=== PATIENT | female | born 1945 | race Caucasian/White ===

== ENCOUNTER 2017-02-11 06:57 | Day surgery (SDC) | payer MEDICARE, OTHER ==
[2017-02-09 11:11] VITALS: BMI 35.2
[~2017-02-11 06:57] MED LIST: LACTATED RINGERS 1,000 ML IV SCH
[2017-02-11 07:17] VITALS: TEMP 97.8
[2017-02-11 07:23] LABS: Glucose,Whole Blood 185 mg/dL (75-99)
[2017-02-11] MEDS ORDERED: LIDOCAINE 1% 20 ML VIAL (10MG/ML) FOR IV START INTRADERMA ONE (07:24)
[2017-02-11] MEDS ORDERED: PROPOFOL 10 MG/ML 20 ML VIAL IV ONE (07:37)
[2017-02-11] MEDS ORDERED: LIDOCAINE 1% INJ 10MG/ML (20 ML MDV) ONE (07:37)
--- NOTE | 2017-02-11 08:01 | P.PCN ---
Date of Procedure: 02/11/17 Procedure(s) Performed: BRIEF HISTORY: Patient is a 71-year-old, pleasant, white female, scheduled for an upper endoscopy as a part of evaluation of epigastric pain for the last several years duration. She does have long-standing history of gastroesophageal reflux symptoms and has been on Prilosec 20 mg twice daily. Because of the persistent symptoms she is scheduled for an upper endoscopy today.. PROCEDURE PERFORMED: Esophagogastroduodenoscopy with biopsy PREOPERATIVE DIAGNOSIS: Chronic Epigastric pain. IV sedation per anesthesia. PROCEDURE: After informed consent was obtained, the patient was brought into the endoscopy unit. IV conscious sedation was administered by Anesthesia under continuous monitoring. Initially the Olympus GIF-140 video endoscope was inserted into the mouth. Esophagus intubated without any difficulty. It was gradually advanced into the stomach and duodenum and carefully examined. The bulb and the second part of the duodenum appeared normal. The scope at this time was withdrawn to the stomach, adequately insufflated with air, and upon careful examination, mucosa of the antrum, had mild gastritis and biopsies were done from this area. The body, cardia and the fundus appeared normal. The scope was then withdrawn into the esophagus. The GE junction was located at 39 cm from the incisors. The esophagus appeared normal. There were no erosions or ulcerations seen and the patient tolerated the procedure well. IMPRESSION: 1. Mild antral gastritis. 2. No evidence of esophagitis or peptic ulcer disease. RECOMMENDATIONS: The findings of this examination were discussed with the patient as well as her family. She was advised to follow with the biopsy results. In the meantime she will continue with Prilosec 20 mg twice daily and follow antireflux measures.
[2017-02-11 08:05] VITALS: RESP 16
[2017-02-11 08:14] LABS: Glucose,Whole Blood 173 mg/dL (75-99)
[2017-02-11 08:15] VITALS: BP 129/71; PULSE 64
--- NOTE | 2017-02-19 09:48 | CDI ---
Dr. Merlyn Colin, Due to new rules about charging for conscious sedation, we noted conflicting information about type of sedation between your procedure note (stating IV CONSCIOUS sedation under Procedure heading) and Anesthesia Record which states Unconscious sedation. Because the word CONSCIOUS now has a different meaning for billing, we need you to stop dictating conscious sedation when Anesthesia is involved on your cases. FOR THIS CASE, WE NEED YOU TO DO ADDENDUM TO YOUR PROCED NOTE THAT SAYS "Unconscious" SEDATION instead of CONSCIOUS SEDATION. Thank you bina much for your assistance with this important billing compliance documentation issue. Sincerely, Master Guerra--health information coder Joan Dumas MBA, DAY GUARD, [facility] Radiology Teacher, Derick Larry [phone] [facility]
--- NOTE | 2017-04-01 11:56 | PCN ---
DATE OF SERVICE: 02/11/2017 ADDENDUM: General anesthesia was utilized instead of IV conscious sedation.
== END 2017-02-11 08:54 | disposition home or self-care (01) ==
LOC: ORWHC2ENDO 06:57
PROVIDERS: ATTEND Internal Medicine Gastroenterology
DX: K21.0 Gastro-esophageal reflux disease with esophagitis (principal); K29.50 Unspecified chronic gastritis without bleeding; I10 Essential (primary) hypertension; J45.909 Unspecified asthma, uncomplicated; E11.9 Type 2 diabetes mellitus without complications; E07.9 Disorder of thyroid, unspecified; Z88.3 Allergy status to other anti-infective agents; Z88.2 Allergy status to sulfonamides; Z88.0 Allergy status to penicillin; Z79.82 Long term (current) use of aspirin; Z79.51 Long term (current) use of inhaled steroids; Z79.84 Long term (current) use of oral hypoglycemic drugs; Z79.899 Other long term (current) drug therapy
CPT/HCPCS: 88305; 88342; 43239; J2001; J2704

== ENCOUNTER → 2018-05-14 | Outpatient (CLI) | payer MEDICARE, OTHER ==
--- NOTE | 2018-05-14 14:49 | MR ---
EXAMINATION TYPE: MR lumbar spine wo/w con DATE OF EXAM: 05/14/2018 COMPARISON: Bone survey September 10, 2017 HISTORY: Multiple myeloma and low back pain per order. Pain in back into both legs for 2 months per p atient. TECHNIQUE: Multiplanar, multisequence images of the lumbar spine is performed without and with IV contrast, util izing 9 mL intravenous Gadavist FINDINGS: Sagittal images of the lumbar spine show vertebral body heights and alignment to appear sat isfactory. Multilevel disc desiccation is present. There is multilevel mild disc space narrowing with relative sparing of T12-L1 and L1-L2 levels. There is more moderate to advanced disc space narrowin g L5-S1 level with mild anterior spurring and heterogeneous Modic type II degenerative changes. There is similar Modic type II degenerative change in the inferior L2 endplate. The conus medullaris is no rmal in position and signal ending at inferior L1 level. Overall heterogeneity is present. Mild to mo derate multilevel anterior spurring is seen. Postcontrast images show no suspicious enhancement Axial images show the T12-L1 and L1-L2 levels to appear within normal limits. Axial images at L2-L3 level show mild broad disc bulge mildly effacing anterior thecal sac, bilateral neural foramina are patent. Axial images at L3-L4 level show mild broad disc bulge mildly effacing anterior thecal sac. There is mild facet arthropathy bilaterally. There is mild bilateral anterior inferior neural foraminal narrow ing. Axial images at L4-L5 level show mild to moderate facet degenerative changes bilaterally. There is mi ld effacement posterior lateral thecal sac. There is broad-based posterior disc protrusion minimally effacing anterior thecal sac. Bilateral neural foramina are mildly narrowed. Axial images at L5-S1 level show mild facet arthropathy bilaterally. There is central disc protrusion minimally effacing anterior thecal sac. There is mild to moderate left and mild right-sided anterior inferior neural foraminal narrowing. No suspicious retroperitoneal findings are seen. There is nonspecific enhancement of a single sacral nerve root in the spinal canal on axial images. IMPRESSION: Multilevel degenerative changes in lumbar spine as detailed above.
== END ==
LOC: RADMRIMAIN 13:49
PROVIDERS: ATTEND Internal Medicine Hematology & Oncology
DX: M47.816 Spondylosis without myelopathy or radiculopathy, lumbar region (principal); C90.00 Multiple myeloma not having achieved remission
CPT/HCPCS: 72158; A9581

== ENCOUNTER → 2018-06-16 | Outpatient (CLI) | payer MEDICARE, OTHER ==
--- NOTE | 2018-06-16 16:00 | XR ---
EXAMINATION TYPE: XR chest 2V DATE OF EXAM: 06/16/2018 COMPARISON: 12/05/2015 TECHNIQUE: PA and lateral views submitted. HISTORY: Multiple myeloma FINDINGS: The lungs are clear and there is no pneumothorax, pleural effusion, or focal pneumonia. Evidence of previous vertebroplasty noted. No overt failure. Biapical pleural thickening. Arthropathy of the aura ulders. IMPRESSION: 1. No acute process.
== END | disposition home or self-care (01) ==
LOC: RADXRMAIN 15:43
PROVIDERS: ATTEND Internal Medicine Hematology & Oncology
DX: C90.00 Multiple myeloma not having achieved remission (principal); F41.8 Other specified anxiety disorders; E78.2 Mixed hyperlipidemia; M54.9 Dorsalgia, unspecified
CPT/HCPCS: 71046

== ENCOUNTER → 2019-04-20 | Outpatient (CLI) | payer MEDICARE, OTHER ==
--- NOTE | 2019-04-20 19:52 | MR ---
EXAMINATION TYPE: MR lumbar spine wo/w con DATE OF EXAM: 04/20/2019 COMPARISON: Ms MRI lumbar spine May 14, 2018 HISTORY: Multiple myeloma, back pain, BLE radic TECHNIQUE: Multiplanar, multisequence images of the lumbar spine is performed without and with IV contrast, util izing 10 mL intravenous Gadavist FINDINGS: Sagittal images of the lumbar spine show vertebral body heights and alignment to remain sat isfactory. Multilevel disc desiccation is redemonstrated. There is persistent moderate to severe dis c space narrowing with heterogeneous Modic type II endplate changes L5-S1 level. There is persistent mild disc space narrowing L2-L3 level with Modic type II endplate changes inferior L2 endplate. The c onus medullaris remains normal in position and signal ending inferior L1 level. The bone marrow sign al intensity remains overall heterogeneous without suspicious enhancement. Axial images show the T12-L1 and L1-L2 levels remain within normal limits. Axial images at the L2-L3 level redemonstrate mild broad disc bulge mildly effaces the anterior theca l sac, bilateral neural foramina are patent. No significant change from prior. Axial images at L3-L4 level show [id number] broad disc bulge minimally effacing anterior thecal sac, mild facet degenerative changes are present bilaterally. Bilateral neural foramina are patent. No significant change from prior. Axial images at the L4-L5 level show [id number] facet degenerative changes bilaterally. There i s broad disc bulge with tiny central disc protrusion minimally effacing the anterior thecal sac. Ther e is mild effacement posterior lateral thecal sac. Bilateral neural foramina are minimally narrowed. No significant change from prior. Axial images at the L5-S1 level show mild/moderate facet degenerative changes bilaterally with right paracentral disc protrusion on image 2 effacing the anterior thecal sac, there is asymmetric mild to moderate left-sided neural foraminal narrowing due to left foraminal/lateral disc protrusion componen t. There is mild right-sided neural foraminal narrowing. No significant change from prior. No suspicious incidental retroperitoneal findings are seen. Redemonstration of single enhancing sacra l nerve root unchanged from prior. IMPRESSION: Overall stable findings, multilevel degenerative changes lumbar spine as detailed above p rominent mid to lower lumbar levels.
== END | disposition home or self-care (01) ==
LOC: RADMRIMAIN 15:07
PROVIDERS: ATTEND Internal Medicine Hematology & Oncology
DX: M47.816 Spondylosis without myelopathy or radiculopathy, lumbar region (principal); C90.00 Multiple myeloma not having achieved remission
CPT/HCPCS: 72158; A9585

== ENCOUNTER → 2019-05-03 | Outpatient (CLI) | payer MEDICARE, OTHER ==
[2019-04-28 11:21] VITALS: BMI 46.6
[2019-05-03 11:59] VITALS: BP 148/84; PULSE 69; RESP 18
--- NOTE | 2019-05-03 12:35 | P.PAINCN ---
History of Present Illness - Reason for Consult Consult date: 05/03/19 Back pain - Chief Complaint Back pain - History of Present Illness This a 73-year-old woman who presents our clinic today for evaluation. She has a history of multiple myeloma and low back pain. [facility] and they performed injection therapy for her from February until March of this year. She is unclear as to exactly what procedure she had done. She says they were not helpful for her. She presents today requesting additional assistance with her back pain. She denies bowel or bladder dysfunction. She denies significant weakness in her legs or sensory loss. Review of Systems Positive for intractable back pain. All other systems reviewed were negative Past Medical History Past Medical History: Asthma, Cancer, Chest Pain / Angina, COPD, Diabetes Mellitus, GERD/Reflux, Hyperlipidemia, Hypertension, Osteoarthritis (OA), Skin Disorder, Thyroid Disorder Additional Past Medical History / Comment(s): irregular heartbeat, hiatal hernia, hx ulcer, degenerative disk disease, psoriasis, multiple myeloma, vertigo History of Any Multi-Drug Resistant Organisms: None Reported Past Surgical History: Breast Surgery, Cholecystectomy, Hysterectomy, Tonsillectomy Additional Past Surgical History / Comment(s): surgery for tubal pregancy, left foot heel spurs, selena breast reduction, fatty tissue removed from rt leg, selena cataracts, autologous stem cell transplant Past Anesthesia/Blood Transfusion Reactions: Motion Sickness Additional Past Anesthesia/Blood Transfusion Reaction / Comm: vertigo Smoking Status: Former smoker - Past Family History Daughter(s) Family Medical History: Cancer Father History Unknown: Yes Mother Family Medical History: Coronary Artery Disease (CAD) Sister(s) Family Medical History: Cancer Additional Family Medical History / Comment(s): lung cancer Brother(s) Family Medical History: Dementia Medications and Allergies Home Medications Medication Instructions Recorded Confirmed Type Lansoprazole [Prevacid] 30 mg PO DAILY 11/11/15 05/03/19 History Montelukast [Singulair] 10 mg PO HS 11/11/15 05/03/19 History Venlafaxine HCl ER [Effexor XR] 150 mg PO BID 11/11/15 05/03/19 History Mometasone/Formoterol [Dulera 200 2 puff INHALATION BID 11/12/15 05/03/19 History Mcg/5 Mcg Inhaler] Cholecalciferol [Vitamin D3 (25 5,000 unit PO DAILY 12/13/15 05/03/19 History Mcg = 1000 Iu)] Ipratropium Nebulized [Atrovent 0.5 mg INHALATION QID PRN 12/13/15 05/03/19 History Nebulized 0.2 MG/ML] Verapamil HCl [Verapamil ER] 240 mg PO QAM 12/13/15 05/03/19 History Aspirin [Aspirin EC] 500 mg PO DAILY PRN 02/09/17 05/03/19 History Atorvastatin [Lipitor] 40 mg PO HS 02/09/17 05/03/19 History Acyclovir 400 mg PO QAM 04/28/19 05/03/19 History Calcium Carbonate [Calcium] 600 mg PO QAM 04/28/19 05/03/19 History Dexamethasone 8 mg PO FR 04/28/19 05/03/19 History Gabapentin [Neurontin] 100 mg PO BID 04/28/19 05/03/19 History Glyburide(Dose Unknown) 2 tab PO QAM 04/28/19 05/03/19 History Levothyroxine Sodium [Synthroid] 75 mcg PO DAILY 04/28/19 05/03/19 History Magnesium Oxide [Montes] 500 mg PO DAILY 04/28/19 05/03/19 History Mirtazapine [Remeron (Soluspan)] 30 mg PO QAM PRN 04/28/19 05/03/19 History Pioglitazone [Actos] 30 mg PO DAILY 04/28/19 05/03/19 History Spironolactone [Aldactone] 25 mg PO DAILY 04/28/19 05/03/19 History Allergies Allergy/AdvReac Type Severity Reaction Status Date / Time iodine Allergy Rash/Hives Verified 04/28/19 10:58 Iodine and Iodide Containing Allergy Rash/Hives Verified 04/28/19 10:58 Produc Penicillins Allergy Anaphylaxis Verified 04/28/19 10:58 Sulfa (Sulfonamide Allergy Itching Verified 04/28/19 10:58 Antibiotics) Physical Exam Vitals: Vital Signs Pulse Resp BP 05/03/19 11:46 69 18 148/84 General: The patient is alert and oriented. Patient is not sedated Patient answers all question appropriately. Cardiac: Heart is regular in rate and rhythm Respiratory: Clear to auscultation. No audible wheezes. Abdomen: Soft nontender nondistended. Obese. Musculoskeletal: Strength is normal bilaterally. Sensation is normal bilaterally. Straight leg raise is negative bilaterally. Facet loading maneuvers are negative bilaterally. Neurological: Reflexes are preserved and symmetric bilaterally. Results Comments: Patient had an MRI of her lumbar spine dated 05/14/2018. This reveals mild to moderate disc bulge at L3 4 with effacement of the anterior thecal sac. She also has mild to moderate facet degenerations at L4 5 with a broad-based disc bulge and tiny central disc protrusion effacing the anterior thecal sac. There is also facet degeneration at L5-S1 with a disc protrusion effacing the anterior thecal sac. Assessment and Plan (1) Lumbar spondylosis Current Visit: Yes Status: Acute Code(s): M47.816 - SPONDYLOSIS W/O MYELOPATHY OR RADICULOPATHY, LUMBAR REGION SNOMED Code(s): 686482576 (2) Degenerative lumbar spinal stenosis Narrative/Plan: I requested the patient obtained records from her previous pain clinic. We will review whenever procedure she had done in the medications used. It is possible he has some alternatives that'll be helpful for her. I would be looking mainly a transforaminal epidural steroid injections or translaminar epidural steroid injections with different medications overuse previously. I do not think she is a great candidate for lumbar medial branch nerve blocks as she does not have any significant facet loading symptoms on physical examination. If there is nothing further to offer her than referral to a neurosurgeon may be a reasonable course of action. Current Visit: Yes Status: Acute Code(s): M48.061 - SPINAL STENOSIS, LUMBAR REGION WITHOUT NEUROGENIC GLORIA SNOMED Code(s): 716109288 PQRS Measure Charge Sheet Measure #130: Documentation of Current Meds in Medical Chart: Patient's medications documented in chart Measure #226: Tobacco Use: Screen & Cessation Intervention: Pt not a tobacco user Measure #111: Pneumonia Vaccination: Pneumococcal vaccine administered or previously received Measure #47: Advance Care Plan: Advance care planning discussed & documented, pt chose/unable to give Measure #412: Opioid Treatment Agreement: No documentation of signed opioid treatment agreement Measure #408: Opioid Therapy Follow-up Evaluation: Patient had NO f/u eval minimum every 3 months during opioid therapy Measure #317: Preventitive Care & Scrn High Bld Press & F/U: Normal blood pressure, f/u not required Measure #128: Body Mass Index (BMI) Screening & Follow-up: BMI documented ABOVE normal parameters - f/u documented Measure #131: Pain Assessment & Follow-up: Pain positive & plan documented Measure #431: Unhealthy Alcohol Use Preventative Care & Scrn: Patient not identified as an unhealthy alcohol user PQRS Narrative: Smoking Status Former smoker Blood Pressure 148/84 Pain Intensity [Lower Back] 8 Hx Alcohol Use (MH) No Home Medications: Ambulatory Orders Lansoprazole [Prevacid] 30 mg PO DAILY 11/11/15 Montelukast [Singulair] 10 mg PO HS 11/11/15 Venlafaxine HCl ER [Effexor XR] 150 mg PO BID 11/11/15 Mometasone/Formoterol [Dulera 200 Mcg/5 Mcg Inhaler] 2 puff INHALATION BID 11/12/15 Cholecalciferol [Vitamin D3 (25 Mcg = 1000 Iu)] 5,000 unit PO DAILY 12/13/15 Ipratropium Nebulized [Atrovent Nebulized 0.2 MG/ML] 0.5 mg INHALATION QID PRN 12/13/15 Verapamil HCl [Verapamil ER] 240 mg PO QAM 12/13/15 Aspirin [Aspirin EC] 500 mg PO DAILY PRN 02/09/17 Atorvastatin [Lipitor] 40 mg PO HS 02/09/17 Acyclovir 400 mg PO QAM 04/28/19 Calcium Carbonate [Calcium] 600 mg PO QAM 04/28/19 Dexamethasone 8 mg PO FR 04/28/19 Gabapentin [Neurontin] 100 mg PO BID 04/28/19 Glyburide(Dose Unknown) 2 tab PO QAM 04/28/19 Levothyroxine Sodium [Synthroid] 75 mcg PO DAILY 04/28/19 Magnesium Oxide [Montes] 500 mg PO DAILY 04/28/19 Mirtazapine [Remeron (Soluspan)] 30 mg PO QAM PRN 04/28/19 Pioglitazone [Actos] 30 mg PO DAILY 04/28/19 Spironolactone [Aldactone] 25 mg PO DAILY 04/28/19
== END | disposition home or self-care (01) ==
LOC: PNWHC3 11:38
PROVIDERS: ATTEND Pain Medicine Pain Medicine
DX: M48.061 Spinal stenosis, lumbar region without neurogenic claudication (principal); M99.73 Connective tissue and disc stenosis of intervertebral foramina of lumbar region; M47.816 Spondylosis without myelopathy or radiculopathy, lumbar region; C90.00 Multiple myeloma not having achieved remission; E78.5 Hyperlipidemia, unspecified; J45.909 Unspecified asthma, uncomplicated; E07.9 Disorder of thyroid, unspecified; K21.9 Gastro-esophageal reflux disease without esophagitis; I10 Essential (primary) hypertension; M19.90 Unspecified osteoarthritis, unspecified site; Z87.891 Personal history of nicotine dependence; Z88.0 Allergy status to penicillin; Z88.2 Allergy status to sulfonamides; Z91.048 Other nonmedicinal substance allergy status
CPT/HCPCS: 99211

== ENCOUNTER → 2019-05-10 | Outpatient (CLI) | payer MEDICARE, OTHER ==
[2019-05-10 13:45] VITALS: BP 124/74; PULSE 76; RESP 18
--- NOTE | 2019-05-10 14:22 | P.PAINPG ---
Subjective Progress Note Date: 05/10/19 This is a follow-up visit for this 74 years old female, with a chronic history of severe low back pain, patient had interventional pain procedure done at [facility], transforaminal epidural steroid injections x2 , and caudal epidural steroid injections, and she had 0 benefits from all the proced ures, patient reported that most of her pain in the low back area with radiation to the buttock, with occasional radiation to the groin bilaterally, she ambulates using a walker, patient was diagnosed previously with multiple myeloma, and she is under the care of oncologist Dr. Barba , intensity of the pain interfering with her quality of life, the pain is constant and increases with any activity, patient brought with her on the medical records which was reviewed , which showed the patient had 3 injections at orth[facility] done by Dr. Machado and she had also EMG/nerve conduction study and it showed chronic lumbar spinal stenosis and peripheral polyneuropathy, patient had MRI done at [facility] done 04/20/2019 ,it showed multilevel lumbar degenerative disc disease and multilevel lumbar facet arthropathy, Objective - Vital Signs Vital signs: Vital Signs Temp Pulse 76 05/10/19 13:39 Resp 18 05/10/19 13:39 BP 124/74 05/10/19 13:39 Pulse Ox 95 05/10/19 13:39 - Exam Physical Examinations : -Constitutiona : Cooperative , not in acute distress . -HEENT : nech ; supple , no Lymphadenopathy , normal thyroid size . eyes : no ptosis , no icterus, no photophobia . ENT : normal of hearing , normal oropharynx , no Thrush . - Respiratory : Chest clear to auscultations Bilaterally , no wheezing , no Rhonchi . - Cardiovascula : regular rate and rhythem , S1 , S2 , no S3 , no S4. - Gastrointestina : abdomen soft no tenderness , bowel sounds , no organomegally . - Genitourinary : Defferred . - neurologic : Cranial nerve II to XII intact , no focal neurological deffecit . -psychatric : alert , oriented X 3 , appropriate affect , intact judgment and insight . -Lymphatic : no Lymphadenopathy . - musculoskeltal : Lumber spine moter stegnth lower extremities ,thigh and legs 4/5 Right side , 4/5 Left side deep tendon reflexes : normal Knee Jerk , normal ankle Jerk positive lumber facet Loading Test Range of motion of the lumbar spine Flexion 60 degrees, extension 30 degrees strait leg raising test , positive at 45 degree on the left side and its negative on the right side Fabere test negative bilaterally Sever tenderness over the Sacroiliac joint on the R and L sides Gaenslen test positive bilaterally. Seated flexion test positive bilaterally. Assessment and Plan Plan: Assessment and plan= chronic low back pain secondary to multifactorial cause lumbar degenerative disc disease and lumbar spondylosis with lumbar facet arthropathy, and also patient had bilateral sacroiliitis , patient had no benefit after transforaminal epidural steroid injection and after caudal epidural steroid injections, the patient will be good candidate to have diagnostic medial branch block lumbar area L3 4, L4 5 , L5-S1 , and possible RFA if she had a positive result , and If patient had negative results , then it will be warranted to target the sacroiliac joint etiology Time with Patient: Less than 30 PQRS Measure Charge Sheet Measure #130: Documentation of Current Meds in Medical Chart: Patient's medications documented in chart Measure #226: Tobacco Use: Screen & Cessation Intervention: Pt not a tobacco user Measure #111: Pneumonia Vaccination: Pneumococcal vaccine administered or previously received Measure #47: Advance Care Plan: Advance care planning discussed & documented, pt chose/unable to give Measure #412: Opioid Treatment Agreement: No documentation of signed opioid treatment agreement Measure #408: Opioid Therapy Follow-up Evaluation: Patient had NO f/u eval minimum every 3 months during opioid therapy Measure #317: Preventitive Care & Scrn High Bld Press & F/U: Normal blood pressure, f/u not required Measure #128: Body Mass Index (BMI) Screening & Follow-up: BMI documented ABOVE normal parameters - f/u documented Measure #131: Pain Assessment & Follow-up: Pain positive & plan documented, Follow-up scheduled Measure #431: Unhealthy Alcohol Use Preventative Care & Scrn: Patient not identified as an unhealthy alcohol user PQRS Narrative: Smoking Status Former smoker Blood Pressure 124/74 Pain Intensity [Lower Back] 8 Scale Used Numeric (1 - 10) Hx Alcohol Use (MH) No Home Medications: Ambulatory Orders Lansoprazole [Prevacid] 30 mg PO DAILY 11/11/15 Montelukast [Singulair] 10 mg PO HS 11/11/15 Venlafaxine HCl ER [Effexor XR] 150 mg PO BID 11/11/15 Mometasone/Formoterol [Dulera 200 Mcg/5 Mcg Inhaler] 2 puff INHALATION BID 11/12/15 Cholecalciferol [Vitamin D3 (25 Mcg = 1000 Iu)] 5,000 unit PO DAILY 12/13/15 Ipratropium Nebulized [Atrovent Nebulized 0.2 MG/ML] 0.5 mg INHALATION QID PRN 12/13/15 Verapamil HCl [Verapamil ER] 240 mg PO QAM 12/13/15 Aspirin [Aspirin EC] 500 mg PO DAILY PRN 02/09/17 Atorvastatin [Lipitor] 40 mg PO HS 02/09/17 Acyclovir 400 mg PO QAM 04/28/19 Calcium Carbonate [Calcium] 600 mg PO QAM 04/28/19 Dexamethasone 8 mg PO FR 04/28/19 Gabapentin [Neurontin] 100 mg PO BID 04/28/19 Glyburide(Dose Unknown) 2 tab PO QAM 04/28/19 Levothyroxine Sodium [Synthroid] 75 mcg PO DAILY 04/28/19 Magnesium Oxide [Montes] 500 mg PO DAILY 04/28/19 Mirtazapine [Remeron (Soluspan)] 30 mg PO QAM PRN 04/28/19 Pioglitazone [Actos] 30 mg PO DAILY 04/28/19 Spironolactone [Aldactone] 25 mg PO DAILY 04/28/19 Controlled Substance Measures - Controlled Substance Measures Is patient prescribed a controlled substance at discharge?: No
== END | disposition home or self-care (01) ==
LOC: PNWHC3 13:29
PROVIDERS: ATTEND Specialist
DX: G89.29 Other chronic pain (principal); M51.36 Other intervertebral disc degeneration, lumbar region; M47.816 Spondylosis without myelopathy or radiculopathy, lumbar region; M46.1 Sacroiliitis, not elsewhere classified; Z79.51 Long term (current) use of inhaled steroids; Z79.52 Long term (current) use of systemic steroids; Z79.899 Other long term (current) drug therapy; Z87.891 Personal history of nicotine dependence
CPT/HCPCS: 99211

== ENCOUNTER 2019-05-18 06:42 | Day surgery (SDC) | payer MEDICARE, OTHER ==
[2019-05-13 15:14] VITALS: BMI 44.6
[2019-05-18 07:09] VITALS: TEMP 96
[2019-05-18] MEDS ORDERED: LACTATED RINGERS 1,000 ML IV ONE (07:16)
[2019-05-18] MEDS ORDERED: LIDOCAINE 1% 20 ML VIAL (10MG/ML) FOR IV START INTRADERMA ONE (07:17)
[2019-05-18 07:58] LABS: Glucose,Whole Blood 135 mg/dL (75-99)
[2019-05-18] MEDS ORDERED: LACTATED RINGERS 1,000 ML IV SCH (08:15)
[2019-05-18] MEDS ORDERED: IV FLUID CONTINUATION 1,000 ML IV ONE (08:35)
--- NOTE | 2019-05-18 08:42 | P.PCN ---
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 She reports the first blocks reduce her pain greater than 50%. PROCEDURE DESCRIPTION: the patient was seen and identified in the preop holding area , risks and benefits and possible complications of the procedure and alternative were discussed with the patient, and the patient agreed to proceed with the procedure and signed the consent IV was started and vital signs monitored during the procedure and fluoroscopy was used to maximize the benefit and accuracy of the needle placement, and sedation was given to decrease patient anxiety, patient was taken to the procedure room and placed in prone position vital signs monitored in the back prepped. Under strict sterile technique using a right oblique fluoroscopy ,the junction of the transverse process and the superior articulating process of the right L3- 4 , L4- 5, and L5-S1 vertebra which corresponding to the fluoroscopy image of the eye of the Santi dog on the block side for the medial branches and subsequently , after local infiltration of skin and subcutaneous tissues with lidocaine 1% one mL at each level ,then one 25-gauge Quincke-type needles was placed at the junction of the base of the transverse process and the superior articular process at the appropriate level, and the needle was advanced until the periosteum contacted, needle placement confirmed with AP oblique and lateral view and after appropriate needle placement confirmed, and after negative aspiration, 0.5 mL of Marcaine 0.5% mixed with 40 mg depomedrol in divided doses was injected at each level and the needle subsequently removed and then repeated on the left side. At the end of the procedure and the needles removed and a bandage applied after the skin was cleaned the cleaning solution patient taken to recovery room in stable condition and monitors in the recovery room for 20-30 minutes and discharged home in stable condition after discharge criteria met and patient will follow up with the pain clinic in 2-4 weeks EBL: Minimal COMPLICATION: None.
[2019-05-18 08:58] VITALS: BP 152/65; PULSE 79; RESP 18
--- NOTE | 2019-05-18 12:49 | FL ---
Fluoroscopy HISTORY: Pain 2 seconds fluoroscopy time supplied to the referring clinician. 1 intraoperative C-arm images docume nt the procedure. See dictated report from anesthesia.
== END 2019-05-18 09:14 | disposition home or self-care (01) ==
LOC: ORPAIN 06:42
PROVIDERS: ATTEND Pain Medicine Pain Medicine
DX: M47.26 Other spondylosis with radiculopathy, lumbar region (principal); M51.16 Intervertebral disc disorders with radiculopathy, lumbar region; M48.061 Spinal stenosis, lumbar region without neurogenic claudication; M46.1 Sacroiliitis, not elsewhere classified; C90.00 Multiple myeloma not having achieved remission; G62.9 Polyneuropathy, unspecified; Z79.82 Long term (current) use of aspirin; Z79.890 Hormone replacement therapy; Z79.84 Long term (current) use of oral hypoglycemic drugs; Z79.51 Long term (current) use of inhaled steroids; Z79.899 Other long term (current) drug therapy; Z88.0 Allergy status to penicillin; Z88.2 Allergy status to sulfonamides; Z91.048 Other nonmedicinal substance allergy status
CPT/HCPCS: 64493; 64494; 64495; J2250; J1030; 99152

== ENCOUNTER 2019-06-01 07:25 | Day surgery (SDC) | payer MEDICARE, OTHER ==
[2019-05-25 10:09] VITALS: BMI 45.1
[2019-06-01] MEDS ORDERED: LACTATED RINGERS 1,000 ML IV SCH (07:35)
[2019-06-01 07:45] VITALS: TEMP 96.8
[2019-06-01] MEDS ORDERED: LIDOCAINE 1% 20 ML VIAL (10MG/ML) FOR IV START INTRADERMA ONE (08:01)
[2019-06-01 08:04] LABS: Glucose,Whole Blood 190 mg/dL (75-99)
--- NOTE | 2019-06-01 09:05 | P.PCN ---
Date of Procedure: 06/01/19 Procedure(s) Performed: PREOPERATIVE DIAGNOSIS : Lumbar spondylosis with Facet Arthropathy without myelopathy POSTOPERATIVE DIAGNOSIS: same PROCEDURE: Diagnostic lumbar medial branch block with fluoroscopy at bilateral L3, L4, L5 medial branches ANESTHESIA: Local anesthetic; 2 mg of Versed Surgeon: Farhat Corrales MD PROCEDURE INDICATION: This is a pleasant 73-year-old woman with a history of intractable back pain who presents today for repeat of bilateral lumbar medial branch block. She reports the first blocks reduced her pain by about 50%. PROCEDURE DESCRIPTION: the patient was seen and identified in the preop holding area , risks and benefits and possible complications of the procedure and alternative were discussed with the patient, and the patient agreed to proceed with the procedure and signed the consent IV was started and vital signs monitored during the procedure and fluoroscopy was used to maximize the benefit and accuracy of the needle placement, and sedation was given to decrease patient anxiety, patient was taken to the procedure room and placed in prone position vital signs monitored in the back prepped. Under strict sterile technique using a right oblique fluoroscopy ,the junction of the transverse process and the superior articulating process of the right L4 , L5 vertebra and sacral ala which corresponding to the fluoroscopy image of the eye of the Santi dog on the block side for the medial branches and subsequently , after local infiltration of skin and subcutaneous tissues with lidocaine 1% 0.2 mL at each level ,then 22-gauge 5 inch Quincke-type needles was placed at the junction of the base of the transverse process and the superior articular process at the appropriate level, and the needle was advanced until the periosteum contacted, needle placement confirmed with AP and oblique view and after negative aspiration, 0.5 mL of Marcaine 0.5% was injected at each level and the needle subsequently removed and then repeated on the opposite side. At the end of the procedure, the needles removed and a bandage applied after the skin was cleaned the cleaning solution patient taken to recovery room in stable condition and monitors in the recovery room for 20-30 minutes and discharged home in stable condition after discharge criteria met and patient will follow up with the pain clinic in 2-4 weeks EBL: Minimal COMPLICATION: None.
[2019-06-01] MEDS ORDERED: IV FLUID CONTINUATION 1,000 ML IV ONE (09:13)
[2019-06-01 09:40] VITALS: BP 147/80; PULSE 74; RESP 18
--- NOTE | 2019-06-01 09:58 | FL ---
EXAMINATION TYPE: FL guided pain mgmt statistic DATE OF EXAM: 06/01/2019 HISTORY: Flouroscopy time 10 seconds of fluoroscopy provided. IMPRESSION: 1. Fluoroscopy time.
== END 2019-06-01 09:43 | disposition home or self-care (01) ==
LOC: ORPAIN 07:25
PROVIDERS: ATTEND Anesthesiology
DX: G89.29 Other chronic pain (principal); M47.816 Spondylosis without myelopathy or radiculopathy, lumbar region; C90.00 Multiple myeloma not having achieved remission; M48.061 Spinal stenosis, lumbar region without neurogenic claudication; M46.1 Sacroiliitis, not elsewhere classified; M51.36 Other intervertebral disc degeneration, lumbar region; G62.9 Polyneuropathy, unspecified; Z87.891 Personal history of nicotine dependence; Z79.82 Long term (current) use of aspirin; Z79.890 Hormone replacement therapy; Z79.899 Other long term (current) drug therapy; Z79.51 Long term (current) use of inhaled steroids; Z79.84 Long term (current) use of oral hypoglycemic drugs; Z88.5 Allergy status to narcotic agent; Z88.0 Allergy status to penicillin; Z88.2 Allergy status to sulfonamides
CPT/HCPCS: 64493; 64494; J2250; 99152

== ENCOUNTER → 2019-06-15 | Outpatient (CLI) | payer MEDICARE, OTHER ==
[2019-06-15 11:41] VITALS: BP 153/90; PULSE 82; RESP 18
--- NOTE | 2019-06-15 12:46 | P.PN ---
Subjective Progress Note Date: 06/15/19 This is a 73-year-old lady with history of chronic lower back pain due to lumbar spondylosis without myelopathy. The patient had good relief of her pain after diagnostic lumbar medial branch block. She takes oral non- opioid analgesics at home for her pain. Today, pt denies new-onset weakness, bowel/bladder incontinence, or any other signs or symptoms of cauda equina syndrome. There are no signs of acute intoxication, and no indications of medication diversion or overuse. In addition to above, 13-point review of systems is also negative for chest pain, shortness of breath, changes in vision, changes in hearing, new onset weakness, abdominal pain, diarrhea, extreme fatigue, malaise, fever, skin changes, homicidal or suicidal ideation, or bowel or bladder incontinence. Vital Signs: Reviewed in EMR Gen: AAOx3, NAD HEENT: PERRLA,hearing grossly normal Pulm: resp unlabored Heart:S1,S2, No Mur Neck: supple, trachea midline Neuro exam of the lower extremities: Normal muscle strength bilaterally and symmetrically Straight leg raising test: Negative bilaterally Rob's test: Range of motion of the lumbar spine: Facet loading test: Tenderness in the paravertebral musculature: Positive of the lumbar paravertebral musculature Neuro: CN II-XII grossly intact, Imaging: Reviewed in EMR/chart Assessment: Lumbar spondylosis without myelopathy Morbid obesity Diabetes History of multiple myeloma Plan: 1. Explanation: Opioid and psychological risk scores were reviewed. Diagnoses, prognoses, and multiple treatment options including but not limited to physical therapy, interventional therapies, adjuvant medical therapies, narcotic medica tion therapies, and surgery were discussed with the patient and all questions were answered to the patient's satisfaction. 2. Opioid agreement: We do not prescribe opioids for the patient 3. Counseling: The patient was counseled extensively on SMOKING CESSATION, BODY MASS INDEX, EXERCISE. Specifically, the patient was instructed regarding the importance of smoking cessation, obesity, and exercise in the context of both chronic pain and overall health. 4. Procedures: Scheduled for left lumbar medial branch RFA for levels L3 4, L4- L5, and L5-S1 under fluoroscopic guidance 5. Consultations: None 6. Investigations: None 7. Medications: None 8. Disposition: Return to the above-mentioned procedure as soon as possible 9. Maps were reviewed and were appropriate. PQRS measures: 1-Patient's medications are documented in the chart. 2-Tobacco use is negative, counseling given 3-Patient has had a pneumococcal vaccine. 4-Advanced care planning discussed, patient unable to give 5-Opioid contract signed with the patient. 6-Pain positive, follow-up visit or procedure scheduled 7-Patient's blood pressure measured and documented above normal limits. The patient will follow up with his primary care physician. 8-Patient's weight was measured, and body mass index ABOVE the normal limits, and counseling was done. Patient instructed to follow up with PCP. 9-Patient WAS NOT identified as an unhealthy alcohol user. Objective - Vital Signs Vital signs: Vital Signs Temp Pulse 82 06/15/19 11:36 Resp 18 06/15/19 11:36 BP 153/90 06/15/19 11:36 Pulse Ox Intake & Output 06/14/19 06/15/19 06/15/19 18:59 06:59 18:59 Weight 102.058 kg
== END | disposition home or self-care (01) ==
LOC: PNWHC3 11:25
PROVIDERS: ATTEND Anesthesiology
DX: M47.816 Spondylosis without myelopathy or radiculopathy, lumbar region (principal); E66.01 Morbid (severe) obesity due to excess calories; E11.9 Type 2 diabetes mellitus without complications; Z85.79 Personal history of other malignant neoplasms of lymphoid, hematopoietic and related tissues; Z79.1 Long term (current) use of non-steroidal anti-inflammatories (NSAID)
CPT/HCPCS: 99211

== ENCOUNTER → 2019-06-23 | Day surgery (SDC) | payer MEDICARE, OTHER ==
[2019-06-20 12:08] VITALS: BMI 44.6
[~2019-06-23] MED LIST changes: +IV FLUID CONTINUATION 700 ML IV ONE; +LIDOCAINE 1% 20 ML VIAL (10MG/ML) FOR IV START INTRADERMA ONE
[2019-06-23 07:08] LABS: Glucose,Whole Blood 207 mg/dL (75-99)
[2019-06-23 07:10] VITALS: TEMP 97.2
--- NOTE | 2019-06-23 07:50 | P.PCN ---
Date of Procedure: 06/23/19 Surgeon: Ori Fried Pathology: none sent Condition: stable Disposition: PACU Description of Procedure: PREOPERATIVE DIAGNOSIS: Lumbar spondylosis without myelopathy, morbid obesity POSTOPERATIVE DIAGNOSIS: Lumbar spondylosis without myelopathy,morbid obesity PROCEDURES : Left Radiofrequency thermocoagulation L3-L4, L4-L5, and L5-S1 medial branch, with fluoroscopic guidance ANESTHESIA: IV moderate conscious sedation with versed and fentanyl and local infiltration with lidocaine 1% 5 ml EBL: Minimal PROCEDURE INDICATION: The patient with low back pain secondary to lumbar facet arthropathy who had more than 50% relief of her pain with previous diagnostic lumbar medial branch block with bupivacaine. PROCEDURE DESCRIPTION / TECHNIQUE: The patient was seen and identified in the preoperative area. Risks, benefits, complications, including but not limited to risk of infection ,bleeding , allergic reactions to the medications and no complete pain relief , and alternatives were discussed with the patient, the patient agreed to proceed with the procedure and signed the consent. IV was started. Vital signs remained stable throughout the procedure. Patient was taken to the OR and time out was completed. The patient was placed in the prone position on the procedure table. The lumber area was prepped and draped in the usual sterile fashion. . Vital signs were closely monitored during the procedure .IV sedation was used during the procedure to decrease patients anxiety. The target points were identified as follows: For the L5-S1 level which corresponds to the dorsal ramus of L5 the target point was at the superior medial aspect of the sacral ala on the ---- side of the spine on the AP view of fluoroscopy and for the L3, and L4 medial branches the target points were at the connection between the transverse process and the superior articular process of L4, and L5 vertebra respectively on the left oblique view of fluoroscopy. skin was marked, and localized with 1% lidocaineat these points. Subsequently, an 18 louat720-[id number] radiofrequency needles with a 10-mm curved active tips were advanced guided by fluoroscopy to each of the target points mentioned above in a superior medial direction to get the active tips as parallel as possible to the medial branches tracks. AP, oblique, and lateral views of fluoroscopy were used to verify needle tips position. Each level then underwent motor testing at 2.5 Hz and 0 to 3 volt with local stimulation, but no radicular symptoms down the legs. Thereafter radiofrequency thermocoagulation at 80 degrees celsius for 90 seconds after injecting 1 ml of PF Marcaine 0.5%(3 mls) with 20 mg of Kenalog. At the end of the procedure, the skin was cleansed and bandages were applied. COMPLICATIONS: No acute complications. DISPOSITION / PLANS: The patient was placed in a supine position and transferred to the recovery area in a stable condition for observation and was discharged from the recovery room after meeting discharge criteria. Home discharge instructions given to the patient by the staff. The patient was reexamined prior to discharge. The patient will schedule a follow up in the clinic in 2-4 weeks.
[2019-06-23 08:12] VITALS: BP 136/78; PULSE 81; RESP 17
--- NOTE | 2019-06-23 08:20 | FL ---
Fluoroscopy HISTORY: Pain 12 seconds fluoroscopy time supplied to the referring clinician. 2 intraoperative C-arm images docum ent the procedure. See dictated report from anesthesia.
== END ==
LOC: ORPAIN 06:27
PROVIDERS: ATTEND Anesthesiology
DX: M47.816 Spondylosis without myelopathy or radiculopathy, lumbar region (principal); E66.01 Morbid (severe) obesity due to excess calories; Z68.41 Body mass index [BMI] 40.0-44.9, adult; E11.9 Type 2 diabetes mellitus without complications; Z85.79 Personal history of other malignant neoplasms of lymphoid, hematopoietic and related tissues
CPT/HCPCS: 64635; 64636 ×2; J2250; J3301; J3010; 99152

== ENCOUNTER 2019-07-07 07:24 | Day surgery (SDC) | payer MEDICARE, OTHER ==
[2019-07-01 14:04] VITALS: BMI 42.7
[~2019-07-07 07:24] MED LIST changes: -IV FLUID CONTINUATION 700 ML IV ONE; -LIDOCAINE 1% 20 ML VIAL (10MG/ML) FOR IV START INTRADERMA ONE
[2019-07-07 07:38] VITALS: RESP 16; TEMP 96.9
[2019-07-07 07:57] LABS: Glucose,Whole Blood 126 mg/dL (75-99)
--- NOTE | 2019-07-07 08:24 | P.PCN ---
Date of Procedure: 07/07/19 Procedure(s) Performed: PREOPERATIVE DIAGNOSIS: 1-Lumbar Spondylosis with Facet Arthropathy without myelopathy. 2- Lumber degenerative disc disease POSTOPERATIVE DIAGNOSIS: 1- Lumbar Spondylosis with Facet Arthropathy without myelopathy. 2- Lumber degenerative disc disease PROCEDURES : Right Radiofrequency thermocoagulation, L3-L4, L4-L5, and L5-S1 medial branch, with fluoroscopic guidance (fluoroscopy images available in the radiology department) ANESTHESIA: Moderate sedation with intravenous versed 2 mg and fentaneyl 50 mcg, and local infiltration with Ropivacaine 0.5 % . EBL: Minimal PROCEDURE INDICATION: The patient with low back pain secondary to lumbar facet arthropathy who had more than 50% relief of her pain with previous diagnostic lumbar medial branch block with bupivacaine. PROCEDURE DESCRIPTION / TECHNIQUE: The patient was seen and identified in the preoperative area. Risks, benefits, complications, including but not limited to risk of infection ,bleeding , allergic reactions to the medications and no complete pain releife , and alternatives were discussed with the patient, the patient agreed to proceed with the procedure and signed the consent. IV was started. Vital signs remained stable throughout the procedure. Patient was taken to the OR and time out was completed. The patient was placed in the prone position on the procedure table. The lumber area was prepped and draped in the usual sterile fashion. . Vital signs were closely monitored during the procedure .IV sedation was used during the procedure to decrease patients anxiety. Using AP and then oblique fluoroscopy, the ``eye of the Santi dog corresponding to the connection between the superior and transverse articular processes of right L3, L4, and L5 were identified, marked, and localized with 1% lidocaine. Subsequently, a 18 [id number] radiofrequency cannula with a 10- mm active tip was advanced guided by fluoroscopy to each of the``eyes of the Santi dog at right L3, L4, and L5. Each site then underwent sensory testing at 50 Hz and 0 to 1 volt and motor testing at 2.5 Hz and 0 to 3 volt with local stimulation, but no radicular symptoms down the legs. Thereafter the right L3-4, L4-5, and L5-S1 sites underwent radiofrequency thermocoagulation at 80 degrees celsius for 90 seconds after injecting 0.5 ml of PF Ropivacaine 1ml, then after the thermocoagulation done , 1 ml of the block solution containing Depo-Medrol 40 mg and 3 ml of Ropivacaine 0.5% was injected at the right L3-4 , L4-5 , and L5-S1, levels after negative aspiration of CSF and blood and with no paresthesias. Cannulas were retracted while injecting lidocaine 1% until the needle is out. . At the end of the procedure, the skin was cleansed and bandages were applied. COMPLICATIONS: No acute complications. DISPOSITION / PLANS: The patient was placed in a supine position and tra nsferred to the recovery area in a stable condition for observation and was discharged from the recovery room after meeting discharge criteria. Home discharge instructions given to the patient by the staff. The patient was reexamined prior to discharge. The patient will schedule a follow up in the clinic in 2-4 weeks.
[2019-07-07] MEDS ORDERED: IV FLUID CONTINUATION 1,000 ML IV ONE (08:28)
[2019-07-07 08:54] VITALS: BP 143/84; PULSE 74
--- NOTE | 2019-07-07 09:35 | FL ---
EXAMINATION TYPE: FL guided pain mgmt statistic DATE OF EXAM: 07/07/2019 HISTORY: Flouroscopy time 12 seconds of fluoroscopy provided. IMPRESSION: 1. Fluoroscopy time.
== END 2019-07-07 09:03 | disposition home or self-care (01) ==
LOC: ORPAIN 07:24
PROVIDERS: ATTEND Specialist
DX: M47.816 Spondylosis without myelopathy or radiculopathy, lumbar region (principal); M51.36 Other intervertebral disc degeneration, lumbar region; Z88.0 Allergy status to penicillin; Z88.2 Allergy status to sulfonamides; Z91.048 Other nonmedicinal substance allergy status
CPT/HCPCS: 64635; 64636 ×2; J2250; J1030; J3010; 99152

== ENCOUNTER → 2019-08-01 | Outpatient (CLI) | payer MEDICARE, OTHER ==
[2019-08-01 14:28] VITALS: BP 141/65; PULSE 72; RESP 16
--- NOTE | 2019-08-01 20:51 | P.PAINPG ---
Subjective Progress Note Date: 08/01/19 This is a follow-up visit for this 73 years old female, with a chronic history of severe low back pain, he is diagnosed with lumbar degenerative disc disease and lumbar spondylosis with lumbar facet arthropathy, recently we have done radiofrequency ablation of the medial branch lumbar area, patient comes today she is complaining of severe low back pain mainly in the buttock area bilaterally, she is able to ambulate, she had no motor or sensory deficits, the pain localizing to the buttock area with radiation to the buttock she denies any numbness or tingling sensation Physical Examinations : -Constitutiona : Cooperative , not in acute distress . -HEENT : nech ; supple , no Lymphadenopathy , normal thyroid size . eyes : no ptosis , no icterus, no photophobia . ENT : normal of hearing , normal oropharynx , no Thrush . - Respiratory : Chest clear to auscultations Bilaterally , no w heezing , no Rhonchi . - Cardiovascula : regular rate and rhythem , S1 , S2 , no S3 , no S4. - Gastrointestina : abdomen soft no tenderness , bowel sounds , no organomegally . - Genitourinary : Defferred . - neurologic : Cranial nerve II to XII intact , no focal neurological deffecit . -psychatric : alert , oriented X 3 , appropriate affect , intact judgment and insight . -Lymphatic : no Lymphadenopathy . - musculoskeltal : Lumber spine moter stegnth lower extremities ,thigh and legs 4/5 Right side , 4/5 Left side deep tendon reflexes : normal Knee Jerk , normal ankle Jerk positive lumber facet Loading Test Range of motion of the lumbar spine Flexion 60 degrees, extension 30 degrees strait leg raising test = negative bilaterally Fabere test negative bilaterally Sever tenderness over the Sacroiliac joint on the R and L sides Gaenslen test positive bilaterally. Seated flexion test positive bilaterally. Assessment and plan= chronic low back pain secondary to multifactorial cause lumbar degenerative disc disease and lumbar spondylosis with lumbar facet arthropathy, and also patient had bilateral sacroiliitis , she continued to have severe low back pain after RFA of the medial branch lumbar area Patient could benefit from bilateral sacroiliac joint steroid injections under fluoroscopy guidance Objective - Vital Signs Vital signs: Vital Signs Temp Pulse 72 08/01/19 14:19 Resp 16 09/09/19 14:19 BP 141/65 08/01/19 14:19 Pulse Ox Intake & Output 08/01/19 08/01/19 08/02/19 06:59 18:59 06:59 Weight 95.254 kg PQRS Measure Charge Sheet Measure #130: Documentation of Current Meds in Medical Chart: Patient's medications documented in chart Measure #226: Tobacco Use: Screen & Cessation Intervention: Pt not a tobacco user Measure #111: Pneumonia Vaccination: Pneumococcal vaccine administered or previously received Measure #47: Advance Care Plan: Advance care planning discussed & documented, pt chose/unable to give Measure #412: Opioid Treatment Agreement: No documentation of signed opioid treatment agreement Measure #408: Opioid Therapy Follow-up Evaluation: Patient had NO f/u eval minimum every 3 months during opioid therapy Measure #317: Preventitive Care & Scrn High Bld Press & F/U: Pre-hypertensive or hypertensive BP documented, pt will f/u with PCP Measure #128: Body Mass Index (BMI) Screening & Follow-up: BMI documented ABOVE normal parameters - f/u documented Measure #131: Pain Assessment & Follow-up: Pain positive & plan documented, Follow-up scheduled Measure #431: Unhealthy Alcohol Use Preventative Care & Scrn: Patient not identified as an unhealthy alcohol user PQRS Narrative: Smoking Status Former smoker Blood Pressure 141/65 Pain Intensity [Bilateral 7 Lower Back] Scale Used Numeric (1 - 10) Hx Alcohol Use (MH) No Home Medications: Ambulatory Orders Lansoprazole [Prevacid] 30 mg PO DAILY 11/11/15 Montelukast [Singulair] 10 mg PO DAILY 11/11/15 Venlafaxine HCl ER [Effexor XR] 150 mg PO BID 11/11/15 Mometasone/Formoterol [Dulera 200 Mcg/5 Mcg Inhaler] 2 puff INHALATION BID 11/12/15 Cholecalciferol [Vitamin D3 (25 Mcg = 1000 Iu)] 1,000 unit PO DAILY 12/13/15 Ipratropium Nebulized [Atrovent Nebulized 0.2 MG/ML] 0.5 mg INHALATION QID PRN 12/13/15 Verapamil HCl [Verapamil ER] 240 mg PO QAM 12/13/15 Aspirin [Aspirin EC] 500 mg PO DAILY PRN 02/09/17 Atorvastatin [Lipitor] 40 mg PO HS 02/09/17 Acyclovir 400 mg PO BID 04/28/19 Calcium Carbonate [Calcium] 1,200 mg PO QAM 04/28/19 Levothyroxine Sodium [Synthroid] 75 mcg PO DAILY 04/28/19 Mirtazapine [Remeron (Soluspan)] 30 mg PO HS 04/28/19 Spironolactone [Aldactone] 25 mg PO DAILY 04/28/19 Glimepiride [Amaryl] 4 mg PO [id number] 05/13/19 Magnesium 250 mg PO DAILY 07/01/19 Weekly Injection For Myeloma 1 dose IM WEEKLY 07/01/19 Controlled Substance Measures - Controlled Substance Measures Is patient prescribed a controlled substance at discharge?: No
== END | disposition home or self-care (01) ==
LOC: PNWHC3 13:08
PROVIDERS: ATTEND Specialist
DX: G89.29 Other chronic pain (principal); M51.36 Other intervertebral disc degeneration, lumbar region; M47.816 Spondylosis without myelopathy or radiculopathy, lumbar region; M46.96 Unspecified inflammatory spondylopathy, lumbar region; M46.1 Sacroiliitis, not elsewhere classified; Z79.899 Other long term (current) drug therapy; Z87.891 Personal history of nicotine dependence; Z79.84 Long term (current) use of oral hypoglycemic drugs; Z79.82 Long term (current) use of aspirin
CPT/HCPCS: 99211

== ENCOUNTER → 2019-08-09 | Day surgery (SDC) | payer MEDICARE, OTHER ==
[2019-08-05 13:37] VITALS: BMI 43.7
[~2019-08-09] MED LIST changes: +IV FLUID CONTINUATION 800 ML IV ONE
[2019-08-09 07:54] VITALS: TEMP 98
[2019-08-09 07:58] LABS: Glucose,Whole Blood 249 mg/dL (75-99)
--- NOTE | 2019-08-09 08:31 | P.PCN ---
Date of Procedure: 08/09/19 Procedure(s) Performed: Procedure= bilateral sacral iliac joints steroid injection under fluoroscopy guidance (fluoroscopy image stored on file in the radiology Department ) Preoperative diagnosis= 1-sacroiliitis 2-lumbar degenerative disc disease 3- lumbar facet arthropathy Postoperative diagnosis=1-sacroiliitis 2-lumbar degenerative disc disease 3- lumbar facet arthropathy Complication = none Condition= stable Anesthesia= moderate sedation with intravenous Versed 2 mg , and fentanyl 100 micrograms and local infiltration with lidocaine 1% 5 mL Indication for the procedure= patient complaining of low back pain , examination was positive for severe tenderness over the sacroiliac joints bilaterally and patient diagnosed with sacroiliitis, for this reason he/ she was good candidate for sacroiliac joint steroid injection. Description of the procedure= procedure risk and benefits discussed with the patient, including but not limited, risk of infection and bleeding, and ALLERGIC reaction to the medication and not complete pain relief and patient agreed with the preceding patient taken to the operating room, placed in prone position or standard monitors applied to the patient then after induction of anesthesia back prepped with chlorhexidine 3 times , Then under strict sterile technique, first I did the right sacroiliac joint the which was identified under fluoroscopy guidance been local infiltration of the skin and subcu interstitial with lidocaine 1% then 22-gauge Quincke Needle advanced slowly under fluoroscopy and placed in the right sacroiliac joint needle placement confirmed with AP and oblique and lateral view and after appropriate needle placement confirmed and after negative aspiration, or heme , then Ropivacaine 0.5% 4 mL, and 20 mg of Depo-Medrol mixed together and injected in the right sacroiliac joint after negative aspiration patient tolerated the procedure well without any complication. Then the left sacroiliac joint steroid injection done under strict sterile technique local infiltration of the skin and subcu interstitial at the location of the left sacroiliac joint then a 22-gauge Quincke Needle advanced slowly under fluoroscopy time placed in the left sacroiliac joint, needle placement confirmed with AP and oblique and lateral view then after appropriate needle placement confirmed and after negative aspiration 0.5% Marcaine 4 mL and 20 mg of Depo-Medrol injected in the left sacroiliac joint after negative aspiration patient tolerated the procedure well that any complications and she will follow up in clinic 3 weeks
--- NOTE | 2019-08-09 08:54 | FL ---
Fluoroscopy HISTORY: Pain 6 seconds fluoroscopy time supplied to the referring clinician. 2 intraoperative C-arm images docume nt the procedure. See dictated report from anesthesia.
[2019-08-09 09:03] VITALS: RESP 18
[2019-08-09 09:04] VITALS: BP 172/78; PULSE 77
== END ==
LOC: ORPAIN 07:30
PROVIDERS: ATTEND Specialist
DX: Z88.0 Allergy status to penicillin (principal); Z88.2 Allergy status to sulfonamides; Z91.048 Other nonmedicinal substance allergy status
CPT/HCPCS: J2250; J1030; J3010; G0260

== ENCOUNTER 2019-08-23 06:22 | Day surgery (SDC) | payer MEDICARE, OTHER ==
[2019-08-19 16:22] VITALS: BMI 42.7
[~2019-08-23 06:22] MED LIST changes: -IV FLUID CONTINUATION 800 ML IV ONE
[2019-08-23 06:43] VITALS: TEMP 96.7
[2019-08-23] MEDS ORDERED: LIDOCAINE 1% 20 ML VIAL (10MG/ML) FOR IV START SQ ONE (06:43)
[2019-08-23 06:55] LABS: Glucose,Whole Blood 202 mg/dL (75-99)
--- NOTE | 2019-08-23 07:54 | P.PCN ---
Date of Procedure: 08/23/19 Procedure(s) Performed: Procedure= bilateral sacral iliac joints steroid injection under fluoroscopy guidance (fluoroscopy image stored on file in the radiology Department ) Preoperative diagnosis= 1-sacroiliitis 2-lumbar degenerative disc disease 3- lumbar spondylosis with facet arthropathy Postoperative diagnosis=1-sacroiliitis 2-lumbar degenerative disc disease 3- lumbar spondylosis with facet arthropathy Complication = none Condition= stable Anesthesia= moderate sedation with intravenous Versed 2 mg , and fentanyl 100 micrograms and local infiltration with lidocaine 1% 5 mL Indication for the procedure= patient complaining of low back pain , examination was positive for severe tenderness over the sacroiliac joints bilaterally and patient diagnosed with sacroiliitis, for this reason he/ she was good candidate for sacroiliac joint steroid injection. Description of the procedure= procedure risk and benefits discussed with the patient, including but not limited, risk of infection and bleeding, and ALLERGIC reaction to the medication and not complete pain relief and patient agreed with the preceding patient taken to the operating room, placed in prone position or standard monitors applied to the patient then after induction of anesthesia back prepped with chlorhexidine 3 times , Then under strict sterile technique, first I did the right sacroiliac joint the which was identified under fluoroscopy guidance been local infiltration of the skin and subcu interstitial with lidocaine 1% then 22-gauge Quincke Needle advanced slowly under fluoroscopy and placed in the right sacroiliac joint needle placement confirmed with AP and oblique and lateral view and after appropriate needle placement confirmed and after negative aspiration, or heme , then Ropivacaine 0.5% 4 mL, and 20 mg of Depo-Medrol mixed together and injected in the right sacroiliac joint after negative aspiration patient tolerated the procedure well without any complication. Then the left sacroiliac joint steroid injection done under strict sterile technique local infiltration of the skin and subcu interstitial at the location of the left sacroiliac joint then a 22-gauge Quincke Needle advanced slowly under fluoroscopy time placed in the left sacroiliac joint, needle placement confirmed with AP and oblique and lateral view then after appropriate needle placement confirmed and after negative aspiration 0.5% Marcaine 4 mL and 20 mg of Depo-Medrol injected in the left sacroiliac joint after negative aspiration patient tolerated the procedure well that any complications and she will follow up in clinic 3 weeks
[2019-08-23] MEDS ORDERED: IV FLUID CONTINUATION 450 ML IV ONE (08:02)
[2019-08-23 08:28] VITALS: BP 132/70; PULSE 70; RESP 20
--- NOTE | 2019-08-23 10:57 | FL ---
EXAMINATION TYPE: FL guided pain mgmt statistic DATE OF EXAM: 08/23/2019 HISTORY: Flouroscopy time 5 seconds of fluoroscopy provided. IMPRESSION: 1. Fluoroscopy time.
== END 2019-08-23 08:32 | disposition home or self-care (01) ==
LOC: ORPAIN 06:22
PROVIDERS: ATTEND Specialist
DX: M46.1 Sacroiliitis, not elsewhere classified (principal); M51.36 Other intervertebral disc degeneration, lumbar region; M47.896 Other spondylosis, lumbar region; E11.9 Type 2 diabetes mellitus without complications; Z88.0 Allergy status to penicillin; Z88.2 Allergy status to sulfonamides; Z91.048 Other nonmedicinal substance allergy status
CPT/HCPCS: J2250; J1030; J3010; G0260; 99152

== ENCOUNTER → 2019-09-08 | Outpatient (CLI) | payer MEDICARE, OTHER ==
[2019-09-08 12:46] VITALS: BP 159/90; PULSE 71; RESP 16
--- NOTE | 2019-09-08 13:20 | P.PAINPG ---
Subjective Progress Note Date: 09/08/19 This is a follow-up visit for this 73 years old female, with a chronic history of severe low back pain, he is diagnosed with lumbar degenerative disc disease and lumbar spondylosis with lumbar facet arthropathy, and bilateral sacroiliitis ,we have done radiofrequency ablation of the medial branch lumbar area, and bilateral sacroiliac joint steroid injection , she continued to have severe low back pain mainly in the Right buttock area , she is able to ambulate, she had no motor or sensory deficits, the pain localizing to the right buttock area , she denies any numbness or tingling sensation Objective - Vital Signs Vital signs: Vital Signs Temp Pulse 71 09/08/19 12:37 Resp 16 09/08/19 12:37 BP 159/90 09/08/19 12:37 Pulse Ox 94 L 09/08/19 12:37 Intake & Output 09/07/19 09/08/19 09/08/19 18:59 06:59 18:59 Weight 95.254 kg - Exam Physical Examinations : -Constitutiona : Cooperative , not in acute distress . -HEENT : nech : supple , no Lymphadenopathy , normal thyroid size . eyes : no ptosis , no icterus, no photophobia . - neurologic : Cranial nerve II to XII intact , no focal neurological deffecit . -psychatric : alert , oriented X 3 , appropriate affect , intact judgment and insight . -Lymphatic : no Lymphadenopathy . - musculoskeltal : Lumber spine moter stegnth lower extremities ,thigh and legs 5/5 Right side , 5/5 Left side deep tendon reflexes : normal Knee Jerk , normal ankle Jerk positive lumber facet Loading Test . Sever tenderness over the Sacroiliac joint on the Right Assessment and Plan Plan: Assessment and plan= chronic low back pain secondary to lumbar degenerative disc disease, lumbar spondylosis with lumbar facet arthropathy, sacroiliitis Patient continued to have severe low back pain after an interventional pain therapy. Patient will be good candidate to have medication therapy which will be discussed with her primary care when she will see him next visit She will follow up with the pain clinic when necessary Time with Patient: Less than 30 PQRS Measure Charge Sheet Measure #130: Documentation of Current Meds in Medical Chart: Patient's medications documented in chart Measure #226: Tobacco Use: Screen & Cessation Intervention: Pt not a tobacco user Measure #111: Pneumonia Vaccination: Pneumococcal vaccine administered or previously received Measure #47: Advance Care Plan: Advance care planning discussed & documented, pt chose/unable to give Measure #412: Opioid Treatment Agreement: No documentation of signed opioid treatment agreement Measure #408: Opioid Therapy Follow-up Evaluation: Patient had NO f/u eval minimum every 3 months during opioid therapy Measure #317: Preventitive Care & Scrn High Bld Press & F/U: Pre-hypertensive or hypertensive BP documented, pt will f/u with PCP Measure #128: Body Mass Index (BMI) Screening & Follow-up: BMI documented ABOVE normal parameters - f/u documented Measure #131: Pain Assessment & Follow-up: Pain positive & plan documented, Follow-up scheduled Measure #431: Unhealthy Alcohol Use Preventative Care & Scrn: Patient not identified as an unhealthy alcohol user PQRS Narrative: Smoking Status Former smoker Blood Pressure 159/90 Pain Intensity [Bilateral Leg] 2 Pain Intensity [Buttock] 2 Pain Intensity [Back] 2 Scale Used Numeric (1 - 10) Hx Alcohol Use (MH) No Home Medications: Ambulatory Orders Lansoprazole [Prevacid] 30 mg PO DAILY 11/11/15 Montelukast [Singulair] 10 mg PO DAILY 11/11/15 Venlafaxine HCl ER [Effexor XR] 150 mg PO BID 11/11/15 Mometasone/Formoterol [Dulera 200 Mcg/5 Mcg Inhaler] 2 puff INHALATION BID 11/12/15 Cholecalciferol [Vitamin D3 (25 Mcg = 1000 Iu)] 1,000 unit PO DAILY 12/13/15 Ipratropium Nebulized [Atrovent Nebulized 0.2 MG/ML] 0.5 mg INHALATION QID PRN 12/13/15 Verapamil HCl [Verapamil ER] 240 mg PO QAM 12/13/15 Aspirin [Aspirin EC] 500 mg PO DAILY PRN 02/09/17 Atorvastatin [Lipitor] 40 mg PO HS 02/09/17 Acyclovir 400 mg PO BID 04/28/19 Calcium Carbonate [Calcium] 1,200 mg PO QAM 04/28/19 Levothyroxine Sodium [Synthroid] 75 mcg PO DAILY 04/28/19 Mirtazapine [Remeron (Soluspan)] 30 mg PO HS 04/28/19 Spironolactone [Aldactone] 25 mg PO DAILY 04/28/19 Glimepiride [Amaryl] 4 mg PO [id number]-[id number] 05/13/19 Magnesium 250 mg PO DAILY 07/01/19 Weekly Injection For Myeloma 1 dose IM Q14D 07/01/19 Controlled Substance Measures - Controlled Substance Measures Is patient prescribed a controlled substance at discharge?: No
== END | disposition home or self-care (01) ==
LOC: PNWHC3 12:08
PROVIDERS: ATTEND Specialist
DX: G89.29 Other chronic pain (principal); M51.36 Other intervertebral disc degeneration, lumbar region; M47.816 Spondylosis without myelopathy or radiculopathy, lumbar region; M46.96 Unspecified inflammatory spondylopathy, lumbar region; M46.1 Sacroiliitis, not elsewhere classified; C90.00 Multiple myeloma not having achieved remission; Z87.891 Personal history of nicotine dependence; Z79.82 Long term (current) use of aspirin; Z79.899 Other long term (current) drug therapy; Z79.890 Hormone replacement therapy; Z79.84 Long term (current) use of oral hypoglycemic drugs
CPT/HCPCS: 99211

== ENCOUNTER → 2020-03-28 | Outpatient (CLI) | payer MEDICARE, OTHER | END | disposition home or self-care (01) | LOC: LABWHC1 07:51 | PROVIDERS: ATTEND Internal Medicine Gastroenterology | DX: U07.1 COVID-19 (principal) | CPT/HCPCS: 87635 ==

== ENCOUNTER 2020-03-30 08:07 | Day surgery (SDC) | payer MEDICARE, OTHER ==
[2020-03-28 14:49] VITALS: BMI 37.0
[~2020-03-30 08:07] MED LIST changes: +LIDOCAINE 1% (10MG/ML) FOR IV START INTRADERMA PRN
[2020-03-30 08:45] VITALS: TEMP 97.3
[2020-03-30] MEDS ORDERED: LIDOCAINE 1% (10MG/ML) FOR IV START INTRADERMA ONE (08:45)
[2020-03-30] MEDS ORDERED: LACTATED RINGERS 1,000 ML IV ONE (08:45)
[2020-03-30 08:48] LABS: Glucose,Whole Blood 119 mg/dL (75-99)
[2020-03-30] MEDS ORDERED: PROPOFOL 10 MG/ML 20 ML VIAL IV ONE (09:06)
--- NOTE | 2020-03-30 09:27 | P.PCN ---
Date of Procedure: 03/30/20 Procedure(s) Performed: BRIEF HISTORY: Patient is a 74-year-old pleasant female scheduled for an elective colonoscopy as a part of evaluation of lower abdominal pain and change in bowel habits with chronic diarrhea for the last several weeks duration. Symptoms are gradually improving. She did have a CT of the abdomen and pelvis done that showed questionable lesion in the sigmoid colon and hence scheduled for colonoscopy to evaluate further. PROCEDURE PERFORMED: Colonoscopy. PREOPERATIVE DIAGNOSIS: Abdominal pain/change in bowel habits and abdominal CAT scan with questionable lesion in the sigmoid colon. IV sedation per Anesthesia. PROCEDURE: After informed consent was obtained, the patient, was brought into the endoscopy unit. IV sedation was administered by Anesthesia under continuous monitoring. Digital rectal examination was normal. Initially the Olympus CF-160 flexible video colonoscope was then inserted in the rectum, gradually advanced into the cecum without any difficulty. Careful examination was performed as the scope was gradually being withdrawn. Ileocecal valve and the appendiceal orifice were visualized and appeared normal. Prep was excellent. Mucosa of the cecum, ascending colon, transverse colon, descending colon, sigmoid colon, and rectum appeared normal. Scattered sigmoid diverticulosis. Retroflexion was performed in the rectum and no lesions were seen. The patient tolerated the procedure well. IMPRESSION: Normal-appearing colon from rectum to cecum with no evidence of colorectal neoplasia Scattered sigmoid diverticulosis. RECOMMENDATIONS: Findings of this examination were discussed with the patient as well as a family. She was advised to have a repeat screening colonoscopy in 10 years or earlier if she has any symptoms..
[2020-03-30 10:03] VITALS: BP 127/60; PULSE 78; RESP 18
== END 2020-03-30 10:17 | disposition home or self-care (01) ==
LOC: ORWHC2ENDO 08:07
PROVIDERS: ATTEND Internal Medicine Gastroenterology
DX: K57.30 Diverticulosis of large intestine without perforation or abscess without bleeding (principal); K21.9 Gastro-esophageal reflux disease without esophagitis; I49.9 Cardiac arrhythmia, unspecified; I10 Essential (primary) hypertension; E78.5 Hyperlipidemia, unspecified; J44.9 Chronic obstructive pulmonary disease, unspecified; E11.9 Type 2 diabetes mellitus without complications; E07.9 Disorder of thyroid, unspecified; Z85.89 Personal history of malignant neoplasm of other organs and systems; Z79.84 Long term (current) use of oral hypoglycemic drugs; Z79.1 Long term (current) use of non-steroidal anti-inflammatories (NSAID); Z79.890 Hormone replacement therapy; Z79.899 Other long term (current) drug therapy; Z88.0 Allergy status to penicillin; Z88.2 Allergy status to sulfonamides; Z91.048 Other nonmedicinal substance allergy status
CPT/HCPCS: 45378; J2704

== ENCOUNTER 2020-09-19 07:38 | Day surgery (SDC) | payer MEDICARE, OTHER ==
[2020-09-18 09:35] VITALS: BMI 37.0
[~2020-09-19 07:38] MED LIST changes: -LIDOCAINE 1% (10MG/ML) FOR IV START INTRADERMA PRN
[2020-09-19 08:07] LABS: Glucose,Whole Blood 67 mg/dL (75-99)
[2020-09-19 08:09] VITALS: TEMP 97.7
[2020-09-19] MEDS ORDERED: PROPOFOL 10 MG/ML 20 ML VIAL IV ONE (08:44)
[2020-09-19] MEDS ORDERED: LIDOCAINE 1% INJ 10MG/ML (20 ML MDV) ONE (08:44)
--- NOTE | 2020-09-19 08:53 | P.PCN ---
Date of Procedure: 09/19/20 Procedure(s) Performed: BRIEF HISTORY: Patient is a 75-year-old, pleasant, female scheduled for an upper endoscopy as a part of evaluation of long-standing history of GERD and intermittent dysphagia to solids for the last several years duration.. PROCEDURE PERFORMED: Esophagogastroduodenoscopy with biopsy PREOPERATIVE DIAGNOSIS: GERD/intermittent dysphagia to solids. IV sedation per anesthesia. PROCEDURE: After informed consent was obtained, the patient was brought into the endoscopy unit. IV sedation was administered by Anesthesia under continuous monitoring. Initially the Olympus GIF-140 video endoscope was inserted into the mouth. Esophagus intubated without any difficulty. It was gradually advanced into the stomach and duodenum and carefully examined. The bulb and the second part of the duodenum appeared normal. The scope at this time was withdrawn to the stomach, adequately insufflated with air, and upon careful examination, mucosa of the antrum, scattered erosions and biopsies were done from this area. The body, cardia and the fundus appeared normal. The scope was then withdrawn into the esophagus. The GE junction was located at 39 cm from the incisors. The esophagus appeared normal. There were no erosions or ulcerations seen, no evidence of esophageal stricture. Biopsies were done from the distal esophagus and the patient tolerated the procedure well. IMPRESSION: 1. Normal-appearing esophagus with no evidence of esophagitis or esophageal stricture. 2. mildantral erosive gastritis. RECOMMENDATIONS: The findings of this examination were discussed with the patient as well as her family. She was advised to follow with the biopsy results. She will continue with lansoprazole 30 mg dailyand follow antireflux measures..
[2020-09-19 09:01] LABS: Glucose,Whole Blood 68 mg/dL (75-99)
[2020-09-19 09:08] VITALS: PULSE 67; RESP 18
[2020-09-19 09:32] VITALS: BP 132/74
== END 2020-09-19 09:33 | disposition home or self-care (01) ==
LOC: ORWHC2ENDO 07:38
PROVIDERS: ATTEND Internal Medicine Gastroenterology
DX: K29.50 Unspecified chronic gastritis without bleeding (principal); K21.9 Gastro-esophageal reflux disease without esophagitis; I10 Essential (primary) hypertension; E78.5 Hyperlipidemia, unspecified; J44.9 Chronic obstructive pulmonary disease, unspecified; F32.9 Major depressive disorder, single episode, unspecified; E11.9 Type 2 diabetes mellitus without complications; E07.9 Disorder of thyroid, unspecified; Z90.49 Acquired absence of other specified parts of digestive tract; Z88.0 Allergy status to penicillin; Z88.2 Allergy status to sulfonamides; Z91.041 Radiographic dye allergy status; Z90.710 Acquired absence of both cervix and uterus; Z98.890 Other specified postprocedural states; Z79.890 Hormone replacement therapy; Z79.82 Long term (current) use of aspirin; Z79.899 Other long term (current) drug therapy; Z91.013 Allergy to seafood; Z79.84 Long term (current) use of oral hypoglycemic drugs
CPT/HCPCS: 88305; 43239; J2001; J2704

== ENCOUNTER → 2020-09-27 | Outpatient (CLI) | payer MEDICARE, OTHER ==
--- NOTE | 2020-09-27 15:50 | CONS ---
CONSULTATION DATE OF SERVICE: 09/27/2020 This patient is a 75-year-old lady who has been evaluated in [facility] Center for obstructive sleep apnea-hypopnea syndrome. HISTORY OF PRESENT ILLNESS/SLEEP-WAKE EVALUATION: The patient was diagnosed with obstructive sleep apnea 10 years ago. At that time she was started on CPAP but was not able to use CPAP equipment, and she stopped using the equipment about one month after starting it. Patient returns to the Sleep Center now because she has a lot of symptoms of obstructive sleep apnea and wants to find a way of treatment. Her sleep schedule presently is from 1 a.m. until 10 a.m. She does have problems with falling asleep, although no TV in the bedroom. She usually sleeps on the side position. She snores and wakes up from sleep every 1 or 2 hours and has to go to the restroom up to 6 times. Her weight changes up and down. In the morning the patient wakes up tired, has difficulties paying attention, falling asleep during the day, has problems with memory and depression. Lamar Sleepiness Scale is significantly increased at 15. She may take one nap at 11 a.m. PAST MEDICAL HISTORY: Positive for hypertension, hyperlipidemia, asthma, headaches, acid reflux, diabetes mellitus, hypothyroidism, multiple myeloma, episodes of cardiac arrhythmia. PAST SURGICAL HISTORY: Hysterectomy, breast reduction, surgery for cataract. MEDICATIONS: 1. Verapamil 20 mg once a day. 2. Atorvastatin 80 mg once a day. 3. Acyclovir 400 mg twice a day. 4. Montelukast 10 mg once a day. 5. Spironolactone 25 mg once a day. 6. Venlafaxine 150 mg twice a day. 7. Pioglitazone 30 mg once a day. 8. Metformin 850 mg twice a day. 9. Glimepiride 4 mg once a day. 10.Levothyroxine 75 mcg once a day. 11.Gabapentin 100 mg up to 3 times . 12.Famotidine 20 mg twice a day. SOCIAL HISTORY: Positive for smoking for 35 years up to 1-1/2 packs, quit about 10 years ago. Alcohol consumption none. FAMILY HISTORY: Hypertension, heart problems. REVIEW OF SYSTEMS: Multiple awakenings during sleep. Sleepiness during the day. PHYSICAL EXAMINATION: GENERAL: A pleasant lady without distress. VITAL SIGNS: BP 142/64, HR 78, RR 15, height 4 feet 11 inches, weight 197 pounds, BMI 39.7, temperature 97.5, oxygen saturation at room air 95%. HEENT: PERRLA, EOMI. Evaluation of oropharynx showed tongue protrudes midline. Position of soft palate Mallampati II, but very short distance between soft palate and posterior pharyngeal wall. Wide pillars. NECK: Supple. No JVD. Thyroid is not palpable. LUNGS: Clear to percussion and to auscultation. Good air exchange. No wheezing or rhonchi. HEART: S1, S2 regular. No murmurs, gallops or rubs. ABDOMEN: Slightly obese. EXTREMITIES: No clubbing or cyanosis. TOBACCO STRIPPER HAND: Awake, alert, and oriented X3. Cranial nerves 2 to 7 intact. There is no fasciculation or atrophy. noted. No focal deficits observed. IMPRESSION: 1. Snoring, multiple awakenings from sleep with nocturia, history of obstructive sleep apnea in the past, sleepiness, small oropharyngeal air space; obstructive sleep apnea-hypopnea syndrome. 2. Obesity; body mass index 39.7. 3. Insomnia with difficulties initiating sleep. 4. Hypertension. 5. History of cardiac arrhythmia. 6. Hyperlipidemia. 7. Asthma. 8. Headaches. 9. Acid reflux. 10.Diabetes mellitus. 11.Hypothyroidism. 12.Multiple myeloma. 13.Status post hysterectomy. 14.Status post breast reduction. 15.Status post cataract surgery. PLAN: 1. Polysomnography for evaluation of patient's breathing during sleep. 2. CPAP/BiPAP titration if sleep study confirms obstructive sleep apnea-hypopnea syndrome. 3. Preferable position during sleep on the side. 4. No driving if patient feels any sleepiness. 5. I will see patient for follow up visit to explain results of testing and following plan. Thank you very much for referring this patient for consultation. Sincerely, Paul Nicolas MD, PhD, FAASM Diplomat of [employer] [facility] [place] MMODL / DUANE: [phone] /
== END | disposition home or self-care (01) ==
LOC: SLEEP 14:09
PROVIDERS: ATTEND Internal Medicine
DX: G47.33 Obstructive sleep apnea (adult) (pediatric) (principal); I10 Essential (primary) hypertension; E78.5 Hyperlipidemia, unspecified; J45.909 Unspecified asthma, uncomplicated; R51.9 Headache, unspecified; K21.9 Gastro-esophageal reflux disease without esophagitis; E11.9 Type 2 diabetes mellitus without complications; E03.9 Hypothyroidism, unspecified; E66.9 Obesity, unspecified; C90.00 Multiple myeloma not having achieved remission; Z98.49 Cataract extraction status, unspecified eye; Z90.710 Acquired absence of both cervix and uterus; Z98.890 Other specified postprocedural states; Z68.39 Body mass index [BMI] 39.0-39.9, adult; Z79.899 Other long term (current) drug therapy; Z79.2 Long term (current) use of antibiotics; Z79.84 Long term (current) use of oral hypoglycemic drugs; Z79.890 Hormone replacement therapy; Z99.89 Dependence on other enabling machines and devices
CPT/HCPCS: 99211

== ENCOUNTER → 2021-01-02 | Outpatient (CLI) | payer MEDICARE, OTHER ==
--- NOTE | 2021-01-02 18:59 | SFUN ---
SLEEP CENTER FOLLOW UP NOTE DATE OF SERVICE: 01/02/2021 This is a 75-year-old lady who has been followed in Sleep Center for treatment of obstructive sleep apnea-hypopnea syndrome. Recently the patient had a polysomnogram which showed severe obstructive sleep apnea-hypopnea syndrome with apnea-hypopnea index 38 and abnormalities of respiration related to hypopneas, not apneas. Also very significant periodic limb movements have been documented during diagnostic night and during titration. After titration, the patient received her CPAP unit. Today is her first follow-up visit after starting to use her CPAP. The patient used her CPAP for 11 days and then she stopped using it. For 7 days she used it for more than 4 hours and for 4 days less than 4 hours. Average time of usage was 6 hours and 9 minutes. Pressure in the machine was 11.7 and apnea-hypopnea index with the machine was 5.3, which is practically within normal range, more than 7 times better than during diagnostic night. At the same time, the patient does not feel improvements over the quality of her sleep while she is using CPAP equipment. At present she is using a nasal pillow mask, which is the smallest mask, and she does not have significant problems with the mask itself or pressure, but again she feels that the quality of her sleep is better without CPAP. Frederick Sleepiness Scale today is 6. CURRENT MEDICATIONS: Verapamil, atorvastatin, acyclovir, montelukast, spironolactone, venlafaxine, pioglitazone, metformin, glimepiride, levothyroxine, famotidine. PHYSICAL EXAMINATION: GENERAL: A pleasant patient in no distress. VITAL SIGNS: BP 145/67, HR 79, RR 15, oxygen saturation at room air 96%. Weight 195.6 pounds, temperature 98.0. HEENT: PERRLA, EOMI. Evaluation of oropharynx showed tongue protrudes midline. NECK: Supple. No JVD. Thyroid is not palpable. LUNGS: Clear to percussion and to auscultation. Good air exchange. No wheezing or rhonchi. HEART: S1, S2 regular. No murmurs, gallops or rubs. ABDOMEN: Soft and nontender. Bowel sounds are present. No organomegaly appreciated. EXTREMITIES: No clubbing or cyanosis. GRAIN SAMPLER: Awake, alert, and oriented X3. Cranial nerves 2 to 7 intact. There is no fasciculation or atrophy. noted. No focal deficits observed. IMPRESSION: 1. Severe obstructive sleep apnea-hypopnea syndrome, mostly related to hypopneas. The patient tried to use CPAP equipment, and respiration on treatment with CPAP normalized. The patient refuses to continue to use the treatment because she feels that her sleep with the CPAP is worse than without CPAP. 2. Extremely severe periodic limb movements during diagnostic night and during titration. 3. Obesity. 4. Hypertension. 5. History of cardiac arrhythmia. 6. Hyperlipidemia. 7. Asthma. 8. Headaches. 9. Acid reflux. 10.Diabetes mellitus. 11.Hypothyroidism. 12.History of multiple myeloma. 13.Status post hysterectomy. 14.Status post breast reduction. 15.Status post cataract surgery. PLAN: 1. I extensively discussed with the patient in detail results of her sleep studies and strongly recommended that she continue to use CPAP equipment. I discussed with the patient negative effects of no treatment of sleep apnea, including risk of stroke, dementia, hypertension, diabetes, cardiac arrhythmia. 2. Losing weight. 3. Sleep hygiene with regular time in bed for 7-1/2 hours. 4. No driving if feeling any sleepiness. Thank you very much for allowing me to participate in the management of your patient. Sincerely, Paul Nicolas MD, PhD, FAASM Diplomat of [employer] [employer] [facility] [place] GUSTAVO / DUANE: [id number] /
== END | disposition home or self-care (01) ==
LOC: SLEEP 13:19
PROVIDERS: ATTEND Internal Medicine
DX: G47.33 Obstructive sleep apnea (adult) (pediatric) (principal); Z99.89 Dependence on other enabling machines and devices; E66.9 Obesity, unspecified; I10 Essential (primary) hypertension; E78.5 Hyperlipidemia, unspecified; J45.909 Unspecified asthma, uncomplicated; R51.9 Headache, unspecified; K21.9 Gastro-esophageal reflux disease without esophagitis; E11.9 Type 2 diabetes mellitus without complications; E03.9 Hypothyroidism, unspecified; Z90.710 Acquired absence of both cervix and uterus; Z98.890 Other specified postprocedural states; Z98.49 Cataract extraction status, unspecified eye; Z87.39 Personal history of other diseases of the musculoskeletal system and connective tissue; Z86.79 Personal history of other diseases of the circulatory system

== ENCOUNTER → 2021-06-21 | Outpatient (CLI) | payer MEDICARE, OTHER ==
--- NOTE | 2021-06-23 20:06 | PE ---
EXAMINATION TYPE: PET CT fusion skull to thigh DATE OF EXAM: 06/21/2021 COMPARISON: CT abdomen and pelvis 2012 HISTORY: Multiple myeloma diagnosed 2012 at T4 biopsy had chemotherapy treatment. TECHNIQUE: Following the intravenous administration of 10.93 mCi of F-18 FDG, whole body images are performed from the skull base to the midthigh. Images are reviewed on the computer in the coronal, a xial, and sagittal planes. Reconstructed rotating images are created on independent workstation and reviewed on the computer. A localization and attenuation correction CT is performed in conjunction with the PET scan. Blood glucose level was 116 SCAN: Subsequent Scan FINDINGS: SKULL BASE AND NECK: No areas of abnormal hypermetabolic uptake. CHEST, MEDIASTINUM, AND HILAR REGION: No areas of abnormal hypermetabolic uptake. ABDOMEN AND PELVIS: Nonspecific areas of bowel uptake left abdomen and pelvis. Normal excretion. No a reas of suspicious hypermetabolic uptake. OSSEOUS STRUCTURES: No areas of abnormal hypermetabolic uptake. T4 kyphoplasty noted. Some nonspecifi c subtle lucent lesions throughout the thoracic and lumbar spine. OTHER CT: Low lung volumes and cardiomegaly. Coronary artery calcification. Diverticula in the sigmoid colon. Gallbladder not seen and presumed surgically absent. Uterus surgica lly absent. Disc space narrowing and vacuum disc phenomenon and lower lumbar levels. Multilevel spurring in the s pine. IMPRESSION: No suspicious hypermetabolic lucent lesions to suggest active myelomatous involvement.
== END | disposition home or self-care (01) ==
LOC: RADPETMAIN 13:24
PROVIDERS: ATTEND Internal Medicine Hematology & Oncology
DX: C90.00 Multiple myeloma not having achieved remission (principal)
CPT/HCPCS: 78815; A9552

== ENCOUNTER → 2021-09-03 | Outpatient (CLI) | payer MEDICARE, OTHER ==
--- NOTE | 2021-09-03 17:04 | US ---
EXAMINATION TYPE: US venous doppler duplex LE RT DATE OF EXAM: 09/03/2021 4:55 PM COMPARISON: NONE CLINICAL HISTORY: R22.41 Swelling in right lower limb,M79.661 Pain in right lo. SIDE PERFORMED: Right TECHNIQUE: The lower extremity deep venous system is examined utilizing real time linear array sonog adolph with graded compression, doppler sonography and color-flow sonography. VESSELS IMAGED: Common Femoral Vein Deep Femoral Vein Greater Saphenous Vein * Femoral Vein Popliteal Vein Small Saphenous Vein * Proximal Calf Veins (* superficial vessels) Right Leg: Negative for DVT Small Iniguez's cyst measuring 2.4 x 0.7 x 1.6cm IMPRESSION: No evidence of deep vein thrombosis in the right leg. There is popliteal cyst noted.
== END | disposition home or self-care (01) ==
LOC: RADUSWWP 16:32
PROVIDERS: ATTEND Internal Medicine Hematology & Oncology
DX: M71.21 Synovial cyst of popliteal space [Baker], right knee (principal)

== ENCOUNTER → 2021-10-14 | Outpatient (CLI) | payer MEDICARE, OTHER ==
--- NOTE | 2021-10-15 14:07 | MM ---
Reason for exam: screening (asymptomatic). Last mammogram was performed 8 years and 7 months ago. History: Patient is postmenopausal. Family history of breast cancer in daughter at age 45. Benign core biopsy of the right breast, 2004. Reductions of both breasts, 1998. Took hormonal contraceptives for 4 years. Took estrogen for 4 years. Physical Findings: A clinical breast exam by your physician is recommended on an annual basis and results should be correlated with mammographic findings. MG 3D Screening Mammo W/Cad Bilateral CC and MLO view(s) were taken. Prior study comparison: March 25, 2013, CAD bilateral diagnostic mammogram. There are scattered fibroglandular densities. Finding: There are typically benign dystrophic, round, linear calcifications in both breasts. There is a chronic nodularity in the left breast. There is no discrete abnormality. Increase in number of calcifications since March 25, 2013. ASSESSMENT: Benign, BI-RAD 2 RECOMMENDATION: Routine screening mammogram of both breasts in 1 year.
== END | disposition home or self-care (01) ==
LOC: RADMAMWWP 11:58
PROVIDERS: ATTEND Internal Medicine Hematology & Oncology
DX: Z12.31 Encounter for screening mammogram for malignant neoplasm of breast (principal); Z80.3 Family history of malignant neoplasm of breast; Z78.0 Asymptomatic menopausal state; R92.1 Mammographic calcification found on diagnostic imaging of breast
CPT/HCPCS: 77063; 77067

== ENCOUNTER → 2021-11-14 | Outpatient (CLI) | payer MEDICARE, OTHER ==
--- NOTE | 2021-11-15 06:45 | PE ---
EXAMINATION TYPE: PET CT fusion skull to thigh DATE OF EXAM: 11/14/2021 COMPARISON: Prior PET/CT June 21, 2021 and older studies HISTORY: Multiple myeloma diagnosed in 2013 treated with radiation and chemotherapy. TECHNIQUE: Following the intravenous administration of 9.64 mCi of F-18 FDG, whole body images are p erformed from the skull base to the midthigh. Images are reviewed on the computer in the coronal, ax ial, and sagittal planes. Reconstructed rotating images are created on independent workstation and r eviewed on the computer. A localization and attenuation correction CT is performed in conjunction w ith the PET scan. Blood glucose level equals 112. SCAN: Subsequent Scan FINDINGS: SKULL BASE AND NECK: New increased hypermetabolic uptake posterior left C2 level axial image 24 with out lytic osseous lesion or obvious asymmetric soft tissue mass favors inflammatory etiology. No new areas of abnormal hypermetabolic uptake otherwise seen. CHEST, MEDIASTINUM, AND HILAR REGION: No new areas of abnormal hypermetabolic uptake. ABDOMEN AND PELVIS: Mild diffuse uptake throughout the liver. Correlation. Nonspecific mild diffuse b owel uptake. No new hypermetabolic nodules or masses. OSSEOUS STRUCTURES: Mild hypermetabolic uptake right lateral elements lower cervical spine axial imag e [address] lytic lesion, advanced vertebral degenerative change is present. Mild uptak e left shoulder level favors inflammatory etiology without osseous correlate and localizes to muscle T4 kyphoplasty noted. Some nonspecific subtle lucent lesions throughout the thoracic and lumbar spine . OTHER CT: Low lung volumes and cardiomegaly redemonstrated. Coronary artery calcification is again se en. Diverticula in the sigmoid colon redemonstrated. Gallbladder not seen and presumed surgically absent. Uterus surgically absent. Disc space narrowing and vacuum disc phenomenon and lower lumbar levels. Multilevel spurring in the s pine. IMPRESSION: No suspicious new hypermetabolic lucent lesions to suggest active myelomatous recurrence.
== END | disposition home or self-care (01) ==
LOC: RADPETMAIN 10:10
PROVIDERS: ATTEND Internal Medicine Hematology & Oncology
DX: C90.00 Multiple myeloma not having achieved remission (principal)
CPT/HCPCS: 78815; A9552

== ENCOUNTER 2022-04-21 17:25 | Emergency (ER) | payer MEDICARE, OTHER ==
[2022-04-21 17:59] VITALS: TEMP 98.5
[2022-04-21 18:22] LABS: Appearance,Urine Clear (Clear); Bilirubin,Urine Negative (Negative); Blood,Urine Negative (Negative); Color,Urine Yellow; Glucose,Urine (UA) Negative (Negative); Ketones,Urine Negative (Negative); Leukocyte Esterase,Urine Negative (Negative); Nitrite,Urine Negative (Negative); PH, Urine 5.5 (5.0-8.0); Protein,Urine Trace (Negative); Specific Gravity,Urine 1.014 (1.001-1.035); Urobilinogen,Urine <2.0 mg/dL (<2.0)
[2022-04-21 23:21] LABS: Basophils % (A) 0 %; Eosinophils # (A) 0.2 k/uL (0-0.7); Eosinophils % (A) 3 %; HCT 38.3 % (34.0-46.0); HGB 11.8 gm/dL (11.4-16.0); Lymphocytes # (A) 3.4 k/uL (1.0-4.8); Lymphocytes % (A) 50 %; MCH 31.7 pg (25.0-35.0); MCHC 30.8 g/dL (31.0-37.0); Macrocytosis Slight; Mean Platelet Volume 7.7; Monocytes # (A) 0.5 k/uL (0-1.0); Monocytes % (A) 7 %; Neutrophils # (A) 2.6 k/uL (1.3-7.7); Neutrophils % (A) 38 %; Platelet Count 169 k/uL (150-450); RBC 3.72 m/uL (3.80-5.40); WBC 6.8 k/uL (3.8-10.6)
--- NOTE | 2022-04-21 23:26 | ED ---
General Adult HPI - General Chief complaint: Nausea/Vomiting/Diarrhea Stated complaint: Altered Mental Status/UTI Time Seen by Provider: 04/21/22 22:31 Source: patient Mode of arrival: ambulatory Limitations: no limitations - History of Present Illness Initial comments: This 76-year-old female presents with a complaint of generalized weakness for approximately one month. She states that it is been fairly persistent. She will have it every day. She also complains of occasional nausea. She states that she had decreased appetite last week but this is back to normal now. She's been eating and drinking this past week without difficulty. She also complains of some lower abdominal pain which is more so in the midline which is been fairly persistent for approximately one month as well. She denies any diarrhea or constipation. She denies any fevers or chills. She states that her mood has been fairly irritable as well. She has occasional dysuria but no urinary frequency. She denies any chest pain, cough, or shortness of breath. There are no other complaints or modifying factors. later relates that patient will sometimes get confused but then goes back to normal. He states that she could not find her car the other day. They deny any history of dementia. - Related Data Home Medications Medication Instructions Recorded Confirmed Montelukast [Singulair] 10 mg PO HS 11/11/15 09/19/20 Venlafaxine HCl ER [Effexor XR] 150 mg PO BID 11/11/15 09/19/20 Cholecalciferol [Vitamin D3 (25 1,000 unit PO DAILY 12/13/15 09/19/20 Mcg = 1000 Iu)] Ipratropium Nebulized [Atrovent 0.5 mg INHALATION QID PRN 12/13/15 09/19/20 Nebulized 0.2 MG/ML] Verapamil HCl [Verapamil ER] 120 mg PO QAM 12/13/15 09/19/20 Atorvastatin [Lipitor] 80 mg PO HS 02/09/17 09/19/20 Acyclovir 400 mg PO BID 04/28/19 09/19/20 Calcium Carbonate [Calcium] 1,200 mg PO QAM 04/28/19 09/19/20 Levothyroxine Sodium [Synthroid] 75 mcg PO DAILY 04/28/19 09/19/20 Spironolactone [Aldactone] 25 mg PO DAILY 04/28/19 09/19/20 Glimepiride [Amaryl] 4 mg PO MOTUWE 05/13/19 09/19/20 Magnesium 250 mg PO DAILY 07/01/19 09/18/20 Cyanocobalamin (Vitamin B-12) 1,000 mcg PO DAILY 03/28/20 09/19/20 [Vitamin B-12] Fluticasone/Salmeterol [Advair 1 inhalation PO BID 03/28/20 09/19/20 100-50 Diskus] Pioglitazone [Actos] 30 mg PO DAILY 03/28/20 09/19/20 metFORMIN HCL [Glucophage] 850 mg PO BID 03/28/20 09/19/20 Aspirin 325 mg PO DAILY PRN 09/18/20 09/18/20 Famotidine [Pepcid] 20 mg PO TID 09/18/20 09/19/20 Gabapentin [Neurontin] 100 mg PO TID 09/18/20 09/19/20 Pantoprazole [Protonix] 1 tab PO DAILY 09/18/20 09/19/20 diphenhydrAMINE [Benadryl] 25 mg PO HS PRN 09/18/20 09/19/20 Allergies Allergy/AdvReac Type Severity Reaction Status Date / Time iodine Allergy Rash/Hives Verified 04/21/22 17:59 Iodine and Iodide Containing Allergy Rash/Hives Verified 04/21/22 17:59 Produc Penicillins Allergy Anaphylaxis Verified 04/21/22 17:59 Sulfa (Sulfonamide Allergy Itching Verified 04/21/22 17:59 Antibiotics) Review of Systems ROS Statement: Those systems with pertinent positive or pertinent negative responses have been documented in the HPI. ROS Other: All systems not noted in ROS Statement are negative. Past Medical History Past Medical History: Asthma, Cancer, Chest Pain / Angina, COPD, Diabetes Mellitus, GERD/Reflux, Hyperlipidemia, Hypertension, Osteoarthritis (OA), Skin Disorder, Thyroid Disorder Additional Past Medical History / Comment(s): Current itchy generalized rash , irregular heartbeat, hiatal hernia, hx ulcer, degenerative disk disease, psoriasis, multiple myeloma currently receiving chemo once a week with dr faustin, vertigo, states legs get tired, difficulty swallowing History of Any Multi-Drug Resistant Organisms: None Reported Past Surgical History: Breast Surgery, Cholecystectomy, Hysterectomy, Tonsillectomy Additional Past Surgical History / Comment(s): pain clinic procedures, surgery for tubal pregancy, left foot heel spurs, selena breast reduction, fatty tissue removed from rt leg, selena cataracts, autologous stem cell transplant Past Anesthesia/Blood Transfusion Reactions: Motion Sickness Additional Past Anesthesia/Blood Transfusion Reaction / Comment(s): vertigo Past Psychological History: Depression Smoking Status: Former smoker Past Alcohol Use History: None Reported Past Drug Use History: None Reported - Past Family History Daughter(s) Family Medical History: Cancer Father History Unknown: Yes Sister(s) Family Medical History: Cancer Additional Family Medical History / Comment(s): lung cancer Brother(s) Family Medical History: Dementia General Exam - General Exam Comments Initial Comments: GENERAL: The patient is well nourished and well hydrated. VITAL SIGNS: Heart rate, blood pressure, respiratory rate reviewed as recorded in nurse's notes. EYES: Pupils are round and reactive. Extraocular movements are intact. No conjunctival / lid redness or swelling. ENT: No external evidence of injury, swelling, or ecchymosis. Airway is patent. Throat is clear. NECK: Nontender. No swelling or evidence of injury. No subcutaneous emphysema. Trachea is midline. No thyroid mass. HEART: Regular rate and rhythm. Good peripheral pulses. LUNGS/CHEST: Breath sounds clear and equal bilaterally. No rales, rhonchi, or wheezes. No ecchymosis, subcutaneous emphysema, or tenderness. ABDOMEN: Abdomen soft with mild tenderness midline lower abdomen. No palpable masses or organomegaly. No peritoneal signs. No abdominal wall swelling or ecchymosis. EXTREMITIES: No extremity tenderness. Normal muscle tone and function. No thoracolumbar tenderness. NEUROLOGIC: Sensation is grossly intact. Cranial nerve exam reveals face is symmetrical, tongue is midline, speech is clear. SKIN: No abrasions or ecchymosis is noted. No induration or masses noted. PSYCHIATRIC: Alert and oriented. Appropriate behavior and judgment. Limitations: no limitations Course Vital Signs 04/21/22 17:56 Temperature 98.5 F Pulse Rate 79 Respiratory 16 Rate Blood Pressure 125/56 O2 Sat by Pulse 96 Oximetry Medical Decision Making - Medical Decision Making The patient was seen and examined. All diagnostics were reviewed. An IV is established. She also had a urinalysis which does not show any evidence of infection. EKG is completed and shows a normal sinus rhythm at a rate of 69. There is no acute ST-T wave changes identified. The CO intervals 172, QRS du ration is 87, and the QTC intervals 421. The laboratory overall is unremarkable. The computed tomography scan of abdomen and pelvis does not show any intra-abdominal abnormalities. There is some slight increase in the interstitial lung markings. The patient does not have any signs whatsoever of pneumonia currently. There is no cough, shortness of breath, fevers, or elevation of the white blood cell count. She is informed of her findings in this regard to need to follow-up with her primary care. The exact cause of her symptomatology is not definitively determined in the emergency department. It is felt as though she would benefit from close follow-up with primary care for further evaluation. Return parameters are discussed. - Lab Data Result diagrams: 04/21/22 23:02 04/21/22 23:02 Lab Results 04/21/22 04/21/22 04/21/22 Range/Units 18:12 23:02 23:02 WBC 6.8 (3.8-10.6) k/uL RBC 3.72 L (3.80-5.40) m/uL Hgb 11.8 (11.4-16.0) gm/dL Hct 38.3 (34.0-46.0) % MCV 103.0 H (80.0-100.0) fL MCH 31.7 (25.0-35.0) pg MCHC 30.8 L (31.0-37.0) g/dL RDW 15.0 (11.5-15.5) % Plt Count 169 (150-450) k/uL MPV 7.7 Neutrophils % 38 % Lymphocytes % 50 % Monocytes % 7 % Eosinophils % 3 % Basophils % 0 % Neutrophils # 2.6 (1.3-7.7) k/uL Lymphocytes # 3.4 (1.0-4.8) k/uL Monocytes # 0.5 (0-1.0) k/uL Eosinophils # 0.2 (0-0.7) k/uL Basophils # 0.0 (0-0.2) k/uL Macrocytosis Slight Sodium 139 (137-145) mmol/L Potassium 4.0 (3.5-5.1) mmol/L Chloride 106 (98-107) mmol/L Carbon Dioxide 27 (22-30) mmol/L Anion Gap 6 mmol/L BUN 32 H (7-17) mg/dL Creatinine 1.16 H (0.52-1.04) mg/dL Est GFR (CKD-EPI)AfAm 54 (>60 ml/min/1.73 sqM) Est GFR (CKD-EPI)NonAf 46 (>60 ml/min/1.73 sqM) Glucose 87 (74-99) mg/dL Calcium 9.0 (8.4-10.2) mg/dL Total Bilirubin 0.4 (0.2-1.3) mg/dL AST 25 (14-36) U/L ALT 21 (4-34) U/L Alkaline Phosphatase 89 (38-126) U/L Total Protein 6.1 L (6.3-8.2) g/dL Albumin 3.8 (3.5-5.0) g/dL Lipase 168 (23-300) U/L Urine Color Yellow Urine Appearance Clear (Clear) Urine pH 5.5 (5.0-8.0) Ur Specific [place] 1.014 (1.001-1.035) Urine Protein Trace H (Negative) Urine Glucose (UA) Negative (Negative) Urine Ketones Negative (Negative) Urine Blood Negative (Negative) Urine Nitrite Negative (Negative) Urine Bilirubin Negative (Negative) Urine Urobilinogen <2.0 (<2.0) mg/dL Ur Leukocyte Esterase Negative (Negative) Disposition Clinical Impression: Generalized weakness, Abdominal pain, Nausea, Forgetfulness Disposition: HOME SELF-CARE Condition: Good Instructions (If sedation given, give patient instructions): Weakness (ED), Abdominal Pain (ED) Is patient prescribed a controlled substance at d/c from ED?: No Referrals: Scooter Jefferson MD [Primary Care Provider] - 1-2 days Time of Disposition: 00:48
[2022-04-21 23:31] LABS: Albumin 3.8 g/dL (3.5-5.0); Total Bilirubin 0.4 mg/dL (0.2-1.3); Total Protein 6.1 g/dL (6.3-8.2)
--- NOTE | 2022-04-22 00:01 | CT ---
EXAMINATION TYPE: CT abdomen pelvis wo con DATE OF EXAM: 04/21/2022 COMPARISON: PET CT scan 11/14/2021 HISTORY: pain CT DLP: 1062.4 mGycm Automated exposure control for dose reduction was used. Images obtained from the diaphragm to the floor of the pelvis with no contrast. The lung bases are clear of consolidation. No pleural effusion. Heart is enlarged. There is some coar sening of interstitial markings. No pleural effusion. Liver spleen and stomach pancreas appear intact. The bile ducts are not dilated. Gallbladder appears absent. There is no adrenal mass. Kidneys of normal size. No hydronephrosis. Ureters are not dilated. There i s no retroperitoneal adenopathy. Bladder distends smoothly. There is no inguinal hernia. No free flui d in the pelvis. There is hysterectomy. There are numerous sigmoid diverticula. No diverticulitis. Ap pendix not seen. No sign of thickened appendix. There is no mesenteric edema. No ascites or free air. No bowel obstruction. The lumbar vertebrae have normal alignment. No compression fracture. The bony pelvis shows no fractur e. There is rounded 1 cm lucency in the left iliac bone. This is somewhat elongated and more likely b enign. The sacroiliac joints are intact. Proximal femurs are intact. IMPRESSION: There is some interstitial mild infiltrate at the lung bases. No pleural effusion. No acute abnormali ty within the abdomen and pelvis.
[2022-04-22 01:08] VITALS: BP 148/71; PULSE 71; RESP 18
== END 2022-04-22 01:08 | disposition home or self-care (01) ==
LOC: EC 17:25
DX: R53.1 Weakness (principal); R11.0 Nausea; R10.30 Lower abdominal pain, unspecified; E11.36 Type 2 diabetes mellitus with diabetic cataract; I10 Essential (primary) hypertension; J44.9 Chronic obstructive pulmonary disease, unspecified; E78.5 Hyperlipidemia, unspecified; K21.9 Gastro-esophageal reflux disease without esophagitis; M19.90 Unspecified osteoarthritis, unspecified site; F32.A Depression, unspecified; E07.9 Disorder of thyroid, unspecified; Z87.891 Personal history of nicotine dependence; Z79.82 Long term (current) use of aspirin; Z79.890 Hormone replacement therapy; Z79.84 Long term (current) use of oral hypoglycemic drugs; Z79.51 Long term (current) use of inhaled steroids; Z79.899 Other long term (current) drug therapy
CPT/HCPCS: 36415; 74176; 80053; 81003; 83690; 84443; 85025; 93005; 99285

== ENCOUNTER 2022-05-20 21:27 | Emergency (ER) | payer MEDICARE, OTHER ==
[2022-05-20 21:48] VITALS: BP 138/64; PULSE 64; RESP 18; TEMP 97.8
--- NOTE | 2022-05-20 22:17 | XR ---
EXAMINATION TYPE: XR chest 2V DATE OF EXAM: 05/20/2022 COMPARISON: 06/16/2018 HISTORY: Myeloma TECHNIQUE: 2 views FINDINGS: Heart is normal. Lungs are clear of consolidation. There is upper thoracic vertebroplasty n oted. No heart failure. No pleural effusion. Bony thorax is intact. IMPRESSION: No active cardiopulmonary disease. No change.
== END 2022-05-20 23:31 | disposition left against medical advice (07) ==
LOC: EC 21:27
DX: Z53.21 Procedure and treatment not carried out due to patient leaving prior to being seen by health care provider (principal); C90.00 Multiple myeloma not having achieved remission
CPT/HCPCS: 71046; 99499

== ENCOUNTER → 2022-05-23 | Outpatient (CLI) | payer MEDICARE, OTHER ==
--- NOTE | 2022-05-27 19:17 | PE ---
EXAMINATION TYPE: PET CT fusion skull to thigh DATE OF EXAM: 05/23/2022 COMPARISON: Prior PET/CT November 14, 2021 and older studies. HISTORY: Multiple myeloma progress study. Originally diagnosed in 2013. Completed chemotherapy April 242021 TECHNIQUE: Following the intravenous administration of 8.38 mCi of F-18 FDG, whole body images are p erformed from the skull base to the midthigh. Images are reviewed on the computer in the coronal, ax ial, and sagittal planes. Reconstructed rotating images are created on independent workstation and r eviewed on the computer. A localization and attenuation correction CT is performed in conjunction w ith the PET scan. Blood glucose level equals 88. SCAN: Subsequent Scan FINDINGS: SKULL BASE AND NECK: Resolved hypermetabolic uptake posterior left C2 level current study. No new areas of abnormal hypermetabolic uptake . CHEST, MEDIASTINUM, AND HILAR REGION: Hypermetabolic nodule lateral left breast appears to correspond to contamination is no distinct soft tissue lesion axial image 83 is identified. ABDOMEN AND PELVIS: Mild diffuse uptake throughout the liver redemonstrated. Nonspecific mild diffuse bowel uptake right lower quadrant and pelvis. Normal excretion. No new hypermetabolic lymph nodes or masses. OSSEOUS STRUCTURES: Mild hypermetabolic uptake right lateral elements lower cervical spine prior stud y has resolved. Mild uptake left shoulder level favors inflammatory etiology has resolved in the inte rval. No new abnormal hypermetabolic osseous lesions T4 kyphoplasty noted. Some nonspecific subtle lucent lesions throughout the thoracic and lumbar spine are redemonstrated. OTHER CT: Low lung volumes and cardiomegaly redemonstrated. Coronary artery calcification is again se en. Diverticula in the sigmoid colon redemonstrated. Gallbladder not seen and presumed surgically absent. Uterus surgically absent. Disc space narrowing and vacuum disc phenomenon in the lower lumbar levels and lumbosacral junction.. Multilevel spurring in the spine. Surgical clips lateral right upper thigh with focal muscular atrop hy laterally is redemonstrated. Intramuscular lipomas posterior medial left thigh demonstrated. IMPRESSION: No suspicious new hypermetabolic lucent lesions to suggest active myelomatous recurrence.
== END | disposition home or self-care (01) ==
LOC: RADXRMAIN 11:51
PROVIDERS: ATTEND Internal Medicine Hematology & Oncology
DX: C90.00 Multiple myeloma not having achieved remission (principal)
CPT/HCPCS: 78815; A9552

== ENCOUNTER → 2022-07-25 | Outpatient (CLI) | payer MEDICARE, OTHER ==
--- NOTE | 2022-07-25 13:52 | CT ---
EXAMINATION TYPE: CT brain wo con DATE OF EXAM: 07/25/2022 COMPARISON: None HISTORY: Jaw, arm and hands shaking CT DLP: 1121 mGycm Automated exposure control for dose reduction was used. FINDINGS: The ventricles, basal cisterns and sulci over convexities are within normal limits for the patient's age and there is no mass effect or shift of midline structures. There is no acute intra or extra-axial hemorrhage. The posterior fossa including the brainstem fourth ventricle and cerebellar pontine angles appear jostin ssly normal. Intraorbital contents appear normal and symmetric. Visualized paranasal sinuses and mastoid air cells are well aerated IMPRESSION: NO ACUTE BLEED OR MASS EFFECT.
== END | disposition home or self-care (01) ==
LOC: RADCTMAIN 13:26
PROVIDERS: ATTEND Family Medicine
DX: R29.810 Facial weakness (principal)
CPT/HCPCS: 70450

== ENCOUNTER → 2022-08-13 | Outpatient (CLI) | payer MEDICARE, OTHER ==
--- NOTE | 2022-08-13 12:51 | US ---
EXAMINATION TYPE: US venous doppler duplex LE RT DATE OF EXAM: 08/13/2022 12:46 PM COMPARISON: NONE CLINICAL HISTORY: R22.41 LOCALIZED SWELLING,MASS AND LUMP, RIGHT LOW. Pt states pain in right leg SIDE PERFORMED: Right TECHNIQUE: The lower extremity deep venous system is examined utilizing real time linear array sonog [place] with graded compression, doppler sonography and color-flow sonography. 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
== END | disposition home or self-care (01) ==
LOC: RADUSWWP 12:26
PROVIDERS: ATTEND Internal Medicine Hematology & Oncology
DX: R22.41 Localized swelling, mass and lump, right lower limb (principal)

== ENCOUNTER 2023-02-20 15:49 | Emergency (ER) | payer MEDICARE, OTHER ==
[2023-02-20] MEDS ORDERED: ASPIRIN 81 MG PO STA (16:32)
--- NOTE | 2023-02-20 17:01 | ED ---
General Adult HPI - General Chief complaint: Chest Pain Stated complaint: sent by Dr garces EKG Time Seen by Provider: 02/20/23 16:11 Source: patient, RN notes reviewed, old records reviewed Mode of arrival: ambulatory Limitations: no limitations - History of Present Illness Initial comments: Patient is a 77 female who presents from her Department complaining of chest pain. Describes it as an achy, tightness sensation located in the middle of her chest with occasional involvement of the left shoulder and left neck. Does endorse some chronic lower back discomfort. No pain between his shoulder blades. No associated shortness of breath. States the pain comes and goes with no known associated activity. Chest pain for multiple days all week. No known palliative or provocative factors. No abdominal pain, nausea, vomiting. States she currently doesn't have the was last at about approximately noon. He was sent by her PCP for evaluation here in the emergency department today. EKG was done at the PCPs office. Patient has a history of asthma, COPD, diabetes, hypertension. No history of cardiac disease far she knows. Presents for further evaluation of this time. States she does feel warm when the pain starts, however currently feels fine. Denies any near-syncopal episode. - Related Data Home Medications Medication Instructions Recorded Confirmed Montelukast [Singulair] 10 mg PO HS 11/11/15 02/20/23 Venlafaxine HCl ER [Effexor XR] 150 mg PO DAILY 11/11/15 02/20/23 Acyclovir 400 mg PO BID 04/28/19 02/20/23 Calcium Carbonate [Calcium] 600 mg PO DAILY 04/28/19 02/20/23 Levothyroxine Sodium [Synthroid] 75 mcg PO DAILY 04/28/19 02/20/23 Fluticasone Propion/Salmeterol 1 puff INHALATION RT-BID 03/28/20 02/20/23 [Advair 100-50 Diskus] Pioglitazone [Actos] 30 mg PO DAILY 03/28/20 02/20/23 metFORMIN HCL [Glucophage] 850 mg PO DAILY 03/28/20 02/20/23 Pantoprazole [Protonix] 40 mg PO DAILY 09/18/20 02/20/23 Daniella Back And Body 1 tab PO DAILY 02/20/23 02/20/23 Calcium Carbonate [Tums] 500 mg PO BID 02/20/23 02/20/23 Celecoxib [CeleBREX] 200 mg PO BID 02/20/23 02/20/23 Cholecalciferol [Vitamin D3 (125 125 mcg PO DAILY 02/20/23 02/20/23 Mcg = 5000 Iu)] Gabapentin [Neurontin] 300 mg PO TID 02/20/23 02/20/23 Ipratropium-Albuterol Nebulize 3 ml INHALATION RT-QID PRN 02/20/23 02/20/23 [Duoneb 0.5 mg-3 mg/3 ml Soln] LORazepam [Ativan] 0.5 mg PO BID PRN 02/20/23 02/20/23 Magnesium Gluconate [Magonate] 500 mg PO DAILY 02/20/23 02/20/23 Prochlorperazine [Compazine] 10 mg PO Q6H PRN 02/20/23 02/20/23 Allergies Allergy/AdvReac Type Severity Reaction Status Date / Time iodine Allergy Rash/Hives Verified 02/20/23 18:28 Iodine and Iodide Containing Allergy Rash/Hives Verified 02/20/23 18:28 Produc Penicillins Allergy Anaphylaxis Verified 02/20/23 18:28 Sulfa (Sulfonamide Allergy Itching Verified 02/20/23 18:28 Antibiotics) Review of Systems ROS Statement: Those systems with pertinent positive or pertinent negative responses have been documented in the HPI. Review of Systems: CONST: Denies fever EYES: Denies blurry vision ENT: Denies nasal congestion C/V: Denies current Chest pain RESP: Denies shortness of breath GI: Denies abdominal pain : Denies dysuria SKIN: Denies rash. MSK: Denies joint pain. NEURO: Denies headache ROS Other: All systems not noted in ROS Statement are negative. Past Medical History Past Medical History: Asthma, Cancer, Chest Pain / Angina, COPD, Diabetes Mellitus, GERD/Reflux, Hyperlipidemia, Hypertension, Osteoarthritis (OA), Skin Disorder, Thyroid Disorder Additional Past Medical History / Comment(s): Current itchy generalized rash , irregular heartbeat, hiatal hernia, hx ulcer, degenerative disk disease, psoriasis, multiple myeloma currently receiving chemo once a week with dr faustin, vertigo, states legs get tired, difficulty swallowing History of Any Multi-Drug Resistant Organisms: None Reported Past Surgical History: Breast Surgery, Cholecystectomy, Hysterectomy, Tonsillectomy Additional Past Surgical History / Comment(s): pain clinic procedures, surgery for tubal pregancy, left foot heel spurs, selena breast reduction, fatty tissue removed from rt leg, selena cataracts, autologous stem cell transplant Past Anesthesia/Blood Transfusion Reactions: Motion Sickness Additional Past Anesthesia/Blood Transfusion Reaction / Comment(s): vertigo Past Psychological History: Depression Smoking Status: Former smoker Past Alcohol Use History: None Reported Past Drug Use History: None Reported - Past Family History Daughter(s) Family Medical History: Cancer Father History Unknown: Yes Sister(s) Family Medical History: Cancer Additional Family Medical History / Comment(s): lung cancer Brother(s) Family Medical History: Dementia General Exam - General Exam Comments Initial Comments: General: Appears in no acute distress. HEAD: Normal with no signs of head trauma. EYES: PERRLA, EOMI, conjunctiva normal, no discharge. ENT: Hearing grossly intact, normal oropharynx. RESPIRATORY: Clear breath sounds bilaterally. No wheezes, rales, or rhonchi. C/V: Regular rate and rhythm. S1 and S2 auscultated, no edema, peripheral pulses 2+ and intact throughout ABD: Abd is soft, nontender, nondistended EXT: Normal range of motion, no obvious deformity SKIN: No rashes or lesions observed on exposed skin. NEURO: Alert and oriented 4. Limitations: no limitations Course Vital Signs 02/20/23 02/20/23 02/20/23 16:04 17:45 20:00 Temperature 98.8 F Pulse Rate 60 65 65 Respiratory 16 16 18 Rate Blood Pressure 179/90 171/78 159/73 O2 Sat by Pulse 96 95 96 Oximetry 02/20/23 20:57 Temperature 98 F Pulse Rate 79 Respiratory 16 Rate Blood Pressure 150/72 O2 Sat by Pulse 97 Oximetry Medical Decision Making - Medical Decision Making Was pt. sent in by a medical professional or institution (, PA, ALMOND GRINDER, urgent care, hospital, or intermediate...) When possible be specific @ -Sent by PCPs office over concern for chest pain Did you speak to anyone other than the patient for history (EMS, parent, family, police, friend...)? What history was obtained from this source @ -No Did you review nursing and triage notes (agree or disagree)? Why? @ -I reviewed and agree with nursing and triage notes Were old charts reviewed (outside hosp., previous admission, EMS record, old EKG, old radiological studies, urgent care reports/EKG's, intermediate records)? Report findings @ -Old charts including EKG reviewed from March 2022. Differential Diagnosis (chest pain, altered mental status, abdominal pain women, abdominal pain men, vaginal bleeding, weakness, fever, dyspnea, syncope, headache, dizziness, GI bleed, back pain, seizure, CVA, palpatations, mental health, musculoskeletal)? @ -Differential Chest Pain: Stable Angina, Unstable Angina, STEMI, NSTEMI Aortic Dissection, Pneumothorax, Musculoskeletal, Esophageal Spasm GERD, Cholecystitis, Pancreatitis, Zoster, this is not meant to be an all-inclusive list. EKG interpreted by me (3pts min.). @ -As above X-rays interpreted by me (1pt min.). @ -Chest x-ray shows no obvious cardiopulmonary process. CT interpreted by me (1pt min.). @ -None done U/S interpreted by me (1pt. min.). @ -None done What testing was considered but not performed or refused? (CT, X-rays, U/S, labs)? Why? @ -None What meds were considered but not given or refused? Why? @ -None Did you discuss the management of the patient with other professionals (professionals i.e. , PA, ALMOND GRINDER, lab, RT, psych nurse, transition social worker, forest science professor, teacher, corporate ethics officer, immigration case worker)? Give summary @ -No Was smoking cessation discussed for >3mins.? @ -No Was critical care preformed (if so, how long)? @ -No Were there social determinants of health that impacted care today? How? (Homelessness, low income, unemployed, alcoholism, drug addiction, transportation, low edu. Level, literacy, decrease access to med. care, [facility], rehab)? @ -No Was there de-escalation of care discussed even if they declined (Discuss DNR or withdrawal of care, Hospice)? DNR status @ -No What co-morbidities impacted this encounter? (DM, HTN, Smoking, COPD, CAD, Cancer, CVA, ARF, Chemo, Hep., AIDS, mental health diagnosis, sleep apnea, morbid obesity)? @ -None Was patient admitted / discharged? Hospital course, mention meds given and route, prescriptions, significant lab abnormalities, going to OR and other pertinent info. @ -Based on the patient's presentation and physical exam, presents with multiple denies chest pain. We'll obtain cardio pulmonary workup. She was in agreement this plan. No significant cardiac history. Vital signs within normal limits. Currently no acute complaints at this time. Chest pain does come and go. Patient was given 324 millions of aspirin. EKG is unremarkable. Chest x-ray shows no acute cardio pulmonary process. Labs are remarkable for indeterminate troponin. Remainder the work up is unremarkable. On reevaluation, I did offer the patient observation admission which she declined at this time. She did accept a second troponin which will be obtained at 3 are marked. If this is within acceptable limits and patient have symptomatic she'll be discharged home. She was in agreement this plan. Repeat potassium was obtained and was within normal limits as the first one was hemolyzed. Repeat troponin is undetectable. I gave the patient remained a symptomatically. She'll be discharged home at this time. She was in agreement this plan. She due to precautions discussed. I instructed the patient to follow up with their PCP in the next 1-3 days. I explained that the patient should return to the emergency department if they experience any worsening symptoms. Strict return precautions were discussed with the patient. The patient expressed understanding of these instructions. I answered all questions that the patient had. The patient was discharged home in good condition with their prescriptions and follow up information. Undiagnosed new problem with uncertain prognosis? @ -No Drug Therapy requiring intensive monitoring for toxicity (Heparin, Nitro, Insulin, Cardizem)? @ -No Were any procedures done? @ -No Diagnosis/symptom? @ -Atypical chest pain of unknown etiology Acute, or Chronic, or Acute on Chronic? @ -Acute Uncomplicated (without systemic symptoms) or Complicated (systemic symptoms)? @ -Uncomplicated Side effects of treatment? @ -No Exacerbation, Progression, or Severe Exacerbation? @ -No Poses a threat to life or bodily function? How? (Chest pain, USA, SC, pneumonia, PE, COPD, DKA, ARF, appy, cholecystitis, CVA, Diverticulitis, Homicidal, Suicidal, threat to staff... and all critical care pts) @ -No - Lab Data Result diagrams: 02/20/23 16:43 02/20/23 19:39 Lab Results 02/20/23 02/20/23 02/20/23 Range/Units 16:43 16:43 16:43 WBC 9.8 (3.8-10.6) k/uL RBC 4.52 (3.80-5.40) m/uL Hgb 14.3 (11.4-16.0) gm/dL Hct 43.6 (34.0-46.0) % MCV 96.5 (80.0-100.0) fL MCH 31.5 (25.0-35.0) pg MCHC 32.7 (31.0-37.0) g/dL RDW 15.0 (11.5-15.5) % Plt Count 233 (150-450) k/uL MPV 7.6 Neutrophils % 46 % Lymphocytes % 41 % Monocytes % 7 % Eosinophils % 5 % Basophils % 1 % Neutrophils # 4.5 (1.3-7.7) k/uL Lymphocytes # 4.0 (1.0-4.8) k/uL Monocytes # 0.6 (0-1.0) k/uL Eosinophils # 0.5 (0-0.7) k/uL Basophils # 0.0 (0-0.2) k/uL PT 10.2 (9.0-12.0) sec INR 1.0 (<1.2) APTT 24.4 (22.0-30.0) sec Sodium 136 L (137-145) mmol/L Potassium 5.8 H (3.5-5.1) mmol/L Chloride 103 (98-107) mmol/L Carbon Dioxide 25 (22-30) mmol/L Anion Gap 8 mmol/L BUN 26 H (7-17) mg/dL Creatinine 0.94 (0.52-1.04) mg/dL Est GFR (CKD-EPI)AfAm 68 (>60 ml/min/1.73 sqM) Est GFR (CKD-EPI)NonAf 59 (>60 ml/min/1.73 sqM) Glucose 124 H (74-99) mg/dL Calcium 9.6 (8.4-10.2) mg/dL Magnesium 1.9 (1.6-2.3) mg/dL Total Bilirubin 1.1 (0.2-1.3) mg/dL AST 45 H (14-36) U/L ALT 25 (4-34) U/L Alkaline Phosphatase 67 (38-126) U/L Troponin I (0.000-0.034) ng/mL NT-Pro-B Natriuret Pep pg/mL Total Protein 6.5 (6.3-8.2) g/dL Albumin 4.0 (3.5-5.0) g/dL 02/20/23 02/20/23 02/20/23 Range/Units 16:43 16:43 19:39 WBC (3.8-10.6) k/uL RBC (3.80-5.40) m/uL Hgb (11.4-16.0) gm/dL Hct (34.0-46.0) % MCV (80.0-100.0) fL MCH (25.0-35.0) pg MCHC (31.0-37.0) g/dL RDW (11.5-15.5) % Plt Count (150-450) k/uL MPV Neutrophils % % Lymphocytes % % Monocytes % % Eosinophils % % Basophils % % Neutrophils # (1.3-7.7) k/uL Lymphocytes # (1.0-4.8) k/uL Monocytes # (0-1.0) k/uL Eosinophils # (0-0.7) k/uL Basophils # (0-0.2) k/uL PT (9.0-12.0) sec INR (<1.2) APTT (22.0-30.0) sec Sodium (137-145) mmol/L Potassium 4.9 (3.5-5.1) mmol/L Chloride (98-107) mmol/L Carbon Dioxide (22-30) mmol/L Anion Gap mmol/L BUN (7-17) mg/dL Creatinine (0.52-1.04) mg/dL Est GFR (CKD-EPI)AfAm (>60 ml/min/1.73 sqM) Est GFR (CKD-EPI)NonAf (>60 ml/min/1.73 sqM) Glucose (74-99) mg/dL Calcium (8.4-10.2) mg/dL Magnesium (1.6-2.3) mg/dL Total Bilirubin (0.2-1.3) mg/dL AST (14-36) U/L ALT (4-34) U/L Alkaline Phosphatase (38-126) U/L Troponin I 0.018 (0.000-0.034) ng/mL NT-Pro-B Natriuret Pep 483 pg/mL Total Protein (6.3-8.2) g/dL Albumin (3.5-5.0) g/dL 02/20/23 Range/Units 19:39 WBC (3.8-10.6) k/uL RBC (3.80-5.40) m/uL Hgb (11.4-16.0) gm/dL Hct (34.0-46.0) % MCV (80.0-100.0) fL MCH (25.0-35.0) pg MCHC (31.0-37.0) g/dL RDW (11.5-15.5) % Plt Count (150-450) k/uL MPV Neutrophils % % Lymphocytes % % Monocytes % % Eosinophils % % Basophils % % Neutrophils # (1.3-7.7) k/uL Lymphocytes # (1.0-4.8) k/uL Monocytes # (0-1.0) k/uL Eosinophils # (0-0.7) k/uL Basophils # (0-0.2) k/uL PT (9.0-12.0) sec INR (<1.2) APTT (22.0-30.0) sec Sodium (137-145) mmol/L Potassium (3.5-5.1) mmol/L Chloride (98-107) mmol/L Carbon Dioxide (22-30) mmol/L Anion Gap mmol/L BUN (7-17) mg/dL Creatinine (0.52-1.04) mg/dL Est GFR (CKD-EPI)AfAm (>60 ml/min/1.73 sqM) Est GFR (CKD-EPI)NonAf (>60 ml/min/1.73 sqM) Glucose (74-99) mg/dL Calcium (8.4-10.2) mg/dL Magnesium (1.6-2.3) mg/dL Total Bilirubin (0.2-1.3) mg/dL AST (14-36) U/L ALT (4-34) U/L Alkaline Phosphatase (38-126) U/L Troponin I <0.012 (0.000-0.034) ng/mL NT-Pro-B Natriuret Pep pg/mL Total Protein (6.3-8.2) g/dL Albumin (3.5-5.0) g/dL - EKG Data -: EKG Interpreted by Me EKG Comments: 12-lead Electrocardiogram Interpretation Note EKG was reviewed and interpreted by myself. 12-lead ECG performed at 1633 is interpreted by me as revealing normal sinus rhythm at a rate of 60 beats per minute. [place] is normal. [place] interval is 176 ms, QRS duration is 86 ms, QTc is 404 ms.. There were no ST or T wave abnormalities to suggest myocardial ischemia or injury. R wave progression across the precordium was satisfactory. By my interpretation this EKG is non-diagnostic for acute ischemia. When compared with EKG from March 2022, no significant change. Disposition Clinical Impression: Chest pain Disposition: HOME SELF-CARE Condition: Good Instructions (If sedation given, give patient instructions): Chest Pain (ED) Is patient prescribed a controlled substance at d/c from ED?: No Referrals: Scooter Jefferson MD [Primary Care Provider] - 1-2 days Time of Disposition: 20:35
[2023-02-20 17:12] LABS: Basophils % (A) 1 %; Eosinophils # (A) 0.5 k/uL (0-0.7); Eosinophils % (A) 5 %; HCT 43.6 % (34.0-46.0); HGB 14.3 gm/dL (11.4-16.0); Lymphocytes % (A) 41 %; MCH 31.5 pg (25.0-35.0); MCHC 32.7 g/dL (31.0-37.0); MCV 96.5 fL (80.0-100.0); Mean Platelet Volume 7.6; Monocytes # (A) 0.6 k/uL (0-1.0); Monocytes % (A) 7 %; Neutrophils # (A) 4.5 k/uL (1.3-7.7); Neutrophils % (A) 46 %; Platelet Count 233 k/uL (150-450); RBC 4.52 m/uL (3.80-5.40); WBC 9.8 k/uL (3.8-10.6)
--- NOTE | 2023-02-20 17:15 | XR ---
EXAMINATION TYPE: XR chest 2V DATE OF EXAM: 02/20/2023 COMPARISON: 05/20/2022 HISTORY: Chest pain TECHNIQUE: 2 views FINDINGS: Heart is normal. Lungs are clear of infiltrate. No heart failure. There is vertebroplasty n oted at T5. There is also compression deformity of T6 25%. No pleural effusion. IMPRESSION: No active cardiopulmonary disease. Normal heart. No change
[2023-02-20 17:25] LABS: Calcium 9.6 mg/dL (8.4-10.2); Magnesium 1.9 mg/dL (1.6-2.3); Total Bilirubin 1.1 mg/dL (0.2-1.3); Total Protein 6.5 g/dL (6.3-8.2)
[2023-02-20 17:38] LABS: Potassium 5.8 mmol/L (3.5-5.1)
[2023-02-20 17:41] LABS: Partial Thromboplastin Time 24.4 sec (22.0-30.0); Prothrombin Time 10.2 sec (9.0-12.0)
[2023-02-20] MEDS ORDERED: IBUPROFEN 400 MG TAB PO STA (20:49)
[2023-02-20 20:59] VITALS: BP 150/72; PULSE 79; RESP 16; TEMP 98
== END 2023-02-20 21:10 | disposition home or self-care (01) ==
LOC: EC 15:49
DX: R07.89 Other chest pain (principal); E11.36 Type 2 diabetes mellitus with diabetic cataract; I10 Essential (primary) hypertension; J44.9 Chronic obstructive pulmonary disease, unspecified; E78.5 Hyperlipidemia, unspecified; K21.9 Gastro-esophageal reflux disease without esophagitis; M19.90 Unspecified osteoarthritis, unspecified site; F32.A Depression, unspecified; E07.9 Disorder of thyroid, unspecified; Z79.84 Long term (current) use of oral hypoglycemic drugs; Z79.890 Hormone replacement therapy; Z79.51 Long term (current) use of inhaled steroids; Z79.899 Other long term (current) drug therapy; Z87.891 Personal history of nicotine dependence; Z88.0 Allergy status to penicillin; Z88.2 Allergy status to sulfonamides; Z88.8 Allergy status to other drugs, medicaments and biological substances; Z90.49 Acquired absence of other specified parts of digestive tract
CPT/HCPCS: 36415; 71046; 80053; 83735; 83880; 84132; 84484; 85025; 85610; 85730; 93005; 99285

== ENCOUNTER → 2023-06-02 | Outpatient (CLI) | payer MEDICARE, OTHER ==
--- NOTE | 2023-06-02 19:46 | MR ---
EXAMINATION TYPE: MR cervical spine wo con DATE OF EXAM: 06/02/2023 INDICATION: Patient age: Female; 77 years old; Reason for study: Cervical spondylosis with radiculopathy; PHH. Neck pain into the left side, cervica l spondylosis with radiculopathy COMPARISON: Radiograph 05/25/2023. TECHNIQUE: Multi planar, multi sequence imaging was performed utilizing: T1-weighted, T2-weighted, an d turbo inversion recovery imaging of the cervical spine. IV Contrast: cc none FINDINGS: Alignment: The cervical vertebral bodies have preserved heights. Alignment is within normal limits gi jose j patient positioning. Bones: Bone signal is within normal limits. No abnormal bone marrow edema on inversion recovery seque nces. Multilevel disc degeneration changes with osteophytes and disc space narrowing Cord: The spinal cord is unremarkable with regards to their signal intensity and morphology. Discs: Multilevel disc desiccation is present. C2-C3: No significant disc pathology. The spinal canal is patent. No neural foraminal stenosis. C3-C4: A disc osteophyte complex is present with mild spinal canal stenosis which abuts the anterior spinal cord.. Bilateral facet and uncovertebral joint arthropathy are present with mild right neural foraminal stenosis. The left neural foramen is patent. C4-C5: A disc osteophyte complex is present which minimally narrows the ventral subarachnoid space. Bilateral facet and uncovertebral joint arthropathy are present with moderate mild left neural vandana inal stenosis. C5-C6: No significant disc pathology. The spinal canal is patent. Bilateral facet and uncovertebral joint arthropathy are present with moderate to severe bilateral neural foraminal stenosis. C6-C7: No significant disc pathology. The spinal canal is patent. Bilateral facet and uncovertebral joint arthropathy are present with moderate bilateral neural foraminal stenosis. C7-T1: No significant disc pathology. The spinal canal is patent. No neural foraminal stenosis. Other: None. IMPRESSION: * C3-C4 Central disc protrusion/disc osteophyte complex which abuts the anterior spinal cord. Spinal cord signal is maintained. No evidence for significant spinal canal stenosis. * Mild multilevel disc degeneration changes with neural foraminal stenosis. * C4-C5 moderate right neural foraminal stenosis. * C5-C6 moderate to severe bilateral neural foraminal stenosis. * C6-C7 moderate bilateral neural foraminal stenosis.
== END | disposition home or self-care (01) ==
LOC: RADMRIMAIN 18:56
PROVIDERS: ATTEND Nurse Practitioner Family
DX: M47.22 Other spondylosis with radiculopathy, cervical region (principal); M50.11 Cervical disc disorder with radiculopathy, high cervical region; M99.71 Connective tissue and disc stenosis of intervertebral foramina of cervical region
CPT/HCPCS: 72141

== ENCOUNTER → 2023-06-19 | Outpatient (CLI) | payer MEDICARE, OTHER ==
--- NOTE | 2023-06-20 11:47 | PE ---
EXAMINATION TYPE: PET CT fusion skull to thigh DATE OF EXAM: 06/19/2023 CLINICAL INDICATION:Female, 77 years old with history of C90.00; TECHNIQUE: Following the intravenous administration of 11.22 mCi of F-18 FDG, whole body images are performed from the skull base to the midthigh. Images are reviewed on the computer in the coronal, axial, and sagittal planes. Reconstructed rotating images are created on independent workstation and reviewed on the computer. A non-contrast CT is performed in conjunction with the PET scan. Glucose level 106 mg/dL COMPARISON: CT None, PET/CT 05/23/2022, MRI cervical spine 06/02/2023. FINDINGS: Mediastinal SUV mean is 1.44 . Hepatic parenchyma SUV mean is 2.15.. SKULL BASE AND NECK: No suspicious radiotracer activity. CHEST, MEDIASTINUM, AND HILAR REGION: No suspicious radiotracer activity. ABDOMEN AND PELVIS: No suspicious radiotracer activity. MUSCULOSKELETAL STRUCTURES: No suspicious radiotracer activity. Physiologic uptake along the anterior spine in the area of the longus colli muscle on the left. Max SUV 4.8. Degeneration changes of the l eft glenohumeral joint max SUV 3.2. OTHER CT: Cardiomegaly redemonstrated. Coronary artery atherosclerosis is again seen. Colonic diverti culosis. Uterus surgically absent. Multilevel degeneration changes of the spine. 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 IMPRESSION: No suspicious radiotracer activity.
== END | disposition home or self-care (01) ==
LOC: RADPETMAIN 09:16
PROVIDERS: ATTEND Internal Medicine Hematology & Oncology
DX: C90.00 Multiple myeloma not having achieved remission (principal)
CPT/HCPCS: 78815; A9552

== ENCOUNTER 2023-10-05 05:45 | Day surgery (SDC) | payer MEDICARE, OTHER ==
[2023-10-05] MEDS ORDERED: NITROGLYCERIN SL TABS 0.4 MG TAB SUBLINGUAL PRN ×2 (05:59→09:23)
[2023-10-05] MEDS ORDERED: ALPRAZolam 0.25 MG TAB PO PRN (05:59)
[2023-10-05] MEDS ORDERED: ALPRAZolam 0.5 MG TAB PO PRN (05:59)
[2023-10-05] MEDS ORDERED: SODIUM CHLORIDE 0.9% 1,000 ML IV ONE (06:08)
[2023-10-05] MEDS: SODIUM CHLORIDE 0.9% 1,000 ML in EMPTY BAG 1 BAG IV SCH ×2 (06:30→18:06)
[2023-10-05 06:31] LABS: Glucose,Whole Blood 94 mg/dL (70-110)
[2023-10-05 06:42] LABS: Basophils % (A) 1 %; Eosinophils # (A) 0.4 k/uL (0-0.7); Eosinophils % (A) 5 %; HCT 40.5 % (34.0-46.0); HGB 13.6 gm/dL (11.4-16.0); Lymphocytes # (A) 4.1 k/uL (1.0-4.8); Lymphocytes % (A) 51 %; MCH 32.4 pg (25.0-35.0); MCHC 33.4 g/dL (31.0-37.0); MCV 96.9 fL (80.0-100.0); Mean Platelet Volume 7.6; Monocytes # (A) 0.5 k/uL (0-1.0); Monocytes % (A) 6 %; Neutrophils # (A) 2.9 k/uL (1.3-7.7); Neutrophils % (A) 36 %; Platelet Count 183 k/uL (150-450); RBC 4.18 m/uL (3.80-5.40); WBC 8.1 k/uL (3.8-10.6)
[2023-10-05] MEDS ORDERED: ASPIRIN 325 MG TAB PO ONE (07:00)
[2023-10-05] MEDS ORDERED: HEPARIN SODIUM,PORCINE (1 ML) 2,500 UNIT in SODIUM CHLORIDE 0.9% 250 ML IRRIGATION PRN (07:00)
[2023-10-05] MEDS ORDERED: HEPARIN SODIUM,PORCINE 10,000 UNIT in SODIUM CHLORIDE 0.9% 1,000 ML IRRIGATION PRN (07:00)
[2023-10-05] MEDS: fentaNYL (PF) 50 MCG/ML 2 ML AMP IVP ONE ×2 (07:42→08:35)
[2023-10-05] MEDS ORDERED: LIDOCAINE 2% (PF) 20 MG/ML 5 ML VIAL SQ ONE (07:43)
[2023-10-05] MEDS ORDERED: VERAPAMIL SYRINGE (5 MG/10 ML) INTRAARTER ONE (07:46)
[2023-10-05] MEDS ORDERED: LIDOCAINE 1% INJ 10MG/ML (20 ML MDV) SQ ONE (08:04)
[2023-10-05] MEDS ORDERED: NITROGLYCERIN SL TABS 0.4 MG TAB SUBLINGUAL ONE (08:08)
[2023-10-05] MEDS ORDERED: CLOPIDOGREL 75 MG TAB PO ONE (08:20)
[2023-10-05] MEDS ORDERED: diphenhydrAMINE 50 MG/ML 1 ML VIAL IVP ONE (08:21)
[2023-10-05] MEDS ORDERED: methylPREDNISolone SOD SUCCI 125 MG/2 ML VIAL IV ONE (08:24)
[2023-10-05] MEDS ORDERED: amLODIPine 5 MG TAB PO ONE (08:30)
[2023-10-05] MEDS ORDERED: amLODIPine 5 MG TAB ONE (08:32)
[2023-10-05] MEDS ORDERED: IOPAMIDOL-370 100ML BTL INJ ONE ×2 (08:41→08:47)
[2023-10-05] MEDS ORDERED: hydrALAZINE HCL 20 MG/ML 1 ML VIAL IV ONE (08:50)
[2023-10-05] MEDS ORDERED: MAG HYDROX/AL HYDROX/SIMETH 30 ML CUP PO PRN (09:23)
[2023-10-05] MEDS ORDERED: ATROPINE SULFATE 0.1 MG/ML 10ML SYRINGE IV PRN (09:23)
[2023-10-05] MEDS ORDERED: ZOLPIDEM 5 MG TAB PO PRN (09:23)
[2023-10-05] MEDS ORDERED: SODIUM CHLORIDE 0.9% 1,000 ML in EMPTY BAG 1 BAG IV SCH (09:30)
--- NOTE | 2023-10-05 09:33 | P.CARDCATH ---
Date of Procedure: 10/05/23 Description of Procedure: Cardiac Catheterization: The patient is a 78-year-old female known history of hypertension, hyperlipidemia and diabetes who has been complaining of chest discomfort and had an abnormal MPI. Recommendations were made regarding cardiac catheterization, the risks and the complications were discussed with the patient who is in full understanding and agreement. Procedure Description: Patient was brought to entry level lab technician in fasting semi-sedated state after receiving Fentanyl and Benadryl achieiving moderate conscious sedated state. Using Xylocaine Anesthesia and modified Seldinger technique, a 6-Bermudian sheath was introduced in the right radial artery . Multiple attempts to advance the wire in the ascending aorta were unsuccessful at that time using Xylocaine anesthesia and a micropuncture catheter a 6-Bermudian sheath was introduced in the right femoral artery. Subsequently, selective coronary angiography was performed using a 6-Bermudian 4 bend Debora catheter. Multiple views of the coronary artery including hemiaxial views were obtained. The 6-Bermudian pigtail catheter was used to cross the aortic valve and LVEDP was calculated. PCI: After removing the catheters 6-Bermudian FL 4 guiding catheter was introduced and after cannulating the left main a 0.014 BMW J-wire was positioned in the distal ramus intermedius subsequently a 2.5 x 12 mm Treck balloon was advanced and 2 inflations at maximum of 8 jovita were done, after removing the balloon a 2.75 x 18 mm Xience ariana point was deployed at 16 jovita. After appropriate wait the wire was withdrawn revealed stable successful stenting. Following that, catheter and sheath were removed. Hemostasis was obtained with deployment of vascular band and deployment of an Angio-Seal . There was no immediate complication. Patient was returned to room in stable condition. Of note, the patient received a total of 8500 units of intravenous heparin as well as intra-arterial verapamil. She received an oral loading dose of clopidogrel. Her ACT was monitored. She had chest discomfort that resolved at the end of the procedure. She was hypertensive during the procedure that started to improve at the end. Findings: Fluoroscopy: Calcifications of the coronary arteries was noted. Left main: This is a large size vessel, trifurcating into LAD, left circumflex and ramus intermedius, left main has no obstructive disease LAD: This is a large size vessel, reaching to the apex, giving rise to 3 small diagonal branch. The LAD has mild intimal disease of 10-20% Left circumflex: Is a large nondominant vessel giving rise to large obtuse marginal branch. The left circumflex has mild intimal disease in the ramus intermedius with no high-grade stenosis RCA: This is a dominant vessel, bifurcating distally into PDA and PLV. The midright coronary artery has 30-40 % plaque with no high-grade stenosis Ramus intermedius: This is a large size vessel that has a 99% stenosis proximally, high-grade stenosis Left Ventriculogram: Not performed Hemodynamics: There was no gradient across the aortic valve , LVEDP 14-16 mmHg Conclusion: 1. Calcified coronary arteries 2. Severe stenosis in the proximal ramus intermedius 3. Mild disease in the LAD, RCA and left circumflex 4. Successful stenting of the ramus intermedius with reduction of stenosis from 99% to 0% Recommendations: The patient will continue on aspirin and clopidogrel for 6 months without any interruption in addition to aggressive coronary risks modifications containing the LDL less than 70 mg/dL. The findings and the recommendations were discussed with the patient and the family and they were in full understanding and agreement. Duration of sedation is 80 minutes.
[2023-10-05] MEDS ORDERED: FAMOTIDINE 20 MG/2 ML VIAL IV ONE (09:47)
[2023-10-05] MEDS ORDERED: ONDANSETRON 4 MG/2 ML VIAL ONE (10:04)
[2023-10-05] MEDS ORDERED: ONDANSETRON 4 MG/2 ML VIAL IVP ONE (10:10)
[2023-10-05] MEDS: hydrALAZINE HCL 50 MG TAB PO SCH ×2 (10:56→20:44)
[2023-10-05 15:14] VITALS: BMI 38.2
[2023-10-05] MEDS: GABAPENTIN 300 MG CAP PO SCH ×2 (16:55→20:44)
[2023-10-05] MEDS: amLODIPine 5 MG TAB PO SCH (16:56)
[2023-10-06] MEDS: SODIUM CHLORIDE 0.9% 1,000 ML in EMPTY BAG 1 BAG IV SCH (05:14)
[2023-10-06] MEDS ORDERED: LEVOTHYROXINE 75 MCG TAB PO SCH (06:30)
[2023-10-06 07:31] LABS: African American GFR (CKD) >90 (>60 ml/min/1.73 sqM); Anion Gap 8 mmol/L; Blood Urea Nitrogen 26 mg/dL (7-17); Calcium 8.2 mg/dL (8.4-10.2); Carbon Dioxide 24 mmol/L (22-30); Chloride 109 mmol/L (98-107); Glucose 111 mg/dL (74-99); Non-African American GFR(CKD) 84 (>60 ml/min/1.73 sqM); Potassium 3.8 mmol/L (3.5-5.1); Sodium 141 mmol/L (137-145)
[2023-10-06 07:34] VITALS: BP 131/66; PULSE 60; RESP 17; TEMP 97.9
--- NOTE | 2023-10-06 08:05 | P.PN ---
Subjective Progress Note Date: 10/06/23 PROGRESS NOTE The patient is a 78-year-old female with a known history of hypertension, hyperlipidemia and diabetes who had symptoms of chest discomfort and abnormal MPI. Underwent cardiac catheterization and was found to have significant obstructive disease involving the ramus intermedius and underwent stenting of that vessel. She is doing well this morning, she denies any chest discomfort, dizziness or palpitations. She continues to be in sinus mechanism. Medications: Aspirin, Plavix 75 mg daily, Lipitor 40 mg daily, hydralazine 50 mg twice a day, amlodipine 5 mg twice a day, Actos 30 mg daily PHYSICAL EXAMINATION: Blood pressure 130/60 heart rate 60 LUNGS: Clear to auscultation HEART: Regular rate and rhythm, S1, S2. No S3. Systolic ejection murmur ABDOMEN: Soft, nontender, no organomegaly EXTREMETIES: No edema, right radial pulse intact, right femoral area with ecchymosis but no hematoma LAB: EKG shows sinus mechanism with no acute ST segment changes. Potassium 3.8, BUN 26, creatinine 0.69 IMPRESSION: 1. Status post stenting of the ramus intermedius 2. Hypertension 3. Hyperlipidemia 4. And diabetes mellitus PLAN: 1. Stop hydralazine and start lisinopril 2. Dual antiplatelets treatment for 6 months 3. Increase physical activity 4. Discharged home today and follow-up as an outpatient Objective - Vital Signs Vital signs: Vital Signs Temp 97.9 F 10/06/23 07:00 Pulse 60 10/06/23 07:00 Resp 17 10/06/23 07:00 BP 131/66 10/06/23 07:00 Pulse Ox 100 10/06/23 07:00 FiO2 Intake & Output 10/05/23 10/06/23 10/06/23 18:59 06:59 18:59 Intake Total 209 Output Total 2100 Balance -1891 Weight 88.9 kg Intake: IV 150 Oral 59 Output: Urine 2100 Uretheral (Lynne) 250 Other: Voiding Method Toilet # Voids 3 - Labs CBC & Chem 7: 10/05/23 06:20 10/06/23 06:32 Labs: Abnormal Lab Results - Last 24 Hours (Table) 10/06/23 Range/Units 06:32 Chloride 109 H (98-107) mmol/L BUN 26 H (7-17) mg/dL Glucose 111 H (74-99) mg/dL Calcium 8.2 L (8.4-10.2) mg/dL
[2023-10-06] MEDS: GABAPENTIN 300 MG CAP PO SCH (08:46)
[2023-10-06] MEDS: amLODIPine 5 MG TAB PO SCH (08:47)
[2023-10-06] MEDS ORDERED: PIOGLITAZONE 30 MG TAB PO SCH (09:00)
[2023-10-06] MEDS ORDERED: CLOPIDOGREL 75 MG TAB PO SCH (09:00)
[2023-10-06] MEDS ORDERED: ASPIRIN 81 MG PO SCH (09:00)
[2023-10-06] MEDS ORDERED: ATORVASTATIN 40 MG TAB PO SCH (09:00)
[2023-10-06] MEDS ORDERED: lisinopriL 10 MG TAB PO SCH (09:00)
[2023-10-06] MEDS ORDERED: VENLAFAXINE HCL ER 150 MG CAP PO SCH (09:00)
== END 2023-10-06 10:38 | disposition home or self-care (01) ==
LOC: CATHCVL 05:45 → 6NMEDSUR 09:14 → CATHCVL 10-06 10:38
PROVIDERS: ATTEND Internal Medicine Interventional Cardiology
DX: I25.10 Atherosclerotic heart disease of native coronary artery without angina pectoris (principal); E11.9 Type 2 diabetes mellitus without complications; E78.5 Hyperlipidemia, unspecified; I10 Essential (primary) hypertension; Z79.02 Long term (current) use of antithrombotics/antiplatelets; Z79.82 Long term (current) use of aspirin; Z79.84 Long term (current) use of oral hypoglycemic drugs; Z79.899 Other long term (current) drug therapy; Z95.5 Presence of coronary angioplasty implant and graft
CPT/HCPCS: 93458; 80048; 85025; C1769 ×4; C9600; C1760; C1887; C1894 ×2; C1725; C1874; J0360; J1200; J2930; J2405; J2001 ×2; J3010; J1644; Q9967

== ENCOUNTER 2023-10-12 16:41 | Inpatient (IN) | payer MEDICARE, OTHER ==
[2023-10-12] MEDS ORDERED: SODIUM CHLORIDE 0.9% 1,000 ML IV STA (16:57)
--- NOTE | 2023-10-12 17:00 | ED ---
Neuro HPI - General Chief Complaint: Neuro Symptoms/Deficit Stated Complaint: vision issues Time Seen by Provider: 10/12/23 16:44 Source: patient, RN notes reviewed, old records reviewed Mode of arrival: ambulatory Limitations: no limitations - History of Present Illness Is the patient presenting with stroke symptoms?: Yes -: hour(s) (5) Initial Comments: This is a 78-year-old female to the emergency department for evaluation. 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 Patient has history of high blood pressure cholesterol no prior history of CVA. Patient states around noon she noticed the left visual field was missing in both of her eyes. Left peripheral vision patient then went to see her mud car worker resents to the ER with a normal lie exam for CVA Location: other ((O vision loss) History of same: No Place: home Severity: moderate Improves With: none Worsens With: none Context: sudden onset Associated Symptoms: denies other symptoms - Related Data Home Medications: Home Medications Medication Instructions Recorded Confirmed Montelukast [Singulair] 10 mg PO DAILY 11/11/15 10/12/23 Venlafaxine HCl ER [Effexor XR] 150 mg PO DAILY 11/11/15 10/12/23 Acyclovir 400 mg PO BID 04/28/19 10/12/23 Calcium Carbonate [Calcium] 600 mg PO DAILY 04/28/19 10/12/23 Levothyroxine Sodium [Synthroid] 75 mcg PO DAILY 04/28/19 10/12/23 Fluticasone Propion/Salmeterol 1 puff INHALATION RT-BID 03/28/20 10/12/23 [Advair 100-50 Diskus] Pioglitazone [Actos] 30 mg PO DAILY 03/28/20 10/12/23 metFORMIN HCL [Glucophage] 850 mg PO DAILY 03/28/20 10/12/23 Pantoprazole [Protonix] 40 mg PO DAILY 09/18/20 10/12/23 Daniella Back And Body 1 tab PO DAILY PRN 02/20/23 10/12/23 Celecoxib [CeleBREX] 200 mg PO BID 02/20/23 10/12/23 Cholecalciferol [Vitamin D3 (125 125 mcg PO DAILY 02/20/23 10/12/23 Mcg = 5000 Iu)] Gabapentin [Neurontin] 300 mg PO TID 02/20/23 10/12/23 Ipratropium-Albuterol Nebulize 3 ml INHALATION RT-QID PRN 02/20/23 10/12/23 [Duoneb 0.5 mg-3 mg/3 ml Soln] LORazepam [Ativan] 0.5 mg PO BID PRN 02/20/23 10/12/23 Magnesium Gluconate [Magonate] 500 mg PO DAILY 02/20/23 10/12/23 Prochlorperazine [Compazine] 10 mg PO Q6H PRN 02/20/23 10/12/23 Aspirin 81 mg PO DAILY 09/30/23 10/12/23 Rosuvastatin Calcium 20 mg PO DAILY 09/30/23 10/12/23 Previous Rx's Medication Instructions Recorded Clopidogrel [Plavix] 75 mg PO DAILY #90 tab 10/06/23 Nitroglycerin Sl Tabs [Nitrostat] 0.4 mg SUBLINGUAL Q5M PRN #25 tab 10/06/23 amLODIPine [Norvasc] 5 mg PO BID-W/MEALS #180 tab 10/06/23 lisinopriL [Zestril] 10 mg PO DAILY #90 tab 10/06/23 Allergies/Adverse Reactions: Allergies Allergy/AdvReac Type Severity Reaction Status Date / Time iodine Allergy Rash/Hives Verified 10/12/23 19:58 Iodine and Iodide Containing Allergy Rash/Hives Verified 10/12/23 19:58 Produc Penicillins Allergy Anaphylaxis Verified 10/12/23 19:58 Sulfa (Sulfonamide Allergy Itching Verified 10/12/23 19:58 Antibiotics) Review of Systems ROS Statement: Those systems with pertinent positive or pertinent negative responses have been documented in the HPI. ROS Other: All systems not noted in ROS Statement are negative. General Exam Limitations: no limitations General appearance: alert, in no apparent distress, anxious Head exam: Present: atraumatic, normocephalic, normal inspection Eye exam: Present: normal appearance, PERRL, EOMI. Absent: scleral icterus, conjunctival injection, periorbital swelling ENT exam: Present: normal exam, mucous membranes moist Neck exam: Present: normal inspection. Absent: tenderness, meningismus, lymphadenopathy Respiratory exam: Present: normal lung sounds bilaterally. Absent: respiratory distress, wheezes, rales, rhonchi, stridor Cardiovascular Exam: Present: regular rate, normal rhythm, normal heart sounds. Absent: systolic murmur, diastolic murmur, rubs, gallop, clicks GI/Abdominal exam: Present: soft, normal bowel sounds. Absent: distended, tenderness, guarding, rebound, rigid Extremities exam: Present: normal inspection, full ROM, normal capillary refill. Absent: tenderness, pedal edema, joint swelling, calf tenderness Back exam: Present: normal inspection Neurological exam: Present: alert, oriented X3, CN II-XII intact Psychiatric exam: Present: normal affect, normal mood Skin exam: Present: warm, dry, intact, normal color. Absent: rash Stroke MDM - Lab Data Result diagrams: 10/19/23 07:34 10/19/23 07:34 Lab Results 10/12/23 10/12/23 10/12/23 Range/Units 17:15 17:15 17:15 WBC 11.1 H (3.8-10.6) k/uL RBC 3.99 (3.80-5.40) m/uL Hgb 12.9 (11.4-16.0) gm/dL Hct 39.3 (34.0-46.0) % MCV 98.5 (80.0-100.0) fL MCH 32.3 (25.0-35.0) pg MCHC 32.7 (31.0-37.0) g/dL RDW 14.4 (11.5-15.5) % Plt Count 202 (150-450) k/uL MPV 8.2 Neutrophils % 49 % Lymphocytes % 40 % Monocytes % 6 % Eosinophils % 3 % Basophils % 0 % Neutrophils # 5.5 (1.3-7.7) k/uL Lymphocytes # 4.5 (1.0-4.8) k/uL Monocytes # 0.6 (0-1.0) k/uL Eosinophils # 0.3 (0-0.7) k/uL Basophils # 0.0 (0-0.2) k/uL PT 10.3 (10.0-12.5) sec INR 0.9 (<1.2) APTT 25.6 (22.0-30.0) sec Sodium 136 L (137-145) mmol/L Potassium 4.4 (3.5-5.1) mmol/L Chloride 100 (98-107) mmol/L Carbon Dioxide 27 (22-30) mmol/L Anion Gap 9 mmol/L BUN 50 H (7-17) mg/dL Creatinine 1.42 H (0.52-1.04) mg/dL Est GFR (CKD-EPI)AfAm 41 (>60 ml/min/1.73 sqM) Est GFR (CKD-EPI)NonAf 36 (>60 ml/min/1.73 sqM) Glucose 88 (74-99) mg/dL Calcium 9.7 (8.4-10.2) mg/dL Total Bilirubin 0.4 (0.2-1.3) mg/dL AST 18 (14-36) U/L ALT 20 (4-34) U/L Alkaline Phosphatase 96 (38-126) U/L Creatine Kinase 52 (30-135) U/L Troponin I (0.000-0.034) ng/mL Total Protein 6.1 L (6.3-8.2) g/dL Albumin 3.8 (3.5-5.0) g/dL Triglycerides (0.00-149.00) mg/dL Cholesterol (0.00-200.00) mg/dL LDL Cholesterol, Calc (0.0-131.0) mg/dL VLDL Cholesterol, Calc (5.00-40.00) mg/dL HDL Cholesterol (40.00-60.00) mg/dL Cholesterol/HDL Ratio Ratio 10/12/23 10/12/23 Range/Units 17:15 17:15 WBC (3.8-10.6) k/uL RBC (3.80-5.40) m/uL Hgb (11.4-16.0) gm/dL Hct (34.0-46.0) % MCV (80.0-100.0) fL MCH (25.0-35.0) pg MCHC (31.0-37.0) g/dL RDW (11.5-15.5) % Plt Count (150-450) k/uL MPV Neutrophils % % Lymphocytes % % Monocytes % % Eosinophils % % Basophils % % Neutrophils # (1.3-7.7) k/uL Lymphocytes # (1.0-4.8) k/uL Monocytes # (0-1.0) k/uL Eosinophils # (0-0.7) k/uL Basophils # (0-0.2) k/uL PT (10.0-12.5) sec INR (<1.2) APTT (22.0-30.0) sec Sodium (137-145) mmol/L Potassium (3.5-5.1) mmol/L Chloride (98-107) mmol/L Carbon Dioxide (22-30) mmol/L Anion Gap mmol/L BUN (7-17) mg/dL Creatinine (0.52-1.04) mg/dL Est GFR (CKD-EPI)AfAm (>60 ml/min/1.73 sqM) Est GFR (CKD-EPI)NonAf (>60 ml/min/1.73 sqM) Glucose (74-99) mg/dL Calcium (8.4-10.2) mg/dL Total Bilirubin (0.2-1.3) mg/dL AST (14-36) U/L ALT (4-34) U/L Alkaline Phosphatase (38-126) U/L Creatine Kinase (30-135) U/L Troponin I <0.012 (0.000-0.034) ng/mL Total Protein (6.3-8.2) g/dL Albumin (3.5-5.0) g/dL Triglycerides 149.00 (0.00-149.00) mg/dL Cholesterol 140.00 (0.00-200.00) mg/dL LDL Cholesterol, Calc 56.4 (0.0-131.0) mg/dL VLDL Cholesterol, Calc 29.80 (5.00-40.00) mg/dL HDL Cholesterol 53.80 (40.00-60.00) mg/dL Cholesterol/HDL Ratio 2.60 Ratio - NIH Stroke Scale 1a. Level of Consciousness: (0) alert 1b. LOC Questions: (0) answers correctly 1c. LOC Commands: (0) performs tasks correctly 2. Best Gaze: (0) normal 3. Visual: (1) partial hemianopia 4. Facial Palsy: (0) normal symmetrical movement 5a. Motor Arm Left: (0) no drift 5b. Motor Arm Right: (0) no drift 6a. Motor Leg Left: (0) no drift 6b. Motor Leg Right: (0) no drift 7. Limb Ataxia: (0) absent 8. Sensory: (0) normal 9. Best Language: (0) no aphasia 10. Dysarthria: (0) normal 11. Extinction/Inattention: (0) no abnormality - Thrombolytic Inclusion/Exclusion Thrombolytic Exclusion Criteria: Symptom Onset > 4.5 Hours - Medical Decision Making 78 female sent in for stroke, patient is greater than 5 hours of onset. Patient will be admitted for neurology evaluation and treatment, CVA with left hemianopsia - Radiology Data Radiology results: report reviewed (CT brain CTA had neck negative for acute disease), image reviewed - EKG Data -: EKG Interpreted by Me (EKG is sinus 67 NV 160 QRS 90 QTC 330) Past Medical History Past Medical History: Asthma, Cancer, Chest Pain / Angina, COPD, Diabetes Mellitus, GERD/Reflux, Hyperlipidemia, Hypertension, Osteoarthritis (OA), Thyroid Disorder Additional Past Medical History / Comment(s): Current itchy no rash , irregular heartbeat, hiatal hernia, hx ulcer, degenerative disk disease, psoriasis, multiple myeloma currently receiving chemo once a months with dr faustin, vertigo, states legs get tired and hurt, difficulty swallowing certain things needs to drink alot of fluid. rt leg swollen from bad knee. recent heaviness to chest for last 6 months History of Any Multi-Drug Resistant Organisms: None Reported Past Surgical History: Breast Surgery, Cholecystectomy, Hysterectomy, Tonsi llectomy Additional Past Surgical History / Comment(s): pain clinic procedures, surgery for tubal pregancy, left foot heel spurs, selena breast reduction, fatty tissue removed from rt leg, selena cataracts, autologous stem cell transplant, colonoscopy, Past Anesthesia/Blood Transfusion Reactions: Motion Sickness Additional Past Anesthesia/Blood Transfusion Reaction / Comment(s): vertigo - current Past Psychological History: Depression Smoking Status: Former smoker Past Alcohol Use History: Rare Past Drug Use History: None Reported - Past Family History Daughter(s) Family Medical History: Cancer Mother Family Medical History: Coronary Artery Disease (CAD) Father History Unknown: Yes Sister(s) Family Medical History: Cancer Additional Family Medical History / Comment(s): lung cancer Brother(s) Family Medical History: Dementia Course Vital Signs 10/12/23 10/12/23 10/12/23 16:48 19:34 20:05 Temperature 98 F Pulse Rate 70 94 Pulse Rate [ 71 Pulse Oximetery ] Respiratory 18 18 Rate Blood Pressure 93/59 122/58 O2 Sat by Pulse 95 95 Oximetry - Reevaluation(s) Reevaluation #1: 10/12/23 20:47 Medical records reviewed Reevaluation #2: 10/12/23 20:47 No change in symptoms here in the ER Reevaluation #3: 10/12/23 20:47 Patient informed results and questions answered Reevaluation #4: 10/12/23 20:47 Was pt. sent in by a medical professional or institution ([facility] Jim[facility]nez, CHESS INSTRUCTOR, urgent care, hospital, or custodial...) When possible be specific @ -no Did you speak to anyone other than the patient for history (EMS, parent, family, police, friend...)? What history was obtained from this source @ -no Did you review nursing and triage notes (agree or disagree)? Why? @ -agree Are old charts reviewed (outside hosp., previous admission, EMS record, old EKG, old radiological studies, urgent care reports/EKG's, custodial records)? Report findings @ -yes Differential Diagnosis (chest pain, altered mental status, abdominal pain women, abdominal pain men, vaginal bleeding, weakness, fever, dyspnea, syncope, headache, dizziness, GI bleed, back pain, seizure, CVA, palpatations, mental health, musculoskeletal)? @ -prior EKG interpreted by me (3pts min.). @ -yes X-rays interpreted by me (1pt min.). @ -yes CT interpreted by me (1pt min.). @ -yes U/S interpreted by me (1pt. min.). @ -no What testing was considered but not performed or refused? (CT, X-rays, U/S, labs)? Why? @ -none What meds were considered but not given or refused? Why? @ -none Did you discuss the management of the patient with other professionals (professionals i.e. TITA Jim[facility]nez, CHESS INSTRUCTOR, lab, RT, psych nurse, clinical social work aide, technical services rep, teacher, probation and parole officer, telehealth case manager)? Give summary @ -no Was smoking cessation discussed for >3mins.? @ -no Was critical care preformed (if so, how long)? @ -no Were there social determinants of health that impacted care today? How? (Homelessness, low income, unemployed, alcoholism, drug addiction, transportation, low edu. Level, literacy, decrease access to med. care, longterm, rehab)? @ -none Was there de-escalation of care discussed even if they declined (Discuss DNR or withdrawal of care, Hospice)? DNR status @ -no What co-morbidities impacted this encounter? (DM, HTN, Smoking, COPD, CAD, Cancer, CVA, ARF, Chemo, Hep., AIDS, mental health diagnosis, sleep apnea, morbid obesity)? @ -none Was patient admitted / discharged? Hospital course, mention meds given and route, prescriptions, significant lab abnormalities, going to OR and other pertinent info. @ - 78 female sent in for stroke, patient is greater than 5 hours of onset. Patient will be admitted for neurology evaluation and treatment, CVA with left hemianopsia Admitted Undiagnosed new problem with uncertain prognosis? @ -no Drug Therapy requiring intensive monitoring for toxicity (Heparin, Nitro, Insulin, Cardizem)? @ -no Were any procedures done? @ -no Diagnosis/symptom? @ -CVA, left hemianopsia Acute, or Chronic, or Acute on Chronic? @ -Acute Uncomplicated (without systemic symptoms) or Complicated (systemic symptoms)? @ -Complicated Side effects of treatment? @ -no Exacerbation, Progression, or Severe Exacerbation? @ -exacerbation Poses a threat to life or bodily function? How? (Chest pain, [place], [place], pneumonia, PE, COPD, DKA, ARF, appy, cholecystitis, CVA, Diverticulitis, Homicidal, Suicidal, threat to staff... and all critical care pts) @ -yes no significant CVA Reevaluation #5: 10/12/23 20:47 Differential CVA Ischemic stroke, hemorrhagic stroke, brain tumor, atypical migraine, Wernicke's encephalopathy, seizure, multiple sclerosis, meningitis, encephalitis, hypoglycemia, Guillain-Cespedes, electrolytes disturbance, myasthenia gravis.... This is not meant to be an all-inclusive list - Consultations Consultation #1: taylor garcia who agrees to admit the patient Disposition Clinical Impression: Cerebrovascular accident (CVA) Disposition: ADMITTED IP TO THIS HOSP Condition: Stable Is patient prescribed a controlled substance at d/c from ED?: No Time of Disposition: 19:00
[2023-10-12 17:35] LABS: Basophils % (A) 0 %; Eosinophils # (A) 0.3 k/uL (0-0.7); Eosinophils % (A) 3 %; HCT 39.3 % (34.0-46.0); HGB 12.9 gm/dL (11.4-16.0); Lymphocytes # (A) 4.5 k/uL (1.0-4.8); Lymphocytes % (A) 40 %; MCH 32.3 pg (25.0-35.0); MCHC 32.7 g/dL (31.0-37.0); MCV 98.5 fL (80.0-100.0); Mean Platelet Volume 8.2; Monocytes # (A) 0.6 k/uL (0-1.0); Monocytes % (A) 6 %; Neutrophils # (A) 5.5 k/uL (1.3-7.7); Neutrophils % (A) 49 %; Platelet Count 202 k/uL (150-450); RBC 3.99 m/uL (3.80-5.40); RDW 14.4 % (11.5-15.5); WBC 11.1 k/uL (3.8-10.6)
[2023-10-12] MEDS ORDERED: methylPREDNISolone SOD SUCCI 125 MG/2 ML VIAL IV STA (17:35)
[2023-10-12] MEDS ORDERED: diphenhydrAMINE 50 MG/ML 1 ML VIAL IVP STA (17:35)
[2023-10-12] MEDS ORDERED: FAMOTIDINE 20 MG/2 ML VIAL IV STA (17:35)
[2023-10-12 17:47] LABS: INR 0.9 (<1.2); Partial Thromboplastin Time 25.6 sec (22.0-30.0); Prothrombin Time 10.3 sec (10.0-12.5)
--- NOTE | 2023-10-12 18:28 | CT ---
EXAMINATION TYPE: CT brain wo con CT DLP: 1093.6 mGycm, Automated exposure control for dose reduction was used. DATE OF EXAM: 10/12/2023 6:03 PM COMPARISON: 06/11/2023,. CLINICAL INDICATION:Female, 78 years old with history of Neuro deficit, acute, stroke suspected, visu al changes, vertigo TECHNIQUE: Brain: Axial CT images of the brain were obtained with coronal and sagittal reformats created and rev iewed. Contrast used: None. Oral contrast used: None. FINDINGS: Brain: Extra-axial spaces: No abnormal extra-axial fluid collections. Scattered locations along the dura. Ventricular system: Dilatation in proportion to cerebral atrophy. Cerebral parenchyma: Cerebral atrophy. No acute intraparenchymal hemorrhage or mass effect. The james -white junction is well differentiated. Scattered hypoattenuating areas are seen within the white mat ter. Cerebellum: Unremarkable. Mass effect: No evidence of midline shift. Intracranial vasculature: unremarkable Soft tissues: Normal. Calvarium/osseous structures: No depressed skull fracture. Paranasal sinuses and mastoid air cells: Mild scattered paranasal sinus disease. Visualized orbits: Bilaterally aphakia. IMPRESSION: 1. No acute intracranial process. 2. Nonspecific white matter changes, likely secondary to chronic small vessel ischemic disease.
--- NOTE | 2023-10-12 18:38 | XR ---
EXAMINATION TYPE: XR chest 2V DATE OF EXAM: 10/12/2023 6:08 PM CLINICAL INDICATION:Female, 78 years old with history of altered mental status; COMPARISON: Chest radiographs from 02/20/2023, 05/23/2022, 06/19/2023. TECHNIQUE: XR chest 2V Frontal and lateral views of the chest. FINDINGS: Lungs/Pleura: There is a nodular-like opacity projecting over the spine measuring 29 x 16 mm. Nidus i s seen on priors. There is no evidence of pleural effusion, focal consolidation, or pneumothorax. Pulmonary vascularity: Unremarkable. Heart/mediastinum: Cardiomediastinal silhouette is unremarkable. Musculoskeletal: Degenerative changes of the shoulder joints. IMPRESSION: 1. No acute cardiopulmonary disease/process. 2. Nodular-like opacity projects over the spine not definitively in the [id number] on CT same day . Consider nonemergent evaluation of the thorax with CT imaging..
--- NOTE | 2023-10-12 18:45 | CT ---
EXAMINATION TYPE: CT angio head neck CT DLP: 495.2 mGycm, Automated exposure control for dose reduction was used. DATE OF EXAM: 10/12/2023 6:22 PM COMPARISON: 10/12/2023 07/25/2022.. CLINICAL INDICATION:Female, 78 years old with history of Neuro deficit, acute, stroke suspected; PHH, visual changes, vertigo TECHNIQUE: Axially acquired helical CT angiogram of the head and neck was obtained with contrast. Axi al images are supplemented with 3D reconstructions and MIP images which were post-processed at an in dependent workstation. NASCET criteria used. Contrast used:65cc mL of Isovue 370 with IV Contrast, Oral contrast used: None. FINDINGS: CTA HEAD: No evidence of acute intracranial hemorrhage, mass effect, or midline shift. The ventricles, sulci, a nd cisterns are unremarkable. The visualized portions of the internal carotid arteries, middle cerebral arteries, anterior cerebral arteries, and posterior cerebral arteries are patent. Atherosclerosis of the internal carotid arteri es at the carotid siphons bilaterally. The basilar and vertebral arteries are patent. CTA NECK: Medialized position of the internal carotid arteries bilaterally. These course posterior to the phary nx. Right Carotid System: The common carotid artery and external carotid artery are patent. The carotid bifurcation demonstrate s no evidence of hemodynamically significant stenosis. The remaining portions of the internal carotid artery demonstrate normal size without significant narrowing. Left Carotid System: The common carotid artery and external carotid artery are patent. The carotid bifurcation demonstrate s no evidence of hemodynamically significant stenosis. The remaining portions of the internal carotid artery demonstrate normal size without significant narrowing. Vertebral arteries are patent without evidence hemodynamically significant stenosis. There is a three-vessel aortic arch. The origins of the great vessels are patent. No evidence of hemo dynamically significant stenosis. Upper thorax: IMPRESSION: 1. No evidence of dissection of the cervical internal carotid arteries or vertebral arteries or any e vidence of significant stenosis at the carotid bifurcations. 2. No evidence of intracranial high-grade stenosis or intracranial aneurysm.
[2023-10-12] MEDS ORDERED: ASPIRIN 325 MG TAB PO STA (19:02)
[2023-10-12] MEDS ORDERED: SODIUM CHLORIDE 0.9% 1,000 ML IV ONE (19:30)
[2023-10-12] MEDS: SODIUM CHLORIDE 0.9% 1,000 ML IV SCH (19:43)
[2023-10-12 19:58] LABS: ALT 20 U/L (4-34); AST 18 U/L (14-36); African American GFR (CKD) 41 (>60 ml/min/1.73 sqM); Albumin 3.8 g/dL (3.5-5.0); Alkaline Phosphatase 96 U/L (38-126); Anion Gap 9 mmol/L; Blood Urea Nitrogen 50 mg/dL (7-17); Calcium 9.7 mg/dL (8.4-10.2); Carbon Dioxide 27 mmol/L (22-30); Chloride 100 mmol/L (98-107); Creatine Kinase 52 U/L (30-135); Glucose 88 mg/dL (74-99); Non-African American GFR(CKD) 36 (>60 ml/min/1.73 sqM); Potassium 4.4 mmol/L (3.5-5.1); Sodium 136 mmol/L (137-145); Total Bilirubin 0.4 mg/dL (0.2-1.3); Total Protein 6.1 g/dL (6.3-8.2)
[2023-10-12] MEDS ORDERED: ATORVASTATIN 80 MG TAB PO SCH (21:00)
--- NOTE | 2023-10-13 00:30 | P.HPIM ---
History of Present Illness H&P Date: 10/12/23 Patient is a 78-year-old female with a PMH of type II DM, CAD, COPD, hypertension, and hyperlipidemia who presents to the emergency room with complaints of visual loss. The patient reported that she was out shopping at [employer] earlier today when she suddenly developed partial vision loss. She was seen at her retail wireless associate's office later that day where she was diagnosed with bilateral left peripheral vision loss and was sent to the emergency room for further evaluation. Patient denies any prior history of CVA or visual disturbances. She does have a history of cataracts status post surgery. She notes that her symptoms resolved shortly after arrival at the emergency room. Aside from a mild headache at the time of interview, she denied any additional complaints. Denied experiencing weakness, numbness, tingling, facial asymmetry, or speech impairment. Also denied x-rays including fever, chills, chest pain, shortness of breath, nausea, vomiting, abdominal pain, diarrhea. In the emergency room a CT angiogram head and neck, chest x-ray, and brain CT were unremarkable. EKG revealed sinus rhythm at 67 bpm with T-wave flattening in leads V5 to V6. Laboratory evaluation was remarkable for leukocytosis of 11.1, BUN 50, creatinine 1.42 (up from baseline of 0.7) with troponin less than 0.012., ED documentation reviewed and case discussed with ED provider. Review of systems: Pertinent positives and negatives as discussed in HPI, a complete review of systems was performed and all other systems are negative. Physical examination: Vital signs reviewed General: non toxic, no distress, appears at stated age, obese Derm: no unusual rashes/lesions, warm Head: atraumatic, normocephalic, symmetric Eyes: EOMI, no lid lag, anicteric sclera, pupils equal round reactive to light ENT: Nose and ears atraumatic Neck: No cervical lymphadenopathy, trachea midline, supple Mouth: no lip lesion, mucus membranes moist Cardiovascular: S1S2 reg, no murmur, positive dorsalis pedis pulse bilateral, no edema Lungs: CTA bilateral, no rhonchi, no rales, no accessory muscle use Abdominal: soft, nontender to palpation, no guarding Ext: muscle strength 5 out of 5 in all 4 extremities grossly, no gross muscle atrophy, no contractures, Neuro: CN II-XI grossly intact, no gross focal neuro deficits Psych: Alert, oriented, appropriate affect Assessment: Right homonymous hemianopsia, concerning for TIA RONALD Leukocytosis, no signs of active infection at this time Chronic conditions: Type II DM, CAD, COPD, hypertension, hyperlipidemia Imaging: In the emergency room a CT angiogram head and neck, chest x-ray, and brain CT were unremarkable. EKG revealed sinus rhythm at 67 bpm with T-wave flattening in leads V5 to V6. Data Review: Laboratory evaluation was remarkable for leukocytosis of 11.1, BUN 50, creatinine 1.42 (up from baseline of 0.7) with troponin less than 0.012., Plan: Neuro checks Cardiac monitoring Echocardiogram Neurology consult Continue with patient's home ASA and Plavix at this time PT and SEAT NAILER consult Patient will likely need a brain MRI Continue with home meds Insulin sliding scale and blood glucose monitoring Monitor CBC and BMP Hold home ACEI at this time Continue with IV fluids with normal saline 100 mL an hour DVT prophylaxis: Lovenox subcu The patient is admitted with an anticipated greater than 2 midnight stay for e valuation of TIA CODE STATUS: Full Code Discussed with: Patient Anticipated discharge place: Home Past Medical History Past Medical History: Asthma, Cancer, Chest Pain / Angina, COPD, Diabetes Mellitus, GERD/Reflux, Hyperlipidemia, Hypertension, Osteoarthritis (OA), Thyroid Disorder Additional Past Medical History / Comment(s): Current itchy no rash , irregular heartbeat, hiatal hernia, hx ulcer, degenerative disk disease, psoriasis, multiple myeloma currently receiving chemo once a months with dr faustin, vertigo, states legs get tired and hurt, difficulty swallowing certain things needs to drink alot of fluid. rt leg swollen from bad knee. recent heaviness to chest for last 6 months History of Any Multi-Drug Resistant Organisms: None Reported Past Surgical History: Breast Surgery, Cholecystectomy, Hysterectomy, Tonsillectomy Additional Past Surgical History / Comment(s): pain clinic procedures, surgery for tubal pregancy, left foot heel spurs, selena breast reduction, fatty tissue removed from rt leg, selena cataracts, autologous stem cell transplant, colonoscopy, Past Anesthesia/Blood Transfusion Reactions: Motion Sickness Additional Past Anesthesia/Blood Transfusion Reaction / Comment(s): vertigo - current Past Psychological History: Depression Smoking Status: Former smoker Past Alcohol Use History: Rare Additional Past Alcohol Use History / Comment(s): quit smoking approx 2006, smoked approx 35 yrs, 1ppd Past Drug Use History: None Reported - Past Family History Daughter(s) Family Medical History: Cancer Mother Family Medical History: Coronary Artery Disease (CAD) Father History Unknown: Yes Sister(s) Family Medical History: Cancer Additional Family Medical History / Comment(s): lung cancer Brother(s) Family Medical History: Dementia Medications and Allergies Home Medications Medication Instructions Recorded Confirmed Type Montelukast [Singulair] 10 mg PO DAILY 11/11/15 10/12/23 History Venlafaxine HCl ER [Effexor XR] 150 mg PO DAILY 11/11/15 10/12/23 History Acyclovir 400 mg PO BID 04/28/19 10/12/23 History Calcium Carbonate [Calcium] 600 mg PO DAILY 04/28/19 10/12/23 History Levothyroxine Sodium [Synthroid] 75 mcg PO DAILY 04/28/19 10/12/23 History Fluticasone Propion/Salmeterol 1 puff INHALATION RT-BID 03/28/20 10/12/23 History [Advair 100-50 Diskus] Pioglitazone [Actos] 30 mg PO DAILY 03/28/20 10/12/23 History metFORMIN HCL [Glucophage] 850 mg PO DAILY 03/28/20 10/12/23 History Pantoprazole [Protonix] 40 mg PO DAILY 09/18/20 10/12/23 History Daniella Back And Body 1 tab PO DAILY PRN 02/20/23 10/12/23 History Celecoxib [CeleBREX] 200 mg PO BID 02/20/23 10/12/23 History Cholecalciferol [Vitamin D3 (125 125 mcg PO DAILY 02/20/23 10/12/23 History Mcg = 5000 Iu)] Gabapentin [Neurontin] 300 mg PO TID 02/20/23 10/12/23 History Ipratropium-Albuterol Nebulize 3 ml INHALATION RT-QID PRN 02/20/23 10/12/23 History [Duoneb 0.5 mg-3 mg/3 ml Soln] LORazepam [Ativan] 0.5 mg PO BID PRN 02/20/23 10/12/23 History Magnesium Gluconate [Magonate] 500 mg PO DAILY 02/20/23 10/12/23 History Prochlorperazine [Compazine] 10 mg PO Q6H PRN 02/20/23 10/12/23 History Aspirin 81 mg PO DAILY 09/30/23 10/12/23 History Rosuvastatin Calcium 20 mg PO DAILY 09/30/23 10/12/23 History Clopidogrel [Plavix] 75 mg PO DAILY #90 tab 10/06/23 10/12/23 Rx Nitroglycerin Sl Tabs [Nitrostat] 0.4 mg SUBLINGUAL Q5M PRN #25 tab 10/06/23 10/12/23 Rx amLODIPine [Norvasc] 5 mg PO BID-W/MEALS #180 tab 10/06/23 10/12/23 Rx lisinopriL [Zestril] 10 mg PO DAILY #90 tab 10/06/23 10/12/23 Rx Allergies Allergy/AdvReac Type Severity Reaction Status Date / Time iodine Allergy Rash/Hives Verified 10/12/23 19:58 Iodine and Iodide Containing Allergy Rash/Hives Verified 10/12/23 19:58 Produc Penicillins Allergy Anaphylaxis Verified 10/12/23 19:58 Sulfa (Sulfonamide Allergy Itching Verified 10/12/23 19:58 Antibiotics) Physical Exam Vitals: Vital Signs Temp Pulse Pulse Resp BP BP Pulse Ox 10/12/23 21:06 97.9 F 71 17 119/71 94 L 10/12/23 20:05 71 10/12/23 19:34 94 18 122/58 95 10/12/23 16:48 98 F 70 18 93/59 95 Intake and Output 10/12/23 10/12/23 10/13/23 14:59 22:59 06:59 Intake Total 240 Balance 240 Intake: Oral 240 Other: Voiding Method Toilet Weight 86.183 kg Results CBC & Chem 7: 10/12/23 17:15 10/12/23 17:15 Labs: Abnormal Lab Results - Last 24 Hours (Table) 10/12/23 10/12/23 Range/Units 17:15 17:15 WBC 11.1 H (3.8-10.6) k/uL Sodium 136 L (137-145) mmol/L BUN 50 H (7-17) mg/dL Creatinine 1.42 H (0.52-1.04) mg/dL Total Protein 6.1 L (6.3-8.2) g/dL Thrombosis Risk Factor Assmnt - Choose All That Apply Any of the Below Risk Factors Present?: Yes Each Factor Represents 1 point: Abnormal pulmonary function (COPD), Obesity (BMI >25) Other Risk Factors: Yes Each Risk Factor Represents 2 Points: Age 61-74 years Thrombosis Risk Factor Assessment Total Risk Factor Score: 4 Thrombosis Risk Factor Assessment Level: Moderate Risk
[2023-10-13 05:12] LABS: Glucose,Whole Blood 147 mg/dL (70-110)
[2023-10-13] MEDS ORDERED: PROCHLORPERAZINE 10 MG TAB PO PRN (06:00)
[2023-10-13] MEDS: INSULIN ASPART (NovoLOG) 100 UNIT/ML VIAL SQ SCH ×4 (06:03→20:30)
[2023-10-13] MEDS: LEVOTHYROXINE 75 MCG TAB PO SCH (06:06)
[2023-10-13] MEDS: amLODIPine 5 MG TAB PO SCH ×2 (06:06→17:02)
[2023-10-13] MEDS: SYMBICORT 80-4.5 MCG INHALER INHALATION SCH ×2 (07:55→20:17)
[2023-10-13] MEDS ORDERED: IPRATROPIUM-ALBUTEROL 3 ML NEB INHALATION PRN (08:41)
[2023-10-13] MEDS ORDERED: ASPIRIN 325 MG TAB PO SCH (09:00)
[2023-10-13 09:11] LABS: HCT 37.4 % (34.0-46.0); HGB 12.6 gm/dL (11.4-16.0); MCH 32.9 pg (25.0-35.0); MCHC 33.6 g/dL (31.0-37.0); MCV 97.7 fL (80.0-100.0); Mean Platelet Volume 7.9; Platelet Count 177 k/uL (150-450); RBC 3.83 m/uL (3.80-5.40); WBC 7.8 k/uL (3.8-10.6)
[2023-10-13 09:21] LABS: ALT 20 U/L (4-34); AST 17 U/L (14-36); African American GFR (CKD) 70 (>60 ml/min/1.73 sqM); Albumin 3.6 g/dL (3.5-5.0); Alkaline Phosphatase 92 U/L (38-126); Anion Gap 8 mmol/L; Blood Urea Nitrogen 34 mg/dL (7-17); Calcium 8.5 mg/dL (8.4-10.2); Carbon Dioxide 23 mmol/L (22-30); Chloride 108 mmol/L (98-107); Glucose 146 mg/dL (74-99); Magnesium 1.8 mg/dL (1.6-2.3); Non-African American GFR(CKD) 61 (>60 ml/min/1.73 sqM); Potassium 3.9 mmol/L (3.5-5.1); Sodium 139 mmol/L (137-145); Total Bilirubin 0.5 mg/dL (0.2-1.3); Total Protein 5.9 g/dL (6.3-8.2)
[2023-10-13 09:57] LABS: LDL Cholesterol,Calculated 56.4 mg/dL (0.0-131.0)
[2023-10-13] MEDS: ENOXAPARIN 40 MG/0.4 ML SYRINGE SQ SCH (10:02)
[2023-10-13] MEDS: MONTELUKAST 10 MG TAB PO SCH (10:02)
[2023-10-13] MEDS: ASPIRIN 81 MG PO SCH (10:02)
[2023-10-13] MEDS: GABAPENTIN 300 MG CAP PO SCH ×3 (10:02→20:57)
[2023-10-13] MEDS: PANTOPRAZOLE 40 MG TABLET PO SCH (10:02)
[2023-10-13] MEDS: VENLAFAXINE HCL ER 150 MG CAP PO SCH (10:03)
[2023-10-13] MEDS: CLOPIDOGREL 75 MG TAB PO SCH (10:03)
[2023-10-13 11:34] LABS: Glucose,Whole Blood 185 mg/dL (70-110)
[2023-10-13 12:23] LABS: Appearance,Urine Clear (Clear); Bacteria,Urine Rare /hpf; Bilirubin,Urine Negative (Negative); Blood,Urine Trace (Negative); Color,Urine Colorless; Glucose,Urine (UA) Negative (Negative); Ketones,Urine Negative (Negative); Leukocyte Esterase,Urine Negative (Negative); Mucus,Urine Rare /hpf; Nitrite,Urine Negative (Negative); Protein,Urine Negative (Negative); RBC,Urine 1 /hpf (0-5); Specific Gravity,Urine 1.013 (1.001-1.035); Squamous Epithelial Cell,Urine <1 /hpf (0-4); Urobilinogen,Urine <2.0 mg/dL (<2.0); WBC,Urine <1 /hpf (0-5)
[2023-10-13 12:36] LABS: C Reactive Protein 0.6 mg/dL (<1.0)
[2023-10-13 14:05] LABS: T4, Free (Free Thyroxine) 2.11 ng/dL (0.78-2.19)
[2023-10-13] MEDS: ACYCLOVIR 200 MG CAP PO SCH ×2 (14:13→20:06)
--- NOTE | 2023-10-13 15:07 | P.PN ---
Subjective Progress Note Date: 10/13/23 Hospital course: Patient is a very pleasant 78-year-old female with a past medical history of multiple myeloma currently undergoing chemotherapy treatment, type II [id number] diabetes mellitus, CAD, COPD, hypothyroidism, hypertension, and hyperlipidemia. She presented to the emergency department on 10/12/23 with a chief complaint of sudden onset visual loss. Patient reported while out shopping earlier in the day she developed sudden onset partial visual loss/disturbances. She reports she then went to her project assistant for evaluation and was diagnosed with bilateral left peripheral vision loss and was sent to the emergency department for further evaluation. Patient underwent full evaluation in the emergency department. CT head, CTA head and neck, and chest x -ray were unremarkable. EKG was completed showing normal sinus rhythm at 67 bpm with T-wave flattening in leads V5 and V6. Labs completed and reviewed. CBC showing mild leukocytosis with WBC count of 11.1. Coagulation profile normal findings. BMP revealing acute kidney injury with BUN of 50, creatinine 1.42, and GFR of 36 with baseline creatinine of 0.69. Initial glucose was 88 with repeat of 147. Patient was admitted under our services with consultation to neurology. Physical exam: Patient seen and fully evaluated at bedside this morning. Family also visiting at bedside. Patient reports continued loss of peripheral vision on his right eye at this time. Patient reports initially it was bilateral eyes and then was strictly right eye only. Upon examination patient was able to follow finger and EOMs were intact. Nystagmus present. Vital signs reviewed and stable. General: Nontoxic, no distress and appears stated age. Derm: Skin warm and dry, normal coloration for ethnicity. Head: Atraumatic, normocephalic and symmetric. Eyes: EOMs intact, no lid lag, and anicteric sclera. Patient reports continued loss of peripheral vision right eye, upon examination patient did seem to have impaired peripheral vision bilaterally. Nystagmus present. Mouth: no lip lesions, mucus membranes moist Cardiovascular: regular rate and rhythm with normal S1S2, systolic murmur, positive posterior tibial pulses bilaterally, and cap refill < 2 seconds. Lungs: Respirations even, regular, and unlabored on room air. Lungs CTA bilaterally, no rhonchi, no rales, no wheezing, and no accessory muscle usage. Abdominal: soft, nontender to palpation, no guarding, no appreciable organomega ly Ext: ROM intact. No gross muscle atrophy, no edema, no contractures Neuro: Speech clear, face symmetrical and CN II-XII grossly intact with no noted focal neuro deficits Psych: Alert and oriented to person, place, time, and situation. Appropriate and pleasant affect. Assessment and Plan of Care: Right homonymous hemianopsia, concerning for CVA -Continue Neuro checks every 4 hours -Patient to remain on continuous Cardiac monitoring -Echocardiogram completed and currently pending results -Neurology consulted, discussed plan of care with neurologist recommending patient undergo MRI brain -Continue with aspirin 81 mg daily, atorvastatin 40 mg daily, and Plavix 75 mg daily. -PT/OT consulted. Acute kidney injury, improving -Patient initially with acute kidney injury with BUN of 50, creatinine of 1.42, and GFR of 36 with baseline creatinine of 0.69. -Lisinopril was held and patient was placed on gentle IV fluid hydration with repeat morning labs showing BUN of 34, creatinine 0.91, and GFR 61. -We will continue with gentle IV fluid hydration with 0.9% normal saline at 100 mL per hour for an additional 24 hours and likely discontinue tomorrow morning. Type II [id number] diabetes mellitus -Hold metformin in place patient on glycemic protocol with NovoLog sliding scale, monitor for any signs of hypoglycemia. -Hemoglobin A1c was drawn and currently pending results. Leukocytosis, resolved. History of coronary artery disease COPD Hypertension Hyperlipidemia -Patient to continue daily medication regimen with amlodipine 5 mg twice daily, aspirin 81 mg daily, atorvastatin 40 mg daily, History of multiple myeloma -Patient to continue to follow up outpatient with supervisor industrial arts education/oncologist to undergo monthly chemotherapy treatments. -We will continue with acyclovir 400 mg twice daily Data and imaging reviewed: Labs completed and reviewed. CBC showing resolution of leukocytosis with WBC count decreasing from 11.1 down to 7.8 this morning. BMP revealing improvement of acute kidney injury with BUN of 34, creatinine 0.91, and GFR 61 with baseline creatinine of 0.69. Magnesium normal findings at 1.8. Vital signs completed and reviewed. Blood pressure 127/52, heart rate 76, respiratory rate 17, temp 97.5F, SpO2 of 94% on room air. DVT prophylaxis: Lovenox Anticipated discharge date: Clinical course to determine Anticipated discharge place: Home Patient was seen independently by Nurse Pracitioner. This document was prepared using [employer] dictation software. Please allow for errors in scholastic aptitude test grader, while rare they do occur. Juan Garcia, MASSAGE THERAPIST rendered care for this patient independently, reviewed the findings and plan as documented in the note above. I did not physically speak with or examine the patient on this date. Objective - Vital Signs Vital signs: Vital Signs Temp 97.5 F L 10/13/23 08:00 Pulse 76 10/13/23 08:00 Resp 17 10/13/23 08:00 BP 127/52 10/13/23 08:00 Pulse Ox 94 L 10/13/23 08:00 FiO2 Intake & Output 10/12/23 10/13/23 10/13/23 18:59 06:59 18:59 Intake Total 240 Balance 240 Weight 86.183 kg 87.5 kg Intake: Oral 240 Other: Voiding Method Toilet # Voids 1 2 - Labs CBC & Chem 7: 10/14/23 06:18 10/14/23 06:18 Labs: Abnormal Lab Results - Last 24 Hours (Table) 10/12/23 10/12/23 10/13/23 Range/Units 17:15 17:15 05:11 WBC 11.1 H (3.8-10.6) k/uL Sodium 136 L (137-145) mmol/L BUN 50 H (7-17) mg/dL Creatinine 1.42 H (0.52-1.04) mg/dL POC Glucose (mg/dL) 147 H (70-110) mg/dL Total Protein 6.1 L (6.3-8.2) g/dL
--- NOTE | 2023-10-13 15:39 | P.CNNES ---
History of Present Illness Consult date: 10/13/23 Requesting physician: Kahlil Mackenzie Reason for Consult: cva History of Present Illness: This is a 78-year-old woman who presented emergency department because of the visual disturbance over the left part of both eyes as well as some speech difficulty. Patient family members are at bedside. Patient stated that y day she was shopping and she noticed that she was having difficulty seeing out of the left side of both eyes and that happened around noon as well as difficulty talking even though she knew what she wanted to say. Her symptoms lasted between 4-5 hours. Patient stated that that she denies any history of stroke in the past. She does have history of hypertension, diabetes, she had recent coronary artery disease status post stent and she is on Plavix. She was unsure whether she should be on aspirin or not so she has not been taking aspirin for the last 1 week. She states she is ALLERGIC to statin because it causes her to have bone pain and muscle aches but her home medication as rosuva statin 20mg. she denies of any headache. Some of the workup during his hospital visit consisted of: Initial creatinine is 1.42 and repeat is normal. Lipid panel is drug use or 149, cholesterol 140, LDL 66, HDL is 53 TSH is 0.438 and the free T4 [address] of the head is reported as no acute intracranial process. Nonspecific white matter changes, likely secondary due to chronic small vessel ischemic disease. I personally reviewed the CT head and there is no acute or subacute ischemia. There is no bleed. CT angiography of the head and neck is reported as no evidence for dissection of cervical internal carotid artery or vertebral artery or any evidence of significant stenosis at the carotid bifurcation. No evidence of intracranial high-grade stenosis or intracranial aneurysm EKG is reported as sinus rhythm. Review of Systems Review of system: The 12 point system was reviewed and apparent positive and negative per HPI. Past Medical History Past Medical History: Asthma, Cancer, Chest Pain / Angina, COPD, Diabetes Mellitus, GERD/Reflux, Hyperlipidemia, Hypertension, Osteoarthritis (OA), Thyroid Disorder Additional Past Medical History / Comment(s): Current itchy no rash , irregular heartbeat, hiatal hernia, hx ulcer, degenerative disk disease, psoriasis, m ultiple myeloma currently receiving chemo once a months with dr faustin, vertigo, states legs get tired and hurt, difficulty swallowing certain things needs to drink alot of fluid. rt leg swollen from bad knee. recent heaviness to chest for last 6 months History of Any Multi-Drug Resistant Organisms: None Reported Past Surgical History: Breast Surgery, Cholecystectomy, Hysterectomy, Tonsillectomy Additional Past Surgical History / Comment(s): pain clinic procedures, surgery for tubal pregancy, left foot heel spurs, selena breast reduction, fatty tissue removed from rt leg, selena cataracts, autologous stem cell transplant, colonoscopy, Past Anesthesia/Blood Transfusion Reactions: Motion Sickness Additional Past Anesthesia/Blood Transfusion Reaction / Comment(s): vertigo - current Past Psychological History: Depression Smoking Status: Former smoker Past Alcohol Use History: Rare Additional Past Alcohol Use History / Comment(s): quit smoking approx 2006, smoked approx 35 yrs, 1ppd Past Drug Use History: None Reported - Past Family History Daughter(s) Family Medical History: Cancer Mother Family Medical History: Coronary Artery Disease (CAD) Father History Unknown: Yes Sister(s) Family Medical History: Cancer Additional Family Medical History / Comment(s): lung cancer Brother(s) Family Medical History: Dementia Medications and Allergies Home Medications Medication Instructions Recorded Confirmed Type Montelukast [Singulair] 10 mg PO DAILY 11/11/15 10/12/23 History Venlafaxine HCl ER [Effexor XR] 150 mg PO DAILY 11/11/15 10/12/23 History Acyclovir 400 mg PO BID 04/28/19 10/12/23 History Calcium Carbonate [Calcium] 600 mg PO DAILY 04/28/19 10/12/23 History Levothyroxine Sodium [Synthroid] 75 mcg PO DAILY 04/28/19 10/12/23 History Fluticasone Propion/Salmeterol 1 puff INHALATION RT-BID 03/28/20 10/12/23 History [Advair 100-50 Diskus] Pioglitazone [Actos] 30 mg PO DAILY 03/28/20 10/12/23 History metFORMIN HCL [Glucophage] 850 mg PO DAILY 03/28/20 10/12/23 History Pantoprazole [Protonix] 40 mg PO DAILY 09/18/20 10/12/23 History Daniella Back And Body 1 tab PO DAILY PRN 02/20/23 10/12/23 History Celecoxib [CeleBREX] 200 mg PO BID 02/20/23 10/12/23 History Cholecalciferol [Vitamin D3 (125 125 mcg PO DAILY 02/20/23 10/12/23 History Mcg = 5000 Iu)] Gabapentin [Neurontin] 300 mg PO TID 02/20/23 10/12/23 History Ipratropium-Albuterol Nebulize 3 ml INHALATION RT-QID PRN 02/20/23 10/12/23 History [Duoneb 0.5 mg-3 mg/3 ml Soln] LORazepam [Ativan] 0.5 mg PO BID PRN 02/20/23 10/12/23 History Magnesium Gluconate [Magonate] 500 mg PO DAILY 02/20/23 10/12/23 History Prochlorperazine [Compazine] 10 mg PO Q6H PRN 02/20/23 10/12/23 History Aspirin 81 mg PO DAILY 09/30/23 10/12/23 History Rosuvastatin Calcium 20 mg PO DAILY 09/30/23 10/12/23 History Clopidogrel [Plavix] 75 mg PO DAILY #90 tab 10/06/23 10/12/23 Rx Nitroglycerin Sl Tabs [Nitrostat] 0.4 mg SUBLINGUAL Q5M PRN #25 tab 10/06/23 10/12/23 Rx amLODIPine [Norvasc] 5 mg PO BID-W/MEALS #180 tab 10/06/23 10/12/23 Rx lisinopriL [Zestril] 10 mg PO DAILY #90 tab 10/06/23 10/12/23 Rx Allergies Allergy/AdvReac Type Severity Reaction Status Date / Time iodine Allergy Rash/Hives Verified 10/12/23 19:58 Iodine and Iodide Containing Allergy Rash/Hives Verified 10/12/23 19:58 Produc Penicillins Allergy Anaphylaxis Verified 10/12/23 19:58 Sulfa (Sulfonamide Allergy Itching Verified 10/12/23 19:58 Antibiotics) Physical Examination - Vital Signs Vital Signs: Vital Signs Temp Pulse Pulse Resp BP BP Pulse Ox 10/13/23 14:00 76 17 10/13/23 12:00 97.8 F 77 17 115/65 96 10/13/23 08:00 97.5 F L 76 17 127/52 94 L 10/13/23 07:58 94 L 10/13/23 04:00 97.8 F 81 17 123/69 94 L 10/13/23 02:00 78 17 10/13/23 00:00 97.8 F 78 17 116/67 93 L 10/12/23 21:06 97.9 F 71 17 119/71 94 L 10/12/23 20:05 71 10/12/23 19:34 94 18 122/58 95 10/12/23 16:48 98 F 70 18 93/59 95 Intake and Output 10/13/23 10/13/23 10/13/23 06:59 14:59 22:59 Intake Total 236 Balance 236 Intake: Oral 236 Other: Voiding Method Toilet Toilet # Voids 1 2 Weight 87.5 kg GENERAL: The patient is lying in bed and is not in acute distress. NEUROLOGICAL: Higher mental function: The patient is awake, alert, oriented to self, place and time. Patient is following commands. No aphasia and no neglect. Cranial nerves: The pupils are round, equal and reactive to light and accom modation. Visual thornton are full to confrontation throughout. Extraocular movement is intact no nystagmus is noted. Facial sensation is normal to touch throughout. The facial strength is normal throughout. Hearing is mildly to moderately decreased bilaterally to hand rub. Tongue is midline and moved [id number] without any difficulty. No dysarthria is noted. Shoulder shrug is normal bilaterally. Motor: The strength is 5 over 5 throughout. Normal tone and bulk. Cerebellum: Normal finger to nose bilaterally. Sensation: Sensation is normal to touch throughout. Reflexes (right/left): 2+ throughout. Plantars are downgoing bilaterally. Results - Laboratory Findings CBC and BMP: 10/13/23 08:48 10/13/23 08:48 Abnormal Lab Findings: Abnormal Labs 10/12/23 10/12/23 10/13/23 17:15 17:15 05:11 WBC 11.1 H Sodium 136 L Chloride BUN 50 H Creatinine 1.42 H Glucose POC Glucose (mg/dL) 147 H Total Protein 6.1 L TSH Urine Blood Urine Bacteria Urine Mucus 10/13/23 10/13/23 10/13/23 08:48 08:48 11:31 WBC Sodium Chloride 108 H BUN 34 H Creatinine Glucose 146 H POC Glucose (mg/dL) 185 H Total Protein 5.9 L TSH 0.438 L Urine Blood Urine Bacteria Urine Mucus 10/13/23 12:16 WBC Sodium Chloride BUN Creatinine Glucose POC Glucose (mg/dL) Total Protein TSH Urine Blood Trace H Urine Bacteria Rare H Urine Mucus Rare H Assessment and Plan Assessment: This is a 78-year-old woman who presented emergency department because of episode of vision loss on the left side of both eyes with expressive aphasia lasting between 4-5 hours and that started yesterday on 10/12/2020 3 in the afternoon. Her symptoms has resolved. Likely a transient ischemic attack with symptoms of the expressive aphasia as well as the vision loss out of both eyes. Recent History of coronary artery disease status post stent Underlying hypertension Diabetes mellitus Plan: I ordered MRI of the brain. 2-D echo is ordered is pending I also ordered ESR. CRP is negative. I ordered hemoglobin A1c Patient started on aspirin 81 mg daily and it seems that the patient was not taken aspirin for the last 1 week since she's not aware whether she was supposed to continue or not. She is resumed on her home medication of Plavix 75 mg daily. She is on Lipitor 40 mg daily. If she has any ALLERGIES to statins such as muscle pain or tenderness can [place] but if the patient does not tolerate to discontinue statin. Continue checks Cardiac monitoring PT, OT and also IA consulted We'll defer the rest of the medical management to primary team For DVT prophylaxis the patient is on Lovenox The plan was discussed with the patient, and her family members were at bedside. Thank you for the consultation Time with Patient: Greater than 30
[2023-10-13 16:28] LABS: Glucose,Whole Blood 75 mg/dL (70-110)
--- NOTE | 2023-10-13 17:33 | CA ---
Transthoracic Echo Report Name: Eun Rashid Age: 78 Gender: F : 1945 Exam Date: 10/13/2023 09:04 Exam Location: [facility] Ht (in): 60 Wt (lb): 190 Ordering Physician: Kahlil Mackenzie DO Attending/Referring Phys: [id number], Gurdeep Catshovel Driver Latasha Zaragoza RDCS Procedure CPT: Indications: Thrombus Cardiac Hx: Technical Quality: Good Contrast 1: Total Dose (mL): Contrast 2: Total Dose (mL): MEASUREMENTS (Male / Female) Normal Values 2D ECHO LV Diastolic Diameter PLAX 4.7 cm 4.2 - 5.9 / 3.9 - 5.3 cm LV Systolic Diameter PLAX 3.2 cm IVS Diastolic Thickness 1.4 cm 0.6 - 1.0 / 0.6 - 0.9 cm LVPW Diastolic Thickness 1.3 cm 0.6 - 1.0 / 0.6 - 0.9 cm LV Relative Wall Thickness 0.6 RV Internal Dim ED PLAX 3.0 cm LA Systolic Diameter LX 3.9 cm 3.0 - 4.0 / 2.7 - 3.8 cm LV Diastolic Volume MOD 4C 98.2 cm??? LV Systolic Volume MOD 4C 42.9 cm??? LV Ejection Fraction MOD 4C 56.3 % LV Cardiac Index MOD 4C 2150.7 cm???/min???m??? LV Diastolic Length 4C 7.0 cm LV Systolic Length 4C 5.8 cm LV Diastolic Volume MOD 2C 101.0 cm??? LV Systolic Volume MOD 2C 59.6 cm??? LV Ejection Fraction MOD 2C 41.0 % LV Cardiac Index MOD 2C 1610.4 cm???/min???m??? LV Diastolic Length 2C 7.7 cm LV Systolic Length 2C 6.7 cm LA Volume 62.1 cm??? 18 - 58 / 22 - 52 cm??? LA Volume Index 31.8 cm???/m??? 16 - 28 cm???/m??? M-MODE Aortic Root Diameter MM 2.9 cm MV E Point Septal Separation 0.5 cm AV Cusp Separation MM 2.0 cm DOPPLER AV Peak Velocity 202.0 cm/s AV Peak Gradient 16.3 mmHg AV Mean Velocity 129.7 cm/s AV Mean Gradient 8.1 mmHg AV Velocity Time Integral 43.7 cm MV Area PHT 2.8 cm??? Mitral E Point Velocity 98.7 cm/s Mitral A Point Velocity 119.2 cm/s Mitral E to A Ratio 0.8 MV Deceleration Time 271.0 ms MV E' Velocity 5.9 cm/s Mitral E to MV E' Ratio 16.7 TR Peak Velocity 271.2 cm/s TR Peak Gradient 29.4 mmHg Right Ventricular Systolic Press 33.7 mmHg FINDINGS Left Ventricle Left ventricular ejection fraction is estimated at 55-60 %. Left ventricular cavity size normal. Moderately increased septal wall thickness. Moderately increased posterior wall thickness. Right Ventricle Normal right ventricular size. Right ventricular systolic pressure within normal limits. Right Atrium Normal right atrial size. Left Atrium Mildly increased left atrial diameter. Mildly increased left atrial volume. Mitral Valve Structurally normal mitral valve. No mitral stenosis. No evidence for mitral valve prolapse. Mild mitral regurgitation. Aortic Valve Trileaflet aortic valve. Tricuspid Valve Structurally normal tricuspid valve. Mild tricuspid regurgitation. Pulmonic Valve Structurally normal pulmonic valve. No pulmonic regurgitation. Pericardium No pericardial effusion. Aorta Normal size aortic root and proximal ascending aorta. CONCLUSIONS Normal LV systolic function No obvious intracardiac thrombus Consider transesophageal echo if clinically indicated Previewed by: Dr. Abel Colin MD (Electronically Signed) Final Date: 13 October 2023 17:32
[2023-10-13] MEDS: SODIUM CHLORIDE 0.9% 1,000 ML IV SCH (18:30)
[2023-10-13 20:14] LABS: Glucose,Whole Blood 95 mg/dL (70-110)
[2023-10-14] MEDS: SODIUM CHLORIDE 0.9% 1,000 ML IV SCH (04:21)
[2023-10-14 06:21] LABS: Glucose,Whole Blood 100 mg/dL (70-110)
[2023-10-14] MEDS: INSULIN ASPART (NovoLOG) 100 UNIT/ML VIAL SQ SCH ×4 (06:28→21:04)
[2023-10-14] MEDS: amLODIPine 5 MG TAB PO SCH ×2 (06:31→17:15)
[2023-10-14] MEDS: LEVOTHYROXINE 75 MCG TAB PO SCH (06:31)
[2023-10-14 06:57] LABS: HCT 36.9 % (34.0-46.0); HGB 12.5 gm/dL (11.4-16.0); MCH 33.2 pg (25.0-35.0); MCHC 33.8 g/dL (31.0-37.0); MCV 98.2 fL (80.0-100.0); Mean Platelet Volume 7.8; Platelet Count 192 k/uL (150-450); RBC 3.76 m/uL (3.80-5.40); RDW 14.1 % (11.5-15.5); WBC 9.4 k/uL (3.8-10.6)
[2023-10-14 07:10] LABS: ALT 18 U/L (4-34); AST 17 U/L (14-36); African American GFR (CKD) 77 (>60 ml/min/1.73 sqM); Albumin 3.5 g/dL (3.5-5.0); Alkaline Phosphatase 85 U/L (38-126); Anion Gap 8 mmol/L; Blood Urea Nitrogen 34 mg/dL (7-17); Calcium 8.8 mg/dL (8.4-10.2); Carbon Dioxide 27 mmol/L (22-30); Chloride 105 mmol/L (98-107); Glucose 101 mg/dL (74-99); Magnesium 1.9 mg/dL (1.6-2.3); Non-African American GFR(CKD) 67 (>60 ml/min/1.73 sqM); Potassium 4.1 mmol/L (3.5-5.1); Sodium 140 mmol/L (137-145); Total Bilirubin 0.4 mg/dL (0.2-1.3); Total Protein 5.7 g/dL (6.3-8.2)
[2023-10-14] MEDS: SYMBICORT 80-4.5 MCG INHALER INHALATION SCH ×2 (07:50→21:37)
[2023-10-14] MEDS: ENOXAPARIN 40 MG/0.4 ML SYRINGE SQ SCH (10:16)
[2023-10-14] MEDS: GABAPENTIN 300 MG CAP PO SCH ×3 (10:35→21:04)
[2023-10-14] MEDS: PANTOPRAZOLE 40 MG TABLET PO SCH (10:35)
[2023-10-14] MEDS: ASPIRIN 81 MG PO SCH (10:35)
[2023-10-14] MEDS: ATORVASTATIN 40 MG TAB PO SCH (10:35)
[2023-10-14] MEDS: VENLAFAXINE HCL ER 150 MG CAP PO SCH (10:36)
[2023-10-14] MEDS: CLOPIDOGREL 75 MG TAB PO SCH (10:36)
[2023-10-14] MEDS: MONTELUKAST 10 MG TAB PO SCH (10:36)
[2023-10-14] MEDS: ACYCLOVIR 200 MG CAP PO SCH ×2 (10:36→19:49)
[2023-10-14 11:53] LABS: Glucose,Whole Blood 89 mg/dL (70-110)
--- NOTE | 2023-10-14 12:58 | P.PN ---
Subjective Progress Note Date: 10/14/23 On follow-up with the patient and she stated that the she continues to have a revision on the left side of both eyes since yesterday in the late afternoon. Otherwise no new neurological issues. Still pending MRI the brain. Objective - Vital Signs Vital signs: Vital Signs Temp 98.5 F 10/14/23 11:47 Pulse 62 10/14/23 11:47 Resp 17 10/14/23 11:47 BP 118/58 10/14/23 11:47 Pulse Ox 95 10/14/23 11:47 FiO2 Intake & Output 10/13/23 10/14/23 10/14/23 18:59 06:59 18:59 Intake Total 472 240 Output Total 800 600 Balance -328 -600 240 Intake: Oral 472 240 Output: Urine 800 600 Other: Voiding Method Toilet Toilet # Voids 2 2 - Exam GENERAL: The patient is lying in bed and is not in acute distress. NEUROLOGICAL: Higher mental function: The patient is awake, alert, oriented to self, place and time. Patient is following commands. No aphasia and no neglect. Cranial nerves: The pupils are round, equal and reactive to light and accommodation. Visual thornton are full to confrontation throughout. Extraocular movement is intact no nystagmus is noted. Facial sensation is normal to touch throughout. The facial strength is normal throughout. Hearing is mildly to moderately decreased bilaterally to hand rub. Tongue is midline and moved [id number] without any difficulty. No dysarthria is noted. Shoulder shrug is normal bilaterally. Motor: The strength is 5 over 5 throughout. Normal tone and bulk. Cerebellum: Normal finger to nose bilaterally. Sensation: Sensation is normal to touch throughout. Reflexes (right/left): 2+ throughout. Plantars are downgoing bilaterally. Some of the workup during his hospital visit consisted of: Initial creatinine is 1.42 and repeat is normal. Lipid panel is drug use or 149, cholesterol 140, LDL 66, HDL is 53 TSH is 0.438 and the free T4 2 0.11 Hemoglobin A1c is 6.1. CRP is 0.[address] of the head is reported as no acute intracranial process. Nonspecific white matter changes, likely secondary due to chronic small vessel ischemic disease. I personally reviewed the CT head and there is no acute or subacute ischemia. There is no bleed. CT angiography of the head and neck is reported as no evidence for dissection of cervical internal carotid artery or vertebral artery or any evidence of significant stenosis at the carotid bifurcation. No evidence of intracranial high-grade stenosis or intracranial aneurysm EKG is reported as sinus rhythm. 2D echo: It is reported as normal left ventricle systolic function. No obvious intracardiac thrombus. Consider transesophageal echocardiogram if clinically indicated. - Labs CBC & Chem 7: 10/14/23 06:18 10/14/23 06:18 Labs: Abnormal Lab Results - Last 24 Hours (Table) 10/13/23 10/13/23 10/14/23 Range/Units 08:48 08:48 06:18 RBC 3.76 L (3.80-5.40) m/uL BUN (7-17) mg/dL Glucose (74-99) mg/dL Hemoglobin A1c 6.1 H (<=6.0) % Total Protein (6.3-8.2) g/dL TSH 0.438 L (0.465-4.680) mIU/L 10/14/23 Range/Units 06:18 RBC (3.80-5.40) m/uL BUN 34 H (7-17) mg/dL Glucose 101 H (74-99) mg/dL Hemoglobin A1c (<=6.0) % Total Protein 5.7 L (6.3-8.2) g/dL TSH (0.465-4.680) mIU/L Assessment and Plan Assessment: This is a 78-year-old woman who presented emergency department because of episode of vision loss on the left side of both eyes with expressive aphasia lasting between 4-5 hours and that started yesterday on 10/12/2020 3 in the afternoon. Expressive aphasia as well as the vision loss out of both eyes. She continues to feel left side of both eyes are blurry but visual thornton are full to co nfrontation. Probable acute ischemic stroke. Recent History of coronary artery disease status post stent Underlying hypertension Diabetes mellitus Plan: Pending MRI of the brain. Patient started on aspirin 81 mg daily and it seems that the patient was not taken aspirin for the last 1 week since she's not aware whether she was supposed to continue or not. She is resumed on her home medication of Plavix 75 mg daily. She is on Lipitor 40 mg daily. If she has any ALLERGIES to statins such as muscle pain or tenderness can discontinue it. Continue checks Cardiac monitoring PT, OT and also BEACH ATTENDANT are consulted We'll defer the rest of the medical management to primary team For DVT prophylaxis: is on Lovenox The plan was discussed with the patient, her nurse and N.P. from primary team. Dr. Elliott will resume neurology service tomorrow A.M. Time with Patient: Less than 30
--- NOTE | 2023-10-14 14:12 | MR ---
EXAMINATION TYPE: MR brain wo con DATE OF EXAM: 10/14/2023 1:24 PM CLINICAL INDICATION:Female, 78 years old with history of stroke. Aphasia and left vision defect; [facility] , COMPARISON: 04/25/2010. TECHNIQUE: Multi planar, multi sequence imaging was performed through the brain including: T1, T2, In version recovery, Diffusion weighted imaging, and gradient echo imaging. No gadolinium was given. FINDINGS: Scattered foci of restricted diffusion involving the right thalamus and left parietal regio n the right frontal lobe right parietal lobe. The james-white junctions, ventricular system, and ciste rns appear unremarkable. Scattered foci of high T2 signal intensity are seen within the periventricu lar white matter. Midline structures show no abnormality. The susceptibility weighted images do not reveal any evidence for micro-hemorrhage. The bone marrow signal is within normal limits. Paranasal sinuses and mastoid air cells: No significant paranasal sinus disease. Visualized orbits: Bilaterally aphakia. IMPRESSION: 1. Scattered microinfarcts involving the right frontal, right parietal, right occipital right thalamu s and possibly left parietal lobe. Correlate for embolic phenomenon. 2. Nonspecific white matter changes, likely secondary to small vessel ischemic disease.
[2023-10-14] MEDS ORDERED: ACETAMINOPHEN TAB 325 MG TAB PO PRN (14:46)
[2023-10-14] MEDS: HYDROcodone/APAP 5-325MG 1 EACH TAB PO PRN (14:55)
--- NOTE | 2023-10-14 15:01 | P.PN ---
Subjective Progress Note Date: 10/14/23 Hospital course: Patient is a very pleasant 78-year-old female with a past medical history of multiple myeloma currently undergoing chemotherapy treatment, type II [id number]-frgezurfb diabetes mellitus, CAD, COPD, hypothyroidism, hypertension, and hyperlipidemia. She presented to the emergency department on 10/12/23 with a chief complaint of sudden onset visual loss. Patient reported while out shopping earlier in the day she developed sudden onset partial visual loss/disturbances. She reports she then went to her mimeograph operator for evaluation and was diagnosed with bilateral left peripheral vision loss and was sent to the emergency department for further evaluation. Patient underwent full evaluation in the emergency department. CT head, CTA head and neck, and chest x -ray were unremarkable. EKG was completed showing normal sinus rhythm at 67 bpm with T-wave flattening in leads V5 and V6. Labs completed and reviewed. CBC showing mild leukocytosis with WBC count of 11.1. Coagulation profile normal findings. BMP revealing acute kidney injury with BUN of 50, creatinine 1.42, and GFR of 36 with baseline creatinine of 0.69. Initial glucose was 88 with repeat of 147. Patient was admitted under our services with consultation to neurology.MRI revealing scattered microinfarcts involving the right frontal, right parietal, right occipital, right thalamus, and possibly the left parietal lobe concerning for embolic process. Consult placed to cardiology for JAVI. Physical exam: Patient seen and fully evaluated at bedside this morning. Patient reports continued loss of peripheral vision in her right eye at this time but reports that it has been waxing and waning. She reports last night vision significantly worsened but this morning seems "like it is trying to come back but not fully back yet". Vital signs reviewed and stable. General: Nontoxic, no distress and appears stated age. Derm: Skin warm and dry, normal coloration for ethnicity. Head: Atraumatic, normocephalic and symmetric. Eyes: EOMs intact, no lid lag, and anicteric sclera. Patient reports continued loss of peripheral vision right eye, upon examination patient did seem to have impaired peripheral vision bilaterally. Nystagmus present. Mouth: no lip lesions, mucus membranes moist Cardiovascular: regular rate and rhythm with normal S1S2, systolic murmur, positive posterior tibial pulses bilaterally, and cap refill < 2 seconds. Lungs: Respirations even, regular, and unlabored on room air. Lungs CTA bilaterally, no rhonchi, no rales, no wheezing, and no accessory muscle usage. Abdominal: soft, nontender to palpation, no guarding, no appreciable organomegaly Ext: ROM intact. No gross muscle atrophy, no edema, no contractures Neuro: Speech clear, face symmetrical and CN II-XII grossly intact with no noted focal neuro deficits Psych: Alert and oriented to person, place, time, and situation. Appropriate and pleasant affect. 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 -MRI revealing scattered microinfarcts involving the right frontal, right parietal, right occipital, right thalamus, and possibly the left parietal lobe c oncerning for embolic process. -Discussed in detail with neurologist, order placed for consult to steward/stewardess third class for JAVI. -Continue Neuro checks every 4 hours -Patient to remain on continuous Cardiac monitoring -Echocardiogram completed and currently pending results -Neurology consulted, discussed plan of care with neurologist recommending patient undergo MRI brain -Continue with aspirin 81 mg daily, atorvastatin 40 mg daily, and Plavix 75 mg daily. -PT/OT following Acute kidney injury, resolved. Creatinine back at baseline is 0.85. Type II [id number] diabetes mellitus -Hold metformin and continue patient on glycemic protocol with NovoLog sliding scale, monitor for any signs of hypoglycemia. -Hemoglobin A1c 6.1%. Leukocytosis, resolved. History of coronary artery disease COPD Hypertension Hyperlipidemia -Patient to continue daily medication regimen with amlodipine 5 mg twice daily, aspirin 81 mg daily, atorvastatin 40 mg daily, History of multiple myeloma -Patient to continue to follow up outpatient with hospitality specialist/oncologist to undergo monthly chemotherapy treatments. -We will continue with acyclovir 400 mg twice daily Data and imaging reviewed: Labs completed and reviewed. CBC was unremarkable. BMP showing prerenal a zotemia with BUN of 34 otherwise creatinine is normalized and back to baseline at 0.85. Vital signs completed and reviewed. Blood pressure 127/68, heart rate 70, respiratory rate 17, temp 98.5F, SpO2 of 95% on room air. MRI revealing scattered microinfarcts involving the right frontal, right par ietal, right occipital, right thalamus, and possibly the left parietal lobe concerning for embolic process. DVT prophylaxis: Lovenox Anticipated discharge date: Clinical course to determine Anticipated discharge place: Home Patient was seen independently by Nurse Pracitioner. This document was prepared using Make [employer] plate dictation software. Please allow for errors in plan examiner, while rare they do occur. Juan Garcia NP rendered care for this patient independently, reviewed the findings and plan as documented in the note above. I did not physically speak with or examine the patient on this date. Objective - Vital Signs Vital signs: Vital Signs Temp 98.4 F 10/13/23 20:00 Pulse 66 10/14/23 04:00 Resp 17 10/14/23 04:00 BP 121/68 10/14/23 04:00 Pulse Ox 97 10/14/23 07:51 FiO2 Intake & Output 10/13/23 10/14/23 10/14/23 18:59 06:59 18:59 Intake Total 472 240 Output Total 800 600 Balance -328 -600 240 Intake: Oral 472 240 Output: Urine 800 600 Other: Voiding Method Toilet Toilet # Voids 2 2 - Labs CBC & Chem 7: 10/14/23 06:18 10/14/23 06:18 Labs: Abnormal Lab Results - Last 24 Hours (Table) 10/13/23 10/13/23 10/13/23 Range/Units 08:48 08:48 08:48 RBC (3.80-5.40) m/uL Chloride 108 H (98-107) mmol/L BUN 34 H (7-17) mg/dL Glucose 146 H (74-99) mg/dL POC Glucose (mg/dL) (70-110) mg/dL Hemoglobin A1c 6.1 H (<=6.0) % Total Protein 5.9 L (6.3-8.2) g/dL TSH 0.438 L (0.465-4.680) mIU/L Urine Blood (Negative) Urine Bacteria (None) /hpf Urine Mucus (None) /hpf 10/13/23 10/13/23 10/14/23 Range/Units 11:31 12:16 06:18 RBC 3.76 L (3.80-5.40) m/uL Chloride (98-107) mmol/L BUN (7-17) mg/dL Glucose (74-99) mg/dL POC Glucose (mg/dL) 185 H (70-110) mg/dL Hemoglobin A1c (<=6.0) % Total Protein (6.3-8.2) g/dL TSH (0.465-4.680) mIU/L Urine Blood Trace H (Negative) Urine Bacteria Rare H (None) /hpf Urine Mucus Rare H (None) /hpf 10/14/23 Range/Units 06:18 RBC (3.80-5.40) m/uL Chloride (98-107) mmol/L BUN 34 H (7-17) mg/dL Glucose 101 H (74-99) mg/dL POC Glucose (mg/dL) (70-110) mg/dL Hemoglobin A1c (<=6.0) % Total Protein 5.7 L (6.3-8.2) g/dL TSH (0.465-4.680) mIU/L Urine Blood (Negative) Urine Bacteria (None) /hpf Urine Mucus (None) /hpf
[2023-10-14 16:13] LABS: Glucose,Whole Blood 117 mg/dL (70-110)
[2023-10-14 19:59] LABS: Glucose,Whole Blood 146 mg/dL (70-110)
[2023-10-15 06:04] LABS: Glucose,Whole Blood 89 mg/dL (70-110)
[2023-10-15] MEDS: amLODIPine 5 MG TAB PO SCH ×2 (06:44→17:35)
[2023-10-15] MEDS: LEVOTHYROXINE 75 MCG TAB PO SCH (06:44)
[2023-10-15] MEDS: INSULIN ASPART (NovoLOG) 100 UNIT/ML VIAL SQ SCH ×4 (06:44→20:38)
[2023-10-15] MEDS: SYMBICORT 80-4.5 MCG INHALER INHALATION SCH ×2 (08:00→21:32)
[2023-10-15] MEDS: MONTELUKAST 10 MG TAB PO SCH (08:18)
[2023-10-15] MEDS: ATORVASTATIN 40 MG TAB PO SCH (08:19)
[2023-10-15] MEDS: VENLAFAXINE HCL ER 150 MG CAP PO SCH (08:19)
[2023-10-15] MEDS: HYDROcodone/APAP 5-325MG 1 EACH TAB PO PRN (08:19)
[2023-10-15] MEDS: GABAPENTIN 300 MG CAP PO SCH ×3 (08:19→21:03)
[2023-10-15] MEDS: PANTOPRAZOLE 40 MG TABLET PO SCH (08:19)
[2023-10-15] MEDS: CLOPIDOGREL 75 MG TAB PO SCH (08:19)
[2023-10-15] MEDS: ASPIRIN 81 MG PO SCH (08:19)
[2023-10-15] MEDS: ENOXAPARIN 40 MG/0.4 ML SYRINGE SQ SCH (08:20)
[2023-10-15] MEDS: ACYCLOVIR 200 MG CAP PO SCH ×2 (08:20→21:03)
--- NOTE | 2023-10-15 09:39 | P.CRDCN ---
History of Present Illness Consult date: 10/15/23 Chief complaint: Visual disturbance History of present illness: The patient is a pleasant 78-year-old female patient with a past medical history significant for CAD with prior stenting of the ramus intermedius was performed recently as well as diabetes and hypertension and dyslipidemia. She presented to the hospital complaining of bilateral visual disturbance associated with multiple blind spots in the visual thornton. No dizziness or lightheadedness and no syncope or presyncope and no symptoms of chest pain or chest discomfort. Further investigation was performed including MRI and that showed possible embolic stroke involving the brain. Carotid CTA was performed and came in to be unremarkable for any dissection or atherosclerosis. We consulted to see the patient to perform transesophageal echocardiogram and rule out any cardiac s ource of embolization. So far she has been maintaining normal sinus mechanism. She underwent transthoracic echocardiogram and that revealed normal LV systolic function was no significant valvular abnormalities noted. The patient remains asymptomatic at this point. The visual disturbance has improved. She has no pain in the chest and no shortness of breath. The EKG showed sinus mechanism was nonspecific changes. The rest of the workup came in to be unremarkable beside the above MRI of the brain as described. Examination is remarkable for systolic murmur at the right and left upper sternal border with clear breathing sounds bilaterally and no carotid bruit and no edema in the lower extremities Assessment Stroke with an embolic etiology according to the MRI CAD was prior stenting as described above Multiple comorbid conditions including diabetes and hypertension and dyslipidemia Plan Continue the current medical regimen Proceed with JAVI Follow-up with the patient Past Medical History Past Medical History: Asthma, Cancer, Chest Pain / Angina, COPD, Diabetes Mellitus, GERD/Reflux, Hyperlipidemia, Hypertension, Osteoarthritis (OA), Thyroi d Disorder Additional Past Medical History / Comment(s): Current itchy no rash , irregular heartbeat, hiatal hernia, hx ulcer, degenerative disk disease, psoriasis, multiple myeloma currently receiving chemo once a months with dr faustin, vertigo, states legs get tired and hurt, difficulty swallowing certain things needs to drink alot of fluid. rt leg swollen from bad knee. recent heaviness to chest for last 6 months History of Any Multi-Drug Resistant Organisms: None Reported Past Surgical History: Breast Surgery, Cholecystectomy, Hysterectomy, Tonsillectomy Additional Past Surgical History / Comment(s): pain clinic procedures, surgery for tubal pregancy, left foot heel spurs, selena breast reduction, fatty tissue removed from rt leg, selena cataracts, autologous stem cell transplant, colonosc opy, Past Anesthesia/Blood Transfusion Reactions: Motion Sickness Additional Past Anesthesia/Blood Transfusion Reaction / Comment(s): vertigo - current Past Psychological History: Depression Smoking Status: Former smoker Past Alcohol Use History: Rare Additional Past Alcohol Use History / Comment(s): quit smoking approx 2006, smoked approx 35 yrs, 1ppd Past Drug Use History: None Reported - Past Family History Daughter(s) Family Medical History: Cancer Mother Family Medical History: Coronary Artery Disease (CAD) Father History Unknown: Yes Sister(s) Family Medical History: Cancer Additional Family Medical History / Comment(s): lung cancer Brother(s) Family Medical History: Dementia Medications and Allergies Home Medications Medication Instructions Recorded Confirmed Type Montelukast [Singulair] 10 mg PO DAILY 11/11/15 10/12/23 History Venlafaxine HCl ER [Effexor XR] 150 mg PO DAILY 11/11/15 10/12/23 History Acyclovir 400 mg PO BID 04/28/19 10/12/23 History Calcium Carbonate [Calcium] 600 mg PO DAILY 04/28/19 10/12/23 History Levothyroxine Sodium [Synthroid] 75 mcg PO DAILY 04/28/19 10/12/23 History Fluticasone Propion/Salmeterol 1 puff INHALATION RT-BID 03/28/20 10/12/23 History [Advair 100-50 Diskus] Pioglitazone [Actos] 30 mg PO DAILY 03/28/20 10/12/23 History metFORMIN HCL [Glucophage] 850 mg PO DAILY 03/28/20 10/12/23 History Pantoprazole [Protonix] 40 mg PO DAILY 09/18/20 10/12/23 History Daniella Back And Body 1 tab PO DAILY PRN 02/20/23 10/12/23 History Celecoxib [CeleBREX] 200 mg PO BID 02/20/23 10/12/23 History Cholecalciferol [Vitamin D3 (125 125 mcg PO DAILY 02/20/23 10/12/23 History Mcg = 5000 Iu)] Gabapentin [Neurontin] 300 mg PO TID 02/20/23 10/12/23 History Ipratropium-Albuterol Nebulize 3 ml INHALATION RT-QID PRN 02/20/23 10/12/23 History [Duoneb 0.5 mg-3 mg/3 ml Soln] LORazepam [Ativan] 0.5 mg PO BID PRN 02/20/23 10/12/23 History Magnesium Gluconate [Magonate] 500 mg PO DAILY 02/20/23 10/12/23 History Prochlorperazine [Compazine] 10 mg PO Q6H PRN 02/20/23 10/12/23 History Aspirin 81 mg PO DAILY 09/30/23 10/12/23 History Rosuvastatin Calcium 20 mg PO DAILY 09/30/23 10/12/23 History Clopidogrel [Plavix] 75 mg PO DAILY #90 tab 10/06/23 10/12/23 Rx Nitroglycerin Sl Tabs [Nitrostat] 0.4 mg SUBLINGUAL Q5M PRN #25 tab 10/06/23 10/12/23 Rx amLODIPine [Norvasc] 5 mg PO BID-W/MEALS #180 tab 10/06/23 10/12/23 Rx lisinopriL [Zestril] 10 mg PO DAILY #90 tab 10/06/23 10/12/23 Rx Allergies Allergy/AdvReac Type Severity Reaction Status Date / Time iodine Allergy Rash/Hives Verified 10/12/23 19:58 Iodine and Iodide Containing Allergy Rash/Hives Verified 10/12/23 19:58 Produc Penicillins Allergy Anaphylaxis Verified 10/12/23 19:58 Sulfa (Sulfonamide Allergy Itching Verified 10/12/23 19:58 Antibiotics) Physical Exam Vitals: Vital Signs Temp Pulse Resp BP Pulse Ox 10/15/23 08:18 98 F 62 18 107/63 94 L 10/15/23 04:00 77 17 129/68 98 10/15/23 00:00 97.8 F 78 17 116/77 97 10/14/23 20:00 78 16 122/72 98 10/14/23 16:00 98.7 F 77 17 129/66 97 10/14/23 13:32 62 17 10/14/23 11:47 98.5 F 62 17 118/58 95 Intake and Output 10/14/23 10/15/23 10/15/23 22:59 06:59 14:59 Intake Total 840 Output Total 800 Balance 840 -800 Intake: Oral 840 Output: Urine 800 Other: Voiding Method Toilet Toilet # Voids 4 2 Results 10/14/23 06:18 10/14/23 06:18 Current Medications Generic Name Dose Route Start Last Admin Trade Name Freq PRN Reason Stop Dose Admin Acetaminophen 650 mg 10/14/23 14:46 Acetaminophen Tab 325 Mg Tab PO Q6HR PRN Mild Pain or Fever > 100.5 Hydrocodone Bitart/Acetaminophen 1 each 10/14/23 14:46 10/15/23 08:19 Hydrocodone/Apap 5-325mg 1 Each Tab PO 1 each Q4HR PRN Administration Moderate Pain (Scale 4 to 6) Acyclovir 400 mg 10/13/23 09:00 10/15/23 08:20 Acyclovir 200 Mg Cap PO 400 mg BID BETO Administration Albuterol/Ipratropium 3 ml 10/13/23 08:41 Ipratropium-Albuterol 3 Ml Neb INHALATION RT-QID PRN Shortness Of Breath Amlodipine Besylate 5 mg 10/13/23 07:30 10/15/23 06:44 Amlodipine 5 Mg Tab PO 5 mg BID-W/MEALS BETO Administration Aspirin 81 mg 10/13/23 09:00 10/15/23 08:19 Aspirin 81 Mg PO 81 mg DAILY BETO Administration Atorvastatin Calcium 40 mg 10/14/23 09:00 10/15/23 08:19 Atorvastatin 40 Mg Tab PO 40 mg DAILY BETO Administration Budesonide/Formoterol Fumarate 2 puff 10/13/23 08:00 10/15/23 08:00 Symbicort 80-4.5 Mcg Inhaler INHALATION 2 puff RT-BID BETO Administration Clopidogrel Bisulfate 75 mg 10/13/23 09:00 10/15/23 08:19 Clopidogrel 75 Mg Tab PO 75 mg DAILY BETO Administration Enoxaparin Sodium 40 mg 10/13/23 09:00 10/15/23 08:20 Enoxaparin 40 Mg/0.4 Ml Syringe SQ Not Given DAILY BETO Gabapentin 300 mg 10/13/23 09:00 10/15/23 08:19 Gabapentin 300 Mg Cap PO 300 mg TID BETO Administration Insulin Aspart 0 unit 10/13/23 07:30 10/15/23 06:44 Insulin Aspart (Novolog) 100 Unit/Ml Vial SQ Not Given ACHS [facility] Protocol Levothyroxine Sodium 75 mcg 10/13/23 06:30 10/15/23 06:44 Levothyroxine 75 Mcg Tab PO 75 mcg DAILY@0630 BETO Administration Montelukast Sodium 10 mg 10/13/23 09:00 10/15/23 08:18 Montelukast 10 Mg Tab PO 10 mg DAILY BETO Administration Pantoprazole Sodium 40 mg 10/13/23 09:00 10/15/23 08:19 Pantoprazole 40 Mg Tablet PO 40 mg DAILY BETO Administration Prochlorperazine Maleate 10 mg 10/13/23 06:00 10/13/23 13:21 Prochlorperazine 10 Mg Tab PO 10 mg Q6H PRN Administration Nausea Venlafaxine HCl 150 mg 10/13/23 09:00 10/15/23 08:19 Venlafaxine Hcl Er 150 Mg Cap PO 150 mg DAILY BETO Administration Intake and Output 10/14/23 10/15/23 10/15/23 22:59 06:59 14:59 Intake Total 840 Output Total 800 Balance 840 -800 Intake: Oral 840 Output: Urine 800 Other: Voiding Method Toilet Toilet # Voids 4 2 10/14/23 06:18 10/14/23 06:18
[2023-10-15 11:41] LABS: Glucose,Whole Blood 91 mg/dL (70-110)
--- NOTE | 2023-10-15 13:27 | P.PN ---
Subjective Progress Note Date: 10/15/23 Hospital course: Patient is a very pleasant 78-year-old female with a past medical history of multiple myeloma currently undergoing chemotherapy treatment, type II eis-[id number] diabetes mellitus, CAD, COPD, hypothyroidism, hypertension, and hyperlipidemia. She presented to the emergency department on 10/12/23 with a chief complaint of sudden onset visual loss. Patient reported while out shopping earlier in the day she developed sudden onset partial visual loss/disturbances. She reports she then went to her trimmer sorter for evaluation and was diagnosed with bilateral left peripheral vision loss and was sent to the emergency department for further evaluation. Patient underwent full evaluation in the emergency department. CT head, CTA head and neck, and chest x -ray were unremarkable. EKG was completed showing normal sinus rhythm at 67 bpm with T-wave flattening in leads V5 and V6. Labs completed and reviewed. CBC showing mild leukocytosis with WBC count of 11.1. Coagulation profile normal findings. BMP revealing acute kidney injury with BUN of 50, creatinine 1.42, and GFR of 36 with baseline creatinine of 0.69. Initial glucose was 88 with repeat of 147. Patient was admitted under our services with consultation to neurology.MRI revealing scattered microinfarcts involving the right frontal, right parietal, right occipital, right thalamus, and possibly the left parietal lobe concerning for embolic process. Consult placed to cardiology for JAVI. Cardiology evaluated planning to take patient tentatively for JAVI 10/16/23. Physical exam: Patient seen and fully evaluated at bedside this morning. Patient reports vision again worsening upon awakening this morning. Patient reports again a having loss of vision in bilateral peripheral thornton. Patient also reports seeing flashing lights this morning. Patient states that her vision has been waxing and waning and at this time states it is back to how it was prior to arrival. In addition patient does admit to having an off-and-on headache but currently reports resting comfortably at this time. Vital signs reviewed and stable. General: Nontoxic, no distress and appears stated age. Derm: Skin warm and dry, normal coloration for ethnicity. Head: Atraumatic, normocephalic and symmetric. Eyes: EOMs intact, no lid lag, and anicteric sclera. Patient reports continued loss of peripheral vision right eye, upon examination patient did seem to have impaired peripheral vision bilaterally. Nystagmus present. Mouth: no lip lesions, mucus membranes moist Cardiovascular: regular rate and rhythm with normal S1S2, systolic murmur, positive posterior tibial pulses bilaterally, and cap refill < 2 seconds. Lungs: Respirations even, regular, and unlabored on room air. Lungs CTA bilat erally, no rhonchi, no rales, no wheezing, and no accessory muscle usage. Abdominal: soft, nontender to palpation, no guarding, no appreciable organomegaly Ext: ROM intact. No gross muscle atrophy, no edema, no contractures Neuro: Speech clear, face symmetrical and CN II-XII grossly intact with no noted focal neuro deficits Psych: Alert and oriented to person, place, time, and situation. Appropriate and pleasant affect. Assessment and Plan of Care: Acute CVA, multiple embolic microinfarcts with visual disturbances bilaterally. -MRI revealed scattered microinfarcts involving the right frontal, right parietal, right occipital, right thalamus, and possibly the left parietal lobe concerning for embolic process. -Neurology following -Cardiology consulted for JAVI and discussed plan of care Dr. Shafer. -Continue Neuro checks every 4 hours -Patient to remain on continuous Cardiac monitoring -Echocardiogram completed and currently pending results -Continue with aspirin 81 mg daily, atorvastatin 40 mg daily, and Plavix 75 mg daily. -PT/OT following Acute kidney injury, resolved. Creatinine back at baseline is 0.85. Type II juy-moqruii-jagprucox diabetes mellitus -Hold metformin and continue patient on glycemic protocol with NovoLog sliding scale, monitor for any signs of hypoglycemia. -Hemoglobin A1c 6.1%. Leukocytosis, resolved. History of coronary artery disease COPD Hypertension Hyperlipidemia -Patient to continue daily medication regimen with amlodipine 5 mg twice daily, aspirin 81 mg daily, atorvastatin 40 mg daily, History of multiple myeloma -Patient to continue to follow up outpatient with waredresser/oncologist to undergo monthly chemotherapy treatments. -We will continue with acyclovir 400 mg twice daily Data and imaging reviewed: Blood glucose ranging from 89-146 over the past 24 hours. Vital signs completed and reviewed. Blood pressure 107/63, heart rate 62, respiratory rate 18, temp 98.0F, SpO2 of 94% on room air. DVT prophylaxis: Lovenox Anticipated discharge date: Clinical course to determine Anticipated discharge place: Home Patient was seen independently by Nurse Pracitioner. This document was prepared using [employer] dictation software. Please allow for errors in commercial project manager, while rare they do occur. Juan Radha, INDUSTRIAL CAFETERIA MANAGER rendered care for this patient independently, reviewed the findings and plan as documented in the note above. I did not physically speak with or examine the patient on this date. Objective - Vital Signs Vital signs: Vital Signs Temp 98 F 10/15/23 08:18 Pulse 62 10/15/23 08:18 Resp 18 10/15/23 08:18 BP 107/63 10/15/23 08:18 Pulse Ox 94 L 10/15/23 08:18 FiO2 Intake & Output 10/14/23 10/15/23 10/15/23 18:59 06:59 18:59 Intake Total 1080 Output Total 800 Balance 1080 -800 Intake: Oral 1080 Output: Urine 800 Other: Voiding Method Toilet Toilet # Voids 4 2 - Labs CBC & Chem 7: 10/16/23 08:53 10/16/23 08:53 Labs: Abnormal Lab Results - Last 24 Hours (Table) 10/14/23 10/14/23 Range/Units 16:12 19:56 POC Glucose (mg/dL) 117 H 146 H (70-110) mg/dL
[2023-10-15 16:24] LABS: Glucose,Whole Blood 128 mg/dL (70-110)
[2023-10-15 20:22] LABS: Glucose,Whole Blood 87 mg/dL (70-110)
[2023-10-16] MEDS: LEVOTHYROXINE 75 MCG TAB PO SCH (03:25)
[2023-10-16] MEDS: amLODIPine 5 MG TAB PO SCH ×2 (03:25→17:18)
[2023-10-16 06:00] LABS: Glucose,Whole Blood 103 mg/dL (70-110)
[2023-10-16] MEDS: INSULIN ASPART (NovoLOG) 100 UNIT/ML VIAL SQ SCH ×4 (06:10→20:21)
[2023-10-16 09:24] LABS: HCT 44.4 % (34.0-46.0); HGB 14.6 gm/dL (11.4-16.0); MCHC 32.8 g/dL (31.0-37.0); MCV 97.4 fL (80.0-100.0); Mean Platelet Volume 7.6; Platelet Count 220 k/uL (150-450); RBC 4.56 m/uL (3.80-5.40); RDW 13.9 % (11.5-15.5); WBC 9.1 k/uL (3.8-10.6)
[2023-10-16 09:29] LABS: ALT 20 U/L (4-34); AST 18 U/L (14-36); African American GFR (CKD) 84 (>60 ml/min/1.73 sqM); Alkaline Phosphatase 107 U/L (38-126); Anion Gap 11 mmol/L; Blood Urea Nitrogen 23 mg/dL (7-17); Calcium 9.1 mg/dL (8.4-10.2); Carbon Dioxide 26 mmol/L (22-30); Chloride 104 mmol/L (98-107); Glucose 125 mg/dL (74-99); Magnesium 1.8 mg/dL (1.6-2.3); Non-African American GFR(CKD) 73 (>60 ml/min/1.73 sqM); Sodium 141 mmol/L (137-145); Total Bilirubin 0.5 mg/dL (0.2-1.3); Total Protein 6.5 g/dL (6.3-8.2)
[2023-10-16] MEDS: SYMBICORT 80-4.5 MCG INHALER INHALATION SCH ×2 (09:33→19:58)
--- NOTE | 2023-10-16 09:39 | P.PN ---
Subjective Progress Note Date: 10/16/23 Principal diagnosis: stroke The patient is a pleasant 78-year-old female patient with a past medical history significant for CAD with prior stenting of the ramus intermedius was performed recently as well as diabetes and hypertension and dyslipidemia. She presented to the hospital complaining of bilateral visual disturbance associated with multiple blind spots in the visual thornton. No dizziness or lightheadedness and no syncope or presyncope and no symptoms of chest pain or chest discomfort. Further investigation was performed including MRI and that showed possible embo lic stroke involving the brain. Carotid CTA was performed and came in to be unremarkable for any dissection or atherosclerosis. We consulted to see the patient to perform transesophageal echocardiogram and rule out any cardiac source of embolization. So far she has been maintaining normal sinus mechanism. She underwent transthoracic echocardiogram and that revealed normal LV systolic function was no significant valvular abnormalities noted. The patient remains asymptomatic at this point. The visual disturbance has improved. She has no pain in the chest and no shortness of breath. The EKG showed sinus mechanism was nonspecific changes. The rest of the workup came in to be unremarkable beside the above MRI of the brain as described. Examination is remarkable for systolic murmur at the right and left upper sternal border with clear breathing sounds bilaterally and no carotid bruit and no edema in the lower extremities 10/16/2023 The patient was seen and evaluated this morning. She is stable and she is asymptomatic. She is going to undergo transesophageal echocardiogram later on today. She is in full understanding and agreement. Hemodynamically she is stable. The examination is remarkable for regular rhythm with a systolic murmur and clear breathing sounds bilaterally Assessment Stroke with an embolic etiology according to the MRI CAD was prior stenting as described above Multiple comorbid conditions including diabetes and hypertension and dyslipidemia Plan Continue the current medical regimen Proceed with JAVI Follow-up with the patient Objective - Vital Signs Vital signs: Vital Signs Temp 97.9 F 10/16/23 09:13 Pulse 63 10/16/23 09:13 Resp 16 10/16/23 09:13 BP 122/63 10/16/23 09:13 Pulse Ox 96 10/16/23 09:34 FiO2 Intake & Output 10/15/23 10/16/23 10/16/23 18:59 06:59 18:59 Output Total 600 1000 Balance -600 -1000 Output: Urine 600 1000 Other: Voiding Method Toilet # Voids 3 - Labs CBC & Chem 7: 11/24/23 08:53 10/16/23 08:53 Labs: Abnormal Lab Results - Last 24 Hours (Table) 10/15/23 10/16/23 Range/Units 16:22 08:53 BUN 23 H (7-17) mg/dL Glucose 125 H (74-99) mg/dL POC Glucose (mg/dL) 128 H (70-110) mg/dL
--- NOTE | 2023-10-16 09:53 | P.PN ---
Subjective Progress Note Date: 10/15/23 Patient was initially seen by Dr. Marcin Alexander. Please refer to his note for details. Patient is a 78-year-old left-handed female with bilateral hemispheric stroke and had visual change. Patient is on aspirin and Plavix. Patient is undergoing tea in the morning. Patient is laying comfortably in the bed. Offers no new complaints. No new focal symptoms. Denies headache. Telemetry monitoring showing sinus rhythm, sinus bradycardia sometimes going between 50s and 60s. Some of the workup during his hospital visit consisted of: Initial creatinine is 1.42 and repeat is normal. Lipid panel is drug use or 149, cholesterol 140, LDL 66, HDL is 53 TSH is 0.438 and the free T4 2 0.11 Hemoglobin A1c is 6.1. CRP is 0.[address] of the head is reported as no acute intracranial process. Nonspecific white matter changes, likely secondary due to chronic small vessel ischemic disease. CT angiography of the head and neck is reported as no evidence for dissection of cervical internal carotid artery or vertebral artery or any evidence of significant stenosis at the carotid bifurcation. No evidence of intracranial high-grade stenosis or intracranial aneurysm EKG is reported as sinus rhythm. 2D echo: It is reported as normal left ventricle systolic function. No obvious intracardiac thrombus. Consider transesophageal echocardiogram if clinically indicated. Objective - Vital Signs Vital signs: Vital Signs Temp 97.9 F 10/15/23 16:55 Pulse 72 10/15/23 16:55 Resp 18 10/15/23 16:55 BP 132/77 10/15/23 16:55 Pulse Ox 97 10/15/23 16:55 FiO2 Intake & Output 10/14/23 10/15/23 10/15/23 18:59 06:59 18:59 Intake Total 1080 Output Total 800 Balance 1080 -800 Intake: Oral 1080 Output: Urine 800 Other: Voiding Method Toilet Toilet # Voids 4 2 - Exam Patient is an elderly female, very pleasant, in no acute distress. Patient is alert awake oriented to time place and person. Patient knows it is September 2023 and that she is in "[facility]" but she knew it was not [facility]. On giving choices, she was able to tolerate his [facility] in [facility]. Speech and language functions are normal. Patient can name and repeat very well. No aphasia or dysarthria. Attention, concentration and fund of knowledge is adequate. Detail cognitive function testing deferred. On cranial nerve examination, pupils are equal, round and reacting to light, visual thornton are full on confrontation, with no neglect on double simultaneous stimulation. Extraocular muscles are intact with no nystagmus. Face is symmetric, tongue protrudes to the midline. Palatal elevation and sensation normal, hearing and shoulder shrug normal, facial sensation normal. On muscle strength testing, there is no pronator drift and the strength is normal in arms and legs distally and proximally. Sensory to touch is equal with no neglect on double simultaneous stimulation. Cerebellar function showed no ataxia for [id number] testing, although patient is slightly tremulous only on the left side. Tone and bulk of muscles normal. Gait deferred.. On general examination, there is no carotid bruit or murmur, S1-S2 audible. Chest is clear on consultation. Abdomen is soft nontender. No organomegaly, bowel sounds present. Peripheral pulses are present. No peripheral edema. - Labs CBC & Chem 7: 10/16/23 08:53 10/16/23 08:53 Labs: Abnormal Lab Results - Last 24 Hours (Table) 10/14/23 10/15/23 Range/Units 19:56 16:22 POC Glucose (mg/dL) 146 H 128 H (70-110) mg/dL Assessment and Plan Assessment: This is a 78-year-old woman who presented emergency department because of episode of vision loss on the left side of both eyes with expressive aphasia lasting between 4-5 hours and that started on 10/12/2020 3 in the afternoon. Acute ischemic stroke, scattered, microinfarcts involving the right frontal, right parietal, right occipital and right thalamus and possibly left parietal lobe. Event likely embolic, Todd Rowe from cardiac source. Recent History of coronary artery disease status post stent Underlying hypertension Diabetes mellitus Plan: MRI of the brain revealed scattered microinfarcts involving the right frontal, right parietal, right occipital, right thalamus and possibly left parietal lobe. Correlate for embolic phenomenon. Nonspecific white matter changes, likely secondary to small vessel ischemic disease. I personally reviewed MRI agree with the findings. Patient started on aspirin 81 mg daily and it seems that the patient was not taken aspirin for the last 1 week since she's not aware whether she was supposed to continue or not. She is resumed on her home medication of Plavix 75 mg daily. She is on Lipitor 40 mg daily. If she has any ALLERGIES to statins such as muscle pain or tenderness can discontinue it. Continue neuro checks Cardiac monitoring showing sinus rhythm, with sinus bradycardia going down in the 50s to 60s. PT, OT and also FIBERGLASS SKI MAKER are consulted Cardiology input appreciated. Patient will undergo JAVI in the morning. We'll defer the rest of the medical management to primary team For DVT prophylaxis: is on Lovenox
[2023-10-16] MEDS ORDERED: BENZOCAINE SPRAY 1 CAN TOPICAL PRN (09:57)
[2023-10-16] MEDS ORDERED: MIDAZOLAM 2 MG/2 ML VIAL IV PRN (09:57)
[2023-10-16] MEDS ORDERED: fentaNYL (PF) 50 MCG/ML 5 ML AMP IVP PRN (09:57)
[2023-10-16] MEDS ORDERED: diphenhydrAMINE 50 MG/ML 1 ML VIAL IVP STA (10:19)
[2023-10-16] MEDS ORDERED: PROCHLORPERAZINE INJ 10 MG/2 ML VIAL IVP STA (10:19)
[2023-10-16] MEDS ORDERED: KETOROLAC 15 MG/ML 1 ML VIAL IVP STA (10:19)
[2023-10-16] MEDS: ENOXAPARIN 40 MG/0.4 ML SYRINGE SQ SCH (10:43)
[2023-10-16] MEDS: ACYCLOVIR 200 MG CAP PO SCH ×2 (10:43→20:22)
[2023-10-16] MEDS: GABAPENTIN 300 MG CAP PO SCH ×3 (10:44→20:22)
[2023-10-16] MEDS ORDERED: SODIUM CHLORIDE 0.9% 1,000 ML IV ONE (11:26)
[2023-10-16] MEDS ORDERED: BENZOCAINE SPRAY 1 CAN TOPICAL ONE (11:29)
[2023-10-16] MEDS ORDERED: MIDAZOLAM 2 MG/2 ML VIAL IVP ONE (11:34)
[2023-10-16] MEDS ORDERED: fentaNYL (PF) 50 MCG/ML 2 ML AMP IVP ONE (11:35)
--- NOTE | 2023-10-16 11:44 | P.PCN ---
Date of Procedure: 10/16/23 Operative Findings: TRANSESOPHAGEAL ECHOCARDIOGRAM HOP TRAINER: ROBERTH EVANS MD, RPVI INDICATION: Rule out cardiac source of embolization SEDATION: Conscious sedation COMPLICATION: None LEVEL OF SEDATION Moderate sedation length of 12 minutes PROCEDURE DESCRIPTION: After obtaining an informed consent, the patient was brought to transesophageal echocardiogram room. Pulse oximetry and heart monitors were attached to the patient. The patient throat was sprayed using lidocaine. The patient was turned into left lateral position. After that a bite guard was placed. After an appropriate conscious sedation was initiated, the transesophageal echocardiogram was advanced through a bite guard into the mid esophagus. A 2-D echocardiogram images, color Doppler images, continuous wave images, pulse-wave images, of various cardiac structure were performed. After that the transesophageal echocardiogram probe was advanced into the stomach and fixed to obtain transgastric view was. The probe was brought into the mid esophagus. Inter-atrial septum was interrogated using 2D images, color Doppler images, and then contrast study. After that transesophageal echocardiogram was withdrawn out and upon withdrawing the descending thoracic aorta all the way up to the arch was evaluated. CONCLUSION: 1. Intact interatrial septum with no PFO or ASD. In fact left atrial appendage with no thrombus 2. Normal biventricular dimension and systolic function 3. Trileaflet aortic valve with no stenosis or regurgitation 4. Mildly thickened mitral valve leaflets was moderate MR 5. Normal tricuspid valve and pulmonic valve 6. No evidence of cardiac source of embolization
[2023-10-16 12:06] LABS: Glucose,Whole Blood 101 mg/dL (70-110)
[2023-10-16] MEDS: CLOPIDOGREL 75 MG TAB PO SCH (12:41)
[2023-10-16] MEDS: ATORVASTATIN 40 MG TAB PO SCH (12:41)
[2023-10-16] MEDS: MONTELUKAST 10 MG TAB PO SCH (12:41)
[2023-10-16] MEDS: PANTOPRAZOLE 40 MG TABLET PO SCH (12:42)
[2023-10-16] MEDS: ASPIRIN 81 MG PO SCH (12:42)
[2023-10-16] MEDS: VENLAFAXINE HCL ER 150 MG CAP PO SCH (12:44)
[2023-10-16] MEDS: SODIUM CHLORIDE 0.9% 1,000 ML IV SCH (14:59)
--- NOTE | 2023-10-16 15:37 | P.PN ---
Subjective Progress Note Date: 10/16/23 Hospital course: Patient is a very pleasant 78-year-old female with a past medical history of multiple myeloma currently undergoing chemotherapy treatment, type II dtd-wcqyrvs-lphcjfnux diabetes mellitus, CAD, COPD, hypothyroidism, hypertension, and hyperlipidemia. She presented to the emergency department on 10/12/23 with a chief complaint of sudden onset visual loss. Patient reported while out shopping earlier in the day she developed sudden onset partial visual loss/disturbances. 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 Patient underwent full evaluation in the emergency department. CT head, CTA head and neck, and chest x -ray were unremarkable. EKG was completed showing normal sinus rhythm at 67 bpm with T-wave flattening in leads V5 and V6. Labs completed and reviewed. CBC showing mild leukocytosis with WBC count of 11.1. Coagulation profile normal findings. BMP revealing acute kidney injury with BUN of 50, creatinine 1.42, and GFR of 36 with baseline creatinine of 0.69. Initial glucose was 88 with repeat of 147. Patient was admitted under our services with consultation to neurology.MRI revealing scattered microinfarcts involving the right frontal, right parietal, right occipital, right thalamus, and possibly the left parietal lobe concerning for embolic process. Consult placed to cardiology for JAVI. Cardiology evaluated planning to take patient for JAVI later today. Physical exam: Patient seen and fully evaluated at bedside this morning. Patient reports continued loss of vision in bilateral peripheral thornton persistent since awakening yesterday morning and also reports persistent headache. Vital signs reviewed and stable. General: Nontoxic, no distress and appears stated age. Derm: Skin warm and dry, normal coloration for ethnicity. Head: Atraumatic, normocephalic and symmetric. Eyes: EOMs intact, no lid lag, and anicteric sclera. Patient reports continued loss of peripheral vision right eye, upon examination patient did seem to have impaired peripheral vision bilaterally. Nystagmus present. Mouth: no lip lesions, mucus membranes moist Cardiovascular: regular rate and rhythm with normal S1S2, systolic murmur, positive posterior tibial pulses bilaterally, and cap refill < 2 seconds. Lungs: Respirations even, regular, and unlabored on room air. Lungs CTA bilaterally, no rhonchi, no rales, no wheezing, and no accessory muscle usage. Abdominal: soft, nontender to palpation, no guarding, no appreciable organomegaly Ext: ROM intact. No gross muscle atrophy, no edema, no contractures Neuro: Speech clear, face symmetrical and CN II-XII grossly intact with no noted focal neuro deficits Psych: Alert and oriented to person, place, time, and situation. Appropriate and pleasant affect. Assessment and Plan of Care: Acute CVA, multiple embolic microinfarcts with visual disturbances bilaterally. -MRI revealed scattered microinfarcts involving the right frontal, right parietal, right occipital, right thalamus, and possibly the left parietal lobe concerning for embolic process. -Neurology following -Cardiology consulted and taking patient for JAVI later today. -Continue Neuro checks every 4 hours -Patient to remain on continuous Cardiac monitoring -Echocardiogram completed and revealed normal EF of 55-60% with no significant valvular or structural abnormalities reported. -Continue with aspirin 81 mg daily, atorvastatin 40 mg daily, and Plavix 75 mg daily. -PT/OT following Acute kidney injury, resolved. -Renal function showing BUN 23, creatinine 0.79, GFR 73. Type II own-sqdxnjh-fnrobscwr diabetes mellitus -Hold metformin and continue patient on glycemic protocol with NovoLog sliding scale, monitor for any signs of hypoglycemia. -Hemoglobin A1c 6.1%. Leukocytosis, resolved. History of coronary artery disease COPD Hypertension Hyperlipidemia -Patient to continue daily medication regimen with amlodipine 5 mg twice daily, aspirin 81 mg daily, atorvastatin 40 mg daily, History of multiple myeloma -Patient to continue to follow up outpatient with vice president of sales/oncologist to undergo monthly chemotherapy treatments. -We will continue with acyclovir 400 mg twice daily Data and imaging reviewed: Blood glucose ranging from 87-128 over the past 24 hours. Labs completed and reviewed. CBC unremarkable. BMP revealing mildly elevated BUN of 23 otherwise normal renal function with creatinine of 0.79 and GFR 73. Vital signs completed and reviewed. Blood pressure 122/63, heart rate 63, respiratory rate 16, temp 97.9F, SpO2 of 95% on room air. DVT prophylaxis: Lovenox Anticipated discharge date: Clinical course to determine Anticipated discharge place: Home Patient was seen independently by Nurse Pracitioner. This document was prepared using [employer] dictation software. Please allow for errors in pawn broker, while rare they do occur. Juan Garcia NP rendered care for this patient independently, reviewed the findings and plan as documented in the note above. I did not physically speak with or examine the patient on this date. Objective - Vital Signs Vital signs: Vital Signs Temp 97.5 F L 10/15/23 20:00 Pulse 65 10/16/23 03:47 Resp 16 10/16/23 03:47 BP 134/73 10/16/23 03:47 Pulse Ox 96 10/16/23 03:47 FiO2 Intake & Output 10/15/23 10/16/23 10/16/23 18:59 06:59 18:59 Output Total 600 Balance -600 Output: Urine 600 Other: Voiding Method Toilet # Voids 3 - Labs CBC & Chem 7: 10/16/23 08:53 10/16/23 08:53 Labs: Abnormal Lab Results - Last 24 Hours (Table) 10/15/23 Range/Units 16:22 POC Glucose (mg/dL) 128 H (70-110) mg/dL
[2023-10-16 16:32] LABS: Glucose,Whole Blood 110 mg/dL (70-110)
--- NOTE | 2023-10-16 18:47 | P.PN ---
Subjective Progress Note Date: 10/16/23 10/16/2023: Patient was seen for a follow-up. Patient is laying comfortably in the bed. Offers no new complaints. It appears patient used to be on aspirin 81 mg daily. She underwent cardiac catheterization with carotid stenting on 10/05/2023 and after that patient was placed on aspirin and Plavix. Her stroke happened on 10/12/2023, with partial loss of vision on the left side of each e ye. 10/15/2023: Patient was initially seen by Dr. Marcin Alexander. Please refer to his note for details. Patient is a 78-year-old left-handed female with bilateral hemispheric stroke and had visual change. Patient is on aspirin and Plavix. Patient is undergoing tea in the morning. Patient is laying comfortably in the bed. Offers no new complaints. No new focal symptoms. Denies headache. Telemetry monitoring showing sinus rhythm, sinus bradycardia sometimes going between 50s and 60s. Some of the workup during his hospital visit consisted of: Initial creatinine is 1.42 and repeat is normal. Lipid panel is drug use or 149, cholesterol 140, LDL 66, HDL is 53 TSH is 0.438 and the free T4 2 0.11 Hemoglobin A1c is 6.1. CRP is 0.[address] of the head is reported as no acute intracranial process. Nonspecific white matter changes, likely secondary due to chronic small vessel ischemic disease. CT angiography of the head and neck is reported as no evidence for dissection of cervical internal carotid artery or vertebral artery or any evidence of si gnificant stenosis at the carotid bifurcation. No evidence of intracranial high-grade stenosis or intracranial aneurysm EKG is reported as sinus rhythm. 2D echo: It is reported as normal left ventricle systolic function. No obvious intracardiac thrombus. Consider transesophageal echocardiogram if clinically indicated. Objective - Vital Signs Vital signs: Vital Signs Temp 96.9 F L 10/16/23 18:03 Pulse 70 10/16/23 18:03 Resp 16 10/16/23 18:03 BP 153/78 10/16/23 18:03 Pulse Ox 92 L 10/16/23 15:32 FiO2 Intake & Output 10/15/23 10/16/23 10/16/23 18:59 06:59 18:59 Intake Total 250 Output Total 600 1600 Balance -600 -1350 Intake: IV 10 Invasive Line 1 10 Oral 240 Output: Urine 600 1600 Other: Voiding Method Toilet Toilet # Voids 3 - Exam Patient is an elderly female, very pleasant, in no acute distress. Patient is alert awake oriented to time place and person. Patient knows it is September 2023 and that she is in "[facility]" but she knew it was not right. On giving choices, she was able to tolerate his [facility] in [facility]. Speech and language functions are normal. Patient can name and repeat very well. No aphasia or dysarthria. Attention, concentration and fund of knowledge is adequate. Detail cognitive function testing deferred. On cranial nerve examination, pupils are equal, round and reacting to light and on more careful visual field testing, it appears patient still has visual field deficit, left lower quadrant both eyes, but more pronounced in the left eye. Extraocular muscles are intact with no nystagmus. Face is symmetric, tongue protrudes to the midline. Palatal elevation and sensation normal, hearing and shoulder shrug normal, facial sensation normal. On muscle strength testing, there is no pronator drift and the strength is normal in arms and legs distally and proximally. Sensory to touch is equal with no neglect on double simultaneous stimulation. Cerebellar function showed no ataxia for [id number] testing, although patient is slightly tremulous only on the left side. Tone and bulk of muscles normal. Gait deferred.. On general examination, there is no carotid bruit or murmur, S1-S2 audible. Chest is clear on consultation. Abdomen is soft nontender. No organomegaly, bowel sounds present. Peripheral pulses are present. No peripheral edema. - Labs CBC & Chem 7: 10/16/23 08:53 10/16/23 08:53 Labs: Abnormal Lab Results - Last 24 Hours (Table) 10/16/23 Range/Units 08:53 BUN 23 H (7-17) mg/dL Glucose 125 H (74-99) mg/dL Assessment and Plan Assessment: This is a 78-year-old woman who presented emergency department because of episode of vision loss on the left side of both eyes with expressive aphasia lasting between 4-5 hours and that started on 10/12/2020 3 in the afternoon. Acute ischemic stroke, scattered, microinfarcts involving the right frontal, right parietal, right occipital and right thalamus and possibly left parietal lobe. Event likely embolic, likely from cardiac source. Recent History of coronary artery disease status post stent 10/05/2023 Underlying hypertension Diabetes mellitus Plan: MRI of the brain revealed scattered microinfarcts involving the right frontal, right parietal, right occipital, right thalamus and possibly left parietal lobe. Correlate for embolic phenomenon. Nonspecific white matter changes, likely secondary to small vessel ischemic disease. I personally reviewed MRI agree with the findings. JAVI was performed, which revealed: 1. Intact interatrial septum with no PFO or ASD. In fact left atrial appendage with no thrombus 2. Normal biventricular dimension and systolic function 3. Trileaflet aortic valve with no stenosis or regurgitation 4. Mildly thickened mitral valve leaflets was moderate MR 5. Normal tricuspid valve and pulmonic valve 6. No evidence of cardiac source of embolization Patient was on aspirin 81 mg daily until she had a cardiac stenting on 10/05/2023, when she was placed on dual antiplatelet medications with aspirin 81 mg and Plavix 75 mg. However as per Dr. Alexander note, patient was not taking aspirin after the procedure as she was supposed to. Patient had a stroke on . Patient will be continued on DAPT. She is on Lipitor 40 mg daily. If she has any ALLERGIES to statins such as muscle pain or tenderness can discontinue it. Continue neuro checks Cardiac monitoring showing sinus rhythm, with sinus bradycardia going down in the 50s to 60s. Suggest 30 day event monitor to rule out paroxysmal atrial fibrillation. PT, OT and also CONCEPTOR are consulted Cardiology input appreciated. Patient will undergo JAVI in the morning. We'll defer the rest of the medical management to primary team For DVT prophylaxis: is on Lovenox Neurologically clear for discharge.
[2023-10-16 20:00] LABS: Glucose,Whole Blood 150 mg/dL (70-110)
[2023-10-17] MEDS: amLODIPine 5 MG TAB PO SCH ×2 (05:33→17:34)
[2023-10-17] MEDS: LEVOTHYROXINE 75 MCG TAB PO SCH (05:33)
[2023-10-17 05:54] LABS: Glucose,Whole Blood 100 mg/dL (70-110)
[2023-10-17] MEDS: INSULIN ASPART (NovoLOG) 100 UNIT/ML VIAL SQ SCH ×4 (05:59→20:51)
[2023-10-17] MEDS: SYMBICORT 80-4.5 MCG INHALER INHALATION SCH ×2 (07:23→19:21)
[2023-10-17] MEDS: GABAPENTIN 300 MG CAP PO SCH ×3 (09:16→20:51)
[2023-10-17] MEDS: ASPIRIN 81 MG PO SCH (09:16)
[2023-10-17] MEDS: ENOXAPARIN 40 MG/0.4 ML SYRINGE SQ SCH (09:16)
[2023-10-17] MEDS: ATORVASTATIN 40 MG TAB PO SCH (09:16)
[2023-10-17] MEDS: VENLAFAXINE HCL ER 150 MG CAP PO SCH (09:16)
[2023-10-17] MEDS: MONTELUKAST 10 MG TAB PO SCH (09:16)
[2023-10-17] MEDS: ACYCLOVIR 200 MG CAP PO SCH ×2 (09:16→20:51)
[2023-10-17] MEDS: PANTOPRAZOLE 40 MG TABLET PO SCH (09:16)
[2023-10-17] MEDS: CLOPIDOGREL 75 MG TAB PO SCH (09:16)
--- NOTE | 2023-10-17 10:04 | P.PN ---
Subjective Progress Note Date: 10/17/23 Principal diagnosis: stroke The patient is a pleasant 78-year-old female patient with a past medical history significant for CAD with prior stenting of the ramus intermedius was performed recently as well as diabetes and hypertension and dyslipidemia. She presented to the hospital complaining of bilateral visual disturbance associated with multiple blind spots in the visual thornton. No dizziness or lightheadedness and no syncope or presyncope and no symptoms of chest pain or chest discomfort. Further investigation was performed including MRI and that showed possible embo lic stroke involving the brain. Carotid CTA was performed and came in to be unremarkable for any dissection or atherosclerosis. We consulted to see the patient to perform transesophageal echocardiogram and rule out any cardiac source of embolization. So far she has been maintaining normal sinus mechanism. She underwent transthoracic echocardiogram and that revealed normal LV systolic function was no significant valvular abnormalities noted. The patient remains asymptomatic at this point. The visual disturbance has improved. She has no pain in the chest and no shortness of breath. The EKG showed sinus mechanism was nonspecific changes. The rest of the workup came in to be unremarkable beside the above MRI of the brain as described. Examination is remarkable for systolic murmur at the right and left upper sternal border with clear breathing sounds bilaterally and no carotid bruit and no edema in the lower extremities 10/16/2023 The patient was seen and evaluated this morning. She is stable and she is asymptomatic. She is going to undergo transesophageal echocardiogram later on today. She is in full understanding and agreement. Hemodynamically she is stable. The examination is remarkable for regular rhythm with a systolic murmur and clear breathing sounds bilaterally 10/17/2023 The patient was seen this morning. She is asymptomatic and she is hemodynamically stable but she underwent transesophageal echocardiogram yesterday and that showed no evidence of cardiac source of embolization. The plan is to pursue with an event monitor. The examination is remarkable for a systolic murmur at the right and left upper sternal border. Assessment Stroke with an embolic etiology according to the MRI CAD was prior stenting as described above Multiple comorbid conditions including diabetes and hypertension and dyslipidemia Plan Continue the current medical regimen The patient can be discharged home Objective - Vital Signs Vital signs: Vital Signs Temp 98.2 F 10/17/23 04:00 Pulse 69 10/17/23 04:00 Resp 16 10/17/23 04:00 BP 120/62 10/17/23 04:00 Pulse Ox 95 10/17/23 04:00 FiO2 Intake & Output 10/16/23 10/17/23 10/17/23 18:59 06:59 18:59 Intake Total 250 200 180 Output Total 1600 800 Balance -1350 -600 180 Intake: IV 10 Invasive Line 1 10 Oral 240 200 180 Output: Urine 1600 800 Other: Voiding Method Toilet Toilet - Labs CBC & Chem 7: 10/16/23 08:53 10/16/23 08:53 Labs: Abnormal Lab Results - Last 24 Hours (Table) 10/16/23 Range/Units 19:54 POC Glucose (mg/dL) 150 H (70-110) mg/dL
--- NOTE | 2023-10-17 10:52 | P.PN ---
Subjective Progress Note Date: 10/17/23 Hospital course: Patient is a very pleasant 78-year-old female with a past medical history of multiple myeloma currently undergoing chemotherapy treatment, type II ftx-kslzcyq-esmuijggl diabetes mellitus, CAD, COPD, hypothyroidism, hypertension, and hyperlipidemia. She presented to the emergency department on 10/12/23 with a chief complaint of sudden onset visual loss. Patient reported while out shopping earlier in the day she developed sudden onset partial visual loss/disturbances. She reports she then went to her clay transporter for evaluation and was diagnosed with bilateral left peripheral vision loss and was sent to the emergency department for further evaluation. Patient underwent full evaluation in the emergency department. CT head, CTA head and neck, and chest x -ray were unremarkable. EKG was completed showing normal sinus rhythm at 67 bpm with T-wave flattening in leads V5 and V6. Labs completed and reviewed. CBC showing mild leukocytosis with WBC count of 11.1. Coagulation profile normal findings. BMP revealing acute kidney injury with BUN of 50, creatinine 1.42, and GFR of 36 with baseline creatinine of 0.69. Initial glucose was 88 with repeat of 147. Patient was admitted under our services with consultation to neurology.MRI revealing scattered microinfarcts involving the right frontal, right parietal, right occipital, right thalamus, and possibly the left parietal lobe concerning for embolic process. Consult placed to cardiology for JAVI. Cardiology evaluated and took patient for JAVI on 10/16/23. JAVI was negative for any abnormalities ruling out a PFO or thrombus. Neurology placed order for event monitor. Initial plan was for discharge patient home with event monitor this morning, however we are unable to have event monitor placed at this time. Patient's discharge is delayed until event monitor can be placed on Thursday. Physical exam: Patient seen and fully evaluated at bedside this morning. Patient reports contin ued loss of vision in peripheral field of left eye is persistent but reports the peripheral vision in her right eye and her headache is improving today. Initial plan was for discharge patient home with event monitor this morning, however we are unable to have event monitor placed at this time. Patient's discharge is delayed until event monitor can be placed on Thursday. Vital signs reviewed and stable. General: Nontoxic, no distress and appears stated age. Derm: Skin warm and dry, normal coloration for ethnicity. Head: Atraumatic, normocephalic and symmetric. Eyes: EOMs intact, no lid lag, and anicteric sclera. Patient reports continued loss of peripheral vision right eye, upon examination patient did seem to have impaired peripheral vision bilaterally. Nystagmus present. Mouth: no lip lesions, mucus membranes moist Cardiovascular: regular rate and rhythm with normal S1S2, systolic murmur, positive posterior tibial pulses bilaterally, and cap refill < 2 seconds. Lungs: Respirations even, regular, and unlabored on room air. Lungs CTA bilaterally, no rhonchi, no rales, no wheezing, and no accessory muscle usage. Abdominal: soft, nontender to palpation, no guarding, no appreciable organomegaly Ext: ROM intact. No gross muscle atrophy, no edema, no contractures Neuro: Speech clear, face symmetrical and CN II-XII grossly intact with no noted focal neuro deficits Psych: Alert and oriented to person, place, time, and situation. Appropriate and pleasant affect. Assessment and Plan of Care: Acute CVA, multiple embolic microinfarcts with visual disturbances bilaterally. -MRI revealed scattered microinfarcts involving the right frontal, right parietal, right occipital, right thalamus, and possibly the left parietal lobe concerning for embolic process. -Neurology following, reviewed documentation in chart -Cardiology following, clearing patient from cardiac perspective -JAVI was negative ruling out PFO or thrombus -Echocardiogram completed and revealed normal EF of 55-60% with no significant valvular or structural abnormalities reported. -Continue Neuro checks every 4 hours -Patient to remain on continuous Cardiac monitoring -Continue with aspirin 81 mg daily, atorvastatin 40 mg daily, and Plavix 75 mg daily. -PT/OT following Acute kidney injury, resolved. -Renal function showing BUN 23, creatinine 0.79, GFR 73. Type II ums-ugfpoph-nnssrkyfs diabetes mellitus -Hold metformin and continue patient on glycemic protocol with NovoLog sliding scale, monitor for any signs of hypoglycemia. -Hemoglobin A1c 6.1%. Leukocytosis, resolved. History of coronary artery disease COPD Hypertension Hyperlipidemia -Patient to continue daily medication regimen with amlodipine 5 mg twice daily, aspirin 81 mg daily, atorvastatin 40 mg daily, History of multiple myeloma -Patient to continue to follow up outpatient with welding instructor/oncologist to undergo monthly chemotherapy treatments. -We will continue with acyclovir 400 mg twice daily Data and imaging reviewed: Vital signs reviewed and stable. Blood pressure 137/61, heart rate 73, respiratory rate 16, temp 98.7F, SpO2 of 96% on room air. JAVI completed 10/16/23 and was negative for PFO or thrombus. Patient to be discharged home with [facility] once event monitor is placed. DVT prophylaxis: Lovenox Anticipated discharge date: Discharge delayed until event monitor can be placed Thursday Anticipated discharge place: Home Patient was seen independently by Nurse Pracitioner. This document was prepared using [employer] dictation software. Please allow for errors in retail shift supervisor, while rare they do occur. Juan Garcia NP rendered care for this patient independently, reviewed the findings and plan as documented in the note above. I did not physically speak with or examine the patient on this date. Objective - Vital Signs Vital signs: Vital Signs Temp 98.2 F 10/17/23 04:00 Pulse 69 10/17/23 04:00 Resp 16 10/17/23 04:00 BP 120/62 10/17/23 04:00 Pulse Ox 95 10/17/23 04:00 FiO2 Intake & Output 10/16/23 10/17/23 10/17/23 18:59 06:59 18:59 Intake Total 250 200 180 Output Total 1600 800 Balance -1350 -600 180 Intake: IV 10 Invasive Line 1 10 Oral 240 200 180 Output: Urine 1600 800 Other: Voiding Method Toilet Toilet - Labs CBC & Chem 7: 10/19/23 07:34 10/19/23 07:34 Labs: Abnormal Lab Results - Last 24 Hours (Table) 10/16/23 Range/Units 19:54 POC Glucose (mg/dL) 150 H (70-110) mg/dL
[2023-10-17 11:24] LABS: Glucose,Whole Blood 138 mg/dL (70-110)
[2023-10-17 17:16] LABS: Glucose,Whole Blood 99 mg/dL (70-110)
[2023-10-17 20:48] LABS: Glucose,Whole Blood 156 mg/dL (70-110)
[2023-10-18] MEDS: LEVOTHYROXINE 75 MCG TAB PO SCH (05:53)
[2023-10-18 07:16] LABS: Glucose,Whole Blood 102 mg/dL (70-110)
[2023-10-18] MEDS: SYMBICORT 80-4.5 MCG INHALER INHALATION SCH ×2 (07:44→18:47)
[2023-10-18] MEDS: ENOXAPARIN 40 MG/0.4 ML SYRINGE SQ SCH ×2 (08:22→08:25)
[2023-10-18] MEDS: ASPIRIN 81 MG PO SCH (08:23)
[2023-10-18] MEDS: INSULIN ASPART (NovoLOG) 100 UNIT/ML VIAL SQ SCH ×4 (08:23→21:12)
[2023-10-18] MEDS: GABAPENTIN 300 MG CAP PO SCH ×3 (08:23→20:43)
[2023-10-18] MEDS: MONTELUKAST 10 MG TAB PO SCH (08:23)
[2023-10-18] MEDS: PANTOPRAZOLE 40 MG TABLET PO SCH (08:23)
[2023-10-18] MEDS: ATORVASTATIN 40 MG TAB PO SCH (08:23)
[2023-10-18] MEDS: VENLAFAXINE HCL ER 150 MG CAP PO SCH (08:23)
[2023-10-18] MEDS: CLOPIDOGREL 75 MG TAB PO SCH (08:23)
[2023-10-18] MEDS: amLODIPine 5 MG TAB PO SCH ×2 (08:23→17:43)
[2023-10-18] MEDS: ACYCLOVIR 200 MG CAP PO SCH ×2 (08:23→20:43)
[2023-10-18 12:10] LABS: Glucose,Whole Blood 95 mg/dL (70-110)
--- NOTE | 2023-10-18 13:23 | P.PN ---
Subjective Progress Note Date: 10/18/23 Principal diagnosis: stroke The patient is a pleasant 78-year-old female patient with a past medical history significant for CAD with prior stenting of the ramus intermedius was performed recently as well as diabetes and hypertension and dyslipidemia. She presented to the hospital complaining of bilateral visual disturbance associated with multiple blind spots in the visual thornton. No dizziness or lightheadedness and no syncope or presyncope and no symptoms of chest pain or chest discomfort. Further investigation was performed including MRI and that showed possible embo lic stroke involving the brain. Carotid CTA was performed and came in to be unremarkable for any dissection or atherosclerosis. We consulted to see the patient to perform transesophageal echocardiogram and rule out any cardiac source of embolization. So far she has been maintaining normal sinus mechanism. She underwent transthoracic echocardiogram and that revealed normal LV systolic function was no significant valvular abnormalities noted. The patient remains asymptomatic at this point. The visual disturbance has improved. She has no pain in the chest and no shortness of breath. The EKG showed sinus mechanism was nonspecific changes. The rest of the workup came in to be unremarkable beside the above MRI of the brain as described. Examination is remarkable for systolic murmur at the right and left upper sternal border with clear breathing sounds bilaterally and no carotid bruit and no edema in the lower extremities 10/16/2023 The patient was seen and evaluated this morning. She is stable and she is asymptomatic. She is going to undergo transesophageal echocardiogram later on today. She is in full understanding and agreement. Hemodynamically she is stable. The examination is remarkable for regular rhythm with a systolic murmur and clear breathing sounds bilaterally 10/17/2023 The patient was seen this morning. She is asymptomatic and she is hemodynamically stable but she underwent transesophageal echocardiogram yesterday and that showed no evidence of cardiac source of embolization. The plan is to pursue with an event monitor. The examination is remarkable for a systolic murmur at the right and left upper sternal border. 10/18/2023 The patient was seen and evaluated this morning. She is asymptomatic and she is hemodynamically stable. She is in process of being discharged tomorrow with an event monitor that is of the concern about embolic stroke as an etiology for her symptoms beach she has been maintaining normal sinus mechanism. The examination is remarkable for a systolic murmur at the right upper sternal border Assessment Stroke with an embolic etiology according to the MRI CAD was prior stenting as described above Multiple comorbid conditions including diabetes and hypertension and dyslipidemia Plan Continue the current medical regimen The patient can be discharged home with event monitor tomorrow Objective - Vital Signs Vital signs: Vital Signs Temp 98.4 F 10/18/23 12:10 Pulse 64 10/18/23 12:10 Resp 18 10/18/23 12:10 BP 135/84 10/18/23 12:10 Pulse Ox 96 10/18/23 12:10 FiO2 Intake & Output 10/17/23 10/18/23 10/18/23 18:59 06:59 18:59 Intake Total 298 Output Total 800 Balance -502 Intake: Oral 298 Output: Urine 800 Other: Voiding Method Toilet Toilet # Voids 1 1 - Labs CBC & Chem 7: 10/16/23 08:53 10/16/23 08:53 Labs: Abnormal Lab Results - Last 24 Hours (Table) 10/17/23 Range/Units 20:46 POC Glucose (mg/dL) 156 H (70-110) mg/dL
--- NOTE | 2023-10-18 16:31 | P.PN ---
Subjective Progress Note Date: 10/18/23 Hospital course: Patient is a very pleasant 78-year-old female with a past medical history of multiple myeloma currently undergoing chemotherapy treatment, type II kjt-[id number] diabetes mellitus, CAD, COPD, hypothyroidism, hypertension, and hyperlipidemia. She presented to the emergency department on 10/12/23 with a chief complaint of sudden onset visual loss. Patient reported while out shopping earlier in the day she developed sudden onset partial visual loss/disturbances. She reports she then went to her auto body painter for evaluation and was diagnosed with bilateral left peripheral vision loss and was sent to the emergency department for further evaluation. Patient underwent full evaluation in the emergency department. CT head, CTA head and neck, and chest x -ray were unremarkable. EKG was completed showing normal sinus rhythm at 67 bpm with T-wave flattening in leads V5 and V6. Labs completed and reviewed. CBC showing mild leukocytosis with WBC count of 11.1. Coagulation profile normal findings. BMP revealing acute kidney injury with BUN of 50, creatinine 1.42, and GFR of 36 with baseline creatinine of 0.69. Initial glucose was 88 with repeat of 147. Patient was admitted under our services with consultation to neurology.MRI revealing scattered microinfarcts involving the right frontal, right parietal, right occipital, right thalamus, and possibly the left parietal lobe concerning for embolic process. Consult placed to cardiology for JAVI. Cardiology evaluated and took patient for JAVI on 10/16/23. JAVI was negative for any abnormalities ruling out a PFO or thrombus. Neurology placed order for event monitor. Initial plan was for discharge patient home with event monitor this morning, however we are unable to have event monitor placed at this time. Patient's discharge is delayed until event monitor can be placed on Thursday. Physical exam: Patient seen and fully evaluated at bedside this morning. Patient reports vision is slightly better today but states it just has been waxing and waning. She denies having any other complaints. She reports headache is better controlled. Patient is stable for discharge, we are awaiting event monitor placement. Plans for discharge tomorrow morning. Vital signs reviewed and stable. General: Nontoxic, no distress and appears stated age. Derm: Skin warm and dry, normal coloration for ethnicity. Head: Atraumatic, normocephalic and symmetric. Eyes: EOMs intact, no lid lag, and anicteric sclera. Patient reports continued loss of peripheral vision right eye, upon examination patient did seem to have impaired peripheral vision bilaterally. Nystagmus present. Mouth: no lip lesions, mucus membranes moist Cardiovascular: regular rate and rhythm with normal S1S2, systolic murmur, positive posterior tibial pulses bilaterally, and cap refill < 2 seconds. Lungs: Respirations even, regular, and unlabored on room air. Lungs CTA bilaterally, no rhonchi, no rales, no wheezing, and no accessory muscle usage. Abdominal: soft, nontender to palpation, no guarding, no appreciable organomegaly Ext: ROM intact. No gross muscle atrophy, no edema, no contractures Neuro: Speech clear, face symmetrical and CN II-XII grossly intact with no noted focal neuro deficits Psych: Alert and oriented to person, place, time, and situation. Appropriate and pleasant affect. Assessment and Plan of Care: Acute CVA, multiple embolic microinfarcts with visual disturbances bilaterally. -MRI revealed scattered microinfarcts involving the right frontal, right parietal, right occipital, right thalamus, and possibly the left parietal lobe concerning for embolic process. -Neurology following, reviewed documentation in chart -Cardiology following, clearing patient from cardiac perspective -JAVI was negative ruling out PFO or thrombus -Echocardiogram completed and revealed normal EF of 55-60% with no significant valvular or structural abnormalities reported. -Continue Neuro checks every 4 hours -Patient to remain on continuous Cardiac monitoring -Continue with aspirin 81 mg daily, atorvastatin 40 mg daily, and Plavix 75 mg daily. -PT/OT following Acute kidney injury, resolved. -Renal function showing BUN 23, creatinine 0.79, GFR 73. Type II jhn-qaskrky-qwdrdpsku diabetes mellitus -Hold metformin and continue patient on glycemic protocol with NovoLog sliding scale, monitor for any signs of hypoglycemia. -Hemoglobin A1c 6.1%. Leukocytosis, resolved. History of coronary artery disease COPD Hypertension Hyperlipidemia -Patient to continue daily medication regimen with amlodipine 5 mg twice daily, aspirin 81 mg daily, atorvastatin 40 mg daily, History of multiple myeloma -Patient to continue to follow up outpatient with actuarial internship/oncologist to undergo monthly chemotherapy treatments. -We will continue with acyclovir 400 mg twice daily Data and imaging reviewed: Vital signs reviewed and stable. Blood pressure 131/75, heart rate 66, respiratory rate 18, temperature 98.0F, SpO2 of 95% on room air. [facility] once event monitor is placed. DVT prophylaxis: Lovenox Anticipated discharge date: Discharge delayed until event monitor can be placed tomorrow morning. Anticipated discharge place: Home Patient was seen independently by Nurse Pracitioner. This document was prepared using [employer] dictation software. Please allow for errors in document control coordinator, while rare they do occur. Juan Garcia ETCH[employer] APPRENTICE [employer]OTOENGRAVING rendered care for this patient independently, reviewed the findings and plan as documented in the note above. I did not physically speak with or examine the patient on this date. Objective - Vital Signs Vital signs: Vital Signs Temp 98 F 10/18/23 07:15 Pulse 66 10/18/23 07:15 Resp 18 10/18/23 07:15 BP 131/75 10/18/23 07:15 Pulse Ox 97 10/18/23 07:47 FiO2 Intake & Output 10/17/23 10/18/23 10/18/23 18:59 06:59 18:59 Intake Total 298 Output Total 800 Balance -502 Intake: Oral 298 Output: Urine 800 Other: Voiding Method Toilet Toilet # Voids 1 1 - Labs CBC & Chem 7: 10/19/23 07:34 10/19/23 07:34 Labs: Abnormal Lab Results - Last 24 Hours (Table) 10/17/23 10/17/23 Range/Units 11: 20:46 POC Glucose (mg/dL) 138 H 156 H (70-110) mg/dL
[2023-10-18 17:04] LABS: Glucose,Whole Blood 115 mg/dL (70-110)
[2023-10-18 21:03] LABS: Glucose,Whole Blood 181 mg/dL (70-110)
[2023-10-19] MEDS ORDERED: ZOLPIDEM 5 MG TAB PO PRN (00:31)
[2023-10-19] MEDS: LEVOTHYROXINE 75 MCG TAB PO SCH (06:43)
[2023-10-19 07:02] LABS: Glucose,Whole Blood 99 mg/dL (70-110)
[2023-10-19 07:56] VITALS: BP 117/73; PULSE 67; RESP 17; TEMP 98.2
[2023-10-19] MEDS: SYMBICORT 80-4.5 MCG INHALER INHALATION SCH (07:58)
[2023-10-19] MEDS: INSULIN ASPART (NovoLOG) 100 UNIT/ML VIAL SQ SCH ×2 (08:14→12:58)
[2023-10-19] MEDS: ENOXAPARIN 40 MG/0.4 ML SYRINGE SQ SCH (08:23)
[2023-10-19] MEDS: ACYCLOVIR 200 MG CAP PO SCH (09:19)
[2023-10-19] MEDS: GABAPENTIN 300 MG CAP PO SCH (09:19)
[2023-10-19] MEDS: ASPIRIN 81 MG PO SCH (09:19)
[2023-10-19] MEDS: MONTELUKAST 10 MG TAB PO SCH (09:19)
[2023-10-19] MEDS: VENLAFAXINE HCL ER 150 MG CAP PO SCH (09:19)
[2023-10-19] MEDS: PANTOPRAZOLE 40 MG TABLET PO SCH (09:19)
[2023-10-19] MEDS: ATORVASTATIN 40 MG TAB PO SCH (09:19)
[2023-10-19] MEDS: amLODIPine 5 MG TAB PO SCH (09:19)
[2023-10-19] MEDS: CLOPIDOGREL 75 MG TAB PO SCH (09:19)
[2023-10-19 11:02] LABS: Albumin 3.9 g/dL (3.8-4.9); Blood Urea Nitrogen 23.6 mg/dL (9.0-27.0); Calcium 9.1 mg/dL (8.7-10.3); Carbon Dioxide 27.7 mmol/L (21.6-31.8); Chloride 107 mmol/L (96-109); Globulin 1.7 g/dL (1.6-3.3); Glucose 113 mg/dL (70-110); Potassium 3.9 mmol/L (3.5-5.5); Sodium 144 mmol/L (135-145); Total Protein 5.6 g/dL (6.2-8.2)
[2023-10-19 11:03] LABS: ALT 17 U/L (8-44); AST 8 U/L (13-35); Albumin/Globulin Ratio 2.29 Ratio (1.60-3.17); Alkaline Phosphatase 114 U/L (41-126); Total Bilirubin 0.3 mg/dL (0.3-1.2)
[2023-10-19 11:06] LABS: HCT 40.6 % (37.2-46.3); HGB 13.4 g/dL (12.0-15.0); MCH 31.8 pg (27.0-32.0); MCV 96.2 FL (80.0-97.0); Mean Platelet Volume 10.8 FL (9.5-12.2); NRBC Per 100 WBC 0 X 10*3/uL (0.00-0.01); Platelet Count 197 X 10*3/uL (140-440); RBC 4.22 X 10*6/uL (4.10-5.20); RDW 14.5 % (11.5-14.5); WBC 9.67 X 10*3/uL (4.50-10.00)
--- NOTE | 2023-10-19 12:51 | P.DS ---
Providers Date of admission: 10/12/23 19:02 Expected date of discharge: 10/19/23 Attending physician: Maribel Finney MD Consults: 10/12/23 19:05 Consult Physician Routine Consulting Provider: Marcin Alexander Consult Reason/Comments: cva Do you want consulting provider notified?: Yes 10/14/23 14:18 Consult Physician Routine Consulting Provider: Israel Shafer Consult Reason/Comments: Need JAVI, pt with multiple scattered embolic infarcts Do you want consulting provider notified?: Yes Primary care physician: Scooter Waters [facility] Course: Discharge Diagnosis: Acute CVA, multiple embolic microinfarcts with visual disturbances bilaterally. Acute kidney injury, resolved. Type II wih-[id number]-pcgrkpgnc diabetes mellitus Leukocytosis, resolved. History of coronary artery disease COPD Hypertension Hyperlipidemia History of multiple myeloma Hospital Course: Patient is a very pleasant 78-year-old female with a past medical history of multiple myeloma currently undergoing chemotherapy treatment, type II pyy-qiehcsf-kmcglnsul diabetes mellitus, CAD, COPD, hypothyroidism, hypertensi on, and hyperlipidemia. She presented to the emergency department on 10/12/23 with a chief complaint of sudden onset visual loss. Patient reported while out shopping earlier in the day she developed sudden onset partial visual loss/disturbances. She reports she then went to her visual basic programmer for evaluation and was diagnosed with bilateral left peripheral vision loss and was sent to the emergency department for further evaluation. Patient underwent full evaluation in the emergency department. CT head, CTA head and neck, and chest x-ray were unremarkable. EKG was completed showing normal sinus rhythm at 67 bpm with T-wave flattening in leads V5 and V6. Labs completed and reviewed. CBC showing mild leukocytosis with WBC count of 11.1. Coagulation profile normal findings. BMP revealing acute kidney injury with BUN of 50, creatinine 1.42, and GFR of 36 with baseline creatinine of 0.69. Initial glucose was 88 with repeat of 147. Patient was admitted under our services with consultation to neurology.MRI revealing scattered microinfarcts involving the right frontal, right parietal, right occipital, right thalamus, and possibly the left parietal lobe concerning for embolic process. Consult placed to cardiology for JAVI. Cardiology evaluated and took patient for JAVI on 10/16/23. JAVI was negative for any abnormalities ruling out a PFO or thrombus. Neurology placed order for event monitor. Discharge was delayed secondary to inability to have event monitor placed over the weekend. Patient had no further complaints or concerns throughout the weekend. Her vision continued to wax and wane with persistent reports of left sided peripheral vision loss and intermittent episodes of right- sided peripheral vision loss. Patient instructed that she will need to follow up outpatient with her visual basic programmer, neurologist, final coat sprayer, and her fitness director/oncologist. Event monitor has been placed, patient is medically stable for this time. Patient has been discharged home with [facility] home care Physical exam: Patient seen and fully evaluated at bedside this morning. Patient reports vision continues to seem slightly better each day but also reports continues to wax and wane stating it was worse last night but again this morning seems better. She denies having any other complaints. She reports headache is resolved and denies having any dizziness, lightheadedness, chest pain, palpitations, or experiencing any numbness/tingling/weakness/swelling in her extremities. Vital signs reviewed and stable. General: Nontoxic, no distress and appears stated age. Derm: Skin warm and dry, normal coloration for ethnicity. Head: Atraumatic, normocephalic and symmetric. Eyes: EOMs intact, no lid lag, and anicteric sclera. Patient reports persistent visual loss of peripheral vision in bilateral eyes, worse on left Mouth: no lip lesions, mucus membranes moist Cardiovascular: regular rate and rhythm with normal S1S2, systolic murmur, positive posterior tibial pulses bilaterally, and cap refill < 2 seconds. Lungs: Respirations even, regular, and unlabored on room air. Lungs CTA bilaterally, no rhonchi, no rales, no wheezing, and no accessory muscle usage. Abdominal: soft, nontender to palpation, no guarding, no appreciable organomegaly Ext: ROM intact. No gross muscle atrophy, no edema, no contractures Neuro: Speech clear, face symmetrical and CN II-XII grossly intact with no noted focal neuro deficits Psych: Alert and oriented to person, place, time, and situation. Appropriate and pleasant affect. A total of 35 minutes of time were spent preparing this complex discharge summary. Pt was discharged on 10/19/23 at 9:44 AM Patient was seen independently by Nurse Practitioner. This document was prepared using [employer] dictation software. Please allow for errors in marble cutter while rare they do occur. Juan Garcia NP rendered care for this patient independently, reviewed the findings and plan as documented in the note above. I did not physically speak with or examine the patient on this date. Patient Condition at Discharge: Stable Plan - Discharge Summary Discharge Rx Participant: Yes New Discharge Prescriptions: Continue Venlafaxine HCl ER [Effexor XR] 150 mg PO DAILY Montelukast [Singulair] 10 mg PO DAILY Acyclovir 400 mg PO BID Calcium Carbonate [Calcium] 600 mg PO DAILY Levothyroxine Sodium [Synthroid] 75 mcg PO DAILY metFORMIN HCL [Glucophage] 850 mg PO DAILY Fluticasone Propion/Salmeterol [Advair 100-50 Diskus] 1 puff INHALATION RT- BID Pioglitazone [Actos] 30 mg PO DAILY Pantoprazole [Protonix] 40 mg PO DAILY Cholecalciferol [Vitamin D3 (125 Mcg = 5000 Iu)] 125 mcg PO DAILY Celecoxib [CeleBREX] 200 mg PO BID Gabapentin [Neurontin] 300 mg PO TID Nitroglycerin Sl Tabs [Nitrostat] 0.4 mg SUBLINGUAL Q5M PRN #25 tab PRN Reason: Chest Pain Clopidogrel [Plavix] 75 mg PO DAILY #90 tab Prochlorperazine [Compazine] 10 mg PO Q6H PRN PRN Reason: Nausea Magnesium Gluconate [Magonate] 500 mg PO DAILY Ipratropium-Albuterol Nebulize [Duoneb 0.5 mg-3 mg/3 ml Soln] 3 ml INHALATION RT-QID PRN PRN Reason: Shortness Of Breath Daniella Back And Body 1 tab PO DAILY PRN PRN Reason: Pain LORazepam [Ativan] 0.5 mg PO BID PRN PRN Reason: Anxiety Aspirin 81 mg PO DAILY Rosuvastatin Calcium 20 mg PO DAILY amLODIPine [Norvasc] 5 mg PO BID-W/MEALS #180 tab lisinopriL [Zestril] 10 mg PO DAILY #90 tab Discharge Medication List Montelukast [Singulair] 10 mg PO DAILY 11/11/15 [History] Venlafaxine HCl ER [Effexor XR] 150 mg PO DAILY 11/11/15 [History] Acyclovir 400 mg PO BID 04/28/19 [History] Calcium Carbonate [Calcium] 600 mg PO DAILY 04/28/19 [History] Levothyroxine Sodium [Synthroid] 75 mcg PO DAILY 04/28/19 [History] Fluticasone Propion/Salmeterol [Advair 100-50 Diskus] 1 puff INHALATION RT-BID 03/28/20 [History] Pioglitazone [Actos] 30 mg PO DAILY 03/28/20 [History] metFORMIN HCL [Glucophage] 850 mg PO DAILY 03/28/20 [History] Pantoprazole [Protonix] 40 mg PO DAILY 09/18/20 [History] Daniella Back And Body 1 tab PO DAILY PRN 02/20/23 [History] Celecoxib [CeleBREX] 200 mg PO BID 02/20/23 [History] Cholecalciferol [Vitamin D3 (125 Mcg = 5000 Iu)] 125 mcg PO DAILY 02/20/23 [History] Gabapentin [Neurontin] 300 mg PO TID 02/20/23 [History] Ipratropium-Albuterol Nebulize [Duoneb 0.5 mg-3 mg/3 ml Soln] 3 ml INHALATION RT-QID PRN 02/20/23 [History] LORazepam [Ativan] 0.5 mg PO BID PRN 02/20/23 [History] Magnesium Gluconate [Magonate] 500 mg PO DAILY 02/20/23 [History] Prochlorperazine [Compazine] 10 mg PO Q6H PRN 02/20/23 [History] Aspirin 81 mg PO DAILY 09/30/23 [History] Rosuvastatin Calcium 20 mg PO DAILY 09/30/23 [History] Clopidogrel [Plavix] 75 mg PO DAILY #90 tab 10/06/23 [Rx] Nitroglycerin Sl Tabs [Nitrostat] 0.4 mg SUBLINGUAL Q5M PRN #25 tab 10/06/23 [Rx] amLODIPine [Norvasc] 5 mg PO BID-W/MEALS #180 tab 10/06/23 [Rx] lisinopriL [Zestril] 10 mg PO DAILY #90 tab 10/06/23 [Rx] Follow up Appointment(s)/Referral(s): [facility], [NON-STAFF] - 1 Week Israel Shafer MD [STAFF PHYSICIAN] - 10/28/23 4:00 pm (appointment with Dr. Guajardo) Scooter Jefferson MD [Primary Care Provider] - 11/04/23 11:15 am Estefania Mares MD [REFERRING] - 1 Week (The office will call to set up an appointment.) Patient Instructions/Handouts: Ischemic Stroke (DC) Activity/Diet/Wound Care/Special Instructions: Activity: As tolerated. Take breaks as needed. No driving until cleared by visual basic programmer. Diet: Heart healthy and carb consistent diet. Avoid salts, or foods with hidden salts such as canned or boxed foods and frozen dinners. Extra salt makes your heart work harder and traps the fluid in your body for longer. Special Instructions: Take all of your medications as directed and remember to keep all of your doctor's appointments and follow-up as needed. You are being discharged home with [facility] home care. You will also need to follow-up within this next week with your visual basic programmer as we discussed. It is also recommended continue to follow up outpatient with your fitness director/oncologist for treatment of her multiple myeloma. You are being discharged home with an event monitor, Please follow up with cardiology office as recommended. Thank you for allowing us to participate in your care, it was truly a pleasure having you for our patient!!! Discharge Disposition: HOME WITH HOME HEALTH SERVICES
== END 2023-10-19 13:05 | disposition home health service (06) | DRG 65 ==
LOC: EC 16:41 → 3SCARD 19:02 → 5NMEDONC 10-17 14:30
PROVIDERS: ADMIT Internal Medicine; ATTEND Internal Medicine
PROC: B24BZZ4 Ultrasonography of Heart with Aorta, Transesophageal (ICD-10-PCS; principal; 2023-10-16 08:30)
DX: I63.49 Cerebral infarction due to embolism of other cerebral artery (principal); C90.00 Multiple myeloma not having achieved remission; N17.9 Acute kidney failure, unspecified; Z94.84 Stem cells transplant status; E11.9 Type 2 diabetes mellitus without complications; R29.701 NIHSS score 1; I25.10 Atherosclerotic heart disease of native coronary artery without angina pectoris; I10 Essential (primary) hypertension; E78.5 Hyperlipidemia, unspecified; E03.9 Hypothyroidism, unspecified; R47.01 Aphasia; H54.7 Unspecified visual loss; F32.A Depression, unspecified; H53.461 Homonymous bilateral field defects, right side; J44.89 Other specified chronic obstructive pulmonary disease; D72.829 Elevated white blood cell count, unspecified; K21.9 Gastro-esophageal reflux disease without esophagitis; M19.90 Unspecified osteoarthritis, unspecified site; K44.9 Diaphragmatic hernia without obstruction or gangrene; L40.9 Psoriasis, unspecified; Z79.82 Long term (current) use of aspirin; Z79.1 Long term (current) use of non-steroidal anti-inflammatories (NSAID); Z79.02 Long term (current) use of antithrombotics/antiplatelets; Z79.890 Hormone replacement therapy; Z79.84 Long term (current) use of oral hypoglycemic drugs; Z79.899 Other long term (current) drug therapy; Z95.5 Presence of coronary angioplasty implant and graft; Z87.891 Personal history of nicotine dependence; Z88.8 Allergy status to other drugs, medicaments and biological substances; Z88.0 Allergy status to penicillin; Z88.2 Allergy status to sulfonamides; Z91.041 Radiographic dye allergy status
CPT/HCPCS: 36415; 70450; 70496; 70498; 70551; 71046; 80053; 80061; 81001; 82550; 83036; 83735; 84439; 84443; 84484; 85025; 85027; 85610; 85652; 85730; 86140; 93005; 93270; 93306; 93312; 93320; 93325; 94640; 94760; 96374; 96375; 99285

== ENCOUNTER → 2023-11-26 | Outpatient (CLI) | payer MEDICARE, OTHER ==
[2023-11-26 18:35] LABS: Chol/HDL Ratio 2.62 Ratio; LDL Cholesterol,Calculated 70.5 mg/dL (0.0-131.0)
[2023-11-26 18:36] LABS: ALT 18 U/L (8-44); AST 11 U/L (13-35)
== END | disposition home or self-care (01) ==
LOC: LABWHC1 13:10
PROVIDERS: ATTEND Internal Medicine Interventional Cardiology
DX: E78.2 Mixed hyperlipidemia (principal)
CPT/HCPCS: 36415; 80061; 84450; 84460

== ENCOUNTER 2024-01-18 19:12 | Emergency (ER) | payer MEDICARE, OTHER ==
--- NOTE | 2024-01-18 19:43 | ED ---
Chest Pain HPI - General Stated Complaint: Chest Pain Time Seen by Provider: 01/18/24 19:22 Source: family Limitations: no limitations - History of Present Illness Initial Comments: This patient is a 78-year-old woman who presents to have evaluation of substernal chest pain that started around 11 AM today while she was sitting in a restaurant. She describes it as a squeezing feeling. She states that she had initially taken nitroglycerin and baby aspirin but the symptoms continued. When things continued into tonight, she decided to come and be evaluated here. She states that about 30 minutes prior to coming here she took another baby aspirin and the pain has resolved. MD Complaint: chest pain -: hour(s) Onset: during rest Pain Location: substernal Pain Radiation: none Severity: moderate Quality: tightness Consistency: now resolved Improves With: other Worsens With: nothing Treatments Prior to Arrival: aspirin, nitroglycerin - Related Data Home Medications Medication Instructions Recorded Confirmed Montelukast [Singulair] 10 mg PO DAILY 11/11/15 10/12/23 Venlafaxine HCl ER [Effexor XR] 150 mg PO DAILY 11/11/15 10/12/23 Acyclovir 400 mg PO BID 04/28/19 10/12/23 Calcium Carbonate [Calcium] 600 mg PO DAILY 04/28/19 10/12/23 Levothyroxine Sodium [Synthroid] 75 mcg PO DAILY 04/28/19 10/12/23 Fluticasone Propion/Salmeterol 1 puff INHALATION RT-BID 03/28/20 10/12/23 [Advair 100-50 Diskus] Pioglitazone [Actos] 30 mg PO DAILY 03/28/20 10/12/23 metFORMIN HCL [Glucophage] 850 mg PO DAILY 03/28/20 10/12/23 Pantoprazole [Protonix] 40 mg PO DAILY 09/18/20 10/12/23 Daniella Back And Body 1 tab PO DAILY PRN 02/20/23 10/12/23 Celecoxib [CeleBREX] 200 mg PO BID 02/20/23 10/12/23 Cholecalciferol [Vitamin D3 (125 125 mcg PO DAILY 02/20/23 10/12/23 Mcg = 5000 Iu)] Gabapentin [Neurontin] 300 mg PO TID 02/20/23 10/12/23 Ipratropium-Albuterol Nebulize 3 ml INHALATION RT-QID PRN 02/20/23 10/12/23 [Duoneb 0.5 mg-3 mg/3 ml Soln] LORazepam [Ativan] 0.5 mg PO BID PRN 02/20/23 10/12/23 Magnesium Gluconate [Magonate] 500 mg PO DAILY 02/20/23 10/12/23 Prochlorperazine [Compazine] 10 mg PO Q6H PRN 02/20/23 10/12/23 Aspirin 81 mg PO DAILY 09/30/23 10/12/23 Rosuvastatin Calcium 20 mg PO DAILY 09/30/23 10/12/23 Previous Rx's Medication Instructions Recorded Clopidogrel [Plavix] 75 mg PO DAILY #90 tab 10/06/23 Nitroglycerin Sl Tabs [Nitrostat] 0.4 mg SUBLINGUAL Q5M PRN #25 tab 10/06/23 amLODIPine [Norvasc] 5 mg PO BID-W/MEALS #180 tab 10/06/23 lisinopriL [Zestril] 10 mg PO DAILY #90 tab 10/06/23 Allergies Allergy/AdvReac Type Severity Reaction Status Date / Time iodine Allergy Rash/Hives Verified 01/18/24 19:52 Iodine and Iodide Containing Allergy Rash/Hives Verified 01/18/24 19:52 Produc Penicillins Allergy Anaphylaxis Verified 01/18/24 19:52 Sulfa (Sulfonamide Allergy Itching Verified 01/18/24 19:52 Antibiotics) Review of Systems ROS Statement: Those systems with pertinent positive or pertinent negative responses have been documented in the HPI. ROS Other: All systems not noted in ROS Statement are negative. Constitutional: Denies: fever, chills Respiratory: Denies: cough, dyspnea Cardiovascular: Reports: chest pain. Denies: palpitations, edema, syncope Gastrointestinal: Denies: abdominal pain, nausea, vomiting, diarrhea Genitourinary: Denies: dysuria, hematuria Musculoskeletal: Denies: back pain Skin: Denies: rash Neurological: Denies: headache, weakness, numbness EKG Findings - EKG Results: EKG: interpreted by ANUM HERNADEZL, sinus rhythm (Rate 65 bpm), normal axis, normal QRS, normal ST/T Past Medical History Past Medical History: Asthma, Cancer, Chest Pain / Angina, COPD, Diabetes Mellitus, GERD/Reflux, Hyperlipidemia, Hypertension, Osteoarthritis (OA), Thyroid Disorder Additional Past Medical History / Comment(s): Current itchy no rash , irregular heartbeat, hiatal hernia, hx ulcer, degenerative disk disease, psoriasis, multiple myeloma currently receiving chemo once a months with dr faustin, vertigo, states legs get tired and hurt, difficulty swallowing certain things needs to drink alot of fluid. rt leg swollen from bad knee. recent heaviness to chest for last 6 months History of Any Multi-Drug Resistant Organisms: None Reported Past Surgical History: Breast Surgery, Cholecystectomy, Hysterectomy, Tonsillectomy Additional Past Surgical History / Comment(s): pain clinic procedures, surgery for tubal pregancy, left foot heel spurs, selena breast reduction, fatty tissue removed from rt leg, selena cataracts, autologous stem cell transplant, colonoscopy, Past Anesthesia/Blood Transfusion Reactions: Motion Sickness Additional Past Anesthesia/Blood Transfusion Reaction / Comment(s): vertigo - current Past Psychological History: Depression Smoking Status: Former smoker Past Alcohol Use History: Rare Past Drug Use History: None Reported - Past Family History Daughter(s) Family Medical History: Cancer Mother Family Medical History: Coronary Artery Disease (CAD) Father History Unknown: Yes Sister(s) Family Medical History: Cancer Additional Family Medical History / Comment(s): lung cancer Brother(s) Family Medical History: Dementia General Exam General appearance: alert, in no apparent distress Head exam: Present: atraumatic, normocephalic Eye exam: Present: normal appearance. Absent: scleral icterus, conjunctival injection Respiratory exam: Present: normal lung sounds bilaterally. Absent: respiratory distress, wheezes, rales, rhonchi, stridor, accessory muscle use Cardiovascular Exam: Present: regular rate, normal rhythm, normal heart sounds. Absent: systolic murmur, diastolic murmur, rubs, gallop GI/Abdominal exam: Present: soft. Absent: distended, tenderness, guarding, rebound, rigid, mass Extremities exam: Present: normal inspection, normal capillary refill. Absent: pedal edema, calf tenderness Back exam: Present: normal inspection. Absent: CVA tenderness (R), CVA tenderness (L) Neurological exam: Present: alert Skin exam: Present: warm, dry, intact, normal color. Absent: rash Course Vital Signs 01/18/24 01/18/24 19:25 22:28 Temperature 98.2 F 98.7 F Pulse Rate 68 66 Respiratory 18 16 Rate Blood Pressure 112/53 122/56 O2 Sat by Pulse 99 97 Oximetry Chest Pain MDM - MDM The patient had chest x-ray which I interpreted as negative for acute infiltrate, pneumothorax, cardiomegaly. Was pt. sent in by a medical professional or institution (, PA, DIRECT SUPPORT STAFF, urgent care, hospital, or long term...) When possible be specific @ -[No] Did you speak to anyone other than the patient for history (EMS, parent, family, police, friend...)? What history was obtained from this source @ -[No] Did you review nursing and triage notes (agree or disagree)? Why? @ -[I reviewed and agree with nursing and triage notes] Were old charts reviewed (outside hosp., previous admission, EMS record, old EKG, old radiological studies, urgent care reports/EKG's, long term records)? Report findings @ -[No old charts were reviewed] Differential Diagnosis (chest pain, altered mental status, abdominal pain women, abdominal pain men, vaginal bleeding, weakness, fever, dyspnea, syncope, headache, dizziness, GI bleed, back pain, seizure, CVA, palpatations, mental h ealth, musculoskeletal)? @ -[Differential Chest Pain: Stable Angina, Unstable Angina, STEMI, NSTEMI Aortic Dissection, Pneumothorax, Musculoskeletal, Esophageal Spasm GERD, Cholecystitis, Pancreatitis, Zoster, this is not meant to be an all-inclusive list. EKG interpreted by me (3pts min.). @ -[I interpreted as above X-rays interpreted by me (1pt min.). @ -[I interpreted as above CT interpreted by me (1pt min.). @ -[None done] U/S interpreted by me (1pt. min.). @ -[None done] What testing was considered but not performed or refused? (CT, X-rays, U/S, labs)? Why? @ -[None] What meds were considered but not given or refused? Why? @ -[None] Did you discuss the management of the patient with other professionals (professionals i.e. , TITA, DIRECT SUPPORT STAFF, lab, RT, psych nurse, long term care social worker, matrix worker, teacher, corporate compliance officer, case worker)? Give summary @ -[No] Was smoking cessation discussed for >3mins.? @ -[No] Was critical care preformed (if so, how long)? @ -[No] Were there social determinants of health that impacted care today? How? (Homelessness, low income, unemployed, alcoholism, drug addiction, transportation, low edu. Level, literacy, decrease access to med. care, group home, rehab)? @ -[No] Was there de-escalation of care discussed even if they declined (Discuss DNR or withdrawal of care, Hospice)? DNR status @ -[No] What co-morbidities impacted this encounter? (DM, HTN, Smoking, COPD, CAD, Cancer, CVA, ARF, Chemo, Hep., AIDS, mental health diagnosis, sleep apnea, morbid obesity)? @ -[History of hypertension, diabetes, angina Was patient admitted / discharged? Hospital course, mention meds given and route, prescriptions, significant lab abnormalities, going to OR and other pertinent info. @ -[This patient is 78-year-old woman presenting with episode of chest pain st arting in the morning. Her initial workup here is negative. We discussed admission for further telemetry monitoring/cardiac enzymes, but the patient states she is feeling better and would like to go home. We discussed appropriate further care and follow-up as well as return parameters. Undiagnosed new problem with uncertain prognosis? @ -[No] Drug Therapy requiring intensive monitoring for toxicity (Heparin, Nitro, Insulin, Cardizem)? @ -[No] Were any procedures done? @ -[No] Diagnosis/symptom? @ -[Acute chest pain Acute, or Chronic, or Acute on Chronic? @ -[Acute Uncomplicated (without systemic symptoms) or Complicated (systemic symptoms)? @ -[Uncomplicated Side effects of treatment? @ -[No] Exacerbation, Progression, or Severe Exacerbation? @ -[No] Poses a threat to life or bodily function? How? (Chest pain, [place], [place], pneumonia, PE, COPD, DKA, ARF, appy, cholecystitis, CVA, Diverticulitis, Homicidal, Suicidal, threat to staff... and all critical care pts) @ -[There is small risk and patient will therefore have close follow-up and we discussed return parameters Disposition Clinical Impression: Chest pain Disposition: HOME SELF-CARE Condition: Good Instructions (If sedation given, give patient instructions): Chest Pain (ED) Is patient prescribed a controlled substance at d/c from ED?: No Referrals: Scooter Jefferson MD [Primary Care Provider] - 1-2 days Shad Guajardo MD [STAFF PHYSICIAN] - 1-2 days
[2024-01-18 20:57] LABS: Basophils # (A) 0.1 k/uL (0-0.2); Basophils % (A) 1 %; Eosinophils # (A) 0.5 k/uL (0-0.7); Eosinophils % (A) 5 %; HCT 36.7 % (34.0-46.0); HGB 12.1 gm/dL (11.4-16.0); Lymphocytes # (A) 4.7 k/uL (1.0-4.8); Lymphocytes % (A) 51 %; MCH 32.6 pg (25.0-35.0); MCHC 32.9 g/dL (31.0-37.0); MCV 98.9 fL (80.0-100.0); Mean Platelet Volume 7.6; Monocytes # (A) 0.5 k/uL (0-1.0); Monocytes % (A) 5 %; Neutrophils # (A) 3.4 k/uL (1.3-7.7); Neutrophils % (A) 37 %; Platelet Count 172 k/uL (150-450); RBC 3.71 m/uL (3.80-5.40); RDW 14.8 % (11.5-15.5); WBC 9.2 k/uL (3.8-10.6)
--- NOTE | 2024-01-18 21:04 | XR ---
EXAMINATION TYPE: XR chest 2V DATE OF EXAM: 01/18/2024 COMPARISON: 10/12/2023 HISTORY: Chest pain TECHNIQUE: Frontal and lateral views of the chest are obtained. FINDINGS: There is no focal air space opacity, pleural effusion, or pneumothorax seen. The cardiac silhouette size is within normal limits. There appears to been a vertebroplasty in one of the upper thoracic ve rtebral segments. This was seen previously and is stable. IMPRESSION: No acute cardiopulmonary process.
[2024-01-18 21:08] LABS: Partial Thromboplastin Time 25.8 sec (22.0-30.0); Prothrombin Time 10.6 sec (10.0-12.5)
[2024-01-18 21:13] LABS: ALT 16 U/L (4-34); AST 17 U/L (14-36); African American GFR (CKD) 66 (>60 ml/min/1.73 sqM); Albumin 3.5 g/dL (3.5-5.0); Alkaline Phosphatase 84 U/L (38-126); Anion Gap 5 mmol/L; Blood Urea Nitrogen 42 mg/dL (7-17); Calcium 8.8 mg/dL (8.4-10.2); Carbon Dioxide 28 mmol/L (22-30); Chloride 106 mmol/L (98-107); Glucose 113 mg/dL (74-99); Non-African American GFR(CKD) 57 (>60 ml/min/1.73 sqM); Potassium 4.5 mmol/L (3.5-5.1); Sodium 139 mmol/L (137-145); Total Bilirubin 0.3 mg/dL (0.2-1.3); Total Protein 5.5 g/dL (6.3-8.2)
[2024-01-18 22:48] VITALS: BP 122/56; PULSE 66; RESP 16; TEMP 98.7
== END 2024-01-18 22:31 | disposition home or self-care (01) ==
LOC: EC 19:12
DX: R07.89 Other chest pain (principal); E78.5 Hyperlipidemia, unspecified; J44.89 Other specified chronic obstructive pulmonary disease; E11.9 Type 2 diabetes mellitus without complications; K21.9 Gastro-esophageal reflux disease without esophagitis; I10 Essential (primary) hypertension; E07.9 Disorder of thyroid, unspecified; F32.A Depression, unspecified; Z87.891 Personal history of nicotine dependence; Z79.82 Long term (current) use of aspirin; Z79.899 Other long term (current) drug therapy; Z79.890 Hormone replacement therapy; Z79.51 Long term (current) use of inhaled steroids; Z91.041 Radiographic dye allergy status; Z88.0 Allergy status to penicillin; Z88.2 Allergy status to sulfonamides
CPT/HCPCS: 36415; 71046; 80053; 83735; 84484; 85025; 85610; 85730; 93005; 99285

== ENCOUNTER → 2024-10-08 | Outpatient (CLI) | payer MEDICARE, OTHER ==
--- NOTE | 2024-10-11 22:40 | MR ---
EXAMINATION TYPE: MR femur/thigh LT wo/w con DATE OF EXAM: 10/08/2024 3:43 PM COMPARISON: None. CLINICAL INDICATION: Female, 79 years old with history of C90.00 MULTIPLE MYELOMA NOT HAVING ACHIEVED REMISS; PHH, Multiple myeloma not having achieved remission, bilateral thigh and lower leg pain and limited movement TECHNIQUE: Multiplanar, multisequence technique was utilized in order to study and pre-and post contr ast images were obtained. Patient was given 8.5 mL Gadavist FINDINGS: The bone marrow signal intensity is within normal limits. No evidence organizing fluid collection or soft tissue mass. Mild degeneration changes of the hips with osteophyte formation and joint space deejay rowing as well as the knees with joint space narrowing and osteophyte formation. There are 2 intramuscular lipomas within the left lower extremity medial posterior calf the largest m easuring 5.4 x 2.9 cm and the other measuring 8.3 x 5.1 cm both and adductor Ruiz muscle. Additiona l atrophy changes in the hamstrings involving no full-thickness tear definitively visualized. Right vastus lateralis atrophy changes. Scattered colonic diverticula. After administration of contra st, no abnormal enhancement is seen. Small right knee joint effusion. IMPRESSION: 1. No abnormal postcontrast enhancement. No evidence for intraosseous mass 2. No evidence for organizing fluid collection or mass. 3. Fatty atrophy changes of the right lateral and vastus lateralis musculature. 4. Intramuscular lipomas in the adductor Yovany on the left lower externally. [facility], , 10/11/2024 10:38 PM
== END | disposition home or self-care (01) ==
LOC: RADMRIMAIN 14:02
PROVIDERS: ATTEND Orthopaedic Surgery
DX: C90.00 Multiple myeloma not having achieved remission (principal); K76.89 Other specified diseases of liver; M17.12 Unilateral primary osteoarthritis, left knee
CPT/HCPCS: 73720; A9585

== ENCOUNTER → 2024-10-10 | Outpatient (CLI) | payer MEDICARE, OTHER ==
[2024-10-10 15:13] LABS: Basophils # (A) 0.04 X 10*3/uL (0.00-0.10); Basophils % (A) 0.5 %; Eosinophils # (A) 0.28 X 10*3/uL (0.04-0.35); Eosinophils % (A) 3.8 %; HCT 38.1 % (37.2-46.3); HGB 12.2 g/dL (12.0-15.0); Lymphocytes # (A) 3.95 X 10*3/uL (0.90-5.00); Lymphocytes % (A) 53.4 %; MCH 33.4 pg (27.0-32.0); MCV 104.4 FL (80.0-97.0); Mean Platelet Volume 10.7 FL (9.5-12.2); Monocytes # (A) 0.53 X 10*3/uL (0.20-1.00); Monocytes % (A) 7.2 %; NRBC Per 100 WBC 0 X 10*3/uL (0.00-0.01); Neutrophils # (A) 2.59 X 10*3/uL (1.80-7.70); Platelet Count 185 X 10*3/uL (140-440); RBC 3.65 X 10*6/uL (4.10-5.20); RDW 15.7 % (11.5-14.5)
[2024-10-10 15:26] LABS: % Iron Saturation 22.39 (12.00-45.00); ALT 12 U/L (8-44); AST 10 U/L (13-35); Albumin/Globulin Ratio 2.11 Ratio (1.60-3.17); Alkaline Phosphatase 94 U/L (41-126); BUN/Creat Ratio 22.11 Ratio (12.00-20.00); Blood Urea Nitrogen 19.9 mg/dL (9.0-27.0); Calcium 8.8 mg/dL (8.7-10.3); Carbon Dioxide 27.3 mmol/L (21.6-31.8); Chloride 108 mmol/L (96-109); Chol/HDL Ratio 2.54 Ratio; Creatine Kinase 54 U/L (26-186); Ferritin 59.1 ng/mL (10.0-291.0); Globulin 1.9 g/dL (1.6-3.3); Glucose 113 mg/dL (70-110); Iron 58 UG/DL (50-170); LDL Cholesterol,Calculated 72.9 mg/dL (0.0-131.0); Magnesium 2.1 mg/dL (1.5-2.4); Potassium 4.6 mmol/L (3.5-5.5); Sodium 144 mmol/L (135-145); T4, Free (Free Thyroxine) 1.33 ng/dL (0.80-1.80); Total Bilirubin 0.2 mg/dL (0.3-1.2); Total Iron Binding Capacity 259 UG/DL (228-460); Total Protein 5.9 g/dL (6.2-8.2)
[2024-10-10 19:25] LABS: Urine Creatinine 85.1 mg/dL (28.0-217.0)
== END | disposition home or self-care (01) ==
LOC: LABPAT 10:51
PROVIDERS: ATTEND Internal Medicine Interventional Cardiology
DX: Z01.812 Encounter for preprocedural laboratory examination (principal); R07.9 Chest pain, unspecified
CPT/HCPCS: 80053; 80061; 82043; 82550; 82570; 82607; 82728; 82746; 83036; 83540; 83550; 83735; 84439; 84443; 85025; 86140

== ENCOUNTER → 2024-10-10 | Outpatient (CLI) | payer MEDICARE, OTHER | END | disposition home or self-care (01) | LOC: LABWHC1 10:55 | PROVIDERS: ATTEND Family Medicine | DX: Z53.9 Procedure and treatment not carried out, unspecified reason (principal) ==

== ENCOUNTER → 2024-10-13 | Day surgery (SDC) | payer MEDICARE, OTHER ==
[~2024-10-13] MED LIST changes: +ALPRAZolam 0.25 MG TAB PO PRN; +ALPRAZolam 0.5 MG TAB PO PRN; +ASPIRIN 81 MG PO SCH; +CLOPIDOGREL 75 MG TAB PO SCH; -LACTATED RINGERS 1,000 ML IV SCH; +LEVOTHYROXINE 75 MCG TAB PO SCH; +NITROGLYCERIN SL TABS 0.4 MG TAB SUBLINGUAL PRN; +NON FORMULARY DRUG (Rosuvastatin Calcium [Rosuvastatin Calcium] 20 MG Tablet) PO SCH; +PANTOPRAZOLE 40 MG TABLET PO SCH; +PIOGLITAZONE 30 MG TAB PO SCH; +RX INFO: IV CONTRAST WAS GIVEN 1 EACH MISC MISCELLANE PRN; +SODIUM CHLORIDE 0.9% 1,000 ML IV SCH; +VENLAFAXINE HCL ER 150 MG CAP PO SCH; +amLODIPine 5 MG TAB PO SCH; +lisinopriL 10 MG TAB PO SCH
[2024-10-13 07:03] LABS: Glucose,Whole Blood 152 mg/dL (70-110)
[2024-10-13] MEDS: ASPIRIN 325 MG TAB PO STA (07:07)
[2024-10-13] MEDS: SODIUM CHLORIDE 0.9% 1,000 ML in EMPTY BAG 1 BAG IV ONE (07:07)
[2024-10-13] MEDS: ATORVASTATIN 80 MG TAB PO STA (07:08)
[2024-10-13] MEDS: IV FLUID CONTINUATION 1,000 ML IV ONE (07:25)
[2024-10-13] MEDS: methylPREDNISolone SOD SUCCI 125 MG/2 ML VIAL IVP ONE (07:27)
[2024-10-13] MEDS: diphenhydrAMINE 50 MG/ML 1 ML VIAL IVP STA (07:27)
[2024-10-13] MEDS: methylPREDNISolone SOD SUCCI 125 MG/2 ML VIAL IM ONE (07:35)
[2024-10-13] MEDS: IV FLUID CONTINUATION 900 ML IV ONE (07:35)
[2024-10-13 07:41] VITALS: TEMP 98.4
[2024-10-13] MEDS: fentaNYL (PF) 50 MCG/1 ML VIAL IVP ONE (07:47)
[2024-10-13] MEDS: HEPARIN SODIUM,PORCINE 10,000 UNIT in SODIUM CHLORIDE 0.9% 1,000 ML IRRIGATION PRN (07:48)
[2024-10-13] MEDS: HEPARIN SODIUM,PORCINE (1 ML) 2,500 UNIT in SODIUM CHLORIDE 0.9% 250 ML IRRIGATION PRN (07:49)
[2024-10-13] MEDS: LIDOCAINE 1% INJ 10MG/ML (20 ML MDV) SQ ONE (07:49)
[2024-10-13] MEDS: VERAPAMIL SYRINGE (5 MG/10 ML) INTRAARTER ONE (07:52)
[2024-10-13] MEDS: MIDAZOLAM 2 MG/2 ML VIAL IVP ONE (07:58)
[2024-10-13] MEDS: HEPARIN SODIUM 1,000 UN/ML (10ML VL) IVP ONE (07:58)
[2024-10-13] MEDS: IOPAMIDOL-370 100ML BTL INJ ONE (08:06)
--- NOTE | 2024-10-13 08:25 | P.CARDCATH ---
Date of Procedure: 10/13/24 Description of Procedure: Cardiac Catheterization: The patient is a 79-year-old female with a known history of CAD status post PCI, history of hypertension, hyperlipidemia and diabetes who has been complaining of recent onset chest discomfort, improved with sublingual nitroglycerin. Recommendations were made regarding cardiac catheterization, the risks and the complications were discussed with the patient who is in full understanding and agreement. Procedure Description: Patient was brought to optical laboratory manager in fasting semi-sedated state after receiving Fentanyl and Benadryl achieiving moderate conscious sedated state. Using Xylocaine Anesthesia and modified Seldinger technique, a 6-Czech sheath was in troduced in the left radial artery . Subsequently, selective coronary angiography was performed using a 5-Czech 4 bend Debora catheter. Multiple views of the coronary artery including hemiaxial views were obtained. The 5 Czech pigtail catheter was used to cross the aortic valve and LVEDP was calculated. Following that, catheter and sheath were removed. Hemostasis was obtained with deployment of vascular band . There was no immediate complication. Patient was returned to room in stable condition. Of note, the patient received a total of 4500 units of intravenous heparin as well as intra-arterial verapamil. Findings: Left main: This is a large size vessel, trifurcating into LAD, left circumflex and ramus intermedius, left main has no obstructive disease. LAD: This is a large size vessel, reaching to the apex giving rise to 2 small to moderately sized diagonal branch. The LAD has mild intimal disease of 20% in the midsegment. The takeoff of the second diagonal branch has a 70% plaque, the rest of the vessel has no high-grade stenosis Left circumflex: This is a large nondominant vessel, giving rise to a large obtuse marginal branch. The left circumflex in the midsegment has a 20 to 30% plaque with no high-grade stenosis RCA: This is a large dominant vessel, bifurcating distally to PDA and PLV the right coronary artery has mild intimal disease in the proximal and mid segment with no high-grade stenosis Ramus intermedius. This is a large size vessel reaching to the apical lateral wall. The stented segment in the proximal ramus intermedius is patent with no evidence of in-stent restenosis. The mid segment of the vessel has a 50% plaque with no progression compared to 2022 Left Ventriculogram: Not performed Hemodynamics: There was no gradient across the aortic valve, LVEDP was 12-16 mmHg Conclusion: 1. Mild triple-vessel disease 2. Patent stent to ramus intermedius 3. Right dominance 4. Normal LVEDP Recommendations: I have recommended to continue medical therapy, at this time I see no evidence of significant progression of disease.. The findings and the recommendations were discussed with the patient and the family and they were in full understandi ng and agreement. Duration of sedation is 18 minutes.
[2024-10-13 08:49] VITALS: RESP 16
[2024-10-13 14:44] VITALS: BP 139/67; PULSE 72
== END | disposition home or self-care (01) ==
LOC: CATHCVL 06:23
PROVIDERS: ATTEND Internal Medicine Interventional Cardiology
DX: I25.10 Atherosclerotic heart disease of native coronary artery without angina pectoris (principal); I10 Essential (primary) hypertension; E78.5 Hyperlipidemia, unspecified; E11.9 Type 2 diabetes mellitus without complications; I47.10 Supraventricular tachycardia, unspecified; Z88.5 Allergy status to narcotic agent; Z88.0 Allergy status to penicillin; Z88.2 Allergy status to sulfonamides; Z88.8 Allergy status to other drugs, medicaments and biological substances; Z86.73 Personal history of transient ischemic attack (TIA), and cerebral infarction without residual deficits; Z95.5 Presence of coronary angioplasty implant and graft; Z79.02 Long term (current) use of antithrombotics/antiplatelets; Z79.84 Long term (current) use of oral hypoglycemic drugs; Z79.899 Other long term (current) drug therapy
CPT/HCPCS: 93458; 99152; C1769 ×2; C1894; J2250; J1200; J1644 ×3; J2003; Q9967; J3010; J2919

== ENCOUNTER 2024-12-10 23:14 | Inpatient (IN) | payer MEDICARE, OTHER ==
--- NOTE | 2024-12-10 23:32 | ED ---
Fall HPI - General Stated Complaint: Fall Time Seen by Provider: 12/10/24 23:18 - History of Present Illness Initial Comments: This patient is a 79-year-old woman who presents to have evaluation of right ankle pain. The patient states that approximately an hour ago she was getting out of her car, she did not realize she had stepped onto an icy surface, and she slipped and fell. She indicates that there is pain at the lateral aspect of the right ankle. She states she also has an abrasion of the right hand. She denies any other injuries. Patient uncertain when her last tetanus shot had been given. 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: yes, by family Place Fall Occurred: home Loss of Consciousness: none Prolonged Down Time?: no Symptoms Prior to Fall: none Location - Extremities: Right: Ankle Severity: moderate Quality: aching Context: tripped/slipped Associated Symptoms: denies - Related Data Home Medications Medication Instructions Recorded Confirmed Montelukast [Singulair] 10 mg PO DAILY 11/11/15 12/11/24 Venlafaxine HCl ER [Effexor XR] 150 mg PO DAILY 11/11/15 12/11/24 Acyclovir 400 mg PO BID 04/28/19 12/11/24 Levothyroxine Sodium [Synthroid] 75 mcg PO DAILY 04/28/19 12/11/24 Fluticasone Propion/Salmeterol 1 puff INHALATION RT-BID 03/28/20 12/11/24 [Advair 100-50 Diskus] Pioglitazone [Actos] 30 mg PO DAILY 03/28/20 12/11/24 metFORMIN HCL [Glucophage] 850 mg PO DAILY 03/28/20 12/11/24 Pantoprazole [Protonix] 40 mg PO DAILY 09/18/20 12/11/24 Gabapentin [Neurontin] 300 mg PO TID 02/20/23 12/11/24 LORazepam [Ativan] 0.5 mg PO DAILY PRN 02/20/23 12/11/24 Prochlorperazine [Compazine] 10 mg PO Q6H PRN 02/20/23 12/11/24 Rosuvastatin Calcium 20 mg PO DAILY 09/30/23 12/11/24 Famotidine [Pepcid] 20 mg PO BID 12/11/24 12/11/24 amLODIPine [Norvasc] 5 mg PO BID 12/11/24 12/11/24 Previous Rx's Medication Instructions Recorded Nitroglycerin Sl Tabs [Nitrostat] 0.4 mg SUBLINGUAL Q5M PRN #25 tab 10/06/23 lisinopriL [Zestril] 10 mg PO DAILY #90 tab 10/06/23 Aspirin 325 mg PO DAILY #14 tab 12/15/24 Cholecalciferol [Vitamin D3 (125 125 mcg PO DAILY #30 tab 12/15/24 Mcg = 5000 Iu)] HYDROcodone/APAP 5-325MG [[place] 1 tab PO Q6HR PRN #18 tab 12/15/24 5-325] Sennosides/Docusate Sodium [[place] 1 each PO DAILY #20 capsule 12/15/24 Plus 8.6-50 mg Softgel] Allergies Allergy/AdvReac Type Severity Reaction Status Date / Time iodine Allergy Rash/Hives Verified 12/11/24 10:27 Iodine and Iodide Containing Allergy Rash/Hives Verified 12/11/24 10:27 Produc Penicillins Allergy Anaphylaxis Verified 12/11/24 10:27 Sulfa (Sulfonamide Allergy Itching Verified 12/11/24 10:27 Antibiotics) Review of Systems ROS Statement: Those systems with pertinent positive or pertinent negative responses have been documented in the HPI. ROS Other: All systems not noted in ROS Statement are negative. Constitutional: Denies: weakness Respiratory: Denies: cough, dyspnea Cardiovascular: Denies: chest pain, syncope Gastrointestinal: Denies: abdominal pain, vomiting Musculoskeletal: Reports: as per HPI, joint swelling, arthralgia. Denies: back pain Skin: Reports: other (Abrasion). Denies: lesions Neurological: Denies: headache, weakness, numbness, confusion Hematological/Lymphatic: Denies: easy bleeding Past Medical History Past Medical History: Asthma, Cancer, Chest Pain / Angina, COPD, Diabetes Mellitus, GERD/Reflux, Hyperlipidemia, Hypertension, Osteoarthritis (OA), Thyroid Disorder Additional Past Medical History / Comment(s): Current itchy no rash , irregular heartbeat, hiatal hernia, hx ulcer, degenerative disk disease, psoriasis, multiple myeloma currently receiving chemo once a months with dr faustin, vertigo, states legs get tired and hurt, difficulty swallowing certain things needs to drink alot of fluid. rt leg swollen from bad knee. recent heaviness to chest for last 6 months History of Any Multi-Drug Resistant Organisms: None Reported Past Surgical History: Breast Surgery, Cholecystectomy, Hysterectomy, Tonsillect abdiel Additional Past Surgical History / Comment(s): pain clinic procedures, surgery for tubal pregancy, left foot heel spurs, selena breast reduction, fatty tissue removed from rt leg, selena cataracts, autologous stem cell transplant, colonoscopy, Past Anesthesia/Blood Transfusion Reactions: Motion Sickness Additional Past Anesthesia/Blood Transfusion Reaction / Comment(s): vertigo - current Smoking Status: Former smoker - Past Family History Daughter(s) Family Medical History: Cancer Mother Family Medical History: Coronary Artery Disease (CAD) Father History Unknown: Yes Sister(s) Family Medical History: Cancer Additional Family Medical History / Comment(s): lung cancer Brother(s) Family Medical History: Dementia General Exam General appearance: alert, in no apparent distress Head exam: Present: atraumatic, normocephalic Eye exam: Present: normal appearance. Absent: scleral icterus, conjunctival injection Neck exam: Present: normal inspection, full ROM. Absent: tenderness Respiratory exam: Present: normal lung sounds bilaterally. Absent: respiratory distress, wheezes, rales, rhonchi, stridor, chest wall tenderness, accessory muscle use Cardiovascular Exam: Present: regular rate, normal rhythm, normal heart sounds. Absent: systolic murmur, diastolic murmur, rubs, gallop GI/Abdominal exam: Present: soft. Absent: distended, tenderness, guarding, rebound, rigid Extremities exam: Present: tenderness Right Knee exam: Present: normal inspection, full ROM. Absent: tenderness, swelling Lower Leg exam: Present: normal inspection, full ROM. Absent: tenderness, swelling Ankle exam: Present: tenderness, swelling. Absent: abrasion, laceration, ecchymosis, deformity, crepitus, dislocation Foot/Toe exam: Present: normal inspection, full ROM. Absent: tenderness, swelling, abrasion, laceration Neurovascular tendon exam: Present: no vascular compromise. Absent: pulse deficit, abnormal cap refill, motor deficit, sensory deficit, tendon deficit Back exam: Absent: vertebral tenderness Neurological exam: Present: alert, oriented X3. Absent: motor sensory deficit (Throughout the right lower extremity) Skin exam: Present: warm, dry, intact, normal color. Absent: rash Course Vital Signs 12/10/24 12/11/24 12/11/24 23:26 01:28 01:56 Temperature 97.8 F 97.9 F Pulse Rate 66 65 67 Respiratory 16 16 16 Rate Blood Pressure 162/66 150/74 144/76 O2 Sat by Pulse 97 97 98 Oximetry Medical Decision Making - Medical Decision Making The patient had ankle x-ray that I interpreted as showing acute ankle fracture Was pt. sent in by a medical professional or institution (, PA, GHOST WRITER, urgent care, hospital, or care home...) When possible be specific @ -[No] Did you speak to anyone other than the patient for history (EMS, parent, family, police, friend...)? What history was obtained from this source @ -[Family did contribute to history Did you review nursing and triage notes (agree or disagree)? Why? @ -[I reviewed and agree with nursing and triage notes] Were old charts reviewed (outside hosp., previous admission, EMS record, old EKG, old radiological studies, urgent care reports/EKG's, care home records)? Report findings @ -[No old charts were reviewed] Differential Diagnosis (chest pain, altered mental status, abdominal pain women, abdominal pain men, vaginal bleeding, weakness, fever, dyspnea, syncope, heada sarah, dizziness, GI bleed, back pain, seizure, CVA, palpatations, mental health, musculoskeletal)? @ -[Differential Musculoskeletal Muscular strain, contusion, ligament sprain, fracture, arthritis, septic arthritis, bursitis, cellulitis, muscle spasm, nerve compression, DVT, arterial occlusion, herpes zoster, electrolyte abnormality, tumor.... This is not meant to be in all inclusive list EKG interpreted by me (3pts min.). @ -[As above] X-rays interpreted by me (1pt min.). @ -[I interpreted as above CT interpreted by me (1pt min.). @ -[None done] U/S interpreted by me (1pt. min.). @ -[None done] What testing was considered but not performed or refused? (CT, X-rays, U/S, labs)? Why? @ -[None] What meds were considered but not given or refused? Why? @ -[None] Did you discuss the management of the patient with other professionals (professionals i.e. , PA, GHOST WRITER, lab, RT, psych nurse, social work lecturer, applications support lead, teacher, hotel security officer, corrections caseworker)? Give summary @ -Case discussed with admitting physician and treatment recommendations are incorporated Was smoking cessation discussed for >3mins.? @ -[No] Was critical care preformed (if so, how long)? @ -[No] Were there social determinants of health that impacted care today? How? (Homelessness, low income, unemployed, alcoholism, drug addiction, transportation, low edu. Level, literacy, decrease access to med. care, custodial, rehab)? @ -[No] Was there de-escalation of care discussed even if they declined (Discuss DNR or withdrawal of care, Hospice)? DNR status @ -[No] What co-morbidities impacted this encounter? (DM, HTN, Smoking, COPD, CAD, Cancer, CVA, ARF, Chemo, Hep., AIDS, mental health diagnosis, sleep apnea, morbid obesity)? @ -[None] Was patient admitted / discharged? Hospital course, mention meds given and route , prescriptions, significant lab abnormalities, going to OR and other pertinent info. @ -[Patient is a 79-year-old woman who had ground-level fall resulting in ankle fracture. The patient is splinted. Initially considered discharge but the patient not able to use walker or crutches therefore admitted to have orthopedic care and possible rehab placement Undiagnosed new problem with uncertain prognosis? @ -[No] Drug Therapy requiring intensive monitoring for toxicity (Heparin, Nitro, Insulin, Cardizem)? @ -[No] Were any procedures done? @ -[No] Diagnosis/symptom? @ -Acute ankle fracture Acute, or Chronic, or Acute on Chronic? @ -[Acute Uncomplicated (without systemic symptoms) or Complicated (systemic symptoms)? @ -[Uncomplicated Side effects of treatment? @ -[No] Exacerbation, Progression, or Severe Exacerbation? @ -[No] Poses a threat to life or bodily function? How? (Chest pain, USA, OR, pneumonia, PE, COPD, DKA, ARF, appy, cholecystitis, CVA, Diverticulitis, Homicidal, Maegan cidal, threat to staff... and all critical care pts) @ -[No] All treatments are based on ideal body weight as in ED triage - Lab Data Result diagrams: 12/14/24 09:28 12/15/24 09:14 Lab Results 12/11/24 12/11/24 12/11/24 Range/Units 02:54 06:41 11:30 POC Glucose (mg/dL) 98 99 86 (70-110) mg/dL POC Glu Catalytic Case Operator ID Kassandraelisabandar Quirozge Aroldo Stearns Mason 12/11/24 12/11/24 12/12/24 Range/Units 16:42 21:07 06:22 POC Glucose (mg/dL) 117 H 138 H 84 (70-110) mg/dL POC Glu Catalytic Case Operator ID Daryn Cuevas Tonny Melvina Tonny Melvina 12/12/24 Range/Units 11:21 POC Glucose (mg/dL) 117 H (70-110) mg/dL POC Glu Catalytic Case Operator ID Emperatriz Baez Disposition Clinical Impression: Fall, Ankle fracture, right Disposition: HOME SELF-CARE Condition: Good Is patient prescribed a controlled substance at d/c from ED?: Yes When asked, does pt state using other controlled substances?: No If prescribed controlled substance>3 days was MAPS reviewed?: Prescribed <3 Days If opioid is for acute pain is fill amount 7 days or less?: No If Rx opioid, was Start Talking consent form obtained?: No
[2024-12-10] MEDS: HYDROcodone/APAP 5-325MG 1 EACH TAB PO STA (23:56)
[2024-12-10] MEDS: DIPH,PERTUS(ACELL)TETVAC-LF 0.5 ML VIAL IM ONE (23:58)
[2024-12-11] MEDS: MORPHINE SULFATE 4 MG/ML SYRINGE IVP STA (00:38)
[2024-12-11] MEDS ORDERED: PROCHLORPERAZINE 10 MG TAB PO PRN (00:44)
[2024-12-11] MEDS ORDERED: LORazepam 0.5 MG TAB PO PRN (00:44)
[2024-12-11] MEDS ORDERED: IPRATROPIUM-ALBUTEROL 3 ML NEB INHALATION PRN (00:44)
--- NOTE | 2024-12-11 00:49 | XR ---
EXAM: XR Right Ankle Complete, 2 Views CLINICAL HISTORY: slip and fall on the ice. Pt reports she was stepping out of vehicle and slipped on the ice. Pt denies any LOC no blood thinners, not hitting head, pt does have obvious deformity to R ankle. PMS intact on R foot. Pt has no other injuries and denies any other complaints. TECHNIQUE: Frontal, lateral views of the right ankle. COMPARISON: No relevant prior studies available. FINDINGS: Bones/joints: Oblique fracture of distal tibial diaphysis extending to ankle mortise with 3 mm lateral displacement and 5 mm dorsal displacement. Vertical posterior malleolar fracture with 2 mm separation. Small posterior and plantar calcaneal spurs. No dislocation. Stieda process. Likely 4 mm loose body rather than avulsion fracture at the tip of medial malleolus. Soft tissues: Associated soft tissue swelling without gas, worse in lateral aspect of the ankle. IMPRESSION: 1. Oblique fracture of distal tibial diaphysis extending to ankle mortise with 3 mm lateral displacement and 5 mm dorsal displacement. 2. Vertical posterior malleolar fracture with 2 mm separation.
[2024-12-11] MEDS: SODIUM CHLORIDE 0.9% 1,000 ML IV SCH (01:22)
[2024-12-11] MEDS: HYDROcodone/APAP 5-325MG 1 EACH TAB PO PRN (01:54)
[2024-12-11 02:55] LABS: Glucose,Whole Blood 98 mg/dL (70-110)
[2024-12-11] MEDS: amLODIPine 5 MG TAB PO SCH (06:36)
[2024-12-11] MEDS: LEVOTHYROXINE 75 MCG TAB PO SCH (06:36)
[2024-12-11 06:42] LABS: Glucose,Whole Blood 99 mg/dL (70-110)
[2024-12-11] MEDS: VENLAFAXINE HCL ER 150 MG CAP PO SCH (08:03)
[2024-12-11] MEDS: MAGNESIUM OXIDE 400 MG TAB PO SCH (08:03)
[2024-12-11] MEDS: PIOGLITAZONE 30 MG TAB PO SCH (08:03)
[2024-12-11] MEDS: metFORMIN 850 MG TAB PO SCH (08:03)
[2024-12-11] MEDS: MONTELUKAST 10 MG TAB PO SCH (08:03)
[2024-12-11] MEDS: PANTOPRAZOLE 40 MG TABLET PO SCH (08:03)
[2024-12-11] MEDS: ASPIRIN 81 MG PO SCH (08:04)
[2024-12-11] MEDS: FAMOTIDINE 20 MG TAB PO SCH (08:04)
[2024-12-11] MEDS: CHOLECALCIFEROL 125 MCG (5000 IU) TABLET PO SCH (08:04)
[2024-12-11] MEDS: lisinopriL 10 MG TAB PO SCH (08:04)
[2024-12-11] MEDS: CALCIUM CARBONATE 500 MG CHEWABLE PO SCH (08:04)
[2024-12-11] MEDS: ACYCLOVIR 200 MG CAP PO SCH (08:04)
[2024-12-11] MEDS: CLOPIDOGREL 75 MG TAB PO SCH (08:04)
[2024-12-11] MEDS: GABAPENTIN 300 MG CAP PO SCH (08:04)
[2024-12-11] MEDS: ATORVASTATIN 40 MG TAB PO SCH (08:04)
[2024-12-11] MEDS: SYMBICORT 80-4.5 MCG INHALER INHALATION SCH (09:04)
--- NOTE | 2024-12-11 10:39 | P.HPOR ---
History of Present Illness H&P Date: 12/11/24 Chief Complaint: Right ankle pain Patient is a 79-year-old female who presented to the emergency department last night due to right ankle pain. Orthopedics was consulted due to right ankle fracture. Patient states she was getting out of car when she slipped on some ice injuring her ankle. Patient denies any other significant injuries. Patient was seen this morning at bedside with a splint to the right lower extremity. Patient states she is just having some right ankle pain at this time. Denies any other locations of pain. X-ray did reveal distal right fibula fracture. Patient denies any other previous orthopedic surgeries. Patient is hoping to work with physical therapy later today. Patient states she does take aspirin daily. Patient denies any other issues at this time. Past Medical History Past Medical History: Asthma, Cancer, Chest Pain / Angina, COPD, Diabetes Mellitus, GERD/Reflux, Hyperlipidemia, Hypertension, Osteoarthritis (OA), Thyroid Disorder Additional Past Medical History / Comment(s): Current itchy no rash , irregular heartbeat, hiatal hernia, hx ulcer, degenerative disk disease, psoriasis, multiple myeloma currently receiving chemo once a month with dr faustin, vertigo, states legs get tired and hurt, difficulty swallowing certain things needs to drink alot of fluid. rt leg swollen from bad knee. recent heaviness to chest for last 6 months. pt states that stents placed has made it worse. History of Any Multi-Drug Resistant Organisms: None Reported Past Surgical History: Breast Surgery, Cholecystectomy, Hysterectomy, Tonsillectomy Additional Past Surgical History / Comment(s): pain clinic procedures, surgery for tubal pregancy, left foot heel spurs, selena breast reduction, fatty tissue removed from rt leg, selena cataracts, autologous stem cell transplant, colonoscopy. Past Anesthesia/Blood Transfusion Reactions: Motion Sickness Additional Past Anesthesia/Blood Transfusion Reaction / Comment(s): vertigo - current Past Psychological History: Depression Smoking Status: Former smoker Past Alcohol Use History: None Reported Additional Past Alcohol Use History / Comment(s): quit smoking approx 2006, smoked approx 35 yrs, 1ppd Past Drug Use History: None Reported - Past Family History Daughter(s) Family Medical History: Cancer Mother Family Medical History: Coronary Artery Disease (CAD) Father History Unknown: Yes Sister(s) Family Medical History: Cancer Additional Family Medical History / Comment(s): lung cancer Brother(s) Family Medical History: Dementia Medications and Allergies Home Medications Medication Instructions Recorded Confirmed Type Montelukast [Singulair] 10 mg PO DAILY 11/11/15 12/11/24 History Venlafaxine HCl ER [Effexor XR] 150 mg PO DAILY 11/11/15 12/11/24 History Acyclovir 400 mg PO BID 04/28/19 12/11/24 History Levothyroxine Sodium [Synthroid] 75 mcg PO DAILY 04/28/19 12/11/24 History Fluticasone Propion/Salmeterol 1 puff INHALATION RT-BID 03/28/20 12/11/24 History [Advair 100-50 Diskus] Pioglitazone [Actos] 30 mg PO DAILY 03/28/20 12/11/24 History metFORMIN HCL [Glucophage] 850 mg PO DAILY 03/28/20 12/11/24 History Pantoprazole [Protonix] 40 mg PO DAILY 09/18/20 12/11/24 History Gabapentin [Neurontin] 300 mg PO TID 02/20/23 12/11/24 History LORazepam [Ativan] 0.5 mg PO DAILY PRN 02/20/23 12/11/24 History Prochlorperazine [Compazine] 10 mg PO Q6H PRN 02/20/23 12/11/24 History Rosuvastatin Calcium 20 mg PO DAILY 09/30/23 12/11/24 History Nitroglycerin Sl Tabs [Nitrostat] 0.4 mg SUBLINGUAL Q5M PRN #25 tab 10/06/23 12/11/24 Rx lisinopriL [Zestril] 10 mg PO DAILY #90 tab 10/06/23 12/11/24 Rx Famotidine [Pepcid] 20 mg PO BID 12/11/24 12/11/24 History HYDROcodone/APAP 5-325MG [[place] 1 tab PO Q4HR PRN 3 Days #18 tab 12/11/24 Rx 5-325] amLODIPine [Norvasc] 5 mg PO BID 12/11/24 12/11/24 History Allergies Allergy/AdvReac Type Severity Reaction Status Date / Time iodine Allergy Rash/Hives Verified 12/11/24 10:27 Iodine and Iodide Containing Allergy Rash/Hives Verified 12/11/24 10:27 Produc Penicillins Allergy Anaphylaxis Verified 12/11/24 10:27 Sulfa (Sulfonamide Allergy Itching Verified 12/11/24 10:27 Antibiotics) Physical Examination Splint present to the right lower extremity. Rest of ankle exam limited due to the splint. Patient is able to wiggle digits and right foot. Sensation is equal, symmetric, by intact throughout extremities on exam. Patient does have some tenderness to palpation over the right medial and lateral malleolus. Nontender on rest of exam. Patient does have full range of motion throughout the right knee in flexion/extension. And does have good range of motion throughout bilateral upper extremities and left lower extremity on exam. 4/5 in resisted right knee flexion/extension. 4+/5 in all other major motor groups in left lower extremity and bilateral upper extremities. Radial pulse intact, 2+ bilaterally. Cap refill under 3 seconds in digits of upper extremities. Results - Diagnostic results Ankle/Foot x-ray: report reviewed, image reviewed (X-ray of the right ankle has been reviewed. There is evident distal fibular fracture) Assessment and Plan Assessment: 1. Right lateral malleolus fracture status post fall Plan: 1. Right lateral malleolus fracture -x-ray of the right ankle does reveal right lateral malleolus fracture. Negative for any dislocations. I discussed the findings of the imaging and exam with my attending, Dr. Gallardo. At this time we are recommending conservative measures with the use of pain medication and PT/OT. Patient to be nonweightbearing to the right lower extremity at this time. Splint is in place to the right lower extremity. Plan to have PT/OT assessed the patient before discharge home. Follow-up in office with Dr. Gallardo on 12/16/2024. Heart healthy diet. Plan for discharge home tomorrow, 12/12/2024. 2. Appreciate medical management 3. Pain management -[place]; gabapentin 4. DVT prophylaxis -Plavix; aspirin 5. GI prophylaxis -Pepcid 6. PT/OT -nonweightbearing right lower extremity 7. Encourage incentive spirometer use 8. Discharge planning -plan for discharge home tomorrow, 12/12/2024 Time with Patient: Less than 30
[2024-12-11 11:31] LABS: Glucose,Whole Blood 86 mg/dL (70-110)
[2024-12-11 16:44] LABS: Glucose,Whole Blood 117 mg/dL (70-110)
[2024-12-11 21:08] LABS: Glucose,Whole Blood 138 mg/dL (70-110)
[2024-12-12 06:25] LABS: Glucose,Whole Blood 84 mg/dL (70-110)
[2024-12-12 11:22] LABS: Glucose,Whole Blood 117 mg/dL (70-110)
--- NOTE | 2024-12-12 12:53 | P.PN ---
Subjective Progress Note Date: 12/12/24 Principal diagnosis: Right ankle fracture Patient was seen at bedside this morning sitting up in chair with legs elevated and splint present to the right lower extremity. Family was present during encounter. Patient says she is still having a lot of pain to the right ankle at this time. Patient is wondering if she can have anything more in regards to pain medicine. Patient says physical therapy/Occupational Therapy did see her this morning and worked with her. She is planning for rehab upon discharge from the hospital. Patient denies any other orthopedic complaints at this time. Objective - Vital Signs Vital signs: Vital Signs Temp 98.2 F 12/12/24 07:40 Pulse 66 12/12/24 08:00 Resp 18 12/12/24 08:00 BP 137/74 12/12/24 07:40 Pulse Ox 94 L 12/12/24 07:40 FiO2 Intake & Output 12/11/24 12/12/24 12/12/24 18:59 06:59 18:59 Output Total 750 350 Balance -750 -350 Output: Urine 750 350 Straight 350 Other: Voiding Method Bedpan Bedpan Bedpan # Voids 2 - Exam Splint present to the right lower extremity. Rest of ankle exam limited due to the splint. Patient is able to wiggle digits and right foot. Sensation is equal, symmetric, by intact throughout extremities on exam. Patient does have some tenderness to palpation over the right medial and lateral malleolus. Nontender on rest of exam. Patient does have full range of motion throughout the right knee in flexion/extension. And does have good range of motion throughout bilateral upper extremities and left lower extremity on exam. 4/5 in resisted right knee flexion/extension. 4+/5 in all other major motor groups in left lower extremity and bilateral upper extremities. Radial pulse intact, 2+ bilaterally. Cap refill under 3 seconds in digits of upper extremities. - Labs Labs: Abnormal Lab Results - Last 24 Hours (Table) 12/11/24 12/11/24 12/12/24 Range/Units 16:42 21:07 11:21 POC Glucose (mg/dL) 117 H 138 H 117 H (70-110) mg/dL Assessment and Plan Assessment: 1. Right lateral malleolus fracture status post fall Plan: 1. Right lateral malleolus fracture -x-ray of the right ankle does reveal right lateral malleolus fracture. Negative for any dislocations. I discussed the findings of the imaging and exam with my attending, Dr. Gallardo. At this time we are recommending conservative measures with the use of pain medication and PT/OT. Patient to be nonweightbearing to the right lower extremity at this time. Splint is in place to the right lower extremity. PT/OT have assessed patient and are recommending discharge to [facility]. I have placed a prescription for a cam walker boot in chart. Case management working on this. Continue daily with PT/OT. Remain nonweightbearing to the right lower extremity at this time. Plan for discharge to rehab on , 12/15/2024. 2. Appreciate medical management 3. Pain management -[place]; gabapentin 4. DVT prophylaxis -Plavix; aspirin 5. GI prophylaxis -Pepcid 6. PT/OT -nonweightbearing right lower extremity 7. Encourage incentive spirometer use 8. Discharge planning -plan for discharge to rehab on 12/15/2024 Time with Patient: Less than 30
[2024-12-12] MEDS: HYDROcodone/APAP 7.5-325MG 1 EACH TAB PO PRN (15:51)
[2024-12-12 16:31] LABS: Glucose,Whole Blood 117 mg/dL (70-110)
[2024-12-12] MEDS: hydrOXYzine pamoate 25 MG CAP PO SCH (17:33)
[2024-12-12 21:07] LABS: Glucose,Whole Blood 125 mg/dL (70-110)
[2024-12-13 06:34] LABS: Glucose,Whole Blood 109 mg/dL (70-110)
--- NOTE | 2024-12-13 09:51 | P.PN ---
Subjective Progress Note Date: 12/13/24 Principal diagnosis: Right ankle fracture Patient was seen at bedside this morning sitting up in chair with legs elevated and splint present to the right lower extremity. Patient says she is still having a some pain to the right ankle at this time. Patient says physical therapy/Occupational Therapy did see her yesterday morning and worked with her. She is planning for rehab upon discharge from the hospital. Patient denies any other orthopedic complaints at this time. Objective - Vital Signs Vital signs: Vital Signs Temp 98.4 F 12/13/24 07:27 Pulse 77 12/13/24 08:00 Resp 16 12/13/24 08:00 BP 130/67 12/13/24 07:27 Pulse Ox 90 L 12/13/24 07:27 FiO2 Intake & Output 12/12/24 12/13/24 12/13/24 18:59 06:59 18:59 Intake Total 1620 Balance 1620 Intake: Oral 1620 Other: Voiding Method Bedpan Bedpan Bedpan # Voids 3 3 1 - Exam Splint present to the right lower extremity. Rest of ankle exam limited due to the splint. Patient is able to wiggle digits and right foot. Sensation is equal, symmetric, by intact throughout extremities on exam. Patient does have some tenderness to palpation over the right medial and lateral malleolus. Nontender on rest of exam. Patient does have full range of motion throughout the right knee in flexion/extension. And does have good range of motion throughout bilateral upper extremities and left lower extremity on exam. 4/5 in resisted right knee flexion/extension. 4+/5 in all other major motor groups in left lower extremity and bilateral upper extremities. Radial pulse intact, 2+ bilaterally. Cap refill under 3 seconds in digits of upper extremities. - Labs Labs: Abnormal Lab Results - Last 24 Hours (Table) 12/12/24 12/12/24 12/12/24 Range/Units 11:21 16:29 21:01 POC Glucose (mg/dL) 117 H 117 H 125 H (70-110) mg/dL Assessment and Plan Assessment: 1. Right lateral malleolus fracture status post fall Plan: 1. Right lateral malleolus fracture -x-ray of the right ankle does reveal right lateral malleolus fracture. Negative for any dislocations. I discussed the findings of the imaging and exam with my attending, Dr. Gallardo. At this time we are recommending conservative measures with the use of pain medication and P T/OT. Patient to be nonweightbearing to the right lower extremity at this time. Splint is in place to the right lower extremity. PT/OT have assessed patient and are recommending discharge to [facility]. I have placed a prescription for a cam walker boot in chart. Case management working on this. Continue daily with PT/OT. Remain nonweightbearing to the right lower extremity at this time. Plan for discharge to rehab on , 12/15/2024. 2. Appreciate medical management 3. Pain management -[place]; gabapentin 4. DVT prophylaxis -Plavix; aspirin 5. GI prophylaxis -Pepcid 6. PT/OT -nonweightbearing right lower extremity 7. Encourage incentive spirometer use 8. Discharge planning -plan for discharge to rehab on 12/15/2024 Time with Patient: Less than 30
[2024-12-13 12:06] LABS: Glucose,Whole Blood 139 mg/dL (70-110)
--- NOTE | 2024-12-13 13:46 | P.CON ---
Consult Note - . 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 PT consulted, recommended conservative measures, PT OT, nonweightbearing to the right lower extremity, splint in place, PT OT evaluated and recommended JL. I am consulted for medical management. Review of blood work from admission, CBC was unremarkable. Patient's blood sugar hypertension control, no need and sliding scale insulin. Blood pressure was resolved on 12/12 likely in the settings of opioid use, currently going up, continue home BP meds with amlodipine and lisinopril. Pertinent positives and negatives as discussed in HPI, a complete review of systems was performed and all other systems are negative. Patient seen and examined at bedside. Complaining of fatigue and ongoing ankle pain. Vital signs reviewed General: nontoxic, no distress, appears at stated age Derm: warm, dry Head: atraumatic, normocephalic, symmetric Eyes: EOMI, no lid lag, anicteric sclera, pupils equal round reactive to light ENT: Nose and ears atraumatic Neck: No thyromegaly, supple Mouth: no lip lesion, mucus membranes moist Cardiovascular: S1S2 reg, systolic murmur, no edema Lungs: clear to auscultation bilateral, no rhonchi, no rales, no wheeze, no accessory muscle use Abdominal: soft, nontender to palpation, no guarding, no appreciable organomegaly Ext: no gross muscle atrophy, muscle strength muscle strength 5 out of 5 in all 4 extremities, no contractures, right ankle splint Neuro: CN II-XII grossly intact Psych: Alert, oriented, appropriate affect Assessment/Plan: Status post mechanical fall resulting in right lateral malleolus fracture -Orthopedics team following, pain management per primary team -PT OT recommend JL, pending placement, likely discharge on 12/15 -DVT prophylaxis with Plavix and aspirin. GI, on PPIs -Continue incentive spirometry -Bowel regimen Type II [id number] diabetes mellitus:-Continue metformin for any signs of hypoglycemia. 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 -We will continue with acyclovir 400 mg twice daily
[2024-12-13 16:44] LABS: Glucose,Whole Blood 139 mg/dL (70-110)
[2024-12-13 21:13] LABS: Glucose,Whole Blood 78 mg/dL (70-110)
[2024-12-13] MEDS: ACETAMINOPHEN TAB 325 MG TAB PO PRN (23:00)
[2024-12-14] MEDS: MORPHINE SULFATE 2 MG/ML SYRINGE IVP STA (02:06)
[2024-12-14 06:44] LABS: Glucose,Whole Blood 127 mg/dL (70-110)
[2024-12-14 09:08] LABS: Glucose,Whole Blood 127 mg/dL (70-110)
[2024-12-14] MEDS: NALOXONE 0.4 MG/ML 1 ML VIAL IV PRN (09:08)
[2024-12-14 09:43] LABS: Basophils # (A) 0.1 k/uL (0-0.2); Basophils % (A) 1 %; Eosinophils # (A) 0.3 k/uL (0-0.7); Eosinophils % (A) 3 %; HCT 36.1 % (34.0-46.0); HGB 11.8 gm/dL (11.4-16.0); Lymphocytes # (A) 4.7 k/uL (1.0-4.8); Lymphocytes % (A) 46 %; MCH 33.4 pg (25.0-35.0); MCHC 32.5 g/dL (31.0-37.0); MCV 102.7 fL (80.0-100.0); Macrocytosis Slight; Mean Platelet Volume 7.3; Monocytes # (A) 0.6 k/uL (0-1.0); Monocytes % (A) 6 %; Neutrophils # (A) 4.5 k/uL (1.3-7.7); Neutrophils % (A) 43 %; Platelet Count 195 k/uL (150-450); RBC 3.52 m/uL (3.80-5.40); RDW 14.1 % (11.5-15.5); WBC 10.4 k/uL (3.8-10.6)
[2024-12-14 09:49] LABS: VBG PH 7.37 (7.31-7.41)
[2024-12-14 09:54] LABS: ALT 12 U/L (4-34); AST 14 U/L (14-36); African American GFR (CKD) 45 (>60 ml/min/1.73 sqM); Albumin 3.4 g/dL (3.5-5.0); Albumin/Globulin Ratio 1.5; Alkaline Phosphatase 73 U/L (38-126); Anion Gap 6 mmol/L; Blood Urea Nitrogen 31 mg/dL (7-17); Calcium 8.6 mg/dL (8.4-10.2); Carbon Dioxide 30 mmol/L (22-30); Chloride 97 mmol/L (98-107); Globulin 2.3 g/dL; Glucose 104 mg/dL (74-99); Non-African American GFR(CKD) 39 (>60 ml/min/1.73 sqM); Potassium 4.3 mmol/L (3.5-5.1); Sodium 133 mmol/L (137-145); Total Bilirubin 0.5 mg/dL (0.2-1.3); Total Protein 5.7 g/dL (6.3-8.2)
[2024-12-14 11:05] LABS: Glucose,Whole Blood 96 mg/dL (70-110)
--- NOTE | 2024-12-14 11:40 | P.PN ---
Subjective Progress Note Date: 12/14/24 Principal diagnosis: Right ankle lateral malleolar fracture Patient evaluated today at bedside, she is resting in her hospital bed. Patient's splint is still in good position and condition. She does have a cam walker boot present at bedside. Patient remains at about baseline currently. Planning for discharge to subacute rehab on 12/15/2024. Objective - Vital Signs Vital signs: Vital Signs Temp 97.6 F 12/14/24 08:10 Pulse 69 12/14/24 08:10 Resp 14 12/14/24 09:08 BP 122/73 12/14/24 08:10 Pulse Ox 91 L 12/14/24 08:10 FiO2 Intake & Output 12/13/24 12/14/24 12/14/24 18:59 06:59 18:59 Intake Total 1620 Balance 1620 Intake: Oral 1620 Other: Voiding Method Bedpan Bedside Commode # Voids 1 3 - Exam Right lower extremity: Posterior splint is in good position and condition. There is minimal soft tiss ue swelling noted in the toes. Patient is able to wiggle the toes with no difficulty. Her sensation to light touch both proximal distal to the splint are intact. Range of motion of the knee and hip remain intact. - Labs CBC & Chem 7: 12/14/24 09:28 12/14/24 09:28 Labs: Abnormal Lab Results - Last 24 Hours (Table) 12/13/24 12/13/24 12/14/24 Range/Units 12:04 16:43 06:42 RBC (3.80-5.40) m/uL MCV (80.0-100.0) fL VBG pCO2 (37-51) mmHg VBG HCO3 (24-28) mmol/L Sodium (137-145) mmol/L Chloride (98-107) mmol/L BUN (7-17) mg/dL Creatinine (0.52-1.04) mg/dL Glucose (74-99) mg/dL POC Glucose (mg/dL) 139 H 139 H 127 H (70-110) mg/dL Total Protein (6.3-8.2) g/dL Albumin (3.5-5.0) g/dL 12/14/24 12/14/24 12/14/24 Range/Units 09:06 09:28 09:28 RBC 3.52 L (3.80-5.40) m/uL MCV 102.7 H (80.0-100.0) fL VBG pCO2 (37-51) mmHg VBG HCO3 (24-28) mmol/L Sodium 133 L (137-145) mmol/L Chloride 97 L (98-107) mmol/L BUN 31 H (7-17) mg/dL Creatinine 1.31 H (0.52-1.04) mg/dL Glucose 104 H (74-99) mg/dL POC Glucose (mg/dL) 127 H (70-110) mg/dL Total Protein 5.7 L (6.3-8.2) g/dL Albumin 3.4 L (3.5-5.0) g/dL 12/14/24 Range/Units 09:28 RBC (3.80-5.40) m/uL MCV (80.0-100.0) fL VBG pCO2 52 H (37-51) mmHg VBG HCO3 30 H (24-28) mmol/L Sodium (137-145) mmol/L Chloride (98-107) mmol/L BUN (7-17) mg/dL Creatinine (0.52-1.04) mg/dL Glucose (74-99) mg/dL POC Glucose (mg/dL) (70-110) mg/dL Total Protein (6.3-8.2) g/dL Albumin (3.5-5.0) g/dL Assessment and Plan Assessment: Right ankle lateral malleolar fracture Plan: Pain control, continue current medications DVT prophylaxis, continue current medications Continue nonweightbearing status right lower extremity Will discuss with attending, likely transition patient to the cam walker boot prior to discharge to rehab tomorrow Ice and elevate often Medical recommendations appreciated Discharge planning: Subacute rehab discharge on 12/15/2023 Time with Patient: Less than 30
[2024-12-14] MEDS: SODIUM CHLORIDE 0.9% 500 ML 500 ML IV ONE (11:42)
[2024-12-14 12:11] LABS: African American GFR (CKD) 48 (>60 ml/min/1.73 sqM); Anion Gap 5 mmol/L; Blood Urea Nitrogen 30 mg/dL (7-17); Calcium 8.6 mg/dL (8.4-10.2); Carbon Dioxide 30 mmol/L (22-30); Chloride 99 mmol/L (98-107); Glucose 92 mg/dL (74-99); Non-African American GFR(CKD) 42 (>60 ml/min/1.73 sqM); Sodium 134 mmol/L (137-145)
[2024-12-14] MEDS: SODIUM CHLORIDE 0.9% 1,000 ML IV SCH (12:49)
--- NOTE | 2024-12-14 13:16 | P.PN ---
Subjective Progress Note Date: 12/14/24 Subjective: This a.m. I was asked to evaluate the patient due to lethargia. Per RN,. Patient was poorly responsive to verbal stimuli, I requested EKG, VBG, CMP, CBC and went To evaluate the patient, on my arrival, she appeared lethargic, was responsive to verbal stimuli, answering simple questions, following simple commands, pupils were constricted but not pinpoint, reactive to light, Narcan 0.2 administered with symptoms improvement. EKG showed no acute changes. Lab work showed normal hemoglobin and WBC, sodium 133, creatinine jumped to 131, was normal before, glucose was 127 POC, ALT and AST unremarkable, TSH normal, ammonia negative. Patient was started on IV fluids, also provided with normal saline bolus 500 cc. Her vitals remained stable. Adjustments made to patient's pain regimen. Pertinent positives and negatives as discussed above, a complete review of systems was performed and all other systems are negative. Vitals Signs Reviewed. General: [nontoxic], [no distress], [appears at stated age], obese Derm: [warm], [dry] Head: [atraumatic], [normocephalic], [symmetric] Eyes: [EOMI], [no lid lag], [anicteric sclera] Mouth: [no lip lesion], [mucus membranes moist] Cardiovascular: [S1S2 reg], [no murmur] Lungs: [CTA bilateral], [no rhonchi, no rales] , [no accessory muscle use] Abdominal: [soft], [ nontender to palpation], [no guarding], [no appreciable organomegaly] Ext: [no gross muscle atrophy], [no edema], [no contractures], R ankle split Neuro: [ CN II-XI grossly intact], [no focal neuro deficits] Psych: [Alert], [oriented], [appropriate affect] Status post mechanical fall resulting in right lateral malleolus fracture -Orthopedics team following, pain management per primary team -PT OT recommend JL, pending placement, likely discharge on 12/15 -DVT prophylaxis with Plavix and aspirin. GI, on PPIs -Continue incentive spirometry -Bowel regimen RONALD likely secondary to decreased oral intake -Normal saline bolus, continuous infusion for 1 day -Repeat BMP in the morning -If kidney function continues to improve patient will be able to be discharged as planned on 12/15 Lethargia likely secondary to opioid overdose, responded to Narcan -Adjustments to opioid doses made, avoid IV opioids Type II [id number] diabetes mellitus:-Continue metformin for any signs of hypoglycemia. 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 -We will continue with acyclovir 400 mg twice daily Objective - Vital Signs Vital signs: Vital Signs Temp 97.6 F 12/14/24 08:10 Pulse 69 12/14/24 08:10 Resp 14 12/14/24 09:08 BP 122/73 12/14/24 08:10 Pulse Ox 91 L 12/14/24 08:10 FiO2 Intake & Output 12/13/24 12/14/24 12/14/24 18:59 06:59 18:59 Intake Total 1620 Balance 1620 Intake: Oral 1620 Other: Voiding Method Bedpan Bedside Commode Bedside Commode Diaper Incontinent # Voids 1 3 - Labs CBC & Chem 7: 12/14/24 09:28 12/14/24 11:35 Labs: Abnormal Lab Results - Last 24 Hours (Table) 12/13/24 12/14/24 12/14/24 Range/Units 16:43 06:42 09:06 RBC (3.80-5.40) m/uL MCV (80.0-100.0) fL VBG pCO2 (37-51) mmHg VBG HCO3 (24-28) mmol/L Sodium (137-145) mmol/L Chloride (98-107) mmol/L BUN (7-17) mg/dL Creatinine (0.52-1.04) mg/dL Glucose (74-99) mg/dL POC Glucose (mg/dL) 139 H 127 H 127 H (70-110) mg/dL Total Protein (6.3-8.2) g/dL Albumin (3.5-5.0) g/dL 12/14/24 12/14/24 12/14/24 Range/Units 09:28 09:28 09:28 RBC 3.52 L (3.80-5.40) m/uL MCV 102.7 H (80.0-100.0) fL VBG pCO2 52 H (37-51) mmHg VBG HCO3 30 H (24-28) mmol/L Sodium 133 L (137-145) mmol/L Chloride 97 L (98-107) mmol/L BUN 31 H (7-17) mg/dL Creatinine 1.31 H (0.52-1.04) mg/dL Glucose 104 H (74-99) mg/dL POC Glucose (mg/dL) (70-110) mg/dL Total Protein 5.7 L (6.3-8.2) g/dL Albumin 3.4 L (3.5-5.0) g/dL 12/14/24 Range/Units 11:35 RBC (3.80-5.40) m/uL MCV (80.0-100.0) fL VBG pCO2 (37-51) mmHg VBG HCO3 (24-28) mmol/L Sodium 134 L (137-145) mmol/L Chloride (98-107) mmol/L BUN 30 H (7-17) mg/dL Creatinine 1.24 H (0.52-1.04) mg/dL Glucose (74-99) mg/dL POC Glucose (mg/dL) (70-110) mg/dL Total Protein (6.3-8.2) g/dL Albumin (3.5-5.0) g/dL
[2024-12-14 16:26] LABS: Glucose,Whole Blood 157 mg/dL (70-110)
[2024-12-14 20:36] LABS: Glucose,Whole Blood 107 mg/dL (70-110)
[2024-12-15] MEDS: NITROGLYCERIN SL TABS 0.4 MG TAB SUBLINGUAL PRN (04:31)
[2024-12-15 05:55] LABS: Glucose,Whole Blood 101 mg/dL (70-110)
[2024-12-15] MEDS: FAMOTIDINE 20 MG TAB PO SCH (08:04)
[2024-12-15 09:37] LABS: African American GFR (CKD) 82 (>60 ml/min/1.73 sqM); Anion Gap 4 mmol/L; Blood Urea Nitrogen 25 mg/dL (7-17); Calcium 8.4 mg/dL (8.4-10.2); Carbon Dioxide 29 mmol/L (22-30); Chloride 106 mmol/L (98-107); Glucose 140 mg/dL (74-99); Non-African American GFR(CKD) 71 (>60 ml/min/1.73 sqM); Potassium 4.2 mmol/L (3.5-5.1); Sodium 139 mmol/L (137-145)
--- NOTE | 2024-12-15 10:08 | P.PN ---
Subjective Progress Note Date: 12/15/24 Principal diagnosis: Right ankle fracture . Patient was seen at bedside this morning lying in the semirecumbent position with splint present to right lower extremity. Patient says she is looking forward to going to rehab later today. She says physical therapy has worked with her over the past couple days since being in the hospital. Patient says pain is controlled with oral medication. Patient denies any other complaints at this time. Objective - Vital Signs Vital signs: Vital Signs Temp 98.2 F 12/15/24 07:00 Pulse 64 12/15/24 07:00 Resp 17 12/15/24 07:00 BP 133/75 12/15/24 07:00 Pulse Ox 95 12/15/24 07:00 FiO2 Intake & Output 12/14/24 12/15/24 12/15/24 18:59 06:59 18:59 Other: Voiding Method Bedside Commode Bedpan Diaper Diaper Incontinent Incontinent # Voids 1 1 - Exam Splint present to the right lower extremity. Splint taken down. CAM Walker boot placed to right lower extremity. There is ecchymosis present along the right lateral malleolus and some of the medial malleolus. Positive for swelling to the right ankle and right foot. Patient is able to wiggle digits and right foot. Sensation is equal, symmetric, by intact throughout extremities on exam. Patient does have some tenderness to palpation over the right medial and lateral malleolus. Nontender on rest of exam. Patient does have limited range of motion of the right ankle/foot secondary to the injury and pain/stiffness. Pat ient does have full range of motion throughout the right knee in flexion/extension. And does have good range of motion throughout bilateral upper extremities and left lower extremity on exam. 4/5 in resisted right knee flexion/extension. 4+/5 in all other major motor groups in left lower extremity and bilateral upper extremities. Radial pulse intact, 2+ bilaterally. Cap refill under 3 seconds in digits of upper extremities. - Labs CBC & Chem 7: 12/14/24 09:28 12/15/24 09:14 Labs: Abnormal Lab Results - Last 24 Hours (Table) 12/14/24 12/14/24 12/14/24 Range/Units 09:28 09:28 09:28 RBC 3.52 L (3.80-5.40) m/uL MCV 102.7 H (80.0-100.0) fL VBG pCO2 52 H (37-51) mmHg VBG HCO3 30 H (24-28) mmol/L Sodium 133 L (137-145) mmol/L Chloride 97 L (98-107) mmol/L BUN 31 H (7-17) mg/dL Creatinine 1.31 H (0.52-1.04) mg/dL Glucose 104 H (74-99) mg/dL POC Glucose (mg/dL) (70-110) mg/dL Total Protein 5.7 L (6.3-8.2) g/dL Albumin 3.4 L (3.5-5.0) g/dL 12/14/24 12/14/24 Range/Units 11:35 16:24 RBC (3.80-5.40) m/uL MCV (80.0-100.0) fL VBG pCO2 (37-51) mmHg VBG HCO3 (24-28) mmol/L Sodium 134 L (137-145) mmol/L Chloride (98-107) mmol/L BUN 30 H (7-17) mg/dL Creatinine 1.24 H (0.52-1.04) mg/dL Glucose (74-99) mg/dL POC Glucose (mg/dL) 157 H (70-110) mg/dL Total Protein (6.3-8.2) g/dL Albumin (3.5-5.0) g/dL Assessment and Plan Assessment: 1. Right lateral malleolus fracture status post fall Plan: 1. Right lateral malleolus fracture -x-ray of the right ankle does reveal right lateral malleolus fracture. Negative for any dislocations. I discussed the findings of the imaging and exam with my attending, Dr. Gallardo. At this time we are recommending conservative measures with the use of pain medication and PT/OT. Patient to be nonweightbearing to the right lower extremity at this time. Splint on RLE taken down. CAM walker boot placed to RLE. PT/OT have assessed patient and are recommending discharge to [facility]. Continue daily with PT/OT. Remain nonweightbearing to the right lower extremity at this time. Discharge to rehab today. 2. Appreciate medical management 3. Pain management -[place]; gabapentin 4. DVT prophylaxis -Plavix; aspirin 5. GI prophylaxis -Pepcid 6. PT/OT -nonweightbearing right lower extremity 7. Encourage incentive spirometer use 8. Discharge planning - discharge to rehab today, 12/15/2024 Time with Patient: Less than 30
--- NOTE | 2024-12-15 11:17 | P.DS ---
Providers Date of admission: 12/12/24 12:26 Expected date of discharge: 12/15/24 Attending physician: Ady Gallardo Consults: 12/13/24 09:02 Consult Physician Routine Consulting Provider: Kylie Carmichael Consult Reason/Comments: Medical Management Do you want consulting provider notified?: Yes Primary care physician: Scooter Waters [facility] Course: Date of admission: 12/11/2024 Date of discharge: 12/15/2024 Admission diagnosis: Right ankle lateral malleolus fracture Discharge diagnosis: Same Attending physician: Dr. Gallardo Surgical procedures: None Brief history: Patient is a 79-year-old female with a history of right ankle lateral malleolus fracture. At this point we opted to proceed with conservative treatment measures with the use of splint and cam walker boot Hospital course: Patient's orthopeidc and medical care was provided daily. Patient had daily laboratory tests performed for evaluation of overall blood counts. Patient had daily physical therapy to include strengthening range of motion as well as education with walker ambulation. Patient was treated with aspirin for their postoperative DVT prophylaxis during their stay. Patient was noted to have a relatively uneventful hospital course. Patient showed satisfactory progress with physical therapy. Patient moved steadily through the program and had no difficulty meeting the goals. Given patient's otherwise satisfactory course and having met physical therapy goals, plan is to discharge patient to rehab. Discharge condition/disposition: Patient will be discharged to rehab in stable condition. Discharge medications: Instructions are given on resumption of patient's normal daily medications per primary care recommendation, in addition patient will be prescribed [place]; senna; aspirin. Discharge instructions: 1. Non-weight bearing with walker until follow-up. 2. Ice and elevate when necessary. Do not exceed 20 minutes per hour with ice pack. 3. Utilize CAM walker boot until seen at first follow up appointment. 4. Nursing care. 5. Physical therapy including home CPM. 6. Pain meds and anticoagulants per prescription. 7. Pain medication has potential to cause constipation. Increase oral fluid and fiber intake. Contact primary care provider if you have not had a bowel movement within 48 hours after discharge 8. No anti-inflammatory medication until discussed at first post operative visit, this including Motrin, Aleve, Mobic, Diclofenac. 9. Follow up in office at [address] Ady Gallardo. 10. Follow up with your primary care doctor 7-10 days after discharge. 11. Contact [facility] with any questions, . Assessment: Right ankle lateral malleolus fracture Procedures: None Patient Condition at Discharge: Good Plan - Discharge Summary Discharge Rx Participant: Yes New Discharge Prescriptions: New Aspirin 325 mg PO DAILY #14 tab Sennosides/Docusate Sodium [Senna Plus 8.6-50 mg Softgel] 1 each PO DAILY #20 capsule HYDROcodone/APAP 5-325MG [[place] 5-325] 1 tab PO Q6HR PRN #18 tab PRN Reason: Pain No Action Venlafaxine HCl ER [Effexor XR] 150 mg PO DAILY Montelukast [Singulair] 10 mg PO DAILY Acyclovir 400 mg PO BID Levothyroxine Sodium [Synthroid] 75 mcg PO DAILY metFORMIN HCL [Glucophage] 850 mg PO DAILY Fluticasone Propion/Salmeterol [Advair 100-50 Diskus] 1 puff INHALATION RT- BID Pioglitazone [Actos] 30 mg PO DAILY Pantoprazole [Protonix] 40 mg PO DAILY Gabapentin [Neurontin] 300 mg PO TID Nitroglycerin Sl Tabs [Nitrostat] 0.4 mg SUBLINGUAL Q5M PRN #25 tab PRN Reason: Chest Pain amLODIPine [Norvasc] 5 mg PO BID Famotidine [Pepcid] 20 mg PO BID Prochlorperazine [Compazine] 10 mg PO Q6H PRN PRN Reason: Nausea LORazepam [Ativan] 0.5 mg PO DAILY PRN PRN Reason: Anxiety Rosuvastatin Calcium 20 mg PO DAILY lisinopriL [Zestril] 10 mg PO DAILY #90 tab Discharge Medication List Montelukast [Singulair] 10 mg PO DAILY 11/11/15 [History] Venlafaxine HCl ER [Effexor XR] 150 mg PO DAILY 11/11/15 [History] Acyclovir 400 mg PO BID 04/28/19 [History] Levothyroxine Sodium [Synthroid] 75 mcg PO DAILY 04/28/19 [History] Fluticasone Propion/Salmeterol [Advair 100-50 Diskus] 1 puff INHALATION RT-BID 03/28/20 [History] Pioglitazone [Actos] 30 mg PO DAILY 03/28/20 [History] metFORMIN HCL [Glucophage] 850 mg PO DAILY 03/28/20 [History] Pantoprazole [Protonix] 40 mg PO DAILY 09/18/20 [History] Gabapentin [Neurontin] 300 mg PO TID 02/20/23 [History] LORazepam [Ativan] 0.5 mg PO DAILY PRN 02/20/23 [History] Prochlorperazine [Compazine] 10 mg PO Q6H PRN 02/20/23 [History] Rosuvastatin Calcium 20 mg PO DAILY 09/30/23 [History] Nitroglycerin Sl Tabs [Nitrostat] 0.4 mg SUBLINGUAL Q5M PRN #25 tab 10/06/23 [Rx] lisinopriL [Zestril] 10 mg PO DAILY #90 tab 10/06/23 [Rx] Famotidine [Pepcid] 20 mg PO BID 12/11/24 [History] amLODIPine [Norvasc] 5 mg PO BID 12/11/24 [History] Aspirin 325 mg PO DAILY #14 tab 12/15/24 [Rx] HYDROcodone/APAP 5-325MG [[place] 5-325] 1 tab PO Q6HR PRN #18 tab 12/15/24 [Rx] Sennosides/Docusate Sodium [Senna Plus 8.6-50 mg Softgel] 1 each PO DAILY #20 capsule 12/15/24 [Rx] Follow up Appointment(s)/Referral(s): Scooter Jefferson MD [Primary Care Provider] - 1-2 days Alek Abarca [NON-STAFF] - As Needed Ady Gallardo MD [STAFF PHYSICIAN] - 12/22/24 Patient Instructions/Handouts: Ankle Fracture (ED), Fall Prevention (ED) Activity/Diet/Wound Care/Special Instructions: Orthopedic Discharge Instructions: 1. Non weightbearing right lower extremity 2. Pain medication as needed 3. Follow up at [facility] per discharge paperwork Discharge Disposition: TRANSFER TO SNF/ECF
[2024-12-15 11:28] LABS: Glucose,Whole Blood 81 mg/dL (70-110)
--- NOTE | 2024-12-15 13:12 | P.PN ---
Subjective Progress Note Date: 12/15/24 Subjective: Patient was seen and examined and examined. Feeling much better, ankle pain improved, minimal confusion, lethargy Pertinent positives and negatives as discussed above, a complete review of systems was performed and all other systems are negative. Vitals Signs Reviewed. General: [nontoxic], [no distress], [appears at stated age], obese Derm: [warm], [dry] Head: [atraumatic], [normocephalic], [symmetric] Eyes: [EOMI], [no lid lag], [anicteric sclera] Mouth: [no lip lesion], [mucus membranes moist] Cardiovascular: [S1S2 reg], [no murmur] Lungs: [CTA bilateral], [no rhonchi, no rales] , [no accessory muscle use] Abdominal: [soft], [ nontender to palpation], [no guarding], [no appreciable organomegaly] Ext: [no gross muscle atrophy], [no edema], [no contractures], R ankle split Neuro: [ CN II-XI grossly intact], [no focal neuro deficits] Psych: [Alert], [oriented], [appropriate affect] Data Reviewed Today: Pertinent Labs: Creatinine normalized, sodium and potassium normal Assessment and Plan: Status post mechanical fall resulting in right lateral malleolus fracture -Orthopedics team following, pain management per primary team -PT OT recommend JL, pending placement, likely discharge on 12/15 -DVT prophylaxis with Plavix and aspirin. GI, on PPIs -Continue incentive spirometry -Bowel regimen RONALD likely secondary to decreased oral intake, resolved -Creatinine after fluid resuscitation, patient was educated to increase oral hydration -Cleared for discharge from IM standpoint Lethargia likely secondary to opioid overdose, responded to Narcan, resolved -Adjustments to opioid doses made, avoid IV opioids Type II [id number] diabetes mellitus:-Continue metformin for any signs of hypoglycemia. Hx of CVA with multiple embolic microinfarcts History of coronary artery disease COPD Hypertension Hyperlipidemia -Patient to continue daily medication regimen with amlodipine 5 mg twice daily, lisinopril 10, aspirin 81 mg daily, atorvastatin 40 mg daily, History of multiple myeloma -Patient to continue to follow up outpatient with field artillery basic/oncologist . -We will continue with acyclovir 400 mg twice daily -Oncology consult requested as patient's rehab facility needs a note stating that she does not need to receive chemotherapy during her rehabilitation Objective - Vital Signs Vital signs: Vital Signs Temp 98.2 F 12/15/24 07:00 Pulse 64 12/15/24 07:00 Resp 17 12/15/24 07:00 BP 133/75 12/15/24 07:00 Pulse Ox 95 12/15/24 07:00 FiO2 Intake & Output 12/14/24 12/15/24 12/15/24 18:59 06:59 18:59 Other: Voiding Method Bedside Commode Bedpan Bedpan Diaper Diaper Diaper Incontinent Incontinent # Voids 1 1 - Labs CBC & Chem 7: 12/14/24 09:28 12/15/24 09:14 Labs: Abnormal Lab Results - Last 24 Hours (Table) 12/14/24 12/15/24 Range/Units 16:24 09:14 BUN 25 H (7-17) mg/dL Glucose 140 H (74-99) mg/dL POC Glucose (mg/dL) 157 H (70-110) mg/dL
[2024-12-15] MEDS: polyethylene glycoL 3350 17 GM POWD.PACK PO SCH (14:12)
--- NOTE | 2024-12-15 15:23 | P.CONS ---
History of Present Illness - Reason for Consult Consult date: 12/15/24 clearance to hold treatment for MM while in rehab Requesting physician: Yanna Smith - Chief Complaint ankle fracture - History of Present Illness Mrs. Rashid is a pleasant pt of Dr. Faustin, well known to service, Hx of MM for many years, numerous treatments, currently on darzalex monthly and doing well. We are consulted to give clearance to hold treatment while in rehab. She has a fall with malleous fracture, conservative mgmt, going to rehab Review of Systems focused ROS is neg Past Medical History Past Medical History: Asthma, Cancer, Chest Pain / Angina, COPD, Diabetes Mellitus, GERD/Reflux, Hyperlipidemia, Hypertension, Osteoarthritis (OA), Thyroid Disorder Additional Past Medical History / Comment(s): Current itchy no rash , irregular heartbeat, hiatal hernia, hx ulcer, degenerative disk disease, psoriasis, multiple myeloma currently receiving chemo once a month with dr faustin, vertigo, states legs get tired and hurt, difficulty swallowing certain things needs to drink alot of fluid. rt leg swollen from bad knee. recent heaviness to chest for last 6 months. pt states that stents placed has made it worse. History of Any Multi-Drug Resistant Organisms: None Reported Past Surgical History: Breast Surgery, Cholecystectomy, Hysterectomy, Tonsillectomy Additional Past Surgical History / Comment(s): pain clinic procedures, surgery for tubal pregancy, left foot heel spurs, selena breast reduction, fatty tissue removed from rt leg, selena cataracts, autologous stem cell transplant, colono scopy. Past Anesthesia/Blood Transfusion Reactions: Motion Sickness Additional Past Anesthesia/Blood Transfusion Reaction / Comm: vertigo - current Past Psychological History: Depression Smoking Status: Former smoker Past Alcohol Use History: None Reported Additional Past Alcohol Use History / Comment(s): quit smoking approx 2006, smoked approx 35 yrs, 1ppd Past Drug Use History: None Reported - Past Family History Daughter(s) Family Medical History: Cancer Mother Family Medical History: Coronary Artery Disease (CAD) Father History Unknown: Yes Sister(s) Family Medical History: Cancer Additional Family Medical History / Comment(s): lung cancer Brother(s) Family Medical History: Dementia Medications and Allergies Home Medications Medication Instructions Recorded Confirmed Type Montelukast [Singulair] 10 mg PO DAILY 11/11/15 12/11/24 History Venlafaxine HCl ER [Effexor XR] 150 mg PO DAILY 11/11/15 12/11/24 History Acyclovir 400 mg PO BID 04/28/19 12/11/24 History Levothyroxine Sodium [Synthroid] 75 mcg PO DAILY 04/28/19 12/11/24 History Fluticasone Propion/Salmeterol 1 puff INHALATION RT-BID 03/28/20 12/11/24 History [Advair 100-50 Diskus] Pioglitazone [Actos] 30 mg PO DAILY 03/28/20 12/11/24 History metFORMIN HCL [Glucophage] 850 mg PO DAILY 03/28/20 12/11/24 History Pantoprazole [Protonix] 40 mg PO DAILY 09/18/20 12/11/24 History Gabapentin [Neurontin] 300 mg PO TID 02/20/23 12/11/24 History LORazepam [Ativan] 0.5 mg PO DAILY PRN 02/20/23 12/11/24 History Prochlorperazine [Compazine] 10 mg PO Q6H PRN 02/20/23 12/11/24 History Rosuvastatin Calcium 20 mg PO DAILY 09/30/23 12/11/24 History Nitroglycerin Sl Tabs [Nitrostat] 0.4 mg SUBLINGUAL Q5M PRN #25 tab 10/06/23 12/11/24 Rx lisinopriL [Zestril] 10 mg PO DAILY #90 tab 10/06/23 12/11/24 Rx Famotidine [Pepcid] 20 mg PO BID 12/11/24 12/11/24 History amLODIPine [Norvasc] 5 mg PO BID 12/11/24 12/11/24 History Aspirin 325 mg PO DAILY #14 tab 12/15/24 Rx HYDROcodone/APAP 5-325MG [Paul[place] 1 tab PO Q6HR PRN #18 tab 12/15/24 Rx 5-325] Sennosides/Docusate Sodium [Senna 1 each PO DAILY #20 capsule 12/15/24 Rx Plus 8.6-50 mg Softgel] Allergies Allergy/AdvReac Type Severity Reaction Status Date / Time iodine Allergy Rash/Hives Verified 12/11/24 10:27 Iodine and Iodide Containing Allergy Rash/Hives Verified 12/11/24 10:27 Produc Penicillins Allergy Anaphylaxis Verified 12/11/24 10:27 Sulfa (Sulfonamide Allergy Itching Verified 12/11/24 10:27 Antibiotics) Physical Exam Vitals: Vital Signs Temp Pulse Resp BP BP Pulse Ox 12/15/24 13:35 98.2 F 69 18 144/70 97 12/15/24 07:00 98.2 F 64 17 133/75 95 12/15/24 06:16 67 138/57 95 12/15/24 04:36 112/65 12/15/24 04:26 74 127/73 12/15/24 01:10 98.6 F 70 17 150/72 95 12/14/24 19:47 98.1 F 69 17 119/70 93 L Intake and Output 12/15/24 12/15/24 12/15/24 06:59 14:59 22:59 Other: Voiding Method Bedpan Diaper # Voids 1 - Constitutional General appearance: average body habitus, cooperative, no acute distress - EENT Eyes: anicteric sclerae, EOMI ENT: hearing grossly normal - Respiratory resp even and unlabored at rest - Cardiovascular skin warm well perfused - Integumentary Integumentary: normal - Neurologic Neurologic: CNII-XII intact - Psychiatric Psychiatric: A&O x's 3, appropriate affect, intact judgment & insight Results CBC & Chem 7: 12/14/24 09:28 12/15/24 09:14 Labs: Abnormal Lab Results - Last 24 Hours (Table) 12/14/24 12/15/24 Range/Units 16:24 09:14 BUN 25 H (7-17) mg/dL Glucose 140 H (74-99) mg/dL POC Glucose (mg/dL) 157 H (70-110) mg/dL Assessment and Plan (1) Multiple myeloma Current Visit: No Status: Chronic Priority: Medium Code(s): C90.00 - MULTIPLE MYELOMA NOT HAVING ACHIEVED REMISSION SNOMED Code(s): 464365391 Plan: Multiple myeloma -current on her treatment with monthly darzalex injection, tolerating well -CBC normal, renal function back to baseline since admit, calcium normal -she is ok to hold treatment for MM until she is discharged from rehab. Attests: I have seen and examined pt, performed H&P developed impression and plan of care. Discussed with dictator. Agree with documentation, dictated as a scribe
[2024-12-15 16:25] LABS: Glucose,Whole Blood 85 mg/dL (70-110)
[2024-12-15 21:14] LABS: Glucose,Whole Blood 92 mg/dL (70-110)
[2024-12-15] MEDS: HYDROcodone/APAP 5-325MG 1 EACH TAB PO PRN (22:03)
[2024-12-16 06:10] LABS: Glucose,Whole Blood 72 mg/dL (70-110)
[2024-12-16 08:26] VITALS: BP 148/75; PULSE 76; RESP 20; TEMP 99.6
[2024-12-16 11:20] LABS: Glucose,Whole Blood 82 mg/dL (70-110)
--- NOTE | 2024-12-16 11:44 | P.PN ---
Subjective Progress Note Date: 12/16/24 Subjective: Patient was seen and examined and examined. Feeling much better, ankle pain improved, no confusion or lethargy Pertinent positives and negatives as discussed above, a complete review of systems was performed and all other systems are negative. Vitals Signs Reviewed. General: [nontoxic], [no distress], [appears at stated age], obese Derm: [warm], [dry] Head: [atraumatic], [normocephalic], [symmetric] Eyes: [EOMI], [no lid lag], [anicteric sclera] Mouth: [no lip lesion], [mucus membranes moist] Cardiovascular: [S1S2 reg], [no murmur] Lungs: [CTA bilateral], [no rhonchi, no rales] , [no accessory muscle use] Abdominal: [soft], [ nontender to palpation], [no guarding], [no appreciable organomegaly] Ext: [no gross muscle atrophy], [no edema], [no contractures], R ankle split Neuro: [ CN II-XI grossly intact], [no focal neuro deficits] Psych: [Alert], [oriented], [appropriate affect] Data Reviewed Today: Pertinent Labs: Creatinine normalized, sodium and potassium normal Assessment and Plan: Status post mechanical fall resulting in right lateral malleolus fracture -Orthopedics team following, pain management per primary team -PT OT recommend JL, pending placement, likely discharge on 12/16 -DVT prophylaxis with Plavix and aspirin. GI, on PPIs -Continue incentive spirometry -Bowel regimen RONALD likely secondary to decreased oral intake, resolved -Creatinine after fluid resuscitation, patient was educated to increase oral hydration -Cleared for discharge from IM standpoint Lethargia likely secondary to opioid overdose, responded to Narcan, resolved -Adjustments to opioid doses made, avoid IV opioids Type II [id number] diabetes mellitus:-Continue metformin for any signs of hypoglycemia. 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 -We will continue with acyclovir 400 mg twice daily -Oncology consult requested as patient's rehab facility needs a note stating that she does not need to receive chemotherapy during her rehabilitation Objective - Vital Signs Vital signs: Vital Signs Temp 99.6 F 12/16/24 07:17 Pulse 76 12/16/24 07:17 Resp 20 12/16/24 07:17 BP 148/75 12/16/24 07:17 Pulse Ox 92 L 12/16/24 07:17 FiO2 Intake & Output 12/15/24 12/16/24 12/16/24 18:59 06:59 18:59 Other: Voiding Method Bedpan Bedside Commode Bedside Commode Diaper Diaper Incontinent # Voids 4 4 1 # Bowel Movements 1 - Labs CBC & Chem 7: 12/14/24 09:28 12/15/24 09:14
== END 2024-12-16 12:26 | DRG 563 ==
LOC: EC 23:14 → 4SSUR 12-11 00:42 → OBSVTOIN 12-12 12:26
PROVIDERS: ADMIT Orthopaedic Surgery; ATTEND Orthopaedic Surgery
DX: S82.61XA Displaced fracture of lateral malleolus of right fibula, initial encounter for closed fracture (principal); C90.00 Multiple myeloma not having achieved remission; Z94.84 Stem cells transplant status; F32.A Depression, unspecified; I10 Essential (primary) hypertension; E11.9 Type 2 diabetes mellitus without complications; J44.9 Chronic obstructive pulmonary disease, unspecified; N17.9 Acute kidney failure, unspecified; E78.5 Hyperlipidemia, unspecified; I25.10 Atherosclerotic heart disease of native coronary artery without angina pectoris; W00.0XXA Fall on same level due to ice and snow, initial encounter; S60.511A Abrasion of right hand, initial encounter; Z79.02 Long term (current) use of antithrombotics/antiplatelets; Z79.1 Long term (current) use of non-steroidal anti-inflammatories (NSAID); Z79.82 Long term (current) use of aspirin; Z79.84 Long term (current) use of oral hypoglycemic drugs; Z79.890 Hormone replacement therapy; Z79.899 Other long term (current) drug therapy; Z86.73 Personal history of transient ischemic attack (TIA), and cerebral infarction without residual deficits; Z87.891 Personal history of nicotine dependence; Z79.60 Long term (current) use of unspecified immunomodulators and immunosuppressants
CPT/HCPCS: 80048; 80053; 82140; 82803; 84443; 85025; 90471; 90715; 94640; 96374; 99285

== ENCOUNTER → 2025-02-09 | Outpatient (CLI) | payer MEDICARE, OTHER ==
--- NOTE | 2025-02-11 11:02 | PE ---
EXAMINATION TYPE: PET CT fusion skull to thigh DATE OF EXAM: 02/09/2025 CLINICAL INDICATION:Female, 79 years old with history of C90.00 MULTIPLE MYLEOMA; TECHNIQUE: Following the intravenous administration of 9.72 mCi of F-18 FDG, whole body images are performed from the skull base to the Mid thigh. Images are reviewed on the computer in the coronal, axial, and sagittal planes. Reconstructed rotating images are created on independent workstation and reviewed on the computer. A non-contrast CT is performed in conjunction with the PET scan. Glucose level 147 mg/dL CT DLP: 911.24 mGycm, Automated exposure control for dose reduction was used. COMPARISON: CT 10/12/2023, PET/CT 06/19/2023, MRI: None FINDINGS: Mediastinal SUV mean is 2.49. Hepatic parenchyma SUV mean is 3.7. SKULL BASE AND NECK: No suspicious radiotracer activity. CHEST, MEDIASTINUM, AND HILAR REGION: No suspicious radiotracer activity. ABDOMEN AND PELVIS: No suspicious radiotracer activity. MUSCULOSKELETAL STRUCTURES: * No suspicious radiotracer activity. * Physiologic uptake along the lower right shoulder max SUV 4.9 * Degeneration changes of the left glenohumeral joint max SUV 3.2. OTHER CT: Cardiomegaly redemonstrated. Coronary artery atherosclerosis is again seen. Colonic diverti culosis. Uterus surgically absent. Multilevel degeneration changes of the spine. 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 IMPRESSION: No suspicious radiotracer activity. [facility], , 02/11/2025 10:59 AM
== END | disposition home or self-care (01) ==
LOC: RADPETMAIN 08:43
PROVIDERS: ATTEND Internal Medicine Hematology & Oncology
DX: C90.00 Multiple myeloma not having achieved remission (principal); K57.30 Diverticulosis of large intestine without perforation or abscess without bleeding; I25.10 Atherosclerotic heart disease of native coronary artery without angina pectoris
CPT/HCPCS: 78815; A9552

== ENCOUNTER 2025-05-22 13:40 | Emergency (ER) | payer MEDICARE, OTHER ==
[2025-05-22 13:51] VITALS: TEMP 98.1
--- NOTE | 2025-05-22 15:19 | ED ---
General Adult HPI - General Source: patient, RN notes reviewed Mode of arrival: wheelchair Limitations: no limitations <Nicole Lincoln - Last Filed: 05/22/25 15:18> - General Source: patient, RN notes reviewed, old records reviewed Mode of arrival: wheelchair Limitations: no limitations - History of Present Illness -: days(s) Location: left Radiation: abdomen, flank Severity scale (1-10): 5 Quality: aching Consistency: constant Improves with: none Worsens with: none Associated Symptoms: denies other symptoms <Kahlil Mackenzie - Last Filed: 05/22/25 20:46> - General Chief complaint: Back Pain/Injury Stated complaint: Mid-Low Back Pain Time Seen by Provider: 05/22/25 15:18 - History of Present Illness Initial comments: Quick note: 79-year-old female presented the ER for evaluation of left flank pain. She states has been ongoing for the past couple of weeks increasing in the past couple days. Patient reports she has decreased urination stating it has been "for hours" since her last urination. She also admits to dysuria. No change in bowel movements. Unsure of fevers. She denies any history of kidney stones or kidney disease. Patient states in March she underwent kidney ultrasound with . (Nicole Lincoln) This is a 79-year-old female to ER for left flank pain left-sided abdominal pain and decreased urination. No fevers no nausea no vomiting no other complaints (Kahlil Mackenzie) - Related Data Home Medications Medication Instructions Recorded Confirmed Montelukast [Singulair] 10 mg PO DAILY 11/11/15 12/11/24 Venlafaxine HCl ER [Effexor XR] 150 mg PO DAILY 11/11/15 12/11/24 Acyclovir 400 mg PO BID 04/28/19 12/11/24 Levothyroxine Sodium [Synthroid] 75 mcg PO DAILY 04/28/19 12/11/24 Fluticasone Propion/Salmeterol 1 puff INHALATION RT-BID 03/28/20 12/11/24 [Advair 100-50 Diskus] Pioglitazone [Actos] 30 mg PO DAILY 03/28/20 12/11/24 metFORMIN HCL [Glucophage] 850 mg PO DAILY 03/28/20 12/11/24 Pantoprazole [Protonix] 40 mg PO DAILY 09/18/20 12/11/24 Gabapentin [Neurontin] 300 mg PO TID 02/20/23 12/11/24 LORazepam [Ativan] 0.5 mg PO DAILY PRN 02/20/23 12/11/24 Prochlorperazine [Compazine] 10 mg PO Q6H PRN 02/20/23 12/11/24 Rosuvastatin Calcium 20 mg PO DAILY 09/30/23 12/11/24 Famotidine [Pepcid] 20 mg PO BID 12/11/24 12/11/24 amLODIPine [Norvasc] 5 mg PO BID 12/11/24 12/11/24 Previous Rx's Medication Instructions Recorded Nitroglycerin Sl Tabs [Nitrostat] 0.4 mg SUBLINGUAL Q5M PRN #25 tab 10/06/23 lisinopriL [Zestril] 10 mg PO DAILY #90 tab 10/06/23 Aspirin 325 mg PO DAILY #14 tab 12/15/24 Cholecalciferol [Vitamin D3 (125 125 mcg PO DAILY #30 tab 12/15/24 Mcg = 5000 Iu)] HYDROcodone/APAP 5-325MG [[place] 1 tab PO Q6HR PRN #18 tab 12/15/24 5-325] Sennosides/Docusate Sodium [Senna 1 each PO DAILY #20 capsule 12/15/24 Plus 8.6-50 mg Softgel] Cephalexin [Keflex] 500 mg PO TID #21 cap 05/22/25 Allergies Allergy/AdvReac Type Severity Reaction Status Date / Time iodine Allergy Rash/Hives Verified 05/22/25 13:51 Iodine and Iodide Containing Allergy Rash/Hives Verified 05/22/25 13:51 Produc Penicillins Allergy Anaphylaxis Verified 05/22/25 13:51 Sulfa (Sulfonamide Allergy Itching Verified 05/22/25 13:51 Antibiotics) Review of Systems ROS Other: All systems not noted in ROS Statement are negative. <Nicole Lincoln - Last Filed: 05/22/25 15:18> ROS Other: All systems not noted in ROS Statement are negative. <Kahlil Mackenzie - Last Filed: 05/22/25 20:46> ROS Statement: Those systems with pertinent positive or pertinent negative responses have been documented in the HPI. Past Medical History Past Medical History: Asthma, Cancer, Chest Pain / Angina, COPD, Diabetes Mellitus, GERD/Reflux, Hyperlipidemia, Hypertension, Osteoarthritis (OA), Thyroid Disorder Additional Past Medical History / Comment(s): Current itchy no rash , irregular heartbeat, hiatal hernia, hx ulcer, degenerative disk disease, psoriasis, multiple myeloma currently receiving chemo once a months with dr faustin, vertigo, states legs get tired and hurt, difficulty swallowing certain things needs to drink alot of fluid. rt leg swollen from bad knee. recent heaviness to chest for last 6 months History of Any Multi-Drug Resistant Organisms: None Reported Past Surgical History: Breast Surgery, Cholecystectomy, Hysterectomy, Tonsillectomy Additional Past Surgical History / Comment(s): pain clinic procedures, surgery for tubal pregancy, left foot heel spurs, selena breast reduction, fatty tissue removed from rt leg, selena cataracts, autologous stem cell transplant, colonoscopy, Past Anesthesia/Blood Transfusion Reactions: Motion Sickness Additional Past Anesthesia/Blood Transfusion Reaction / Comment(s): vertigo - current Past Psychological History: Depression Smoking Status: Former smoker - Past Family History Daughter(s) Family Medical History: Cancer Mother Family Medical History: Coronary Artery Disease (CAD) Father History Unknown: Yes Sister(s) Family Medical History: Cancer Additional Family Medical History / Comment(s): lung cancer Brother(s) Family Medical History: Dementia <Nicole Lincoln - Last Filed: 05/22/25 15:18> General Exam Limitations: no limitations <Nicole Lincoln - Last Filed: 05/22/25 15:18> General appearance: alert, in no apparent distress Head exam: Present: atraumatic, normocephalic, normal inspection Eye exam: Present: normal appearance, PERRL, EOMI. Absent: scleral icterus, conjunctival injection, periorbital swelling ENT exam: Present: normal exam, mucous membranes moist Neck exam: Present: normal inspection. Absent: tenderness, meningismus, lymphadenopathy Respiratory exam: Present: normal lung sounds bilaterally. Absent: respiratory distress, wheezes, rales, rhonchi, stridor Cardiovascular Exam: Present: regular rate, normal rhythm, normal heart sounds. Absent: systolic murmur, diastolic murmur, rubs, gallop, clicks GI/Abdominal exam: Present: soft, normal bowel sounds. Absent: distended, tenderness, guarding, rebound, rigid Extremities exam: Present: normal inspection, full ROM, normal capillary refill. Absent: tenderness, pedal edema, joint swelling, calf tenderness Back exam: Present: normal inspection Neurological exam: Present: alert, oriented X3, CN II-XII intact Psychiatric exam: Present: normal affect, normal mood Skin exam: Present: warm, dry, intact, normal color. Absent: rash <Kahlil Mackenzie - Last Filed: 05/22/25 20:46> - General Exam Comments Initial Comments: Visual Physical Exam Vital signs reviewed General: Well-appearing, nontoxic, no acute distress. Head: Normocephalic, atraumatic Eyes: PERRLA, EOMI ENT: Airway patent Chest: Nonlabored breathing Skin: No visual rash, normal skin tone Neuro: Alert and oriented 3 Musculoskeletal: No gross abnormalities (Nicole Lincoln) Course <Kahlil Mackenzie - Last Filed: 05/22/25 20:46> Vital Signs 05/22/25 05/22/25 13:48 18:58 Temperature 98.1 F 98.1 F Pulse Rate 52 L 59 L Respiratory 16 18 Rate Blood Pressure 90/59 104/67 O2 Sat by Pulse 95 98 Oximetry - Reevaluation(s) Reevaluation #1: 05/22/25 20:45 Medical records reviewed (Kahlil Mackenzie) Reevaluation #2: 05/22/25 20:46 Patient symptoms improved (Kahlil Mackenzie) Reevaluation #3: 05/22/25 20:46 Patient informed of results and questions answered (Kahlil Mackenzie) Reevaluation #4: Was pt. sent in by a medical professional or institution (, PA, DAIRY WORKER, urgent care, hospital, or snf...) When possible be specific @ -no Did you speak to anyone other than the patient for history (EMS, parent, family, police, friend...)? What history was obtained from this source @ -no Did you review nursing and triage notes (agree or disagree)? Why? @ -agree Are old charts reviewed (outside hosp., previous admission, EMS record, old EKG, old radiological studies, urgent care reports/EKG's, snf records)? Report findings @ -yes Differential Diagnosis (chest pain, altered mental status, abdominal pain women, abdominal pain men, vaginal bleeding, weakness, fever, dyspnea, syncope, headache, dizziness, GI bleed, back pain, seizure, CVA, palpatations, mental health, musculoskeletal)? @ -prior EKG interpreted by me (3pts min.). @ -yes X-rays interpreted by me (1pt min.). @ -yes negative for acute disease CT interpreted by me (1pt min.). @ -no U/S interpreted by me (1pt. min.). @ -no What testing was considered but not performed or refused? (CT, X-rays, U/S, labs)? Why? @ -none What meds were considered but not given or refused? Why? @ -none Did you discuss the management of the patient with other professionals (professionals i.e. , PA, DAIRY WORKER, lab, RT, psych nurse, social services manager, senior research engineer, teacher, grant officer, major case detective)? Give summary @ -no Was smoking cessation discussed for >3mins.? @ -no Was critical care preformed (if so, how long)? @ -no Were there social determinants of health that impacted care today? How? (Homelessness, low income, unemployed, alcoholism, drug addiction, transportation, low edu. Level, literacy, decrease access to med. care, [facility], rehab)? @ -none Was there de-escalation of care discussed even if they declined (Discuss DNR or withdrawal of care, Hospice)? DNR status @ -no What co-morbidities impacted this encounter? (DM, HTN, Smoking, COPD, CAD, Cancer, CVA, ARF, Chemo, Hep., AIDS, mental health diagnosis, sleep apnea, morbid obesity)? @ -none Was patient admitted / discharged? Hospital course, mention meds given and route, prescriptions, significant lab abnormalities, going to OR and other pertinent info. @ - Undiagnosed new problem with uncertain prognosis? @ -no Drug Therapy requiring intensive monitoring for toxicity (Heparin, Nitro, Insulin, Cardizem)? @ -no Were any procedures done? @ -no Diagnosis/symptom? @ - Acute, or Chronic, or Acute on Chronic? @ -Acute Uncomplicated (without systemic symptoms) or Complicated (systemic symptoms)? @ -Complicated Side effects of treatment? @ -no Exacerbation, Progression, or Severe Exacerbation? @ -exacerbation Poses a threat to life or bodily function? How? (Chest pain, [place], [place], pneumonia, PE, COPD, DKA, ARF, appy, cholecystitis, CVA, Diverticulitis, Homicidal, Suicidal, threat to staff... and all critical care pts) @ -yes (Kahlil Mackenzie) Reevaluation #5: Differential Abdominal Pain Women: Appendicitis, Cholecystitis, diverticulosis, ischemic bowel, pancreatitis, hepat itis, UTI, gastroenteritis, AAA, incarcerated hernia, bowel obstruction, constipation, inflammatory bowel, hepatitis, peptic ulcer disease, splenic infarction, perforated viscus, vulvitis, ovarian torsion, PID, kidney stone, placenta abruption, this is not meant to be an all-inclusive list (Kahlil Mackenzie) Medical Decision Making <Nicole Lincoln - Last Filed: 05/22/25 15:18> - Lab Data Result diagrams: 05/22/25 16:05 05/22/25 16:05 - Radiology Data Radiology results: report reviewed (CT of the abdomen and pelvis negative for acute disease), image reviewed <Kahlil Mackenzie - Last Filed: 05/22/25 20:46> - Medical Decision Making I performed the quick note portion of this chart. Electronically signed by Nicole Lincoln PA-C (Nicole Lincoln) 79 female to ER with left flank pain left-sided abdominal pain UTI with pyelonephritis likely, patient has normal CT scan here in the otherwise normal lab testing patient can be discharged home (Kahlil Mackenzie) - Lab Data Lab Results 05/22/25 05/22/25 05/22/25 Range/Units 16:05 16:05 16:05 WBC 9.03 (4.50-10.00) 10*3/uL RBC 3.74 L (4.10-5.20) 10*6/uL Hgb 12.3 (12.0-15.0) g/dL Hct 37.2 (37.2-46.3) % MCV 99.5 H (80.0-97.0) fL MCH 32.9 H (27.0-32.0) pg MCHC 33.1 (32.0-37.0) g/dL Plt Count 200 (140-440) 10*3/uL MPV 10.5 (9.5-12.2) fL Immature Gran % (Auto) 0.2 % Neutrophils % 48.3 % Lymphocytes % 41.5 % Monocytes % 5.6 % Eosinophils % 4.0 % Basophils % 0.4 % Immature Gran # 0.02 (0.00-0.04) 10*3/uL Neutrophils # 4.35 (1.80-7.70) 10*3/uL Lymphocytes # 3.75 (0.90-5.00) 10*3/uL Monocytes # 0.51 (0.20-1.00) 10*3/uL Eosinophils # 0.36 H (0.04-0.35) 10*3/uL Basophils # 0.04 (0.00-0.10) 10*3/uL Sodium 138 (137-145) mmol/L Potassium 4.9 (3.5-5.1) mmol/L Chloride 103 (98-107) mmol/L Carbon Dioxide 27 (22-30) mmol/L Anion Gap 8 mmol/L BUN 28 H (7-17) mg/dL Creatinine 1.18 H (0.52-1.04) mg/dL Est GFR (CKD-EPI)AfAm 51 (>60 ml/min/1.73 sqM) Est GFR (CKD-EPI)NonAf 44 (>60 ml/min/1.73 sqM) Glucose 110 H (74-99) mg/dL Plasma Lactic Acid Gurpreet 1.9 (0.7-2.0) mmol/L Calcium 8.9 (8.4-10.2) mg/dL Total Bilirubin 0.5 (0.2-1.3) mg/dL AST 17 (14-36) U/L ALT 14 (4-34) U/L Alkaline Phosphatase 89 (38-126) U/L Total Protein 6.4 (6.3-8.2) g/dL Albumin 3.9 (3.5-5.0) g/dL Urine Color Urine Appearance (Clear) Urine pH (5.0-8.0) Ur Specific [place] (1.001-1.035) Urine Protein (Negative) Urine Glucose (UA) (Negative) Urine Ketones (Negative) Urine Blood (Negative) Urine Nitrite (Negative) Urine Bilirubin (Negative) Urine Urobilinogen (<2.0) mg/dL Ur Leukocyte Esterase (Negative) Urine RBC (0-5) /hpf Urine WBC (0-5) /hpf Ur Squamous Epith Cells (0-4) /hpf Urine Bacteria (None) /hpf Hyaline Casts (0-2) /lpf Urine Mucus (None) /hpf 05/22/25 Range/Units 17:28 WBC (4.50-10.00) 10*3/uL RBC (4.10-5.20) 10*6/uL Hgb (12.0-15.0) g/dL Hct (37.2-46.3) % MCV (80.0-97.0) fL MCH (27.0-32.0) pg MCHC (32.0-37.0) g/dL Plt Count (140-440) 10*3/uL MPV (9.5-12.2) fL Immature Gran % (Auto) % Neutrophils % % Lymphocytes % % Monocytes % % Eosinophils % % Basophils % % Immature Gran # (0.00-0.04) 10*3/uL Neutrophils # (1.80-7.70) 10*3/uL Lymphocytes # (0.90-5.00) 10*3/uL Monocytes # (0.20-1.00) 10*3/uL Eosinophils # (0.04-0.35) 10*3/uL Basophils # (0.00-0.10) 10*3/uL Sodium (137-145) mmol/L Potassium (3.5-5.1) mmol/L Chloride (98-107) mmol/L Carbon Dioxide (22-30) mmol/L Anion Gap mmol/L BUN (7-17) mg/dL Creatinine (0.52-1.04) mg/dL Est GFR (CKD-EPI)AfAm (>60 ml/min/1.73 sqM) Est GFR (CKD-EPI)NonAf (>60 ml/min/1.73 sqM) Glucose (74-99) mg/dL Plasma Lactic Acid Gurpreet (0.7-2.0) mmol/L Calcium (8.4-10.2) mg/dL Total Bilirubin (0.2-1.3) mg/dL AST (14-36) U/L ALT (4-34) U/L Alkaline Phosphatase (38-126) U/L Total Protein (6.3-8.2) g/dL Albumin (3.5-5.0) g/dL Urine Color Yellow Urine Appearance Turbid H (Clear) Urine pH 5.5 (5.0-8.0) Ur Specific [place] 1.017 (1.001-1.035) Urine Protein Trace H (Negative) Urine Glucose (UA) Negative (Negative) Urine Ketones Negative (Negative) Urine Blood Negative (Negative) Urine Nitrite Positive H (Negative) Urine Bilirubin Negative (Negative) Urine Urobilinogen <2.0 (<2.0) mg/dL Ur Leukocyte Esterase Moderate H (Negative) Urine RBC 2 (0-5) /hpf Urine WBC 21 H (0-5) /hpf Ur Squamous Epith Cells 19 H (0-4) /hpf Urine Bacteria Many H (None) /hpf Hyaline Casts 2 (0-2) /lpf Urine Mucus Occasional H (None) /hpf Disposition <Nicole Lincoln - Last Filed: 05/22/25 15:18> Is patient prescribed a controlled substance at d/c from ED?: No Time of Disposition: 18:40 <Kahlil Mackenzie - Last Filed: 05/22/25 20:46> Clinical Impression: UTI (urinary tract infection) Disposition: HOME SELF-CARE Condition: Good Instructions (If sedation given, give patient instructions): Urinary Tract Infection in Women (ED) Prescriptions: Cephalexin [Keflex] 500 mg PO TID #21 cap Referrals: Scooter Jefferson MD [Primary Care Provider] - 1-2 days
[2025-05-22 16:08] LABS: Basophils # (A) 0.04 10*3/uL (0.00-0.10); Basophils % (A) 0.4 %; Eosinophils # (A) 0.36 10*3/uL (0.04-0.35); HCT 37.2 % (37.2-46.3); HGB 12.3 g/dL (12.0-15.0); Lymphocytes # (A) 3.75 10*3/uL (0.90-5.00); Lymphocytes % (A) 41.5 %; MCH 32.9 pg (27.0-32.0); MCHC 33.1 g/dL (32.0-37.0); MCV 99.5 fL (80.0-97.0); Mean Platelet Volume 10.5 fL (9.5-12.2); Monocytes # (A) 0.51 10*3/uL (0.20-1.00); Monocytes % (A) 5.6 %; Neutrophils # (A) 4.35 10*3/uL (1.80-7.70); Neutrophils % (A) 48.3 %; Platelet Count 200 10*3/uL (140-440); RBC 3.74 10*6/uL (4.10-5.20); RDW 15.3 % (11.5-14.5); WBC 9.03 10*3/uL (4.50-10.00)
[2025-05-22 16:31] LABS: ALT 14 U/L (4-34); AST 17 U/L (14-36); African American GFR (CKD) 51 (>60 ml/min/1.73 sqM); Albumin 3.9 g/dL (3.5-5.0); Alkaline Phosphatase 89 U/L (38-126); Anion Gap 8 mmol/L; Blood Urea Nitrogen 28 mg/dL (7-17); Calcium 8.9 mg/dL (8.4-10.2); Carbon Dioxide 27 mmol/L (22-30); Chloride 103 mmol/L (98-107); Glucose 110 mg/dL (74-99); Non-African American GFR(CKD) 44 (>60 ml/min/1.73 sqM); Potassium 4.9 mmol/L (3.5-5.1); Sodium 138 mmol/L (137-145); Total Bilirubin 0.5 mg/dL (0.2-1.3); Total Protein 6.4 g/dL (6.3-8.2)
[2025-05-22 18:02] LABS: Appearance,Urine Turbid (Clear); Bacteria,Urine Many /hpf; Bilirubin,Urine Negative (Negative); Blood,Urine Negative (Negative); Color,Urine Yellow; Glucose,Urine (UA) Negative (Negative); Hyaline Casts,Urine 2 /lpf (0-2); Ketones,Urine Negative (Negative); Leukocyte Esterase,Urine Moderate (Negative); Mucus,Urine Occasional /hpf; Nitrite,Urine Positive (Negative); PH, Urine 5.5 (5.0-8.0); Protein,Urine Trace (Negative); RBC,Urine 2 /hpf (0-5); Specific Gravity,Urine 1.017 (1.001-1.035); Squamous Epithelial Cell,Urine 19 /hpf (0-4); Urobilinogen,Urine <2.0 mg/dL (<2.0); WBC,Urine 21 /hpf (0-5)
--- NOTE | 2025-05-22 18:19 | CT ---
EXAMINATION TYPE: CT abdomen pelvis wo con CT DLP: 804.9 mGycm, Automated exposure control for dose reduction was used. DATE OF EXAM: 05/22/2025 5:44 PM COMPARISON: PET/CT 02/09/2025 CLINICAL INDICATION:Female, 79 years old with history of pain; left flank pain TECHNIQUE: Standard CT of the abdomen and pelvis without IV or oral contrast. Lack of IV or oral co ntrast limits evaluation of solid and hollow organ viscera. Coronal and sagittal reformats were perfo rmed. FINDINGS: LOWER CHEST: Visualized lung bases are clear. Mild RCA calcifications. ABDOMEN LIVER: Unremarkable noncontrast appearance. GALLBLADDER AND BILE DUCTS: Unremarkable noncontrast appearance. PANCREAS: Unremarkable noncontrast appearance. SPLEEN: Unremarkable noncontrast appearance. ADRENAL GLANDS: Unremarkable noncontrast appearance.. KIDNEYS AND URETERS: No evidence of hydronephrosis or renal calculus. The ureters are unremarkable. PELVIS BLADDER: Incompletely distended but grossly unremarkable. REPRODUCTIVE: The uterus is surgically absent. ABDOMEN & PELVIS STOMACH AND BOWEL: Small hiatal hernia, duodenum is unremarkable. Scattered distal colonic diverticul osis without evidence for acute diverticulitis. No focal bowel wall thickening or surrounding inflamm atory changes. The appendix is not identified. No evidence of bowel obstruction. PERITONEUM: No evidence of pneumoperitoneum or free fluid. VASCULATURE: Mild to moderate atherosclerotic calcifications are present throughout the abdominal aor ta and its branches. No evidence of aortic aneurysm. MUSCULOSKELETAL: No acute osseous abnormalities. Moderate disc degeneration changes are present throu ghout the thoracolumbar spine. Minimal S-shaped scoliotic curvature of the thoracolumbar spine. No ag gressive osseous lesions. LYMPH NODES: No gross evidence for lymphadenopathy. SOFT TISSUE/ABDOMINAL WALL: Unremarkable IMPRESSION: 1. No CT evidence for acute abdominal/pelvic process within limitations of a noncontrast exam. 2. Distal colonic diverticulosis without evidence for acute diverticulitis. [facility], , 05/22/2025 6:16 PM
[2025-05-22] MEDS: KETOROLAC 15 MG/ML 1 ML VIAL IVP STA (18:59)
[2025-05-22] MEDS: traMADol 50 MG STARTER PACK 3 TAB BTL PO STA (19:01)
[2025-05-22] MEDS: traMADol 50 MG TAB PO STA (19:02)
[2025-05-22] MEDS: cefTRIAXone IN SWFI 1,000 MG/10 ML SYRINGE IVP STA (19:04)
[2025-05-22 19:05] VITALS: BP 104/67; PULSE 59; RESP 18
== END 2025-05-22 19:14 | disposition home or self-care (01) ==
LOC: EC 13:40
DX: N39.0 Urinary tract infection, site not specified (principal); Z87.891 Personal history of nicotine dependence; Z88.0 Allergy status to penicillin; Z88.1 Allergy status to other antibiotic agents; Z88.2 Allergy status to sulfonamides; Z88.8 Allergy status to other drugs, medicaments and biological substances
CPT/HCPCS: 36415; 80053; 83605; 85025; 81001; 87086; 74176; 99284; 96374; 96375; J0696; J1885